=== PATIENT | female | born 2000 | race Caucasian/White ===

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

== ENCOUNTER 2019-09-23 00:18 | Emergency (ER) | payer SELFPAY ==
[~2019-09-23] VITALS: Ht 160 cm; Wt 87.0 kg
[2019-09-23] MEDS ORDERED: TRIM/SULFAMETH 160/800 (SEPTRA DS) TAB PO STA (01:54)
--- NOTE | 2019-09-23 02:01 | ED Integumentary General ---
General Chief Complaint: Skin/Wound Problems Stated Complaint: RASH Source: patient Exam Limitations: no limitations History of Present Illness Date Seen by Provider: Sep 23, 2019 Time Seen by Provider: 01:43 Initial Comments Here with report of rash to the right armpit in the posterior aspect. It started as one spot that has progressed to multiple spots along the posterior aspect. No abscess noted. No fever or chills. She states she uses deodorant and it's been the same one that she always uses. Timing/Duration: week, getting worse Severity: moderate Location: extremities Possible Cause: no cause identified Associated Symptoms: change in skin texture, rash Allergies and Home Medications Allergies Coded Allergies: sumatriptan (Verified Allergy, Unknown, 09/15/18) sumatriptan succinate (Verified Allergy, Unknown, 09/15/18) Patient Home Medication List Home Medication List Reviewed: Yes Review of Systems Review of Systems Constitutional: see HPI Respiratory: no symptoms reported Cardiovascular: no symptoms reported Skin: see HPI, change in color, lesions Past [id number] Hx Past Med/Social Hx: Reviewed Nursing Past Med/Soc Hx Patient Social History Alcohol Use: Denies Use Recreational Drug Use: No Smoking Status: Never a Smoker Recent Foreign Travel: No Contact w/Someone Who Travel: No Recent Hopitalizations: No Immunizations Up To Date Tetanus Booster (TDap): Less than 5yrs PED Vaccines UTD: Yes Date of Influenza Vaccine: Jun 06, 2013 Seasonal Allergies Seasonal Allergies: No Past Medical History Surgeries: Yes (MOLES REMOVED ON NECK X3, fissure repair ) Gallbladder Respiratory: Yes (ASTHMA YOUNG CHILD- NO LONGER) Cardiac: No Neurological: Yes (migraines) Headaches /Migraines Reproductive Disorders: No Female Reproductive Disorders: Polycystic Ovarian Dis Sexually Transmitted Disease: No HIV/AIDS: No Kidney Stones Gastrointestinal: Yes Gastroesophageal Reflux, Chronic Constipation Musculoskeletal: No Endocrine: No Loss of Vision: Denies Hearing Impairment: Denies Cancer: No Psychosocial: Yes Anxiety Integumentary: Yes Eczema Blood Disorders: No Adverse Reaction/Blood Tranf: No (N/A) Family Medical History Reviewed Nursing Family Hx Arthritis 19 MOTHER Asthma G8 BROTHER G8 SISTER Gastroenteritis 19 MOTHER Headache disorder 19 FATHER 19 MOTHER Hypertension 19 FATHER Visual disorder G8 SISTER (LAZY EYE) Physical Exam Vital Signs Capillary Refill : General Appearance: WD/WN, no apparent distress Cardiovascular: regular rate, rhythm, no murmur Respiratory: lungs clear, normal breath sounds Skin: rash Skin Problem Location: upper extremities (right axilla) Skin Problem Character: erythema, lesion, patchy, rash Lymphatic: axilla node tender (R) Progress/Results/Core Measures Results/Orders My Orders Orders - RHONDA ZAMAN MD Bactrim Ds Po (09/23/19 01:54) Progress Progress Note : Progress Note Seen and evaluated. Bactrim DS one tab by mouth. Antibiotic ointment for right arm given. Discharged home with return precautions. Patient verbalize understanding instructions and agreement with plan. Departure Impression Primary Impression: Cellulitis Qualified Codes: L03.111 - Cellulitis of right axilla Disposition: HOME, SELF-CARE Condition: Stable Departure-Patient Inst. Decision time for Depature: 02:02 Referrals: [facility] [place] (PCP/Family) Primary Care Physician Patient Instructions: Cellulitis (Skin Infection), Adult (DC) Add. Discharge Instructions: All discharge instructions reviewed with patient and/or family. Voiced understanding. Use triple antibiotic ointment plus pain relief to the area of concern twice daily. Continue to shower and wash area daily. Take medications as directed. You may take ibuprofen 600 mg every 8 hours as needed for pain. You may take Tyle nol/acetaminophen 1000 mg every 8 hours as needed for pain. Return for worse pain, increasing wounds, fever, weakness, breathing problems or other concerns as needed. Do not use antiperspirant and avoid deodorant until wound has healed Scripts Sulfamethoxazole/Trimethoprim (Bactrim Ds Tablet) 1 Each Tablet 1 EACH PO BID, #14 TAB 0 Refills Prov: RHONDA ZAMAN MD 09/23/19 RHONDA ZAMAN MD Sep 23, 2019 02:01
[2019-09-23] MEDS ORDERED: SULF1TAB35 PO (02:04)
[2019-09-23 02:18] VITALS: BP 136/92
== END 2019-09-23 02:23 | disposition home or self-care (01) ==
LOC: EDUNIT# 00:18 → ER 00:22
DX: L03.111 Cellulitis of right axilla (principal); G43.909 Migraine, unspecified, not intractable, without status migrainosus; F41.9 Anxiety disorder, unspecified; K21.9 Gastro-esophageal reflux disease without esophagitis; Z88.8 Allergy status to other drugs, medicaments and biological substances; Z87.442 Personal history of urinary calculi; Z82.49 Family history of ischemic heart disease and other diseases of the circulatory system
CPT/HCPCS: 99283

== ENCOUNTER 2019-12-20 22:52 | Emergency (ER) | payer SELFPAY ==
[~2019-12-20] VITALS: Ht 177 cm; Wt 87.0 kg
[~2019-12-20 22:52] MED LIST changes: +SULF1TAB35 PO
--- OUTSIDE RECORDS SUMMARY | 2019-12-20 23:00 | XMS REPORT ---
Author Author Migration Doctor Organization [facility] Address Unknown Phone Unavailable Care Team Providers Care Skein Winder Name Role Phone Migration, Doctor Unavailable Unavailable PROBLEMS Type Condition ICD9-CM Code [id number] Code Onset Dates Condition S tatus SNOMED Code Problem Major depressive disorder, recurrent episode, mild F33.0 Active 406690176 Problem Seasonal allergic rhinitis, unspecified allergic rhinitis trigger J30.2 Active 185223842 Problem Late menses N92.6 Active 01839568 Problem Missed period N92.6 Active 271474 00 Problem Irregular menses N92.6 Active 386 978795 Problem Anxiety, generalized F41.1 Active 40406790 Problem Other obesity due to excess calories E66.09 Active 145525044 Problem Body mass index (BMI) of 36.0-36.9 in adult Z68.36 Active [id number] ALLERGIES No Information ENCOUNTERS Encounter Location Date Diagnosis [facility] [id number] [place] [address] January, Dental infection K04.7 [facility] [address] [address] Aug, Exposure to STD Z20.2 and Mi ssed period N92.6 [facility] [id number] [place] [address] Jun, Non-intractable vomiting wit h nausea, unspecified vomiting type R11.2 ; Late menses N92.6 and Encounter for initial prescription of contraceptives, unspecified contraceptive Z30.019 [facility] [id number] [place] [address] Apr, Seasonal allergic rhinitis, unspecified allergic rhinitis trigger J30.2 and Sore throat J02.9 [facility] [address] [id number] [address] [place] [address] Apr, [facility] [address] [address] Feb, Acute bacterial conjunctivit is of left eye H10.32 [place] [address] [address] January, Major depressive disorder, r ecurrent episode, mild F33.0 ; Anxiety, generalized F41.1 and Irregular menses N92.6 [place] [address] [address] January, Major depressive disorder, r ecurrent episode, mild F33.0 ; Anxiety, generalized F41.1 ; Seasonal allergic rhinitis, unspecified allergic rhinitis trigger J30.2 ; Irregular menses N92.6 ; Other obesity due to excess calories E66.09 ; Body mass index (BMI) of 36.0-36.9 in adult Z68.36 and Encounter for repeat prescription of oral contraceptives Z30.41 [place] [address] [address] Dec, Anxiety, generalized F41.1 a nd Major depressive disorder, recurrent episode, mild F33.0 [place] [address] [address] Nov, [place] [address] [address] Nov, Anxiety, generalized F41.1 a nd Major depressive disorder, recurrent episode, mild F33.0 [place] [address] [address] Oct, Anxiety, generalized F41.1 a nd Major depressive disorder, recurrent episode, mild F33.0 [place] [address] [address] 13 Oct, 2017 Rectal bleeding K62.5 [facility] [id number] [place] [address] 10 Oct, 2017 Sore throat J02.9 and Acute nasopharyngitis J00 [facility] [address] [facility] [id number] [address] [place] [address] Oct, Viral gastroenteritis A08.4 [facility] [address] [facility] [id number] [address] [place] [address] Sep, Chest wall pain R07.89 [facility] [address] [id number] [address] [place] [address] Sep, Major depressive disorder, r ecurrent episode, moderate F33.1 [facility] [address] [facility] [id number] [address] [place] [id number] Sep, Viral syndrome B34.9 [place] [address] [facility] [id number] [address] [place] [address] Aug, Major depressive disorder, r ecurrent episode, moderate F33.1 and Anxiety, generalized F41.1 [place] [id number] [place] [address] Jul, [facility] [address] [id number] [address] [place] [address] Jul, Viral syndrome B34.9 [place] [address] [id number] [address] [place] [address] Jun, Anxiety, generalized F41.1 a nd Major depressive disorder, recurrent episode, moderate F33.1 [place] [address] [place] [address] May, Anxiety, generalized F41.1 a nd Major depressive disorder, recurrent episode, moderate F33.1 [place] [address] [id number] [address] [place] [address] May, Tear of medial meniscus of l eft knee, current, unspecified tear type, initial encounter S83.242A [facility] [id number] [place] [id number] 13 May, 2017 Encounter for immunization Z 23 [place] [address] [place] [id number] Apr, Major depressive disorder, r ecurrent episode, moderate F33.1 and Anxiety, generalized F41.1 [place] [id number] Apr, Moderate single current epis ode of major depressive disorder F32.1 ; Anxiety, generalized F41.1 and Panic disorder [episodic paroxysmal anxiety] without agoraphobia F41.[address] [address] Apr, Sports physical Z02.5 ; Enco unter for immunization Z23 ; Dietary counseling Z71.3 ; Exercise counseling Z71.89 ; Encounter for well child visit with abnormal findings Z00.121 ; High risk medication use Z79.899 ; Moderate single current episode of major depressive disorder F32.1 ; Overweight E66.3 ; Family history of heart disease in male family member before age 55 Z82.49 ; Heart palpitations R00.2 and Acute pain of right knee M25.561 [facility] [address] [address] Mar, Acute pain of left knee M25. 562 [facility] [place] [id number] January, Irregular menses N92.6 and S creen for STD (sexually transmitted disease) Z11.3 [facility] [address] [id number] January, Right lower quadrant abdomin al pain R10.31 and Flank pain R10.[address] [address] Oct, Influenza B J10.1 [facility] [address] [address] Oct, Acute nasopharyngitis J00 an d Seasonal allergic rhinitis, unspecified allergic rhinitis trigger J30.[address] [place] [address] Jun, [facility] [address] [id number] [address] [place] [address] May, [facility] [address] [id number] [address] [place] [address] May, [facility] [address] [facility] [id number] [address] [place] [address] May, [facility] [address] [id number] [address] [place] [address] May, [facility] [address] [id number] [address] [place] [address] Apr, [facility] [address] [facility] [id number] [address] [place] [address] Apr, [facility] [address] [facility] [id number] [address] [place] [address] Apr, [facility] [address] [facility] [id number] [address] [place] [address] Apr, Arthritis of left knee M19.9 0 and Tick-borne disease B88.2 [facility] [address] [facility] [id number] [address] [place] [phone] Dec, [facility] [address] [facility] [id number] [place] [address] [id number] Nov, 2016 Encounter for immunization Z 23 [facility] [address] [facility] [id number] [address] [place] [id number] 11 Nov, 2015 Influenza J11.1 [facility] [address] [facility] [id number] [address] [place] [id number] 07 Nov, 2015 Anxiety F41.9 [facility] [address] [facility] [id number] [address] [place] [address] 18 Sep, 2015 Sore throat J02.9 [facility] [address] [facility] [id number] [address] [place] [id number] Jul, Amenorrhea, unspecified N91. 2 and Dysuria R30.0 [facility] [address] [facility] [id number] [address] [place] [address] Jun, Acute nasopharyngitis J00 [facility] [address] [facility] [id number] [address] [place] [address] Jun, [facility] [id number] [place] [address] Mar, Pubertal menorrhagia 626.3 ; Initiation of OCP (BCP) V25.01 and Need for HPV vaccination V04.89 [facility] [id number] [place] [address] Mar, Mood disorder 296.90 and ADH D (attention deficit hyperactivity disorder), combined type 314.01 [facility] [address] [id number] [address] [place] [address] Dec, [facility] [address] [id number] [address] [place] [address] Dec, [facility] [address] [id number] [address] [place] [address] Aug, [facility] [address] [id number] [address] [place] [address] Aug, [facility] [address] [id number] [address] [place] [address] Aug, [facility] [address] [facility] [id number] [address] [place] [phone] Aug, [facility] [address] [id number] [address] [place] [address] Aug, [facility] [address] [id number] [address] [place] [address] Aug, [facility] [address] [id number] [address] [place] [address] Aug, [facility] [place] [facility] [address] [id number] [address] [place] [address], [place] [address] Jul, [facility] [place] [facility] [address] [id number] [address] [place] [address], [place] [address] Jul, [facility] [place] [facility] [address] [id number] [address] [place] [address], [place] [address] Jul, [facility] [place] [facility] [address] [id number] [address] [place] [address], [place] [address] Jul, [facility] [place] [facility] [address] [id number] [address] [place] [address], [place] [address] Jun, [facility] [place] [facility] [address] [id number] [address] [place] [address], [place] [address] Jun, [facility] [place] [facility] [address] [id number] [address] [place] [address], [place] [address] Jun, [facility] [place] [facility] [address] [id number] [address] [place] [address], [place] [address] Jun, [facility] [address] [id number] [address] [place] [address], [place] [address] January, [facility] [place] [facility] [address] [id number] [address] [place] [address], [place] [address] January, [facility] [place] [facility] [address] [id number] [address] [place] [address], [place] [address] January, [facility] [place] [facility] [address] [id number] [address] [place] [address], [place] [address] Nov, [facility] [place] [facility] [address] [id number] [address] [place] [address], [place] [address] Nov, [facility] [place] [facility] [address] [id number] [address] [place] [address], [place] [address] Aug, [facility] [place] [facility] [address] [id number] [address] [place] [address], [place] [address] Aug, [facility] [place] [facility] [address] [id number] [address] [place] [address], [place] [address] Aug, [facility] [address] [id number] [address] [place] [address], [place] [address] Aug, [facility] [address] [id number] [address] [place] [address], [place] [address] Aug, [facility] [address] [id number] [address] [place] [address], [place] [address] Jul, [facility] [address] [id number] [address] [place] [address], [place] [address] Jul, [facility] [address] [id number] [address] [place] [address], [place] [address] Jun, [facility] [address] [id number] [address] [place] [address], [place] [address] Jun, [facility] [address] [id number] [address] [place] [address], [place] [address] Jun, [facility] [address] [id number] [address] [place] [address], [place] [address] Jun, [facility] [address] [id number] [address] [place] [address], [place] [address] 24 Jun, 2013 [facility] [address] [id number] [address] [place] [address] Jun, [facility] [address] [id number] [address] [place] [address] 17 Jun, 2013 [facility] [place] [facility] [address] [id number] [address] [place] [address] 10 Jun, 2013 [facility] [address] [id number] [address] [place] [address], [place] [address] 03 Jun, 2013 [facility] [place] [facility] [address] [id number] [address] [place] [address] 11 Nov, 2012 [facility] [place] [facility] [address] [id number] [address] [place] [address], [place] [address] 11 Nov, 2012 [facility] [address] [id number] [address] [place] [address], [place] [address] Oct, [facility] [address] [id number] [address] [place] [address], [place] [address] Oct, [facility] [address] [id number] [address] [place] [address], [place] [address] Jul, [facility] [address] [id number] [address] [place] [address], [place] [address] Jul, [facility] [address] [id number] [address] [place] [address], [place] [address] Jul, [facility] [address] [id number] [address] [place] [address], [place] [address] Jul, [facility] [address] [id number] [address] [place] [address], [place] [address] Jul, [facility] [address] [id number] [address] [place] [address], [place] [address] Jul, [facility] [address] [id number] [address] [place] [address], [place] [address] Jun, [facility] [address] [id number] [address] [place] [address], [place] [address] Jun, [facility] [address] [id number] [address] [place] [address], [place] [address] Jun, [facility] [address] [id number] [address] [place] [address], [place] [address] Jun, [facility] [address] [id number] [address] [place] [address], [place] [address] May, [facility] [address] [id number] [address] [place] [address], [place] [address] May, [facility] [address] [id number] [address] [place] [address], [place] [address] Oct, [facility] [address] [id number] [address] [place] [address], [place] [address] Sep, [facility] [address] [id number] [address] [place] [address] Sep, [facility] [address] [id number] [address] [place] [address] Aug, [facility] [address] [id number] [address] [place] [address] Aug, [facility] [address] [id number] [address] [place] [address] Aug, [facility] [address] [id number] [address] [place] [address] Jun, [facility] [address] [id number] [address] [place] [address] Sep, [facility] [address] [id number] [address] [place] [address] Jul, [facility] [address] [id number] [address] [place] [address] Jul, IMMUNIZATIONS No Known Immunizations SOCIAL HISTORY Never Assessed REASON FOR VISIT PLAN OF CARE VITAL SIGNS Height 62 in 2014-08-24 Weight 174.6 lbs 2014-08-24 Temperature 96.7 degrees Fahrenheit 2014-08-24 Heart Rate 72 bpm 2014-08-24 Respiratory Rate 18 2014-08-24 Blood pressure systolic 122 mmHg 2014-08-24 Blood pressure diastolic 78 mmHg 2014-08-24 MEDICATIONS No Known Medications RESULTS No Results PROCEDURES No Known procedures INSTRUCTIONS MEDICATIONS ADMINISTERED No Known Medications MEDICAL (GENERAL) HISTORY Type Description Date Medical History Migraine, unspecified withou t mention of intractable migraine without mention of status migrainosus Medical History Moderate single current episode of major depressive disorder Medical History Panic disorder [episodic par oxysmal anxiety] without agoraphobia Medical History Family history of heart dise ase in male family member before age 55 Surgical History myringotomy with ventilating tube Surgical History cholecystectomy Jul 2016
--- OUTSIDE RECORDS SUMMARY | 2019-12-20 23:00 | XMS REPORT ---
Author Author [employer]. Organization [employer] Address [address] [address] Care Team Providers Care Gear Shaver Set Up Operator Name Role Phone LEÓN CUELLARE Unavailable Unavailable [facility] Unavailable MARIANA CUELLAR Unavailable PENCE, WILLIAM L Unavailable PENCE, WILLIAM Unavailable Unavailable SHANE PARSONS Unavailable Unavailable ALIYA KILPATRICK Unavailable Unavailable TISH LÓPEZ Unavailable Unavailable PENCE, WILLIAM L Unavailable CHRISTINA PLASENCIA Unavailable PENCE, WILLIAM L Unavailable [facility] Unavailable JAI LAWRENCE Unavailable RAJLYUDMILAE, RALF Unavailable [facility] Unavailable [phone] RAJOTTE, RALF Unavailable LAKSHMI COBOS Unavailable TIKA BLANC Unavailable SOBEIDA, ESME Unavailable SOBEIDA, ESME Unavailable TIKA BLANC Unavailable SOBEIDA, ESME Unavailable RAJLYUDMILAE, RALF Unavailable LAWRENCE VERGARA Unavailable SOBEIDA, ESME Unavailable MARYANNE PICHARDO Unavailable MARYANNE PICHARDO Unavailable DEANNA KILPATRICKELE Unavailable SOBEIDA, ESME Unavailable FINESSE ALIYA Unavailable SOBEIDA, ESME Unavailable ESME VIDALES Unavailable ALIYA KILPATRICK Unavailable ALIYA KILPATRICK Unavailable VARUNIVAN LUNA Unavailable JANETH HANSON Unavailable LAWRENCE VERGARA VOUCHER CLERK Unavailable Unavailable FELIX TINOCO Unavailable [facility] Unavailable [phone] Migration, Doctor Unavailable Unavailable Migration, Doctor Unavailable Unavailable Migration, Doctor Unavailable Unavailable Migration, Doctor Unavailable Unavailable Migration, Doctor Unavailable Unavailable Migration, Doctor Unavailable Unavailable Migration, Doctor Unavailable Unavailable Migration, Doctor Unavailable Unavailable ALIYA Mosley Unavailable Unavailable Migration, Doctor Unavailable Unavailable Migration, Doctor Unavailable Unavailable Migration, Doctor Unavailable Unavailable Migration, Doctor Unavailable Unavailable Migration, Doctor Unavailable Unavailable MANOJ LARSON Unavailable BERNABE MAGDALENO, CHRISTINA Sommers Unavailable Unavailable FELICIA DO, SUSIE K Unavailable Unavailable COREY MAGDALENO, CAROL Okeefe Unavailable Unavailable AUSTYN MAGDALENO, RHONDA Rodrigues Unavailable Unavailable TARAN FOFANA, PATRIC Whipple Unavailable Unavailable SHAKIR MAGDALENO, JAMAAL Rodriguez Unavailable Unavailable KUSH MAGDALENO, CASSIE Carmen Unavailable Unavailable ADARSH VOUCHER CLERK, DUSTIN Mulligan Unavailable Unavailable ALISA DO, MARIANA Unavailable Unavailable RAFAEL DELATORRE, RALF Okeefe Unavailable Unavailable SAMMY MAGDALENO, WILLIAM Whipple Unavailable Unavailable SAMMY MAGDALENO, WILLIAM Whipple Unavailable Unavailable JAI VOUCHER CLERK, LAWRENCE Perry Unavailable Unavailable TIKA MCKEON Unavailable Unavailable BERNKETURAH DELATORRE, VIANCA Unavailable Unavailable TISH LÓPEZ Unavailable PCP, TRANSITION Unavailable Unavailable Unavailable Unavailable CHANDLER Monteiro Unavailable Allergies The data below is from unstructured sourcesNo Known Allergies No Known Allergies No Known Allergies No Known Allergies No Known Allergies Unknown Allergies Unknown AllergiesNo Known Allergies No Known Allergies No Known Allergies No Known Allergies No Known Allergies No Known Allergies No Information No Information No Information No Information No Information No Information No Information No Information No Information No Information No Information No Information No Information No Information No Information No Information No Information No Information No Information No Information No Information No Information No Information No Information No Information No Information No Information No Information No Information No Information No Information No Information No Information No Information No Information No Information No Information No Information No Information No Information No Information No Information No Information No Information No Information No Information No Information No Information No Information No Information No Information No Information No Information No Information No Information No Information No Information No Information Medications Current Medications Medication Ingredient Drug Dose Dates Status Sig Sig Care Class(es) (Normalized) (Original) Provid er acetaminoph acetaminoph no 650 mg Active no Tylenol 325 no en 325 mg en information information MG Orally name oral tablet Translation every 6 hrs (no (5 s: [ 2 tablets as phone) sources.) Tylenol 325 needed 6h MG] Active amoxicillin Amoxicillin Penicillin- 07-03-20 Active take 1 Augme ntin no 875 mg / / class 13 tablet by 875-125 mg 1 name clavulanate Clavulanate Antibacteri mouth twice tablet by (n o 125 mg oral Translation al daily Oral route 2 phone) tablet (1 s: [ times per source.) Augmentin day for 10 875-125 mg] day(s) Jun, Active cefuroxime Cefuroxime Cephalospor 500 mg 07-15-20 Active take 2 Ceftin 250 no 250 mg oral Translation in 12 tablets by mg 2 tablet name tablet (1 s: [ Ceftin Antibacteri mouth twice by Oral (no source.) 250 mg] al daily route 2 phone) times per day for 10 day(s) Jul, Active lubiproston lubiproston Chloride 0.008 08-15-20 Active take 1 A mitiza 8 no e 0.008 mg e Channel mg 14 capsule by mcg 1 name oral Translation Activator mouth twice capsule by (no capsule (1 s: [ daily Oral route 2 phone) source.) Amitiza 8 times per mcg] day Aug, Active no magnesium no 07-23-20 Active take 150 mL Magnesium no information citrate information 14 by mouth Citrate 150 name (1 source.) once daily mL by Oral (no route 1 time phone) per day Jul, Active nitroglycer nitroglycer Nitrate 20 % Active no Nitro-Bid 2 no in 0.02 in Vasodilator information % 10 Active name mg/mg Translation (no topical s: [ phone) ointment (1 Nitro-Bid 2 source.) %] sertraline sertraline Serotonin 50 mg 01-07-20 Active no Se rtraline no 50 mg oral Translation Reuptake 18 information HCl 50 mg name tablet (1 s: [ Inhibitor Orally Once (no source.) Sertraline a day 1 phone) HCl 50 mg] tablet 24h January, 30 day(s) Active no Sprintec 28 no Active no Sprintec 28 no information information information Active name (5 (no sources.) phone) no no Sprintec no name information inform 28 (no ation Not-Taki phone) ng Active no no no name inform informat (no ation ion phone) {21 {21 no Active no Sprintec 28 no (Ethinyl (Ethinyl information information 0.25-35 name Estradiol Estradiol MG-MCG (no 0.035 MG / 0.035 MG / Orally Once phone) norgestimat norgestimat a day 1 e 0.25 MG e 0.25 MG tablet 24h Oral Oral 28 days Tablet) / 7 Tablet) / 7 Active (Inert (Inert Ingredients Ingredients 1 MG Oral 1 MG Oral Tablet) } Tablet) } Pack Pack [Sprintec [Sprintec 28 Day] (2 28 Day] sources.) Translation s: [ Sprintec 28 0.25-35 MG-MCG, Sprintec 28 0.25-35 MG-MCG] Completed/Discontinued Medications Medication Ingredient Drug Dose Dates Status Sig Sig Care Class(es) (Normalized) (Original) Provid er 24 hr desvenlafax Serotonin 25 mg 04-15-20 no no Prist iq 25 no desvenlafax ine and 17 informat information MG Orally name ine 25 mg Translation Norepinephr ion Once a day 1 (no extended s: [ ine tablet 24h phone) release Pristiq 25 Reuptake 10 Apr, 2017 oral tablet MG] Inhibitor Not-Taking (4 sources.) no Lactobacill no 08-18-20 Complete no Lactobacillu William information us information 14 - d information s L (1 source.) Rhamnosus/I 04-25-20 Rhamnosus/In [place] nulin 16 ulin (no (Culturelle (Culturelle phone) Capsule) 1 Capsule) 1 Each Each Cap.sprink, Cap.sprink, 1 Each Oral 1 Each Oral Daily 08/18/14 Discontinued nitrofurant NITROFURANT Nitrofuran 25 mg 06-13-20 Complete no Nitrofuranto Susie K oin, OIN, Antibacteri 14 - d information in [place] macrocrysta MACROCRYSTA al 08-17-20 Macrocrystal (no ls 25 mg / LS / 14 s (Macrobid) phone) nitrofurant Nitrofurant 100 Mg oin, oin, Capsule, 1 monohydrate Monohydrate Each Oral 75 mg oral Twice A Day capsule (1 06/13/14 source.) Discontinued Problems Active Problems Problem Normalized Date of Normalized Normalized Provider Fac ility Classification Problem(s) Problem Problem Problem Sta tus Onset/Resoluti Duration on Allergic Allergy status Episodic Active PATRIC [facility] Via reactions ([address] [facility] sources.) drugs, Hospital - medicaments [place] and biological ([address]35) substances status Attention-defi Attention-defi Chronic Active DUSTIN ALTAMIRANO , [facility] Via cit conduct cit RIGOBERTO Wagneri and disruptive hyperactivity [facility] disorders (15 unspecified (06261) sources.) type Unclassified Body mass Chronic Active IVAN Chaneyu nity (19 sources.) index (BMI) [address]342 [facility] 36.0-36.9, of [facility] adult [place] ([address]57) Translations: [ - Body mass index (BMI) of 36.0-36.9 in adult Z68.36, - Body mass index (BMI) of 36.0-36.9 in adult Z68.36] Other Body mass Chronic Active IVAN BELA Communit y nutritional; index 30+ - 92547 [facility] endocrine; and obesity of [facility] metabolic Translations: [place] (38065) disorders (19 [ Body mass sources.) index (BMI) of 36.0-36.9 in adult, Body mass index (BMI) of 36.0-36.9 in adult] Biliary tract Calculus of Episodic Active CASSIE CURRIE [facility] Via disease (12 gallbladder , MD Goldberg sources.) without Hospital - cholecystitis [place] without (07569) obstruction Other Constipation, Episodic Active PATRIC [facility] Via gastrointestin unspecified [facility] al disorders Hospital - (7 sources.) [place] ([address]) Other Constipation, Episodic Active CHRISTINA [facility] Via gastrointestin unspecified Ashlyn KIDD disorders Hospital - (19 sources.) [place] ([address]) Residual Family history Episodic Active JAIMA TINOCO Comm unity codes; of ischemic [address] [facility] unclassified heart disease of [facility] (17 sources.) and other [place] ([address]191) diseases of the circulatory system Translations: [ - Family history of heart disease in male family member before age 55 Z82.49] Fever of Fever, Episodic Active [facility] unknown origin unspecified [facility] (1 source.) Translations: 71985 of [facility] [ - Fever [place] () R50.9] Esophageal Gastro-esophag Chronic Active DUSTIN ALTAMIRANO [facility] Via disorders (17 eal reflux VOUCHER CLERK [facility] sources.) disease Hospital - [facility] esophagitis (72454) Nausea and Nausea with Episodic Active FELIX LERNERER [facility] ity vomiting (18 vomiting, [address] [facility] sources.) unspecified of [facility] Translations: [place] () [ - Non-intractabl e vomiting with nausea, unspecified vomiting type R11.2] Other Obesity Chronic Active IVAN BEAL [facility] nutritional; Translations: [address] [place] [address] endocrine; and [ Other of [facility] metabolic obesity due to [place] () disorders (19 excess sources.) calories, Other obesity due to excess calories] Residual Other general [facility]odic [facility]; symptoms and [facility] unclassified signs [id number] [place] [address] (1 source.) Translations: [place] () [ - Flu-like symptoms R68.89] Hemorrhoids (9 Other Episodic Active CASSIE CURRIE [facility] Via sources.) hemorrhoids , [facility] () Other Other obesity Chronic Active IVAN BEAL [facility] nutritional; due to excess [address] [place] [address] endocrine; and calories of [facility] metabolic Translations: [place] () disorders (19 [ - Other sources.) obesity due to excess calories E66.09, - Other obesity due to excess calories E66.09] Other upper Other seasonal Chronic Active IVAN Irby ommunity respiratory allergic [address] [place] [address] disease (20 rhinitis of [facility] sources.) Translations: [place] () [ - Seasonal allergic rhinitis, unspecified allergic rhinitis trigger J30.2, - Seasonal allergic rhinitis, unspecified allergic rhinitis trigger J30.2] Other Overweight Episodic Active TISH MARIBEL [facility] ity nutritional; Translations: [address] [facility] endocrine; and [ - Overweight of [facility] metabolic E66.3] [place] (17252) disorders (2 sources.) Other Pain in left Episodic Active DUSTIN ALTAMIRANO Not Isabella ilable non-traumatic knee (79305) joint Translations: disorders (20 [ - Acute pain sources.) of left knee M25.562, - Acute pain of left knee M25.562] Other Pain in right Episodic Active DUSTIN ALTAMIRANO Not Av ailable non-traumatic knee (10994) joint Translations: disorders (20 [ - Acute pain sources.) of right knee M25.561, - Acute pain of right knee M25.561] Disorders of Periapical Episodic Active Doctor Communit y teeth and jaw abscess Migration [facility] (7 sources.) without sinus of [place] Translations: [place] (84566) [ - Dental infection K04.7] Other Personal Episodic Active PATRIC [facility] Via gastrointestin history of [facility] al disorders other diseases Hospital - (7 sources.) of the [place] digestive (00203) system Calculus of Personal Episodic Active DUSTIN ALTAMIRANO [facility] Via urinary tract history of RIGOBERTO [facility] (10 sources.) urinary Hospital - calculi [place] (64630) Other injuries Shoulder and Episodic Active RHONDA Not Available and conditions upper arm MD AUSTYN (17254) due to injury external causes (5 sources.) Inflammation, Unspecified Episodic Active REBEKAH Taylor ity infection of acute PICHARDO [address] [facility] eye (20 conjunctivitis of [place] sources.) , left eye [place] (63434) Translations: [ - Acute bacterial conjunctivitis of left eye H10.32, - Acute bacterial conjunctivitis of left eye H10.32] Asthma (9 Unspecified Chronic Active PATRIC [facility] Via sources.) asthma, [facility] uncomplicated Hospital - [place] (59140) Past or Other Problems Problem Normalized Date of Normalized Normalized Provider Fac ility Classification Problem(s) Problem Problem Problem Sta tus Onset/Resoluti Duration on External Accidental no information no information DO Danielle GLEASON Available Injury - Fall fall on or (57445) (7 sources.) from other stairs or steps Translations: [ FALL IN SPORTS] External Accidents no information no information Lilia GLEASON Not Available Injury - Place occurring in (83979) of occurrence public (7 sources.) building Translations: [ ACCID IN RECREATION AREA] Other and Benign Episodic Completed CASSIE CURRIE Not Avai lable unspecified neoplasm of , (79098) benign scalp and skin neoplasm (3 of neck sources.) Skin and Cellulitis and Episodic Completed MICHAEL Not Isabella ilable subcutaneous abscess of DANIA , DO (69996) tissue leg, except infections (1 foot source.) Other Effusion of Episodic Completed MICHAEL Not Availa ble non-traumatic joint, lower DANIA , DO (87347) joint leg disorders (1 source.) Other injuries Knee, leg, Episodic Completed SUSIE FELICIA , DO N ot Available and conditions ankle, and (66160) due to foot injury external causes (2 sources.) External Other external no information no information SUSIE SUNITA O , DO Not Available Injury - cause status (06705) Unspecified Translations: (11 sources.) [ ACTIVITIES INVOLVING ICE SKATING, OTHER EXTERNAL CAUSE STATUS] Sprains and Sprain of Episodic Completed SUSIE FELICIA , DO Not A vailable strains (2 foot, (96482) sources.) unspecified site Procedures Procedure Normalized Procedure Procedure Result Performer Facility Date 09-15-2018 Computed tomography of no information VIANCA HIGHTOWER [facility] [facility] and pelvis [facility] (90262) with contrast 01-11-2014 Cul bact xcpt urine no information no name (no phon e) [facility] blood/stool aerobic [facility] (30238) 01-07-2018 Hemoglobin no information no name (no phone) [facility] glycosylated a1c [facility] (81757) 04-25-2018 Iaadiadoo no information no name (no phone) [facility] streptococcus group a [facility] (09778) 09-08-2017 Influenza assay no information no name (no phone) [facility] w/optic [facility] (05389) 01-07-2018 LAB NOT BILLED BY [facility] information [facility]no phone[facility] (09057) 10-19-2017 LAB NOT BILLED BY no information no name (no phone) [facility] (31529) 08-23-2018 No Charge no information no name (no phone) Comm [facility] (42084) 12-30-2017 Psychotherapy no information no name (no phone) [facility] w/patient 30 minutes [facility] [place] (83262) 11-15-2017 Psychotherapy no information no name (no phone) [facility] w/patient 30 minutes [facility] (16249) 08-09-2017 Psytx pt&/family 30 no information no name (no phon e) [facility] (16959) 10-28-2017 Psytx pt&/family 45 no information no name (no phon e) [facility] (40180) 09-23-2017 Psytx pt&/family 45 no information no name (no phon e) [facility] (89093) 07-05-2017 Psytx pt&/family 45 no information no name (no phon e) [facility] (13696) 05-31-2017 Psytx pt&/family 45 no information no name (no phon e) [facility] (61594) 10-19-2017 Routine venipuncture no information no name (no ace ne) [facility] (13753) 10-16-2017 Strep a assay w/optic no information no name (no ph one) [facility] (08688) 08-23-2018 Urine test no information no name (no ace ne) [facility] visual color cmprsn [facility] (90720) 08-17-2014 X-ray exam of abdomen no information no name (no ph one) [facility] (64591) Immunizations The data below is from unstructured sourcesNo immunization records. No Known Immunizations No Known ImmunizationsNo immunization records.No immunization records. No Known Immunizations No Known Immunizations No Known Immunizations No Known Immunizations No Known Immunizations No Known Immunizations No Known Immunizations No Known Immunizations No Known Immunizations No Known Immunizations No Known Immunizations No Known Immunizations No Known Immunizations No Known Immunizations No Known Immunizations No Known Immunizations No Known Immunizations No Known Immunizations No Known Immunizations No Known Immunizations No Known Immunizations No Known Immunizations No Known Immunizations No Known Immunizations No Known Immunizations No Known Immunizations No Known Immunizations No Known Immunizations No Known Immunizations No Known Immunizations No Known Immunizations No Known Immunizations No Known Immunizations No Known Immunizations No Known Immunizations No Known Immunizations No Known Immunizations No Known Immunizations No Known Immunizations No Known Immunizations No Known Immunizations No Known Immunizations No Known Immunizations No Known Immunizations No Known Immunizations No Known Immunizations No Known Immunizations No Known Immunizations No Known Immunizations No Known Immunizations No Known Immunizations No Known Immunizations No Known Immunizations No Known Immunizations No Known Immunizations No Known Immunizations No Known Immunizations No Known Immunizations No Known Immunizations No Known Immunizations No Known Immunizations No Known Immunizations No Known Immunizations No Known Immunizations No Known Immunizations No Known Immunizations No Known Immunizations No Known Immunizations No Known Immunizations No Known Immunizations No Known Immunizations No Known Immunizations No Known Immunizations No Known Immunizations No Known Immunizations No Known Immunizations No Known Immunizations No Known Immunizations Results Test Name Value Interpretation Reference Range Date Time Fa cility (Normalized) (Normalized) (Medline Reference) strep a (in house) on null STREP A (IN [id number] (no code) [facility]) [facility] (35570) STREP A (IN 18 (no code) [facility]) [facility] (52903) STREP A (IN [id number] (no code) [facility]) [facility] (86579) STREP A (IN 2019 10 16 (no code) [facility]) [facility] (71450) test, urine (in house) on null TEST, [id number] (no code) [facility] URINE (IN HOUSE) [facility] (51802) TEST, 03/05/2020 (no code) [facility] URINE (IN HOUSE) [facility] (42761) mri : knee, left w/o contrast on null NEGATED: no information (no code) [facility] Highlighted row [facility] of [facility] Studies (00914) influenza a & b (in house) on null INFLUENZA A & B [id number] (no code) [facility] (IN HOUSE) [facility] (98973) INFLUENZA A & B 11/03/2018 (no code) [facility] (IN HOUSE) [facility] (94220) No panel information on null Control no information (no code) [facility] (24589) Exp date 2020 06 16 (no code) [facility] (16221) Lot # [id number] (no code) [facility] (99609) No panel information on 2019-12-04 Exp date no information (no code) [facility] (20142) Exp date 07/26/2022 (no code) [facility] (94282) Lot # [id number] (no code) [facility] (39853) No panel information on 2019-10-29 Control no information (no code) [facility] (98945) Exp date 2022-06-30 (no code) [facility] (99974) Lot # [id number] (no code) [facility] (76908) venous blood hemoglobin measurement (mass/volume) on 2018-09-15 Hemoglobin mass 14.2 g/dL (no code) 12.1 - 17.2 g/dL Asce nsion Via conc (Bld) [facility] (14659) urine urobilinogen measurement by automated test strip (mass/volume) on 2018-09-15 Urobilinogen NORMAL (no code) [facility] Test strip Qn [facility] (U) (21997) urine total bilirubin detection by test strip on 2018-09-15 Bilirubin Ql (U) no information (no code) [facility] (31743) urine protein assay by test strip, semi-quantitativ e on 2018-09-15 Protein Test 1+ (*) [facility] strip Ql (U) [facility] (86878) urine ph measurement by test strip on 2018-09-15 pH Test strip 7 [pH] (no code) 4.6 - 8 [pH] [facility] Via (U) [facility] (41388) urine nitrite detection by test strip on 2018-09-15 Nitrite Test no information (no code) [facility] strip Ql (U) [facility] (01673) urine leukocyte esterase detection by dipstick on 2018-09-15 Leukocyte 2+ (*) [facility] esterase Test [facility] strip Ql (U) (60291) urine ketones detection by automated test strip on 2018-09-15 Ketones 1+ (*) [facility] Automated test [facility] strip Ql (U) (28178) urine glucose detection by automated test strip on 2018-09-15 Glucose no information (no code) [facility] Automated test [facility] strip Ql (U) (56149) urine color determination on 2018-09-15 Color Nom (U) YELLOW (no code) [facility] (12881) urine clarity determination on 2018-09-15 Clarity Nom (U) VERY CLOUDY (*) [facility] (29494) squamous epithelial cells detection in urine sediment by light microscopy on 2018-09-15 Epithelial no information (*) [facility] cells.squamous [facility] LM Ql (Urine () sed) specific gravity of urine by test strip on 2018-09-15 Specific gravity 1.015 (*) [facility] Relative Density [facility] (U) (20978) serum or plasma urea nitrogen/creatin ine mass ratio on 2018-09-15 Urea 14 mg/mg (no code) 6 - 22 mg/mg [facility] Vi a nitrogen/Creatin [facility] ine mass ratio (81580) serum or plasma urea nitrogen measurement (mass/volume) on 2018-09-15 Urea nitrogen 11 mg/dL (no code) 7 - 20 mg/dL [place] Via mass [facility] ([id number]) serum or plasma total bilirubin measurement (mass/volume) on 2018-09-15 Bilirubin mass 0.4 mg/dL (no code) 0.1 - 1.2 mg/dL [facility] (28288) serum or plasma sodium measurement (moles/volume) on 2018-09-15 Sodium molar 141 mmol/L (no code) 135 - 145 mmol/L [facility] (87708) serum or plasma protein measurement (mass/volume) on 2018-09-15 Protein mass 8.3 g/dL (H) 6.4 - 8.3 g/dL [facility] [facility] (77945) serum or plasma potassium measurement (moles/volume) on 2018-09-15 Potassium molar 4.2 mmol/L (no code) 3.7 - 5.2 mmol/L As[facility] ns[facility] Via [facility] (13729) serum or plasma glucose measurement (mass/volume) on 2018-09-15 Glucose mass 86 mg/dL (no code) 60 - 125 mg/dL [facility] (73529) serum or plasma creatinine measurement with calculation of estimated glomerular filtration rate on 2018-09-15 GFR/1.73 sq M no information (no code) [facility] Via predicted [facility] non-blacks MDRD ([id number]) vol rate/area (S/P/Bld) serum or plasma creatinine measurement (mass/volume) on 2018-09-15 Creatinine mass 0.78 mg/dL (no code) [facility] (80570) serum or plasma chloride measurement (moles/volume) on 2018-09-15 Chloride molar 104 mmol/L (no code) 95 - 106 mmol/L [facility] (94890) serum or plasma calcium measurement (mass/volume) on 2018-09-15 Calcium mass 10.0 mg/dL (no code) 8.5 - 10.2 mg/dL [facility] (88952) serum or plasma aspartate aminotransferase measurement (enzymatic activity/volume) on 2018-09-15 AST enzyme 13 U/L (no code) 10 - 34 U/L [facility] (30358) serum or plasma anion gap determination (moles/volume) on 2018-09-15 Anion gap 3 11 mmol/L (no code) 3 - 11 mmol/L [place] V ia molar [facility] (09715) serum or plasma amylase measurement (enzymatic activity/volume) on 2018-09-15 Amylase enzyme 37 U/L (no code) 40 - 140 U/L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 04-29-2016 Patient encounter no information no name (no phone) no organization name procedure (no phone) no information Encounter for other no name (no phone) no org anization name preprocedural (no phone) examination no information Encounter for routine no name (no phone) no o rganization name child health (no phone) examination with abnormal findings no information Pre-operative no name (no phone) no organiza tion name examination, (no phone) unspecified Medical Equipment No Information Payers Normalized Payer Value Self-pay no information ([id number]) History general Narrative - Reported Note Type Note Facility History general Narrative - Reported Type Medical Migraine, unspecified witho ut mention of intractable migraine without mention of History status migrainosus Medical Moderate single current epi sode of major depressive disorder History Medical Panic disorder [episodic pa roxysmal anxiety] without agoraphobia History Medical Family history of heart dis ease in male family member before age 55 History Surgical myringotomy with ventilatin g tube History Surgical cholecystectomy Jul 2016 History [facility] ([id number]) Summary Purpose eClinicalWorks SubmissioneClinicalWorks SubmissioneClinicalWorks SubmissioneClinicalWorks SubmissioneClinicalWorks SubmissioneClinicalWorks SubmissioneClinicalWorks SubmissioneClinicalWorks Submission Advance Directives Directive Response Recor ded Date/Time Advance Directives No 3:14pm Health Care Power of Vision Rehabilitation Therapist No 04/25/16 3:14pm Organ Donor No 04/25/16 3:14pm Resuscitation Status Full Code 04/25/16 3:14pm Directive Response Recor ded Date/Time Advance Directives No 8:37am Health Care Power of Vision Rehabilitation Therapist No 07/15/16 8:37am Organ Donor No 07/15/16 8:37am Resuscitation Status Full Code 07/15/16 8:37am Directive Response Recor ded Date Advance Directives N 04/18 8:11pm Organ Donor N 01/11/13 8 :11pm Directive Response Recor ded Date/Time Advance Directives No 10:16pm Organ Donor No 07/23/14 10:16pm Resuscitation Status Full Code 07/23/14 10:16pm Directive Response Recor ded Date/Time Advance Directives No 10:48pm Organ Donor No 06/12/14 10:48pm Resuscitation Status Full Code 06/12/14 10:48pm Directive Response Recor ded Date/Time Advance Directives No 10:38pm Organ Donor No 06/13/14 10:38pm Resuscitation Status Full Code 06/13/14 10:38pm Directive Response Recor ded Date/Time Advance Directives No 6:55pm Health Care Power of Vision Rehabilitation Therapist No 08/17/14 6:55pm Organ Donor No 07/23/14 10:16pm Resuscitation Status Full Code 08/17/14 6:55pm Directive Response Recor ded Date/Time Advance Directives No 9:34pm Health Care Power of Vision Rehabilitation Therapist No 10/20/17 9:34pm Organ Donor No 10/20/17 9:34pm Resuscitation Status Full Code 10/20/17 9:34pm Directive Response Recor ded Date/Time Advance Directives No 8:38am Health Care Power of Vision Rehabilitation Therapist No 11/01/17 8:38am Organ Donor No 11/01/17 8:38am Discharge Instructions No hospital discharge instructions. Patient Instructions Physician Instructions New, Converted or Re-Newed RX: RX on Chart Plan of Care/Instructions/FU: dressings off in 48 hours. Incentive spirometry. In 3 weeks Activity as Tolerated: Yes Discharge Diet: No Restrictions Care Plan Patient Instructions:: dressings off in 48 hours. Incentive spirometry. In 3 weeks No hospital discharge instructions.No hospital discharge instructions.No hospital discharge instructions.No hospital discharge instructions.No hospital discharge instruction information available.No hospital discharge instruction information available. Chief Complaint and Reason for Visit Chief Complaint Abdominal/GI Problem s Reason for Visit [id number] Additional Source Comments This clinical document has been generated using [employer] software that has been certified by the Office of the National Coordinator for Health Information Technology (ONC 15.99.04.3023.Diam.31.00.0.089698) and the National Committee for [employer] (NCQA, as an eMeasure certified technology). FOR RECORDS PERTAINING TO PATIENTS WHO ARE OR HAVE BEEN ENROLLED IN A CHEMICAL D EPENDENCY/SUBSTANCE ABUSE PROGRAM, SOME INFORMATION MAY BE OMITTED. This clinica l summary was aggregated from multiple sources. Caution should be exercised in using it in the provision of clinical care. This summary normalizes information from multiple sources, and as a consequence, information in this document may ma terially change the coding, format and clinical context of patient data. In odell tion, data may be omitted in some cases. CLINICAL DECISIONS SHOULD BE BASED ON T HE PRIMARY CLINICAL RECORDS. [employer] provides no warranty or guara ntee of the accuracy or completeness of information in this document.The followi ng information is based on time limited clinical information UNRECOGNIZED CONTENT PROVIDED BELOW FOR UNRECOGNIZED SECTION MEDICAL (GENERAL) HISTORY Type Description Date Medical History Migraine, unspecifie d without mention of intractable migraine without mention of status migrainosus Medical History Moderate single curr ent episode of major depressive disorder Medical History Panic disorder [epis odic paroxysmal anxiety] without agoraphobia Surgical History myringotomy with ve ntilating tube Surgical History cholecystectomy Jul 2016 Type Description Date Medical History Migraine, unspecifie d without mention of intractable migraine without mention of status migrainosus Medical History Moderate single curr ent episode of major depressive disorder Medical History Panic disorder [epis odic paroxysmal anxiety] without agoraphobia Medical History Family history of he art disease in male family member before age 55 Surgical History myringotomy with ve ntilating tube Surgical History cholecystectomy Jul 2016 UNRECOGNIZED CONTENT PROVIDED BELOW FOR UNRECOGNIZED SECTION REASON FOR VISIT Eye c/osore throat for 4 days. reports boyfriend had tonsilitis last week. she h as been sick for 4 days. [id number] check/ all Andreia Soto Pt hasn't had period for 3 months with back pain and nausea Andreia SOTO Pt reported that someone she slept with has slept with some one who had chlamydia Andreia OlmsteadR-Ma [id number]
--- OUTSIDE RECORDS SUMMARY | 2019-12-20 23:00 | XMS REPORT ---
Author Author Migration Doctor Organization [facility] Address Unknown Phone Unavailable Care Team Providers Care Programming Equipment Operator Name Role Phone Migration, Doctor Unavailable Unavailable PROBLEMS Type Condition ICD9-CM Code [id number] Code Onset Dates Condition S tatus SNOMED Code Problem Major depressive disorder, recurrent episode, mild F33.0 Active 069188658 Problem Seasonal allergic rhinitis, unspecified allergic rhinitis trigger J30.2 Active 224241908 Problem Late menses N92.6 Active 73279500 Problem Missed period N92.6 Active 282013 00 Problem Irregular menses N92.6 Active 386 031338 Problem Anxiety, generalized F41.1 Active 44935395 Problem Other obesity due to excess calories E66.09 Active 868604183 Problem Body mass index (BMI) of 36.0-36.9 in adult Z68.36 Active [id number] ALLERGIES No Information ENCOUNTERS Encounter Location Date Diagnosis [facility] [address] [id number] [address] [place] [address] January, Dental infection K04.7 [facility] [place] [address] [address] Aug, Exposure to STD Z20.2 and Mi ssed period N92.6 [facility] [place] [address] [id number] [place] [address] Jun, Non-intractable vomiting wit h nausea, unspecified vomiting type R11.2 ; Late menses N92.6 and Encounter for initial prescription of contraceptives, unspecified contraceptive Z30.019 [facility] [id number] [place] [address] Apr, Seasonal allergic rhinitis, unspecified allergic rhinitis trigger J30.2 and Sore throat J02.9 [facility] [place] [id number] [address] [place] [address] Apr, [facility] [place] [address] [address] Feb, Acute bacterial conjunctivit is of left eye H10.32 [place] [address] [address] January, Major depressive disorder, r ecurrent episode, mild F33.0 ; Anxiety, generalized F41.1 and Irregular menses N92.6 [place] [address] [address] January, Major depressive disorder, r ecurrent episode, mild F33.0 ; Anxiety, generalized F41.1 ; Seasonal allergic rhinitis, unspecified allergic rhinitis trigger J30.2 ; Irregular menses N92.6 ; Other obesity due to excess calories E66.09 ; Body mass index (BMI) of 36.0-36.9 in adult Z68.36 and Encounter for repeat prescription of oral contraceptives Z30.41 [place] [address] [address] Dec, Anxiety, generalized F41.1 a nd Major depressive disorder, recurrent episode, mild F33.0 [place] [address] [address] Nov, [place] [address] [address] Nov, Anxiety, generalized F41.1 a nd Major depressive disorder, recurrent episode, mild F33.0 [place] [address] [address] Oct, Anxiety, generalized F41.1 a nd Major depressive disorder, recurrent episode, mild F33.0 [place] [address] [address] 13 Oct, 2017 Rectal bleeding K62.5 [facility] [id number] [place] [address] 10 Oct, 2017 Sore throat J02.9 and Acute nasopharyngitis J00 [facility] [address] [facility] [id number] [address] [place] [address] Oct, Viral gastroenteritis A08.4 [facility] [address] [facility] [id number] [address] [place] [address] Sep, Chest wall pain R07.89 [facility] [place] [id number] [place] [address] Sep, Major depressive disorder, r ecurrent episode, moderate F33.1 [facility] [address] [facility] [id number] [address] [place] [id number] Sep, Viral syndrome B34.9 [place] [address] [facility] [id number] [address] [place] [address] Aug, Major depressive disorder, r ecurrent episode, moderate F33.1 and Anxiety, generalized F41.1 [place] [id number] [place] [address] Jul, [facility] [id number] [address] [place] [address] Jul, Viral syndrome B34.9 [place] [id number] [place] [address] Jun, Anxiety, generalized F41.1 a nd Major depressive disorder, recurrent episode, moderate F33.1 [place] [address] [place] [address] May, Anxiety, generalized F41.1 a nd Major depressive disorder, recurrent episode, moderate F33.1 [place] [address] [id number] [place] [address] May, Tear of medial meniscus of l eft knee, current, unspecified tear type, initial encounter S83.242A [facility] [id number] [place] [id number] 13 May, 2017 Encounter for immunization Z 23 [place] [address] [place] [id number] Apr, Major depressive disorder, r ecurrent episode, moderate F33.1 and Anxiety, generalized F41.1 [place] [id number] Apr, Moderate single current epis ode of major depressive disorder F32.1 ; Anxiety, generalized F41.1 and Panic disorder [episodic paroxysmal anxiety] without agoraphobia F41.[address] [address] Apr, Sports physical Z02.5 ; Enco unter [...] and Acute pain of right knee M25.561 [facility] [address] [address] Mar, Acute pain of left knee M25. 562 [facility] [place] [id number] January, Irregular menses N92.6 and S creen for STD (sexually transmitted disease) Z11.3 [facility] [address] [id number] January, Right lower quadrant abdomin al pain R10.31 and Flank pain R10.[address] [address] Oct, Influenza B J10.1 [facility] [address] [address] Oct, Acute nasopharyngitis J00 an d Seasonal allergic rhinitis, unspecified allergic rhinitis trigger J30.[address] [place] [address] Jun, [facility] [place] [address] [id number] [address] [place] [address] May, [facility] [place] [address] [id number] [address] [place] [address] May, [facility] [place] [address] [facility] [id number] [address] [place] [address] May, [facility] [place] [address] [id number] [address] [place] [address] May, [facility] [place] [address] [id number] [address] [place] [address] Apr, [facility] [place] [address] [facility] [id number] [address] [place] [address] Apr, [facility] [place] [address] [facility] [id number] [address] [place] [address] Apr, [facility] [place] [address] [facility] [id number] [address] [place] [address] Apr, Arthritis of left knee M19.9 0 and Tick-borne disease B88.2 [facility] [place] [address] [facility] [id number] [address] [place] [address] Dec, [facility] [address] [facility] [id number] [place] [address] [id number] 30 Nov, 2016 Encounter for immunization Z 23 [facility] [place] [address] [facility] [id number] [address] [place] [address] 11 Nov, [address] [facility] [address] [facility] [id number] [address] [place] [address] 07 Nov, [address] [facility] [address] [facility] [id number] [address] [place] [address] 18 Sep, 2015 Sore throat J02.9 [facility] [place] [address] [facility] [id number] [address] [place] [address] Jul, Amenorrhea, unspecified N91. 2 and Dysuria R30.0 [facility] [place] [address] [facility] [id number] [address] [place] [address] Jun, Acute nasopharyngitis J00 [facility] [place] [address] [facility] [id number] [address] [place] [address] Jun, [facility] [place] [id number] [place] [address] Mar, Pubertal menorrhagia 626.3 ; Initiation of OCP (BCP) V25.01 and Need for HPV vaccination V04.89 [facility] [place] [id number] [place] [address] Mar, Mood disorder 296.90 and ADH D (attention deficit hyperactivity disorder), combined type 314.01 [facility] [place] [id number] [address] [place] [address] Dec, [facility] [place] [id number] [address] [place] [address] Dec, [facility] [place] [id number] [address] [place] [address] Aug, [facility] [place] [id number] [address] [place] [address] Aug, [facility] [place] [id number] [address] [place] [address] Aug, [facility] [place] [address] [facility] [id number] [address] [place] [phone] Aug, [facility] [place] [id number] [address] [place] [address] Aug, [facility] [place] [id number] [address] [place] [address] Aug, [facility] [place] [id number] [address] [place] [address] Aug, [facility] [place] [facility] [address] [id number] [address] [place] [address], [place] [address] Jul, [facility] [place] [facility] [address] [id number] [address] [place] [address], [place] [address] Jul, [facility] [place] [facility] [address] [id number] [address] [place] [address], [place] [address] Jul, [facility] [place] [facility] [address] [id number] [address] [place] [address], [place] [address] Jul, [facility] [place] [facility] [address] [id number] [address] [place] [address], [place] [address] Jun, [facility] [place] [facility] [address] [id number] [address] [place] [address], [place] [address] Jun, [facility] [place] [facility] [address] [id number] [address] [place] [address], [place] [address] Jun, [facility] [place] [facility] [address] [id number] [address] [place] [address], [place] [address] Jun, [facility] [address] [id number] [address] [place] [address], [place] [address] January, [facility] [place] [facility] [address] [id number] [address] [place] [address], [place] [address] January, [facility] [place] [facility] [address] [id number] [address] [place] [address], [place] [address] January, [facility] [place] [facility] [address] [id number] [address] [place] [address], [place] [address] Nov, [facility] [place] [facility] [address] [id number] [address] [place] [address], [place] [address] Nov, [facility] [place] [facility] [address] [id number] [address] [place] [address], [place] [address] Aug, [facility] [place] [facility] [address] [id number] [address] [place] [address], [place] [address] Aug, [facility] [place] [facility] [address] [id number] [address] [place] [address], [place] [address] Aug, [facility] [address] [id number] [address] [place] [address], [place] [address] Aug, [facility] [address] [id number] [address] [place] [address], [place] [address] Aug, [facility] [address] [id number] [address] [place] [address], [place] [address] Jul, [facility] [address] [id number] [address] [place] [address], [place] [address] Jul, [facility] [address] [id number] [address] [place] [address], [place] [address] Jun, [facility] [address] [id number] [address] [place] [address], [place] [address] Jun, [facility] [address] [id number] [address] [place] [address], [place] [address] Jun, [facility] [address] [id number] [address] [place] [address], [place] [address] Jun, [facility] [address] [id number] [address] [place] [address], [place] [address] 24 Jun, 2013 [facility] [address] [id number] [address] [place] [address] Jun, [facility] [address] [id number] [address] [place] [address] 17 Jun, 2013 [facility] [place] [facility] [address] [id number] [address] [place] [address] 10 Jun, 2013 [facility] [address] [id number] [address] [place] [address], [place] [address] 03 Jun, 2013 [facility] [place] [facility] [address] [id number] [address] [place] [address] 11 Nov, 2012 [facility] [place] [facility] [address] [id number] [address] [place] [address], [place] [address] 11 Nov, 2012 [facility] [address] [id number] [address] [place] [address], [place] [address] Oct, [facility] [address] [id number] [address] [place] [address], [place] [address] Oct, [facility] [address] [id number] [address] [place] [address], [place] [address] Jul, [facility] [place] [facility] [address] [id number] [address] [place] [address], [place] [address] Jul, [facility] [address] [id number] [address] [place] [address], [place] [address] Jul, [facility] [address] [id number] [address] [place] [address], [place] [address] Jul, [facility] [place] [facility] [address] [id number] [address] [place] [address], [place] [address] Jul, [facility] [address] [id number] [address] [place] [address], [place] [address] Jul, [facility] [address] [id number] [address] [place] [address], [place] [address] Jun, [facility] [address] [id number] [address] [place] [address], [place] [address] Jun, [facility] [address] [id number] [address] [place] [address], [place] [address] Jun, [facility] [address] [id number] [address] [place] [address], [place] [address] Jun, [facility] [address] [id number] [address] [place] [address], [place] [address] May, [facility] [address] [id number] [address] [place] [address], [place] [address] May, [facility] [address] [id number] [address] [place] [address], [place] [address] Oct, [facility] [address] [id number] [address] [place] [address], [place] [address] Sep, [facility] [place] [address] [id number] [address] [place] [address] Sep, [facility] [place] [address] [id number] [address] [place] [address] Aug, [facility] [place] [address] [id number] [address] [place] [address] Aug, [facility] [place] [address] [id number] [address] [place] [address] Aug, [facility] [place] [address] [id number] [address] [place] [address] Jun, [facility] [place] [address] [id number] [address] [place] [address] Sep, [facility] [place] [address] [id number] [address] [place] [address] Jul, [facility] [place] [address] [id number] [address] [place] [address] Jul, IMMUNIZATIONS No Known Immunizations SOCIAL HISTORY Never Assessed REASON FOR VISIT PLAN OF CARE VITAL SIGNS Height 62 in 2014-07-23 Weight 177.99 lbs 2014-07-23 Temperature 98.3 degrees Fahrenheit 2014-07-23 Heart Rate 72 bpm 2014-07-23 Respiratory Rate 18 2014-07-23 Blood pressure systolic 126 mmHg 2014-07-23 Blood pressure diastolic 80 mmHg 2014-07-23 MEDICATIONS No Known Medications RESULTS No Results PROCEDURES Procedure Date Ordered Result Body Site ASSAY OF LIPASE Jul 23, 2014 COMPREHEN METABOLIC PANEL Jul 23, 2014 URINALYSIS, AUTO, W/O SCOPE Jul 23, 2014 VENIPUNCT, ROUTINE* Jul 23, 2014 INSTRUCTIONS MEDICATIONS ADMINISTERED No Known Medications MEDICAL [...]
--- OUTSIDE RECORDS SUMMARY | 2019-12-20 23:00 | XMS REPORT ---
Author Author Kathleen Monteiro Organization [facility] Address [address] [place] [address] Care Team Providers Care Legal Recruiter Name Role Phone CHANDLER Monteiro Unavailable PROBLEMS Type Condition ICD9-CM Code LDH03-NE Code Onset Dates Condition S tatus SNOMED Code Problem Major depressive disorder, recurrent episode, mild F33.0 Active 648002055 Problem Seasonal allergic rhinitis, unspecified allergic rhinitis trigger J30.2 Active 985391969 Problem Late menses N92.6 Active 38267730 Problem Missed period N92.6 Active 192578 00 Problem Irregular menses N92.6 Active 386 819292 Problem Anxiety, generalized F41.1 Active 12898130 Problem Other obesity due to excess calories E66.09 Active 273055152 Problem Body mass index (BMI) of 36.0-36.9 in adult Z68.36 Active 080725850 ALLERGIES No Information ENCOUNTERS Encounter Location Date Diagnosis [facility] [id number] [place] [address] 23 Oct, 2019 Fever R50.9 and Flu-like sym ptoms R68.89 [facility] [id number] [place] [address] January, Dental infection K04.7 [facility] [address] [id number] [place] [address] Aug, Exposure to STD Z20.2 and Missed period N92.6 [facility] [id number] [place] [address] 15 Jun, 2018 Non-intractable vomiting with nausea, un specified vomiting type R11.2 ; Late menses N92.6 and Encounter for initial prescription of contraceptives, unspecified contraceptive Z30.019 [facility] [id number] [place] [address] Apr, Seasonal allergic rhinitis, unspecified allergic rhinitis trigger J30.2 and Sore throat J02.9 [place] [address] [address] Apr, [place] [address] [address] Feb, Acute bacterial conjunctivitis of left e ye H10.32 [place] [address] [address] January, Major depressive disorder, recurrent epi sode, mild F33.0 ; Anxiety, generalized F41.1 and Irregular menses N92.6 [place] [address] [address] January, Major depressive disorder, recurrent epi sode, mild F33.0 ; Anxiety, generalized F41.1 ; Seasonal allergic rhinitis, unspecified allergic rhinitis trigger J30.2 ; Irregular menses N92.6 ; Other obesity due to excess calories E66.09 ; Body mass index (BMI) of 36.0-36.9 in adult Z68.36 and Encounter for repeat prescription of oral contraceptives Z30.41 [place] [address] [address] Dec, Anxiety, generalized F41.1 and Major dep ressive disorder, recurrent episode, mild F33.0 [place] [address] [address] Nov, [address] [address] Nov, Anxiety, generalized F41.1 and Major dep ressive disorder, recurrent episode, mild F33.0 [place] [address] [address] Oct, Anxiety, generalized F41.1 and Major dep ressive disorder, recurrent episode, mild F33.0 [place] [address] [address] 13 Oct, 2017 Rectal bleeding K62.5 [facility] [address] [place] [address] 10 Oct, 2017 Sore throat J02.9 and Acute nasopharyngitis J00 [facility] [address] [place] [address] 04 Oct, 2017 Viral gastroenteritis A08.4 [facility] [place] [id number] [place] [address] Sep, Chest wall pain R07.89 [place] [address] [address] Sep, Major depressive disorder, recurrent epi sode, moderate F33.1 [place] [address] [facility] [id number] Sep, Viral syndrome B34.9 [place] [address] [address] Aug, Major depressive disorder, recurrent epi sode, moderate F33.1 and Anxiety, generalized F41.1 [place] [address] [address] Jul, [facility] [place] [id number] [place] [address] Jul, Viral syndrome B34.9 [place] [address] [address] Jun, Anxiety, generalized F41.1 and Major dep ressive disorder, recurrent episode, moderate F33.1 [place] [address] [address] May, Anxiety, generalized F41.1 and Major dep ressive disorder, recurrent episode, moderate F33.1 [place] [address] [address] May, Tear of medial meniscus of left knee, cu rrent, unspecified tear type, initial encounter S83.242A [place] [address] [id number] [place] [id number] 13 May, 2017 Encounter for immunization Z23 [address] [address] Apr, Major depressive disorder, recurrent epi sode, moderate F33.1 and Anxiety, generalized F41.[address] [address] Apr, Moderate single current episode of major depressive disorder F32.1 ; Anxiety, generalized F41.1 and Panic disorder [episodic paroxysmal anxiety] without agoraphobia F41.[address] [address] Apr, Sports physical Z02.5 ; Encounter for im munization Z23 ; Dietary counseling Z71.3 ; Exercise [...] Acute pain of right knee M25.561 [facility] [place] [id number] [place] [address] Mar, Acute pain of left knee M25. 562 [address] [place] [id number] January, Irregular menses N92.[address] D (sexually transmitted disease) Z11.3 [address] [id number] January, Right lower quadrant abdominal pain R10. 31 and Flank pain R10.9 [place] [id number] [place] [address] Oct, Influenza B J10.1 [facility] [place] [id number] [place] [address] Oct, Acute nasopharyngitis J00 an d Seasonal allergic rhinitis, unspecified allergic rhinitis trigger J30.2 [facility] [id number] [place] [address] Jun, [facility] [id number] [place] [address] May, [facility] [address] [address] May, [facility] [address] [address] May, [place] [address] [address] May, [facility] [address] [address] Apr, [place] [address] [address] Apr, [facility] [address] [address] Apr, [place] [address] [address] Apr, Arthritis of left knee M19.90 and 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 [place] [address] [place] [address] Dec, [facility] [address] [facility] [id number] Nov, Encounter for immunization Z23 [facility] [address] [address] Nov, Influenza J11.1 [facility] [address] [facility] [id number] [place] [address] Nov, Anxiety F41.9 [facility] [address] [place] [id number] [place] [address] Sep, Sore throat J02.9 [facility] [address] [address] Jul, Amenorrhea, unspecified N91.2 and Dysuri a R30.0 [facility] [address] [address] Jun, Acute nasopharyngitis J00 [facility] [address] [address] Jun, [facility] [address] [address] Mar, Pubertal menorrhagia 626.3 ; Initiation of OCP (BCP) V25.01 and Need for HPV vaccination V04.89 [facility] [address] [address] Mar, Mood disorder 296.90 and ADHD (attention deficit hyperactivity disorder), combined type 314.01 [facility] [address] [address] Dec, [facility] [address] [address] Dec, [facility] [address] [address] Aug, [facility] [address] [address] Aug, [facility] [address] [address] Aug, [facility] [address] [address] Aug, [facility] [address] [address] Aug, [facility] [address] [address] Aug, [facility] [address] [address] Aug, [facility] [address] [id number] [place] [address] Jul, [facility] [address] [id number] [place] [address] Jul, [facility] [address] [id number] [place] [address] Jul, [facility] [address] [id number] [place] [address] Jul, [facility] [address] [id number] [place] [address] Jun, [facility] [address] [id number] [place] [address] Jun, [facility] [address] [id number] [place] [address] Jun, [facility] [address] [id number] [place] [address] Jun, [facility] [address] [id number] [place] [address] January, [facility] [address] [id number] [place] [address] January, [facility] [address] [id number] [place] [address] January, [facility] [address] [id number] [place] [address] Nov, [facility] [address] [id number] [place] [address] Nov, [facility] [address] [id number] [place] [address] Aug, [facility] [address] [id number] [place] [address] Aug, [facility] [address] [id number] [place] [address] Aug, [facility] [address] [id number] [place] [address] Aug, [facility] [address] [facility] [id number] [place] [address] Aug, [facility] [address] [facility] [id number] [place] [address] Jul, [facility] [address] [id number] [place] [address] Jul, [facility] [address] [id number] [place] [address] Jun, [facility] [address] [facility] [id number] [place] [address] Jun, [facility] [address] [id number] [place] [address] Jun, [facility] [address] [id number] [place] [address] Jun, [facility] [address] [id number] [place] [address] Jun, [facility] [address] [id number] [place] [address] Jun, [facility] [address] [id number] [place] [address] Jun, [facility] [address] [id number] [place] [address] Jun, [facility] [address] [id number] [place] [address] Jun, [facility] [address] [id number] [place] [address] Nov, [facility] [address] [id number] [place] [address] Nov, [facility] [address] [id number] [place] [address] Oct, [facility] [address] [id number] [place] [address] Oct, [facility] [address] [id number] [place] [address] Jul, [facility] [address] [id number] [place] [address] Jul, [facility] [address] [id number] [place] [address] Jul, [facility] [address] [id number] [place] [address] Jul, [facility] [address] [id number] [place] [address] Jul, [facility] [address] [id number] [place] [address] Jul, [facility] [address] [id number] [place] [address] Jun, [facility] [address] [id number] [place] [address] Jun, [facility] [address] [id number] [place] [address] Jun, [facility] [address] [id number] [place] [address] Jun, [facility] [address] [id number] [place] [address] May, [facility] [address] [id number] [place] [address] May, [facility] [address] [id number] [place] [address] Oct, [facility] [address] [id number] [place] [address] Sep, [facility] [address] [id number] [place] [address] Sep, [facility] [address] [id number] [place] [address] Aug, [facility] [address] [id number] [place] [address] Aug, [facility] [address] [id number] [place] [address] Aug, [facility] [address] [id number] [place] [address] Jun, [facility] [address] [id number] [place] [address] Sep, [facility] [address] [id number] [place] [address] Jul, [facility] [address] [id number] [place] [address] Jul, IMMUNIZATIONS No Known Immunizations SOCIAL HISTORY Never Assessed REASON FOR VISIT PLAN OF CARE VITAL SIGNS Height 62 in 2013-12-01 Weight 175.19 lbs 2013-12-01 Temperature 98.6 degrees Fahrenheit 2013-12-01 Heart Rate 84 bpm 2013-12-01 Respiratory Rate 16 2013-12-01 Blood pressure systolic 110 mmHg 2013-12-01 Blood pressure diastolic 72 mmHg 2013-12-01 MEDICATIONS No Known Medications RESULTS No Results [...]
--- OUTSIDE RECORDS SUMMARY | 2019-12-20 23:00 | XMS REPORT ---
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 Name Role Phone TISH LÓPEZ Unavailable PROBLEMS Type Condition ICD9-CM Code [id number] Code Onset Dates Condition S tatus SNOMED Code Problem Major depressive disorder, recurrent episode, mild F33.0 Active 967027319 Problem Seasonal allergic rhinitis, unspecified allergic rhinitis trigger J30.2 Active 973308515 Problem Late menses N92.6 Active 80962481 Problem Missed period N92.6 Active 870442 00 Problem Irregular menses N92.6 Active 386 703810 Problem Anxiety, generalized F41.1 Active 63570145 Problem Other obesity due to excess calories E66.09 Active 615722905 Problem Body mass index (BMI) of 36.0-36.9 in adult Z68.36 Active 056261158 ALLERGIES No Information ENCOUNTERS Encounter Location Date Diagnosis [facility] [address] [place] [id number] [address] [place] [address] January, Dental infection K04.7 [facility] [address] [address] Aug, Exposure to STD Z20.2 and Missed period N92.6 [facility] [address] [address] 15 Jun, 2018 Non-intractable vomiting with nausea, un specified vomiting type R11.2 ; Late menses N92.6 and Encounter for initial prescription of contraceptives, unspecified contraceptive Z30.019 [facility] [id number] [address] [place] [address] Apr, Seasonal allergic rhinitis, unspecified allergic rhinitis trigger J30.2 and Sore throat J02.9 [facility] [address] [address] Apr, [place] [address] [address] Feb, Acute bacterial conjunctivitis of left e ye H10.32 [place] [address] [address] January, Major depressive disorder, recurrent epi sode, mild F33.0 ; Anxiety, generalized F41.1 and Irregular menses N92.6 [place] [address] [address] January, Major depressive disorder, recurrent epi sode, mild F33.0 ; Anxiety, generalized F41.1 ; Seasonal allergic rhinitis, unspecified allergic rhinitis trigger J30.2 ; Irregular menses N92.6 ; Other obesity due to excess calories E66.09 ; Body mass index (BMI) of 36.0-36.9 in adult Z68.36 and Encounter for repeat prescription of oral contraceptives Z30.41 [place] [address] [address] Dec, Anxiety, generalized F41.1 and Major dep ressive disorder, recurrent episode, mild F33.0 [place] [address] [address] Nov, [address] [address] Nov, Anxiety, generalized F41.1 and Major dep ressive disorder, recurrent episode, mild F33.0 [place] [address] [address] Oct, Anxiety, generalized F41.1 and Major dep ressive disorder, recurrent episode, mild F33.0 [place] [address] [address] 13 Oct, 2017 Rectal bleeding K62.5 [facility] [address] [facility] [id number] [address] [place] [address] 10 Oct, 2017 Sore throat J02.9 and Acute nasopharyngitis J00 [facility] [address] [facility] [id number] [address] [place] [address] Oct, Viral gastroenteritis A08.4 [facility] [address] [facility] [id number] [address] [place] [address] Sep, Chest wall pain R07.89 [facility] [address] [address] Sep, Major depressive disorder, recurrent epi sode, moderate F33.1 [facility] [place] [address] [id number] [place] [id number] Sep, Viral syndrome B34.9 [place] [address] [address] Aug, Major depressive disorder, recurrent epi sode, moderate F33.1 and Anxiety, generalized F41.1 [place] [address] [address] Jul, [facility] [address] [facility] [id number] [address] [place] [address] Jul, Viral syndrome B34.9 [place] [address] [address] Jun, Anxiety, generalized F41.1 and Major dep ressive disorder, recurrent episode, moderate F33.1 [place] [address] [address] May, Anxiety, generalized F41.1 and Major dep ressive disorder, recurrent episode, moderate F33.1 [place] [address] [address] May, Tear of medial meniscus of left knee, cu rrent, unspecified tear type, initial encounter S83.242A [facility] [place] [address] [id number] [place] [facility] [place] [id number] 13 May, 2017 Encounter for immunization Z23 [place] [address] [address] Apr, Major depressive disorder, recurrent epi sode, moderate F33.1 and Anxiety, generalized F41.[address] [address] Apr, Moderate single current episode of major depressive disorder F32.1 ; Anxiety, generalized F41.1 and Panic disorder [episodic paroxysmal anxiety] without agoraphobia F41.[address] [address] Apr, Sports physical Z02.5 ; Encounter for [...] knee M25.561 [facility] [place] [id number] [address] [place] [address] Mar, Acute pain of left knee M25. [address] [id number] January, Irregular menses N92.[address] D (sexually transmitted disease) Z11.[address] [id number] January, Right lower quadrant abdominal pain R10. 31 and Flank pain R10.[address] [address] Oct, Influenza B J10.1 [facility] [place] [id number] [address] [place] [address] Oct, Acute nasopharyngitis J00 an d Seasonal allergic rhinitis, unspecified allergic rhinitis trigger J30.[address] [address] Jun, [facility] [address] [id number] [place] [address] May, [facility] [id number] [place] [address] May, [facility] [id number] [place] [address] May, [facility] [id number] [place] [address] May, [facility] [id number] [place] [address] Apr, [facility] [address] [address] Apr, [facility] [address] [address] Apr, [facility] [address] [id number] [place] [address] Apr, Arthritis of left knee M19.90 and 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 [place] [address] [place] [address] [id number] [place] [address] Dec, [facility] [place] [address] [id number] [place] [id number] Nov, Encounter for immunization Z23 [facility] [address] [id number] [place] [address] Nov, Influenza J11.1 [facility] [address] [place] [id number] [place] [address] 07 Nov, 2015 Anxiety F41.9 [facility] [address] [place] [id number] [address] [place] [address] Sep, Sore throat J02.9 [facility] [address] [id number] [place] [address] 16 Jul, 2015 Amenorrhea, unspecified N91.2 and Dysuri a R30.0 [facility] [address] [address] Jun, Acute nasopharyngitis J00 [facility] [address] [address] Jun, [facility] [address] [address] Mar, Pubertal menorrhagia 626.3 ; Initiation of OCP (BCP) V25.01 and Need for HPV vaccination V04.89 [facility] [address] [address] Mar, Mood disorder 296.90 and ADHD (attention deficit hyperactivity disorder), combined type 314.01 [facility] [address] [address] Dec, [facility] [address] [address] Dec, [facility] [address] [address] Aug, [facility] [address] [address] Aug, [facility] [address] [address] Aug, [facility] [address] [address] Aug, [facility] [address] [address] Aug, [facility] [address] [address] Aug, [facility] [address] [address] Aug, [facility] [address] [address] Jul, [facility] [address] [address] Jul, [facility] [address] [id number] [place] [address] Jul, [facility] [address] [id number] [place] [address] Jul, [facility] [address] [id number] [place] [address] Jun, [facility] [address] [id number] [place] [address] Jun, [facility] [address] [id number] [place] [address] Jun, [facility] [address] [id number] [place] [address] Jun, [facility] [address] [id number] [place] [address] January, [facility] [address] [id number] [place] [address] January, [facility] [address] [id number] [place] [address] January, [facility] [address] [id number] [place] [address] Nov, [facility] [address] [id number] [place] [address] Nov, [facility] [address] [id number] [place] [address] Aug, [facility] [address] [id number] [place] [address] Aug, [facility] [address] [id number] [place] [address] Aug, [facility] [address] [id number] [place] [address] Aug, [facility] [address] [id number] [place] [address] Aug, [facility] [address] [id number] [place] [address] 08 Jul, 2013 [facility] [address] [facility] [id number] [place] [address] 08 Jul, 2013 [facility] [address] [facility] [id number] [facility] [place] [address] Jun, [facility] [address] [id number] [place] [address] Jun, [facility] [address] [id number] [place] [address] Jun, [facility] [address] [facility] [id number] [place] [address] Jun, [facility] [address] [id number] [place] [address] Jun, [facility] [address] [id number] [place] [address] Jun, [facility] [address] [id number] [place] [address] Jun, [facility] [address] [id number] [place] [address] Jun, [facility] [address] [id number] [place] [address] Jun, [facility] [address] [id number] [place] [address] Nov, [facility] [address] [id number] [place] [address] Nov, [facility] [address] [id number] [place] [address] Oct, [facility] [address] [id number] [place] [address] Oct, [facility] [address] [id number] [place] [address] Jul, [facility] [address] [id number] [place] [address] Jul, [facility] [address] [id number] [place] [address] Jul, [facility] [address] [id number] [place] [address] Jul, [facility] [address] [id number] [place] [address] Jul, [facility] [address] [id number] [place] [address] Jul, [facility] [address] [id number] [place] [address] Jun, [facility] [address] [id number] [place] [address] Jun, [facility] [address] [id number] [place] [address] Jun, [facility] [address] [id number] [place] [address] Jun, [facility] [address] [id number] [place] [address] May, [facility] [address] [id number] [place] [address] May, [facility] [address] [id number] [place] [address] Oct, [facility] [address] [id number] [place] [address] Sep, [facility] [address] [id number] [place] [address] Sep, [facility] [address] [id number] [place] [address] Aug, [facility] [id number] [place] [address] Aug, [facility] [address] [id number] [place] [address] Aug, [facility] [id number] [place] [address] Jun, [facility] [address] [facility] [id number] [place] [address] Sep, [facility] [address] [id number] [place] [address] Jul, [facility] [address] [id number] [place] [address] Jul, IMMUNIZATIONS No Known Immunizations SOCIAL HISTORY Never Assessed REASON FOR VISIT PLAN OF CARE VITAL SIGNS Height 62.5 in 2014-01-11 Weight 167.38 lbs 2014-01-11 Temperature 97.4 degrees Fahrenheit 2014-01-11 Heart Rate 76 bpm 2014-01-11 Respiratory Rate 20 2014-01-11 Blood pressure systolic 127 mmHg 2014-01-11 Blood pressure diastolic 71 mmHg 2014-01-11 MEDICATIONS No Known Medications RESULTS No Results PROCEDURES Procedure Date Ordered Result Body Site CULTURE, BACTERIA, OTHER January 11, 2014 INSTRUCTIONS MEDICATIONS ADMINISTERED No Known Medications [...]
--- OUTSIDE RECORDS SUMMARY | 2019-12-20 23:00 | XMS REPORT ---
Author Author Kathleen LARSON Organization [facility] Address [address] [place] [address] Care Team Providers Care Parking Manager Name Role Phone MANOJ LARSON Unavailable PROBLEMS Type Condition ICD9-CM Code [id number] Code Onset Dates Condition S tatus SNOMED Code Problem Major depressive disorder, recurrent episode, mild F33.0 Active 078654906 Problem Seasonal allergic rhinitis, unspecified allergic rhinitis trigger J30.2 Active 135384671 Problem Late menses N92.6 Active 73800368 Problem Missed period N92.6 Active 455153 00 Problem Irregular menses N92.6 Active 386 127917 Problem Anxiety, generalized F41.1 Active 19454897 Problem Other obesity due to excess calories E66.09 Active 141065490 Problem Body mass index (BMI) of 36.0-36.9 in adult Z68.36 Active [id number] ALLERGIES No Information ENCOUNTERS Encounter Location Date Diagnosis [facility] [address] [address] January, Dental infection K04.7 [facility] [address] [address] Aug, Exposure to STD Z20.2 and Mi ssed period N92.6 [facility] [address] [id number] 15 Jun, 2018 Non-intractable vomiting wit h nausea, unspecified vomiting type R11.2 ; Late menses N92.6 and Encounter for initial prescription of contraceptives, unspecified contraceptive Z30.019 [facility] [address] [address] Apr, Seasonal allergic rhinitis, unspecified allergic rhinitis trigger J30.2 and Sore throat J02.9 [facility] [address] [address] Apr, [place] [address] [address] [place] [id number] [place] [address] Feb, Acute bacterial conjunctivit is of left eye H10.32 [place] [address] [place] [id number] [place] [address] January, Major depressive disorder, r ecurrent episode, mild F33.0 ; Anxiety, generalized F41.1 and Irregular menses N92.6 [place] [address] [place] [id number] [place] [address] January, Major depressive disorder, r ecurrent episode, mild F33.0 ; Anxiety, generalized F41.1 ; Seasonal allergic rhinitis, unspecified allergic rhinitis trigger J30.2 ; Irregular menses N92.6 ; Other obesity due to excess calories E66.09 ; Body mass index (BMI) of 36.0-36.9 in adult Z68.36 and Encounter for repeat prescription of oral contraceptives Z30.41 [place] [address] [place] [id number] [place] [address] Dec, Anxiety, generalized F41.1 a nd Major depressive disorder, recurrent episode, mild F33.0 [place] [address] [place] [id number] [place] [address] Nov, [place] [address] [place] [id number] [place] [address] Nov, Anxiety, generalized F41.1 a nd Major depressive disorder, recurrent episode, mild F33.0 [place] [address] [place] [id number] [address] [place] [id number] 22 Oct, 2017 Anxiety, generalized F41.1 a nd Major depressive disorder, recurrent episode, mild F33.0 [place] [address] [place] [id number] [place] [id number] 13 Oct, 2017 Rectal bleeding K62.5 [facility] [address] [place] [id number] [address] [place] [id number] 10 Oct, 2017 Sore throat J02.9 and Acute nasopharyngitis J00 [facility] [address] [place] [id number] [address] [place] [id number] 04 Oct, 2017 Viral gastroenteritis A08.4 [facility] [address] [facility] [id number] [address] [place] [address] Sep, Chest wall pain R07.89 [facility] [address] [place] [id number] [place] [address] Sep, Major depressive disorder, r ecurrent episode, moderate F33.1 [facility] [address] [id number] Sep, Viral syndrome B34.9 [place] [address] [address] Aug, Major depressive disorder, r ecurrent episode, moderate F33.1 and Anxiety, generalized F41.1 [place] [id number] [place] [id number] [place] [id number] Jul, [facility] [address] [address] Jul, Viral syndrome B34.9 [place] [address] [address] Jun, Anxiety, generalized F41.1 a nd Major depressive disorder, recurrent episode, moderate F33.1 [place] [address] [place] [id number] [place] [address] May, Anxiety, generalized F41.1 a nd Major depressive disorder, recurrent episode, moderate F33.1 [place] [address] [address] May, Tear of medial meniscus of l eft knee, current, unspecified tear type, initial encounter S83.242A [facility] [address] [id number] 13 May, 2017 Encounter for immunization Z 23 [facility] [address] [place] [id number] [place] [address] Apr, Major depressive disorder, r ecurrent episode, moderate F33.1 and Anxiety, generalized F41.1 [place] [address] [place] [id number] [place] [address] Apr, Moderate single current epis ode of major depressive disorder F32.1 ; Anxiety, generalized F41.1 and Panic disorder [episodic paroxysmal anxiety] without agoraphobia F41.0 [place] [address] [address] Apr, Sports physical Z02.5 ; Enco unter [...] and Acute pain of right knee M25.561 [facility] [place] [address] [address] Mar, Acute pain of left knee M25. 562 [facility] [address] [id number] January, Irregular menses N92.6 and S creen for STD (sexually transmitted disease) Z11.3 [facility] [address] [id number] January, Right lower quadrant abdomin al pain R10.31 and Flank pain R10.9 [place] [address] [address] Oct, Influenza B J10.1 [facility] [address] [address] Oct, Acute nasopharyngitis J00 an d Seasonal allergic rhinitis, unspecified allergic rhinitis trigger J30.2 [facility] [address] [id number] [address] [place] [address] Jun, [facility] [address] [id number] [address] [place] [id number] May, [facility] [address] [facility] [id number] [address] [place] [address] May, [facility] [address] [id number] [address] [place] [address] May, [facility] [address] [id number] [address] [place] [id number] May, [facility] [address] [facility] [id number] [address] [place] [id number] Apr, [facility] [address] [facility] [id number] [address] [place] [id number] Apr, [facility] [address] [facility] [id number] [address] [place] [phone] Apr, [facility] [address] [facility] [id number] [address] [place] [address] Apr, Arthritis of left knee M19.9 0 and Tick-borne disease B88.2 [facility] [address] [facility] [id number] [address] [place] [phone] Dec, [facility] [address] [facility] [id number] [place] [id number] Nov, Encounter for immunization Z 23 [facility] [address] [facility] [id number] [address] [place] [phone] Nov, Influenza J11.[address] [facility] [address] [facility] [id number] [address] [place] [id number] 07 Nov, 2015 Anxiety F41.[address] [facility] [address] [facility] [id number] [address] [place] [id number] Sep, Sore throat J02.9 [facility] [address] [facility] [id number] [address] [place] [id number] Jul, Amenorrhea, unspecified N91. 2 and Dysuria R30.0 [facility] [address] [place] [id number] [address] [place] [id number] Jun, Acute nasopharyngitis J00 [facility] [address] [place] [id number] [place] [address] Jun, [facility] [address] [place] [id number] [place] [address] Mar, Pubertal menorrhagia 626.3 ; Initiation of OCP (BCP) V25.01 and Need for HPV vaccination V04.89 [facility] [address] [place] [id number] [address] [place] [id number] Mar, Mood disorder 296.90 and ADH D (attention deficit hyperactivity disorder), combined type 314.01 [facility] [address] [place] [id number] [place] [address] Dec, [facility] [address] [place] [id number] [place] [address] Dec, [facility] [address] [place] [id number] [address] [place] [phone] Aug, [facility] [address] [place] [id number] [address] [place] [id number] Aug, [facility] [address] [place] [id number] [address] [place] [phone] Aug, [facility] [address] [place] [id number] [address] [place] [id number] Aug, [facility] [address] [place] [id number] [address] [place] [phone] Aug, [facility] [address] [place] [id number] [address] [place] [id number] Aug, [facility] [address] [place] [address] Aug, [facility] [address] [id number] [address] [place] [address], [place] [address] Jul, [facility] [address] [id number] [address] [place] [address], [place] [address] Jul, [facility] [address] [id number] [address] [place] [address], [place] [address] Jul, [facility] [address] [id number] [address] [place] [address], [place] [address] Jul, [facility] [address] [id number] [address] [place] [address], [place] [address] Jun, [facility] [address] [id number] [address] [place] [address], [place] [address] Jun, [facility] [address] [id number] [address] [place] [address], [place] [address] Jun, [facility] [address] [id number] [address] [place] [address], [place] [address] Jun, [facility] [address] [id number] [address] [place] [address], [place] [address] January, [facility] [address] [id number] [address] [place] [address], [place] [address] January, [facility] [address] [id number] [address] [place] [address], [place] [address] January, [facility] [address] [id number] [address] [place] [address], [place] [address] Nov, [facility] [address] [id number] [address] [place] [address], [place] [address] Nov, [facility] [address] [id number] [address] [place] [address], [place] [address] Aug, [facility] [address] [id number] [address] [place] [address], [place] [address] Aug, [facility] [address] [id number] [address] [place] [address], [place] [address] Aug, [facility] [address] [id number] [address] [place] [address], [place] [address] Aug, [facility] [address] [id number] [address] [place] [address], [place] [address] Aug, [facility] [address] [id number] [address] [place] [address], [place] [address] Jul, [facility] [address] [id number] [address] [place] [address], [place] [address] Jul, [facility] [address] [id number] [address] [place] [address], [place] [address] Jun, [facility] [address] [id number] [address] [place] [address], [place] [address] Jun, [facility] [address] [id number] [address] [place] [address], [place] [address] Jun, [facility] [address] [id number] [address] [place] [address], [place] [address] Jun, [facility] [address] [id number] [address] [place] [address], [place] [address] 24 Jun, 2013 [facility] [address] [id number] [address] [place] [address], [place] [address] Jun, [facility] [address] [id number] [address] [place] [address], [place] [address] 17 Jun, 2013 [facility] [address] [id number] [address] [place] [address], [place] [address] 10 Jun, 2013 [facility] [address] [id number] [address] [place] [address], [place] [address] Jun, [facility] [address] [id number] [address] [place] [address], [place] [address] Nov, [facility] [address] [id number] [address] [place] [address], [place] [address] Nov, [facility] [address] [id number] [address] [place] [address], [place] [address] Oct, [facility] [address] [id number] [address] [place] [address], [place] [address] Oct, [facility] [address] [id number] [address] [place] [address], [place] [address] Jul, [facility] [address] [id number] [address] [place] [address], [place] [address] Jul, [facility] [address] [id number] [address] [place] [address], [place] [address] Jul, [facility] [address] [id number] [address] [place] [address], [place] [address] Jul, [facility] [address] [id number] [address] [place] [address], [place] [address] Jul, [facility] [address] [id number] [address] [place] [address], [place] [address] Jul, [facility] [address] [id number] [address] [place] [address], [place] [address] Jun, [facility] [address] [id number] [address] [place] [address], [place] [address] Jun, [facility] [address] [id number] [address] [place] [address], [place] [address] Jun, [facility] [address] [id number] [address] [place] [address], [place] [address] 16 Jun, 2012 [facility] [address] [id number] [address] [place] [address], [place] [address] May, [facility] [address] [id number] [address] [place] [address], [place] [address] May, [facility] [address] [id number] [address] [place] [address], [place] [address] Oct, [facility] [address] [id number] [address] [place] [id number] Sep, [facility] [address] [id number] [address] [place] [address] Sep, [facility] [address] [id number] [address] [place] [address] Aug, [facility] [address] [id number] [address] [place] [id number] Aug, [facility] [address] [id number] [address] [place] [address] Aug, [facility] [address] [id number] [address] [place] [id number] Jun, [facility] [address] [id number] [address] [place] [id number] Sep, [facility] [address] [id number] [address] [place] [id number] Jul, [facility] [address] [id number] [address] [place] [address] Jul, IMMUNIZATIONS No Known Immunizations SOCIAL HISTORY Never Assessed REASON FOR VISIT PLAN OF CARE VITAL SIGNS Height 62.5 in 2014-06-13 Weight 176.8 lbs 2014-06-13 Temperature 97.8 degrees Fahrenheit 2014-06-13 Heart Rate 70 bpm 2014-06-13 Respiratory Rate 18 2014-06-13 Blood pressure systolic 112 mmHg 2014-06-13 Blood pressure diastolic 74 mmHg 2014-06-13 MEDICATIONS No Known Medications RESULTS No Results [...]
--- OUTSIDE RECORDS SUMMARY | 2019-12-20 23:01 | XMS REPORT ---
Author Author Migration, Doctor Organization [facility] Address Unknown Phone Unavailable Care Team Providers Care Head Turning Machine Operator Name Role Phone Migration, Doctor Unavailable Unavailable PROBLEMS Type Condition ICD9-CM Code BXL08-CG Code Onset Dates Condition S tatus SNOMED Code Problem Major depressive disorder, recurrent episode, mild F33.0 Active 850009549 Problem Seasonal allergic rhinitis, unspecified allergic rhinitis trigger J30.2 Active 518933727 Problem Late menses N92.6 Active 54252556 Problem Missed period N92.6 Active 281310 00 Problem Irregular menses N92.6 Active 386 970721 Problem Anxiety, generalized F41.1 Active 87019213 Problem Other obesity due to excess calories E66.09 Active 912407058 Problem Body mass index (BMI) of 36.0-36.9 in adult Z68.36 Active [id number] ALLERGIES No Information ENCOUNTERS Encounter Location Date Diagnosis [facility] [address] [id number] [address] [place] [id number] Aug, Exposure to STD Z20.2 and Mi ssed period N92.6 [facility] [address] [id number] 15 Jun, 2018 Non-intractable vomiting wit h nausea, unspecified vomiting type R11.2 ; Late menses N92.6 and Encounter for initial prescription of contraceptives, unspecified contraceptive Z30.019 [facility] [address] [id number] [address] [place] [address] Apr, Seasonal allergic rhinitis, unspecified allergic rhinitis trigger J30.2 and Sore throat J02.9 [facility] [address] [address] Apr, [facility] [address] [id number] [address] [place] [address] Feb, Acute bacterial conjunctivit is of left eye H10.32 [place] [address] [id number] January, Major depressive disorder, r ecurrent episode, mild F33.0 ; Anxiety, generalized F41.1 and Irregular menses N92.6 [place] [address] [address] January, Major depressive disorder, r ecurrent episode, mild F33.0 ; Anxiety, generalized F41.1 ; Seasonal allergic rhinitis, unspecified allergic rhinitis trigger J30.2 ; Irregular menses N92.6 ; Other obesity due to excess calories E66.09 ; Body mass index (BMI) of 36.0-36.9 in adult Z68.36 and Encounter for repeat prescription of oral contraceptives Z30.41 [place] [address] [address] Dec, Anxiety, generalized F41.1 a nd Major depressive disorder, recurrent episode, mild F33.0 [place] [address] [address] Nov, [place] [address] [address] Nov, Anxiety, generalized F41.1 a nd Major depressive disorder, recurrent episode, mild F33.0 [place] [address] [address] Oct, Anxiety, generalized F41.1 a nd Major depressive disorder, recurrent episode, mild F33.0 [place] [address] [address] 13 Oct, 2017 Rectal bleeding K62.5 [facility] [place] [address] [address] 10 Oct, 2017 Sore throat J02.9 and Acute nasopharyngitis J00 [facility] [address] [address] 04 Oct, 2017 Viral gastroenteritis A08.4 [facility] [address] [facility] [id number] [address] [place] [phone] Sep, Chest wall pain R07.89 [place] [address] [facility] [id number] [address] [place] [id number] Sep, Major depressive disorder, r ecurrent episode, moderate F33.1 [facility] [id number] [place] [id number] Sep, Viral syndrome B34.9 [place] [address] [facility] [id number] [address] [place] [phone] Aug, Major depressive disorder, r ecurrent episode, moderate F33.1 and Anxiety, generalized F41.1 [place] [address] [place] [id number] [place] [id number] Jul, [facility] [address] [id number] [place] [phone] Jul, Viral syndrome B34.9 [place] [address] [address] [id number] [place] [phone] Jun, Anxiety, generalized F41.1 a nd Major depressive disorder, recurrent episode, moderate F33.1 [place] [address] [place] [id number] [place] [phone] May, Anxiety, generalized F41.1 a nd Major depressive disorder, recurrent episode, moderate F33.1 [place] [address] [place] [id number] [place] [phone] May, Tear of medial meniscus of l eft knee, current, unspecified tear type, initial encounter S83.242A [facility] [id number] [place] [id number] May, 2017 Encounter for immunization Z 23 [place] [address] [facility] [id number] [address] [place] [address] Apr, Major depressive disorder, r ecurrent episode, moderate F33.1 and Anxiety, generalized F41.1 [place] [id number] [address] Apr, Moderate single current epis ode of major depressive disorder F32.1 ; Anxiety, generalized F41.1 and Panic disorder [episodic paroxysmal anxiety] without agoraphobia F41.0 [place] [address] [address] Apr, Sports physical Z02.5 ; Enco unter [...] and Acute pain of right knee M25.561 [facility] [address] [address] Mar, Acute pain of left knee M25. 562 [facility] [address] [id number] January, Irregular menses N92.6 and S creen for STD (sexually transmitted disease) Z11.3 [facility] [address] [id number] January, Right lower quadrant abdomin al pain R10.31 and Flank pain R10.9 [place] [address] [address] Oct, Influenza B J10.1 [facility] [address] [address] Oct, Acute nasopharyngitis J00 an d Seasonal allergic rhinitis, unspecified allergic rhinitis trigger J30.2 [place] [address] [address] Jun, [place] [address] [place] [address] May, [facility] [address] [id number] [address] [place] [phone] May, [facility] [address] [facility] [id number] [address] [place] [phone] May, [facility] [address] [facility] [id number] [address] [place] [phone] May, [facility] [address] [id number] [address] [place] [id number] Apr, [facility] [address] [id number] [address] [place] [phone] Apr, [facility] [address] [facility] [id number] [address] [place] [phone] Apr, [facility] [address] [facility] [id number] [address] [place] [phone] Apr, Arthritis of left knee M19.9 0 and Tick-borne disease B88.2 [facility] [address] [facility] [id number] [address] [place] [phone] Dec, [facility] [address] [facility] [id number] [place] [id number] Nov, Encounter for immunization Z 23 [facility] [address] [facility] [id number] [address] [place] [phone] Nov, Influenza J11.1 [facility] [address] [place] [id number] 07 Nov, 2015 Anxiety F41.9 [facility] [address] [facility] [id number] [address] [place] [phone] Sep, Sore throat J02.9 [facility] [address] [facility] [id number] [address] [place] [id number] 16 Jul, 2015 Amenorrhea, unspecified N91. 2 and Dysuria R30.0 [facility] [address] [place] [id number] Jun, Acute nasopharyngitis J00 [facility] [address] [facility] [id number] [address] [place] [phone] Jun, [facility] [address] [facility] [id number] [address] [place] [phone] Mar, Pubertal menorrhagia 626.3 ; Initiation of OCP (BCP) V25.01 and Need for HPV vaccination V04.89 [facility] [address] [facility] [id number] [address] [place] [phone] Mar, Mood disorder 296.90 and ADH D (attention deficit hyperactivity disorder), combined type 314.01 [facility] [address] [facility] [id number] [address] [place] [phone] Dec, [facility] [id number] [place] [address] Dec, [facility] [address] [id number] [address] [place] [phone] Aug, [facility] [id number] [place] [phone] Aug, [facility] [id number] [place] [phone] Aug, [facility] [id number] [place] [phone] Aug, [facility] [id number] [place] [phone] Aug, [facility] [address] [facility] [id number] [address] [place] [phone] Aug, [facility] [address] [facility] [id number] [address] [place] [phone] Aug, [facility] [address] [facility] [id number] [address] [place] [phone] Jul, [facility] [address] [id number] [address] [place] [address], [place] [address] Jul, [facility] [address] [id number] [address] [place] [address], [place] [address] Jul, [facility] [address] [id number] [address] [place] [address], [place] [address] Jul, [facility] [address] [id number] [address] [place] [address], [place] [address] Jun, [facility] [address] [id number] [address] [place] [address], [place] [address] Jun, [facility] [address] [id number] [address] [place] [address], [place] [address] Jun, [facility] [address] [id number] [address] [place] [address], [place] [address] Jun, [facility] [address] [id number] [address] [place] [address], [place] [address] January, [facility] [address] [id number] [address] [place] [address], [place] [address] January, [facility] [address] [id number] [address] [place] [address], [place] [address] January, [facility] [address] [id number] [address] [place] [address], [place] [address] Nov, [facility] [address] [id number] [address] [place] [address], [place] [address] Nov, [facility] [address] [id number] [address] [place] [address], [place] [address] Aug, [facility] [address] [id number] [address] [place] [address], [place] [address] Aug, [facility] [address] [id number] [address] [place] [address], [place] [address] Aug, [facility] [address] [id number] [address] [place] [address], [place] [address] Aug, [facility] [address] [id number] [address] [place] [address], [place] [address] Aug, [facility] [address] [id number] [address] [place] [address], [place] [address] Jul, [facility] [address] [id number] [address] [place] [address], [place] [address] Jul, [facility] [address] [id number] [address] [place] [address], [place] [address] Jun, [facility] [address] [id number] [address] [place] [address], [place] [address] Jun, [facility] [address] [id number] [address] [place] [address], [place] [address] Jun, [facility] [address] [id number] [address] [place] [address], [place] [address] Jun, [facility] [address] [id number] [address] [place] [address], [place] [address] Jun, [facility] [address] [id number] [address] [place] [address], [place] [address] Jun, [facility] [address] [id number] [address] [place] [id number] Jun, [facility] [address] [id number] [address] [place] [address], [place] [address] Jun, [facility] [address] [id number] [address] [place] [phone] Jun, [facility] [address] [id number] [address] [place] [address], [place] [address] Nov, [facility] [address] [id number] [address] [place] [phone] Nov, [facility] [address] [id number] [address] [place] [address], [place] [address] Oct, [facility] [address] [id number] [address] [place] [address], [place] [address] 09 Oct, 2012 [facility] [address] [id number] [address] [place] [address], [place] [address] Jul, [facility] [address] [id number] [address] [place] [address], [place] [address] Jul, [facility] [address] [id number] [address] [place] [address], [place] [address] Jul, [facility] [address] [id number] [address] [place] [address], [place] [address] Jul, [facility] [address] [id number] [address] [place] [address], [place] [address] Jul, [facility] [address] [id number] [address] [place] [address], [place] [address] Jul, [facility] [address] [id number] [address] [place] [address], [place] [address] Jun, [facility] [address] [id number] [address] [place] [address], [place] [address] Jun, [facility] [address] [id number] [address] [place] [address], [place] [address] Jun, [facility] [address] [id number] [address] [place] [address], [place] [address] Jun, [facility] [address] [id number] [address] [place] [address], [place] [address] May, [facility] [address] [id number] [address] [place] [address], [place] [address] May, [facility] [address] [id number] [address] [place] [address], [place] [address] Oct, [facility] [address] [id number] [address] [place] [address], [place] [address] Sep, [facility] [address] [id number] [address] [place] [address], [place] [address] Sep, [facility] [address] [id number] [address] [place] [id number] Aug, [facility] [address] [id number] [address] [place] [phone] Aug, [facility] [address] [id number] [address] [place] [id number] Aug, [facility] [address] [id number] [address] [place] [id number] Jun, [facility] [address] [id number] [address] [place] [id number] Sep, [facility] [address] [id number] [address] [place] [phone] Jul, [facility] [address] [facility] [id number] [address] [place] [id number] Jul, IMMUNIZATIONS No Known Immunizations SOCIAL HISTORY Never Assessed REASON FOR VISIT [facility] [place] [facility] [place] OF CARE VITAL SIGNS MEDICATIONS No Known Medications RESULTS No Results [...]
--- OUTSIDE RECORDS SUMMARY | 2019-12-20 23:01 | XMS REPORT ---
Author Author Theodore Doctor Organization [facility] Address Unknown Phone Unavailable Care Team Providers Care Mobility Specialist Name Role Phone Migration, Doctor Unavailable Unavailable PROBLEMS Type Condition ICD9-CM Code CLX70-DY Code Onset Dates Condition S tatus SNOMED Code Problem Major depressive disorder, recurrent episode, mild F33.0 Active 944894612 Problem Seasonal allergic rhinitis, unspecified allergic rhinitis trigger J30.2 Active 804365177 Problem Late menses N92.6 Active 51687323 Problem Missed period N92.6 Active 362252 00 Problem Irregular menses N92.6 Active 386 377948 Problem Anxiety, generalized F41.1 Active 03310615 Problem Other obesity due to excess calories E66.09 Active 718925160 Problem Body mass index (BMI) of 36.0-36.9 in adult Z68.36 Active 673701153 ALLERGIES Substance Reaction Event Type Date Status Imitrex Unknown Drug Allergy Dec, Active ENCOUNTERS Encounter Location Date Diagnosis [facility] [address] [address] January, Dental infection K04.7 [facility] [address] [address] Aug, Exposure to STD Z20.2 and Mi ssed period N92.6 [facility] [address] [address] Jun, Non-intractable vomiting wit h nausea, unspecified vomiting type R11.2 ; Late menses N92.6 and Encounter for initial prescription of contraceptives, unspecified contraceptive Z30.019 [facility] [address] [address] Apr, Seasonal allergic rhinitis, unspecified allergic rhinitis trigger J30.2 and Sore throat J02.9 [facility] [address] [address] Apr, [facility] [address] [address] Feb, Acute bacterial conjunctivit is of left eye H10.32 [place] [address] [address] January, Major depressive disorder, r ecurrent episode, mild F33.0 ; Anxiety, generalized F41.1 and Irregular menses N92.6 [place] [address] [address] January, Major depressive disorder, r ecurrent episode, mild F33.0 ; Anxiety, generalized F41.1 ; Seasonal allergic rhinitis, unspecified allergic rhinitis trigger J30.2 ; Irregular menses N92.6 ; Other obesity due to excess calories E66.09 ; Body mass index (BMI) of 36.0-36.9 in adult Z68.36 and Encounter for repeat prescription of oral contraceptives Z30.41 [place] [address] [address] Dec, Anxiety, generalized F41.1 a nd Major depressive disorder, recurrent episode, mild F33.0 [place] [address] [address] Nov, [place] [address] [address] Nov, Anxiety, generalized F41.1 a nd Major depressive disorder, recurrent episode, mild F33.0 [place] [address] [place] [id number] [place] [address] Oct, Anxiety, generalized F41.1 a nd Major depressive disorder, recurrent episode, mild F33.0 [place] [address] [address] 13 Oct, 2017 Rectal bleeding K62.5 [facility] [address] [place] [id number] [address] [place] [address] 10 Oct, 2017 Sore throat J02.9 and Acute nasopharyngitis J00 [facility] [address] [facility] [id number] [address] [place] [id number] Oct, Viral gastroenteritis A08.4 [facility] [address] [facility] [id number] [address] [place] [address] Sep, Chest wall pain R07.89 [facility] [address] [place] [id number] [address] [place] [address] Sep, Major depressive disorder, r ecurrent episode, moderate F33.1 [facility] [address] [id number] Sep, Viral syndrome B34.9 [facility] [address] [place] [id number] [address] [place] [address] Aug, Major depressive disorder, r ecurrent episode, moderate F33.1 and Anxiety, generalized F41.1 [place] [address] [place] [id number] [place] [address] Jul, [facility] [address] [place] [id number] [address] [place] [address] Jul, Viral syndrome B34.9 [facility] [address] [place] [id number] [place] [address] Jun, Anxiety, generalized F41.1 a nd Major depressive disorder, recurrent episode, moderate F33.1 [place] [address] [place] [id number] [place] [address] May, Anxiety, generalized F41.1 a nd Major depressive disorder, recurrent episode, moderate F33.1 [place] [address] [address] May, Tear of medial meniscus of l eft knee, current, unspecified tear type, initial encounter S83.242A [facility] [address] [place] [id number] [place] [id number] May, 2017 Encounter for immunization Z 23 [place] [id number] [place] [address] Apr, Major depressive disorder, r ecurrent episode, moderate F33.1 and Anxiety, generalized F41.1 [place] [address] [place] [id number] [place] [address] Apr, Moderate single current epis ode of major depressive disorder F32.1 ; Anxiety, generalized F41.1 and Panic disorder [episodic paroxysmal anxiety] without agoraphobia F41.0 [place] [address] [address] Apr, Sports physical Z02.5 ; Enco unter [...] and Acute pain of right knee M25.561 [facility] [place] [address] [address] Mar, Acute pain of left knee M25. 562 [facility] [address] [id number] January, Irregular menses N92.6 and S creen for STD (sexually transmitted disease) Z11.3 [facility] [address] [id number] January, Right lower quadrant abdomin al pain R10.31 and Flank pain R10.9 [place] [address] [address] Oct, Influenza B J10.1 [facility] [address] [address] Oct, Acute nasopharyngitis J00 an d Seasonal allergic rhinitis, unspecified allergic rhinitis trigger J30.2 [facility] [address] [id number] [address] [place] [address] Jun, [facility] [address] [id number] [address] [place] [address] May, [facility] [address] [id number] [address] [place] [address] May, [facility] [address] [id number] [address] [place] [address] May, [facility] [address] [id number] [address] [place] [id number] May, [facility] [address] [id number] [address] [place] [phone] Apr, [facility] [address] [facility] [id number] [address] [place] [address] Apr, [facility] [address] [facility] [id number] [address] [place] [address] Apr, [facility] [address] [facility] [id number] [address] [place] [address] Apr, Arthritis of left knee M19.9 0 and Tick-borne disease B88.2 [facility] [address] [facility] [id number] [address] [place] [phone] Dec, [facility] [address] [place] [id number] [place] [id number] Nov, 2016 Encounter for immunization Z 23 [facility] [address] [id number] [address] [place] [address] Nov, Influenza J11.1 [facility] [address] [place] [id number] 07 Nov, 2015 Anxiety F41.9 [facility] [address] [facility] [id number] [address] [place] [id number] Sep, Sore throat J02.9 [facility] [address] [place] [id number] [address] [place] [phone] Jul, Amenorrhea, unspecified N91. 2 and Dysuria R30.0 [facility] [address] [place] [id number] [place] [address] Jun, Acute nasopharyngitis J00 [facility] [address] [place] [id number] [place] [address] Jun, [facility] [address] [address] Mar, Pubertal menorrhagia 626.3 ; Initiation of OCP (BCP) V25.01 and Need for HPV vaccination V04.89 [facility] [address] [place] [id number] [place] [address] Mar, Mood disorder 296.90 and ADH D (attention deficit hyperactivity disorder), combined type 314.01 [facility] [address] [address] Dec, [facility] [address] [address] Dec, [facility] [address] [address] Aug, [facility] [address] [address] Aug, [facility] [address] [place] [id number] [address] [place] [phone] Aug, [facility] [address] [place] [id number] [address] [place] [phone] Aug, [facility] [address] [address] Aug, [facility] [address] [place] [id number] [address] [place] [id number] Aug, [facility] [address] [address] Aug, [facility] [address] [id number] [address] [place] [address], [place] [address] Jul, [facility] [address] [id number] [address] [place] [address], [place] [address] Jul, [facility] [address] [id number] [address] [place] [address], [place] [address] Jul, [facility] [address] [id number] [address] [place] [address], [place] [address] Jul, [facility] [address] [id number] [address] [place] [address], [place] [address] Jun, [facility] [address] [id number] [address] [place] [address], [place] [address] Jun, [facility] [address] [id number] [address] [place] [address], [place] [address] Jun, [facility] [address] [id number] [address] [place] [address], [place] [address] Jun, [facility] [address] [id number] [address] [place] [address], [place] [address] January, [facility] [address] [id number] [address] [place] [address], [place] [address] January, [facility] [address] [id number] [address] [place] [address], [place] [id number] January, [facility] [address] [id number] [address] [place] [address], [place] [address] Nov, [facility] [address] [id number] [address] [place] [address], [place] [id number] Nov, [facility] [address] [id number] [address] [place] [address], [place] [address] Aug, [facility] [address] [id number] [address] [place] [address], [place] [address] Aug, [facility] [address] [id number] [address] [place] [address], [place] [address] 18 Aug, 2013 [facility] [address] [id number] [address] [place] [address], [place] [address] Aug, [facility] [address] [id number] [address] [place] [address], [place] [address] Aug, [facility] [address] [id number] [address] [place] [address], [place] [address] Jul, [facility] [address] [id number] [address] [place] [address], [place] [address] Jul, [facility] [address] [id number] [address] [place] [address], [place] [address] Jun, [facility] [address] [id number] [address] [place] [address], [place] [address] Jun, [facility] [address] [id number] [address] [place] [address], [place] [address] Jun, [facility] [address] [id number] [address] [place] [address], [place] [address] Jun, [facility] [address] [id number] [address] [place] [address], [place] [address] 24 Jun, 2013 [facility] [address] [id number] [address] [place] [address], [place] [address] Jun, [facility] [address] [id number] [address] [place] [address], [place] [address] 17 Jun, 2013 [facility] [address] [id number] [address] [place] [address], [place] [address] 10 Jun, 2013 [facility] [address] [id number] [address] [place] [address], [place] [address] 03 Jun, 2013 [facility] [address] [id number] [address] [place] [address], [place] [address] Nov, [facility] [address] [id number] [address] [place] [address], [place] [address] Nov, [facility] [address] [id number] [address] [place] [address], [place] [address] Oct, [facility] [address] [id number] [address] [place] [address], [place] [address] Oct, [facility] [address] [id number] [address] [place] [address], [place] [address] Jul, [facility] [address] [id number] [address] [place] [address], [place] [address] Jul, [facility] [address] [id number] [address] [place] [address], [place] [address] Jul, [facility] [address] [id number] [address] [place] [address], [place] [address] Jul, [facility] [address] [id number] [address] [place] [address], [place] [address] Jul, [facility] [address] [id number] [address] [place] [address], [place] [address] Jul, [facility] [address] [id number] [address] [place] [address], [place] [address] Jun, [facility] [address] [id number] [address] [place] [id number] Jun, [facility] [address] [id number] [address] [place] [address], [place] [address] Jun, [facility] [address] [id number] [address] [place] [id number] Jun, [facility] [address] [id number] [address] [place] [address], [place] [address] May, [facility] [address] [id number] [address] [place] [id number] May, [facility] [address] [id number] [address] [place] [address], [place] [address] Oct, [facility] [address] [id number] [address] [place] [phone] Sep, [facility] [address] [id number] [address] [place] [address] Sep, [facility] [address] [id number] [address] [place] [id number] Aug, [facility] [address] [id number] [address] [place] [phone] Aug, [facility] [address] [id number] [address] [place] [phone] Aug, [facility] [address] [id number] [address] [place] [id number] Jun, [facility] [address] [id number] [address] [place] [id number] Sep, [facility] [address] [id number] [address] [place] [id number] Jul, [facility] [address] [id number] [address] [place] [id number] Jul, IMMUNIZATIONS No Known Immunizations SOCIAL HISTORY Never Assessed REASON FOR VISIT [facility] [place] VITAL SIGNS MEDICATIONS Medication Instructions Dosage Frequency Start Date End Date Duration S tatus Ceftin 250 mg 2 tablet by Oral route 2 times per day f or 10 day(s) Jul, Active Augmentin 875-125 mg 1 tablet by Oral route 2 times pe r day for 10 day(s) Jun, Active Amitiza 8 mcg 1 capsule by Oral route 2 times per day Aug, Active Magnesium Citrate 150 mL by Oral route 1 time per day Jul, Active Ibuprofen 600 mg 1 tablet by Oral route 3 times per da y for 10 days Sep, Active Keflex 500 mg take 1 capsule by Oral route 2 times per day for 10 days January, Active RESULTS No Results PROCEDURES No Known [...]
--- OUTSIDE RECORDS SUMMARY | 2019-12-20 23:01 | XMS REPORT ---
Author Author Migration, Doctor Organization [facility] Address Unknown Phone Unavailable Care Team Providers Care Lead Person Name Role Phone Migration, Doctor Unavailable Unavailable PROBLEMS Type Condition ICD9-CM Code ZAE29-VD Code Onset Dates Condition S tatus SNOMED Code Problem Major depressive disorder, recurrent episode, mild F33.0 Active 094440837 Problem Seasonal allergic rhinitis, unspecified allergic rhinitis trigger J30.2 Active 670920954 Problem Late menses N92.6 Active 04508697 Problem Missed period N92.6 Active 761297 00 Problem Irregular menses N92.6 Active 386 193828 Problem Anxiety, generalized F41.1 Active 97822507 Problem Other obesity due to excess calories E66.09 Active 240405860 Problem Body mass index (BMI) of 36.0-36.9 in adult Z68.36 Active [id number] ALLERGIES No Information ENCOUNTERS Encounter Location Date Diagnosis [facility] [id number] [place] [address] Aug, Exposure to STD Z20.2 and Mi ssed period N92.6 [facility] [address] [address] 15 Jun, 2018 Non-intractable vomiting wit h nausea, unspecified vomiting type R11.2 ; Late menses N92.6 and Encounter for initial prescription of contraceptives, unspecified contraceptive Z30.019 [facility] [id number] [place] [address] Apr, Seasonal allergic rhinitis, unspecified allergic rhinitis trigger J30.2 and Sore throat J02.9 [facility] [address] [address] Apr, [facility] [id number] [place] [address] Feb, Acute bacterial conjunctivit is of left eye H10.32 [place] [address] [address] January, Major depressive disorder, r ecurrent episode, mild F33.0 ; Anxiety, generalized F41.1 and Irregular menses N92.6 [place] [address] [address] January, Major depressive disorder, r ecurrent episode, mild F33.0 ; Anxiety, generalized F41.1 ; Seasonal allergic rhinitis, unspecified allergic rhinitis trigger J30.2 ; Irregular menses N92.6 ; Other obesity due to excess calories E66.09 ; Body mass index (BMI) of 36.0-36.9 in adult Z68.36 and Encounter for repeat prescription of oral contraceptives Z30.41 [place] [address] [address] Dec, Anxiety, generalized F41.1 a nd Major depressive disorder, recurrent episode, mild F33.0 [place] [address] [address] Nov, [place] [address] [address] Nov, Anxiety, generalized F41.1 a nd Major depressive disorder, recurrent episode, mild F33.0 [place] [address] [address] Oct, Anxiety, generalized F41.1 a nd Major depressive disorder, recurrent episode, mild F33.0 [place] [address] [address] 13 Oct, 2017 Rectal bleeding K62.5 [facility] [place] [address] [address] 10 Oct, 2017 Sore throat J02.9 and Acute nasopharyngitis J00 [facility] [address] [address] 04 Oct, 2017 Viral gastroenteritis A08.4 [facility] [address] [facility] [id number] [address] [place] [address] Sep, Chest wall pain R07.89 [place] [address] [facility] [id number] [address] [place] [address] Sep, Major depressive disorder, r ecurrent episode, moderate F33.1 [facility] [id number] [place] [id number] Sep, Viral syndrome B34.9 [place] [address] [facility] [id number] [address] [place] [address] Aug, Major depressive disorder, r ecurrent episode, moderate F33.1 and Anxiety, generalized F41.1 [place] [address] [id number] [place] [address] Jul, [facility] [address] [id number] [address] [place] [address] Jul, Viral syndrome B34.9 [place] [address] [id number] [place] [address] Jun, Anxiety, generalized F41.1 a nd Major depressive disorder, recurrent episode, moderate F33.1 [place] [address] [id number] [place] [address] May, Anxiety, generalized F41.1 a nd Major depressive disorder, recurrent episode, moderate F33.1 [place] [address] [id number] [place] [address] May, Tear of medial meniscus of l eft knee, current, unspecified tear type, initial encounter S83.242A [facility] [id number] [place] [id number] 13 May, 2017 Encounter for immunization Z 23 [place] [address] [facility] [id number] [address] [place] [address] Apr, Major depressive disorder, r ecurrent episode, moderate F33.1 and Anxiety, generalized F41.1 [place] [address] [address] Apr, Moderate single current epis ode of major depressive disorder F32.1 ; Anxiety, generalized F41.1 and Panic disorder [episodic paroxysmal anxiety] without agoraphobia F41.0 [place] [address] [address] Apr, Sports physical Z02.5 ; Enco unter [...] and Acute pain of right knee M25.561 [facility] [address] [address] Mar, Acute pain of left knee M25. 562 [facility] [address] [id number] January, Irregular menses N92.6 and S creen for STD (sexually transmitted disease) Z11.3 [facility] [address] [id number] January, Right lower quadrant abdomin al pain R10.31 and Flank pain R10.9 [place] [address] [address] Oct, Influenza B J10.1 [facility] IN [facility] [address] [address] Oct, Acute nasopharyngitis J00 an d Seasonal allergic rhinitis, unspecified allergic rhinitis trigger J30.2 [place] [address] [address] Jun, [place] [address] [place] [address] May, [facility] [address] [id number] [address] [place] [address] May, [facility] [address] [facility] [id number] [address] [place] [address] May, [facility] [address] [facility] [id number] [address] [place] [address] May, [facility] [address] [id number] [address] [place] [address] Apr, [facility] [address] [id number] [address] [place] [address] Apr, [facility] [address] [facility] [id number] [address] [place] [address] Apr, [facility] [address] [facility] [id number] [address] [place] [address] Apr, Arthritis of left knee M19.9 0 and Tick-borne disease B88.2 [facility] [address] [facility] [id number] [address] [place] [address] Dec, [facility] [address] [facility] [id number] [place] [id number] Nov, Encounter for immunization Z 23 [facility] [address] [facility] [id number] [address] [place] [address] Nov, Influenza J11.1 [facility] [address] [place] [address] 07 Nov, 2015 Anxiety F41.9 [facility] [address] [facility] [id number] [address] [place] [address] Sep, Sore throat J02.9 [facility] [address] [facility] [id number] [address] [place] [address] 16 Jul, 2015 Amenorrhea, unspecified N91. 2 and Dysuria R30.0 [facility] [address] [place] [address] Jun, Acute nasopharyngitis J00 [facility] [address] [facility] [id number] [address] [place] [address] Jun, [facility] [address] [facility] [id number] [address] [place] [address] Mar, Pubertal menorrhagia 626.3 ; Initiation of OCP (BCP) V25.01 and Need for HPV vaccination V04.89 [facility] [address] [facility] [id number] [address] [place] [address] Mar, Mood disorder 296.90 and ADH D (attention deficit hyperactivity disorder), combined type 314.01 [facility] [address] [facility] [id number] [address] [place] [address] Dec, [facility] [id number] [place] [address] Dec, [facility] [address] [id number] [address] [place] [address] Aug, [facility] [address] [id number] [address] [place] [address] Aug, [facility] [address] [id number] [address] [place] [address] Aug, [facility] [address] [id number] [address] [place] [address] Aug, [facility] [address] [id number] [address] [place] [address] Aug, [facility] [address] [facility] [id number] [address] [place] [address] Aug, [facility] [address] [facility] [id number] [address] [place] [address] Aug, [facility] [address] [facility] [id number] [address] [place] [address] Jul, [facility] [address] [id number] [address] [place] [address], [place] [address] Jul, [facility] [address] [id number] [address] [place] [address], [place] [address] Jul, [facility] [address] [id number] [address] [place] [address], [place] [address] Jul, [facility] [address] [id number] [address] [place] [address], [place] [address] Jun, [facility] [address] [id number] [address] [place] [address], [place] [address] Jun, [facility] [address] [id number] [address] [place] [address], [place] [address] Jun, [facility] [address] [id number] [address] [place] [address], [place] [address] Jun, [facility] [address] [id number] [address] [place] [address], [place] [address] January, [facility] [address] [id number] [address] [place] [address], [place] [address] January, [facility] [address] [id number] [address] [place] [address], [place] [address] January, [facility] [address] [id number] [address] [place] [address], [place] [address] Nov, [facility] [address] [id number] [address] [place] [address], [place] [address] Nov, [facility] [address] [id number] [address] [place] [address], [place] [address] Aug, [facility] [address] [id number] [address] [place] [address], [place] [address] Aug, [facility] [address] [id number] [address] [place] [address], [place] [address] Aug, [facility] [address] [id number] [address] [place] [address], [place] [address] Aug, [facility] [address] [id number] [address] [place] [address], [place] [address] Aug, [facility] [address] [id number] [address] [place] [address], [place] [address] Jul, [facility] [address] [id number] [address] [place] [address], [place] [address] Jul, [facility] [address] [id number] [address] [place] [address], [place] [address] Jun, [facility] [address] [id number] [address] [place] [address], [place] [address] Jun, [facility] [address] [id number] [address] [place] [address], [place] [address] Jun, [facility] [address] [id number] [address] [place] [address], [place] [address] Jun, [facility] [address] [id number] [address] [place] [address], [place] [address] Jun, [facility] [address] [id number] [address] [place] [address], [place] [address] Jun, [facility] [address] [id number] [address] [place] [address] Jun, [facility] [address] [id number] [address] [place] [address], [place] [address] Jun, [facility] [address] [id number] [address] [place] [address] Jun, [facility] [address] [id number] [address] [place] [address], [place] [address] Nov, [facility] [address] [id number] [address] [place] [address] Nov, [facility] [address] [id number] [address] [place] [address], [place] [address] Oct, [facility] [address] [id number] [address] [place] [address], [place] [address] 09 Oct, 2012 [facility] [address] [id number] [address] [place] [address], [place] [address] Jul, [facility] [address] [id number] [address] [place] [address], [place] [address] Jul, [facility] [address] [id number] [address] [place] [address], [place] [address] Jul, [facility] [address] [id number] [address] [place] [address], [place] [address] Jul, [facility] [address] [id number] [address] [place] [address], [place] [address] Jul, [facility] [address] [id number] [address] [place] [address], [place] [address] Jul, [facility] [address] [id number] [address] [place] [address], [place] [address] Jun, [facility] [address] [id number] [address] [place] [address], [place] [address] Jun, [facility] [address] [id number] [address] [place] [address], [place] [address] Jun, [facility] [address] [id number] [address] [place] [address], [place] [address] Jun, [facility] [address] [id number] [address] [place] [address], [place] [address] May, [facility] [address] [id number] [address] [place] [address], [place] [address] May, [facility] [address] [id number] [address] [place] [address], [place] [address] Oct, [facility] [address] [id number] [address] [place] [address], [place] [address] Sep, [facility] [address] [id number] [address] [place] [address], [place] [address] Sep, [facility] [address] [id number] [address] [place] [address] Aug, [facility] [address] [id number] [address] [place] [address] Aug, [facility] [address] [id number] [address] [place] [address] Aug, [facility] [address] [id number] [address] [place] [address] Jun, [facility] [address] [id number] [address] [place] [address] Sep, [facility] [address] [id number] [address] [place] [address] Jul, [facility] [address] [facility] [id number] [address] [place] [address] Jul, IMMUNIZATIONS No Known Immunizations SOCIAL HISTORY Never Assessed REASON FOR VISIT [facility] [place] VITAL SIGNS MEDICATIONS No [...]
--- OUTSIDE RECORDS SUMMARY | 2019-12-20 23:01 | XMS REPORT ---
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 Name Role Phone Migration, Doctor Unavailable Unavailable PROBLEMS Type Condition ICD9-CM Code UUL90-XE Code Onset Dates Condition S tatus SNOMED Code Problem Major depressive disorder, recurrent episode, mild F33.0 Active 538110277 Problem Seasonal allergic rhinitis, unspecified allergic rhinitis trigger J30.2 Active 765553803 Problem Late menses N92.6 Active 55255014 Problem Missed period N92.6 Active 815427 00 Problem Irregular menses N92.6 Active 386 797495 Problem Anxiety, generalized F41.1 Active 61071386 Problem Other obesity due to excess calories E66.09 Active 544113345 Problem Body mass index (BMI) of 36.0-36.9 in adult Z68.36 Active [id number] ALLERGIES No Information ENCOUNTERS Encounter Location Date Diagnosis [facility] [address] [id number] [address] [place] [address] January, Dental infection K04.7 [facility] [address] [address] Aug, Exposure to STD Z20.2 and Mi ssed period N92.6 [facility] [address] [id number] [address] [place] [address] Jun, Non-intractable vomiting wit h nausea, unspecified vomiting type R11.2 ; Late menses N92.6 and Encounter for initial prescription of contraceptives, unspecified contraceptive Z30.019 [facility] [id number] [place] [address] Apr, Seasonal allergic rhinitis, unspecified allergic rhinitis trigger J30.2 and Sore throat J02.9 [facility] [address] [id number] [address] [place] [address] Apr, [facility] [address] [address] Feb, Acute bacterial conjunctivit is of left eye H10.32 [place] [address] [address] January, Major depressive disorder, r ecurrent episode, mild F33.0 ; Anxiety, generalized F41.1 and Irregular menses N92.6 [place] [address] [address] January, Major depressive disorder, r ecurrent episode, mild F33.0 ; Anxiety, generalized F41.1 ; Seasonal allergic rhinitis, unspecified allergic rhinitis trigger J30.2 ; Irregular menses N92.6 ; Other obesity due to excess calories E66.09 ; Body mass index (BMI) of 36.0-36.9 in adult Z68.36 and Encounter for repeat prescription of oral contraceptives Z30.41 [place] [address] [address] Dec, Anxiety, generalized F41.1 a nd Major depressive disorder, recurrent episode, mild F33.0 [place] [address] [address] Nov, [place] [address] [address] Nov, Anxiety, generalized F41.1 a nd Major depressive disorder, recurrent episode, mild F33.0 [place] [address] [address] Oct, Anxiety, generalized F41.1 a nd Major depressive disorder, recurrent episode, mild F33.0 [place] [address] [address] 13 Oct, 2017 Rectal bleeding K62.5 [facility] [address] [id number] [address] [place] [address] 10 Oct, 2017 Sore throat J02.9 and Acute nasopharyngitis J00 [facility] [address] [facility] [id number] [address] [place] [address] Oct, Viral gastroenteritis A08.4 [facility] [address] [facility] [id number] [address] [place] [address] Sep, Chest wall pain R07.89 [facility] [id number] [place] [address] Sep, Major depressive disorder, r ecurrent episode, moderate F33.1 [facility] [address] [facility] [id number] [address] [place] [id number] Sep, Viral syndrome B34.9 [place] [address] [facility] [id number] [address] [place] [address] Aug, Major depressive disorder, r ecurrent episode, moderate F33.1 and Anxiety, generalized F41.1 [place] [address] [place] [address] Jul, [facility] [address] [id number] [address] [place] [address] Jul, Viral syndrome B34.9 [place] [address] [place] [id number] [address] [place] [address] Jun, Anxiety, generalized F41.1 a nd Major depressive disorder, recurrent episode, moderate F33.1 [place] [address] [place] [address] May, Anxiety, generalized F41.1 a nd Major depressive disorder, recurrent episode, moderate F33.1 [place] [address] [place] [id number] [address] [place] [address] May, Tear of medial meniscus of l eft knee, current, unspecified tear type, initial encounter S83.242A [facility] [id number] [place] [id number] May, 2017 Encounter for immunization Z 23 [place] [address] [place] [place] [id number] Apr, Major depressive disorder, r ecurrent episode, moderate F33.1 and Anxiety, generalized F41.1 [place] [id number] Apr, Moderate single current epis ode of major depressive disorder F32.1 ; Anxiety, generalized F41.1 and Panic disorder [episodic paroxysmal anxiety] without agoraphobia F41.[address] [address] Apr, Sports physical Z02.5 ; Enco unter [...] and Acute pain of right knee M25.561 [facility] [address] [address] Mar, Acute pain of left knee M25. 562 [facility] [place] [id number] January, Irregular menses N92.6 and S creen for STD (sexually transmitted disease) Z11.3 [facility] [address] [id number] January, Right lower quadrant abdomin al pain R10.31 and Flank pain R10.[address] [address] Oct, Influenza B J10.1 [facility] [address] [address] Oct, Acute nasopharyngitis J00 an d Seasonal allergic rhinitis, unspecified allergic rhinitis trigger J30.[address] [place] [address] Jun, [facility] [address] [id number] [address] [place] [address] May, [facility] [address] [id number] [address] [place] [address] May, [facility] [address] [facility] [id number] [address] [place] [address] May, [facility] [address] [id number] [address] [place] [address] May, [facility] [address] [id number] [address] [place] [address] Apr, [facility] [address] [facility] [id number] [address] [place] [address] Apr, [facility] [address] [facility] [id number] [address] [place] [address] Apr, [facility] [address] [facility] [id number] [address] [place] [address] Apr, Arthritis of left knee M19.9 0 and Tick-borne disease B88.2 [facility] [address] [facility] [id number] [address] [place] [address] Dec, [facility] [address] [facility] [id number] [place] [id number] 30 Nov, 2016 Encounter for immunization Z 23 [facility] [address] [facility] [id number] [address] [place] [address] 11 Nov, 2015 Influenza J11.1 [facility] [address] [facility] [id number] [address] [place] [phone] 07 Nov, 2015 Anxiety F41.9 [facility] [address] [facility] [id number] [address] [place] [address] 18 Sep, 2015 Sore throat J02.9 [facility] [address] [facility] [id number] [address] [place] [address] Jul, Amenorrhea, unspecified N91. 2 and Dysuria R30.0 [facility] [address] [facility] [id number] [address] [place] [address] Jun, Acute nasopharyngitis J00 [facility] [address] [facility] [id number] [address] [place] [address] Jun, [facility] [id number] [place] [address] Mar, Pubertal menorrhagia 626.3 ; Initiation of OCP (BCP) V25.01 and Need for HPV vaccination V04.89 [facility] [id number] [place] [phone] Mar, Mood disorder 296.90 and ADH D (attention deficit hyperactivity disorder), combined type 314.01 [facility] [address] [id number] [address] [place] [address] Dec, [facility] [address] [id number] [address] [place] [address] Dec, [facility] [address] [id number] [address] [place] [address] Aug, [facility] [address] [id number] [address] [place] [phone] Aug, [facility] [address] [id number] [address] [place] [address] Aug, [facility] [address] [facility] [id number] [address] [place] [address] Aug, [facility] [address] [id number] [address] [place] [address] Aug, [facility] [address] [id number] [address] [place] [phone] Aug, [facility] [address] [id number] [address] [place] [address] Aug, [facility] [place] [facility] [address] [id number] [address] [place] [address], [place] [address] Jul, [facility] [place] [facility] [address] [id number] [address] [place] [address], [place] [address] Jul, [facility] [place] [facility] [address] [id number] [address] [place] [address], [place] [address] Jul, [facility] [place] [facility] [address] [id number] [address] [place] [address], [place] [address] Jul, [facility] [place] [facility] [address] [id number] [address] [place] [address], [place] [address] Jun, [facility] [place] [facility] [address] [id number] [address] [place] [address], [place] [address] Jun, [facility] [place] [facility] [address] [id number] [address] [place] [address], [place] [address] Jun, [facility] [place] [facility] [address] [id number] [address] [place] [address], [place] [address] Jun, [facility] [address] [id number] [address] [place] [address], [place] [address] January, [facility] [place] [facility] [address] [id number] [address] [place] [address], [place] [address] January, [facility] [place] [facility] [address] [id number] [address] [place] [address], [place] [address] January, [facility] [place] [facility] [address] [id number] [address] [place] [address], [place] [address] Nov, [facility] [place] [facility] [address] [id number] [address] [place] [address], [place] [address] Nov, [facility] [place] [facility] [address] [id number] [address] [place] [address], [place] [address] Aug, [facility] [place] [facility] [address] [id number] [address] [place] [address], [place] [address] Aug, [facility] [place] [facility] [address] [id number] [address] [place] [address], [place] [address] Aug, [facility] [address] [id number] [address] [place] [address], [place] [address] Aug, [facility] [address] [id number] [address] [place] [address], [place] [address] Aug, [facility] [address] [id number] [address] [place] [address], [place] [address] Jul, [facility] [address] [id number] [address] [place] [address], [place] [address] Jul, [facility] [address] [id number] [address] [place] [address], [place] [address] Jun, [facility] [address] [id number] [address] [place] [address], [place] [address] Jun, [facility] [address] [id number] [address] [place] [address], [place] [address] Jun, [facility] [address] [id number] [address] [place] [address], [place] [address] Jun, [facility] [address] [id number] [address] [place] [address], [place] [address] 24 Jun, 2013 [facility] [address] [id number] [address] [place] [phone] Jun, [facility] [address] [id number] [address] [place] [address] 17 Jun, 2013 [facility] [place] [facility] [address] [id number] [address] [place] [phone] 10 Jun, 2013 [facility] [address] [id number] [address] [place] [address], [place] [address] 03 Jun, 2013 [facility] [place] [facility] [address] [id number] [address] [place] [address] 11 Nov, 2012 [facility] [place] [facility] [address] [id number] [address] [place] [address], [place] [address] 11 Nov, 2012 [facility] [address] [id number] [address] [place] [address], [place] [address] Oct, [facility] [address] [id number] [address] [place] [address], [place] [address] Oct, [facility] [address] [id number] [address] [place] [address], [place] [address] Jul, [facility] [address] [id number] [address] [place] [address], [place] [address] Jul, [facility] [address] [id number] [address] [place] [address], [place] [address] Jul, [facility] [address] [id number] [address] [place] [address], [place] [address] Jul, [facility] [address] [id number] [address] [place] [address], [place] [address] Jul, [facility] [address] [id number] [address] [place] [address], [place] [address] Jul, [facility] [address] [id number] [address] [place] [address], [place] [address] Jun, [facility] [address] [id number] [address] [place] [address], [place] [address] Jun, [facility] [address] [id number] [address] [place] [address], [place] [address] Jun, [facility] [address] [id number] [address] [place] [address], [place] [address] Jun, [facility] [address] [id number] [address] [place] [address], [place] [address] May, [facility] [address] [id number] [address] [place] [address], [place] [address] May, [facility] [address] [id number] [address] [place] [address], [place] [address] Oct, [facility] [address] [id number] [address] [place] [address], [place] [address] Sep, [facility] [address] [id number] [address] [place] [address] Sep, [facility] [address] [id number] [address] [place] [address] Aug, [facility] [address] [id number] [address] [place] [address] Aug, [facility] [address] [id number] [address] [place] [address] Aug, [facility] [address] [id number] [address] [place] [address] Jun, [facility] [address] [id number] [address] [place] [address] Sep, [facility] [address] [facility] [id number] [address] [place] [address] Jul, [facility] [address] [facility] [id number] [address] [place] [address] Jul, IMMUNIZATIONS No Known Immunizations SOCIAL HISTORY Never Assessed [place]AS[place] [place] VITAL SIGNS MEDICATIONS Unknown [...]
--- OUTSIDE RECORDS SUMMARY | 2019-12-20 23:01 | XMS REPORT ---
Author Author Migration Doctor Organization [facility] Address Unknown Phone Unavailable Care Team Providers Care Machine Stonecutter Name Role Phone Migration, Doctor Unavailable Unavailable PROBLEMS Type Condition ICD9-CM Code KUM45-VG Code Onset Dates Condition S tatus SNOMED Code Problem Major depressive disorder, recurrent episode, mild F33.0 Active 019197861 Problem Seasonal allergic rhinitis, unspecified allergic rhinitis trigger J30.2 Active 703125875 Problem Late menses N92.6 Active 43687545 Problem Missed period N92.6 Active 347852 00 Problem Irregular menses N92.6 Active 386 704851 Problem Anxiety, generalized F41.1 Active 75820808 Problem Other obesity due to excess calories E66.09 Active 716619292 Problem Body mass index (BMI) of 36.0-36.9 in adult Z68.36 Active [id number] ALLERGIES No Information ENCOUNTERS Encounter Location Date Diagnosis [facility] [address] [id number] [address] [place] [address] January, Dental infection K04.7 [facility] [address] [address] Aug, Exposure to STD Z20.2 and Mi ssed period N92.6 [facility] [address] [id number] [address] [place] [address] Jun, Non-intractable vomiting wit h nausea, unspecified vomiting type R11.2 ; Late menses N92.6 and Encounter for initial prescription of contraceptives, unspecified contraceptive Z30.019 [facility] [id number] [place] [address] Apr, Seasonal allergic rhinitis, unspecified allergic rhinitis trigger J30.2 and Sore throat J02.9 [facility] [address] [id number] [address] [place] [address] Apr, [facility] [address] [address] Feb, Acute bacterial conjunctivit is of left eye H10.32 [place] [address] [phone] January, Major depressive disorder, r ecurrent episode, mild F33.0 ; Anxiety, generalized F41.1 and Irregular menses N92.6 [place] [address] [address] January, Major depressive disorder, r ecurrent episode, mild F33.0 ; Anxiety, generalized F41.1 ; Seasonal allergic rhinitis, unspecified allergic rhinitis trigger J30.2 ; Irregular menses N92.6 ; Other obesity due to excess calories E66.09 ; Body mass index (BMI) of 36.0-36.9 in adult Z68.36 and Encounter for repeat prescription of oral contraceptives Z30.41 [place] [address] [address] Dec, Anxiety, generalized F41.1 a nd Major depressive disorder, recurrent episode, mild F33.0 [place] [address] [address] Nov, [place] [address] [address] Nov, Anxiety, generalized F41.1 a nd Major depressive disorder, recurrent episode, mild F33.0 [place] [address] [address] Oct, Anxiety, generalized F41.1 a nd Major depressive disorder, recurrent episode, mild F33.0 [place] [address] [address] 13 Oct, 2017 Rectal bleeding K62.5 [facility] [id number] [address] [place] [address] 10 Oct, 2017 Sore throat J02.9 and Acute nasopharyngitis J00 [facility] [address] [facility] [id number] [address] [place] [address] Oct, Viral gastroenteritis A08.4 [facility] [address] [facility] [id number] [address] [place] [address] Sep, Chest wall pain R07.89 [facility] [id number] [place] [address] Sep, Major depressive disorder, r ecurrent episode, moderate F33.1 [facility] [address] [facility] [id number] [address] [place] [id number] Sep, Viral syndrome B34.9 [place] [address] [facility] [id number] [address] [place] [address] Aug, Major depressive disorder, r ecurrent episode, moderate F33.1 and Anxiety, generalized F41.1 [place] [id number] [place] [address] Jul, [facility] [address] [id number] [address] [place] [address] Jul, Viral syndrome B34.9 [place] [address] [place] [address] [id number] [place] [address] Jun, Anxiety, generalized F41.1 a nd Major depressive disorder, recurrent episode, moderate F33.1 [place] [address] [place] [address] May, Anxiety, generalized F41.1 a nd Major depressive disorder, recurrent episode, moderate F33.1 [place] [address] [address] [id number] [place] [address] May, Tear of medial meniscus of l eft knee, current, unspecified tear type, initial encounter S83.242A [facility] [id number] [place] [id number] May, 2017 Encounter for immunization Z 23 [place] [address] [place] [place] [id number] Apr, Major depressive disorder, r ecurrent episode, moderate F33.1 and Anxiety, generalized F41.1 [place] [id number] Apr, Moderate single current epis ode of major depressive disorder F32.1 ; Anxiety, generalized F41.1 and Panic disorder [episodic paroxysmal anxiety] without agoraphobia F41.[address] [address] Apr, Sports physical Z02.5 ; En[place] unter [...] Acute pain of right knee M25.561 [facility] [address] [address] Mar, Acute pain of left knee M25. 562 [facility] [place] [id number] January, Irregular menses N92.6 and S creen for STD (sexually transmitted disease) Z11.3 [facility] [address] [id number] January, Right lower quadrant abdomin al pain R10.31 and Flank pain R10.[address] [address] Oct, Influenza B J10.1 [facility] [address] [address] Oct, Acute nasopharyngitis J00 an d Seasonal allergic rhinitis, unspecified allergic rhinitis trigger J30.[address] [place] [address] Jun, [facility] [address] [id number] [address] [place] [address] May, [facility] [address] [id number] [address] [place] [address] May, [facility] [address] [facility] [id number] [address] [place] [address] May, [facility] [address] [id number] [address] [place] [address] May, [facility] [address] [id number] [address] [place] [address] Apr, [facility] [address] [facility] [id number] [address] [place] [address] Apr, [facility] [address] [facility] [id number] [address] [place] [address] Apr, [facility] [address] [facility] [id number] [address] [place] [address] Apr, Arthritis of left knee M19.9 0 and Tick-borne disease B88.2 [facility] [address] [facility] [id number] [address] [place] [address] Dec, [facility] [address] [facility] [id number] [place] [id number] Nov, 2016 Encounter for immunization Z 23 [facility] [address] [facility] [id number] [address] [place] [address] 11 Nov, 2015 Influenza J11.1 [facility] [address] [facility] [id number] [address] [place] [address] 07 Nov, 2015 Anxiety F41.9 [facility] [address] [facility] [id number] [address] [place] [address] 18 Sep, 2015 Sore throat J02.9 [facility] [address] [facility] [id number] [address] [place] [address] Jul, Amenorrhea, unspecified N91. 2 and Dysuria R30.0 [facility] [address] [facility] [id number] [address] [place] [address] Jun, Acute nasopharyngitis J00 [facility] [address] [facility] [id number] [address] [place] [address] Jun, [facility] [id number] [place] [address] Mar, Pubertal menorrhagia 626.3 ; Initiation of OCP (BCP) V25.01 and Need for HPV vaccination V04.89 [facility] [id number] [place] [address] Mar, Mood disorder 296.90 and ADH D (attention deficit hyperactivity disorder), combined type 314.01 [facility] [address] [id number] [address] [place] [address] Dec, [facility] [address] [id number] [address] [place] [address] Dec, [facility] [id number] [address] [place] [address] Aug, [facility] [id number] [address] [place] [id number] Aug, [facility] [address] [id number] [address] [place] [address] Aug, [facility] [address] [facility] [id number] [address] [place] [address] Aug, [facility] [address] [id number] [address] [place] [address] Aug, [facility] [id number] [address] [place] [address] Aug, [facility] [address] [id number] [address] [place] [address] Aug, [facility] [place] [facility] [address] [id number] [address] [place] [address], [place] [address] Jul, [facility] [place] [facility] [address] [id number] [address] [place] [address], [place] [address] Jul, [facility] [place] [facility] [address] [id number] [address] [place] [address], [place] [address] Jul, [facility] [place] [facility] [address] [id number] [address] [place] [address], [place] [address] Jul, [facility] [place] [facility] [address] [id number] [address] [place] [address], [place] [address] Jun, [facility] [place] [facility] [address] [id number] [address] [place] [address], [place] [address] Jun, [facility] [place] [facility] [address] [id number] [address] [place] [address], [place] [address] Jun, [facility] [place] [facility] [address] [id number] [address] [place] [address], [place] [address] Jun, [facility] [address] [id number] [address] [place] [address], [place] [address] January, [facility] [place] [facility] [address] [id number] [address] [place] [address], [place] [address] January, [facility] [place] [facility] [address] [id number] [address] [place] [address], [place] [address] January, [facility] [place] [facility] [address] [id number] [address] [place] [address], [place] [address] Nov, [facility] [place] [facility] [address] [id number] [address] [place] [address], [place] [address] Nov, [facility] [place] [facility] [address] [id number] [address] [place] [address], [place] [address] Aug, [facility] [place] [facility] [address] [id number] [address] [place] [address], [place] [address] Aug, [facility] [place] [facility] [address] [id number] [address] [place] [address], [place] [address] Aug, [facility] [address] [id number] [address] [place] [address], [place] [address] Aug, [facility] [address] [id number] [address] [place] [address], [place] [address] Aug, [facility] [address] [id number] [address] [place] [address], [place] [address] Jul, [facility] [address] [id number] [address] [place] [address], [place] [address] Jul, [facility] [address] [id number] [address] [place] [address], [place] [address] Jun, [facility] [address] [id number] [address] [place] [address], [place] [address] Jun, [facility] [address] [id number] [address] [place] [address], [place] [address] Jun, [facility] [address] [id number] [address] [place] [address], [place] [address] Jun, [facility] [address] [id number] [address] [place] [address], [place] [address] 24 Jun, 2013 [facility] [address] [id number] [address] [place] [id number] Jun, [facility] [address] [id number] [address] [place] [id number] 17 Jun, 2013 [facility] [place] [facility] [address] [id number] [address] [place] [id number] 10 Jun, 2013 [facility] [address] [id number] [address] [place] [address], [place] [address] 03 Jun, 2013 [facility] [place] [facility] [address] [id number] [address] [place] [id number] 11 Nov, 2012 [facility] [place] [facility] [address] [id number] [address] [place] [address], [place] [address] 11 Nov, 2012 [facility] [address] [id number] [address] [place] [address], [place] [address] Oct, [facility] [address] [id number] [address] [place] [address], [place] [address] Oct, [facility] [address] [id number] [address] [place] [address], [place] [address] Jul, [facility] [address] [id number] [address] [place] [address], [place] [address] Jul, [facility] [address] [id number] [address] [place] [address], [place] [address] Jul, [facility] [address] [id number] [address] [place] [address], [place] [address] Jul, [facility] [address] [id number] [address] [place] [address], [place] [address] Jul, [facility] [address] [id number] [address] [place] [address], [place] [address] Jul, [facility] [address] [id number] [address] [place] [address], [place] [address] Jun, [facility] [address] [id number] [address] [place] [address], [place] [address] Jun, [facility] [address] [id number] [address] [place] [address], [place] [address] Jun, [facility] [address] [id number] [address] [place] [address], [place] [address] Jun, [facility] [address] [id number] [address] [place] [address], [place] [address] May, [facility] [address] [id number] [address] [place] [address], [place] [address] May, [facility] [address] [id number] [address] [place] [address], [place] [id number] Oct, [facility] [address] [id number] [address] [place] [address], [place] [address] Sep, [facility] [address] [id number] [address] [place] [phone] Sep, [facility] [address] [id number] [address] [place] [id number] Aug, [facility] [address] [id number] [address] [place] [id number] Aug, [facility] [address] [id number] [address] [place] [id number] Aug, [facility] [address] [id number] [address] [place] [id number] Jun, [facility] [address] [id number] [address] [place] [id number] Sep, [facility] [address] [id number] [address] [place] [id number] Jul, [facility] [address] [id number] [address] [place] [id number] Jul, IMMUNIZATIONS No Known Immunizations SOCIAL HISTORY Never Assessed REASON FOR VISIT PLAN OF CARE VITAL SIGNS Height 62 in 2014-08-17 Weight 176.89 lbs 2014-08-17 Temperature 97.1 degrees Fahrenheit 2014-08-17 Heart Rate 74 bpm 2014-08-17 Respiratory Rate 18 2014-08-17 Blood pressure systolic 124 mmHg 2014-08-17 Blood pressure diastolic 80 mmHg 2014-08-17 MEDICATIONS No Known Medications RESULTS No Results PROCEDURES Procedure Date Ordered Result Body Site X-RAY EXAM OF ABDOMEN Aug 17, 2014 INSTRUCTIONS MEDICATIONS ADMINISTERED No Known Medications [...]
--- OUTSIDE RECORDS SUMMARY | 2019-12-20 23:01 | XMS REPORT ---
Author Author Migration Doctor Organization [facility] Address Unknown Phone Unavailable Care Team Providers Care Furnace Builder Name Role Phone Migration, Doctor Unavailable Unavailable PROBLEMS Type Condition ICD9-CM Code NWN25-BB Code Onset Dates Condition S tatus SNOMED Code Problem Major depressive disorder, recurrent episode, mild F33.0 Active 071757944 Problem Seasonal allergic rhinitis, unspecified allergic rhinitis trigger J30.2 Active 371331417 Problem Late menses N92.6 Active 66581108 Problem Missed period N92.6 Active 547757 00 Problem Irregular menses N92.6 Active 386 341000 Problem Anxiety, generalized F41.1 Active 17942976 Problem Other obesity due to excess calories E66.09 Active 182741623 Problem Body mass index (BMI) of 36.0-36.9 in adult Z68.36 Active [id number] ALLERGIES No Information ENCOUNTERS Encounter Location Date Diagnosis [facility] [id number] [place] [address] January, Dental infection K04.7 [facility] [address] [address] Aug, Exposure to STD Z20.2 and Mi ssed period N92.6 [facility] [id number] [place] [address] Jun, Non-intractable vomiting wit h nausea, unspecified vomiting type R11.2 ; Late menses N92.6 and Encounter for initial prescription of contraceptives, unspecified contraceptive Z30.019 [facility] [id number] [place] [address] Apr, Seasonal allergic rhinitis, unspecified allergic rhinitis trigger J30.2 and Sore throat J02.9 [facility] [id number] [address] [place] [address] Apr, [facility] [address] [address] Feb, Acute bacterial conjunctivit is of left eye H10.32 [place] [address] [address] January, Major depressive disorder, r ecurrent episode, mild F33.0 ; Anxiety, generalized F41.1 and Irregular menses N92.6 [place] [address] [address] January, Major depressive disorder, r ecurrent episode, mild F33.0 ; Anxiety, generalized F41.1 ; Seasonal allergic rhinitis, unspecified allergic rhinitis trigger J30.2 ; Irregular menses N92.6 ; Other obesity due to excess calories E66.09 ; Body mass index (BMI) of 36.0-36.9 in adult Z68.36 and Encounter for repeat prescription of oral contraceptives Z30.41 [place] [address] [address] Dec, Anxiety, generalized F41.1 a nd Major depressive disorder, recurrent episode, mild F33.0 [place] [address] [address] Nov, [place] [address] [address] Nov, Anxiety, generalized F41.1 a nd Major depressive disorder, recurrent episode, mild F33.0 [place] [address] [address] Oct, Anxiety, generalized F41.1 a nd Major depressive disorder, recurrent episode, mild F33.0 [place] [address] [address] 13 Oct, 2017 Rectal bleeding K62.5 [facility] [id number] [place] [address] 10 Oct, 2017 Sore throat J02.9 and Acute nasopharyngitis J00 [facility] [address] [facility] [id number] [address] [place] [address] Oct, Viral gastroenteritis A08.4 [facility] [address] [facility] [id number] [address] [place] [address] Sep, Chest wall pain R07.89 [facility] [id number] [place] [address] Sep, Major depressive disorder, r ecurrent episode, moderate F33.1 [facility] [address] [facility] [id number] [address] [id number] Sep, Viral syndrome B34.9 [place] [address] [address] [facility] [id number] [address] [place] [address] Aug, Major depressive disorder, r ecurrent episode, moderate F33.1 and Anxiety, generalized F41.1 [place] [id number] [place] [address] Jul, [facility] [id number] [address] [place] [address] Jul, Viral syndrome B34.9 [place] [address] [address] [id number] [place] [address] Jun, Anxiety, generalized F41.1 a nd Major depressive disorder, recurrent episode, moderate F33.1 [place] [address] [place] [address] May, Anxiety, generalized F41.1 a nd Major depressive disorder, recurrent episode, moderate F33.1 [place] [address] [address] [id number] [place] [address] May, Tear of medial meniscus of l eft knee, current, unspecified tear type, initial encounter S83.242A [facility] [id number] [place] [id number] 13 May, 2017 Encounter for immunization Z 23 [place] [address] [place] [place] [id number] Apr, Major depressive disorder, r ecurrent episode, moderate F33.1 and Anxiety, generalized F41.1 [place] [id number] Apr, Moderate single current epis ode of major depressive disorder F32.1 ; Anxiety, generalized F41.1 and Panic disorder [episodic paroxysmal anxiety] without agoraphobia F41.[address] [address] Apr, Sports physical Z02.5 ; Enco unter [...] and Acute pain of right knee M25.561 [facility] [address] [address] Mar, Acute pain of left knee M25. 562 [facility] [place] [id number] January, Irregular menses N92.6 and S creen for STD (sexually transmitted disease) Z11.3 [facility] [address] [id number] January, Right lower quadrant abdomin al pain R10.31 and Flank pain R10.[address] [address] Oct, Influenza B J10.1 [facility] [address] [address] Oct, Acute nasopharyngitis J00 an d Seasonal allergic rhinitis, unspecified allergic rhinitis trigger J30.[address] [place] [address] Jun, [facility] [address] [id number] [address] [place] [address] May, [facility] [address] [id number] [address] [place] [address] May, [facility] [address] [facility] [id number] [address] [place] [address] May, [facility] [address] [id number] [address] [place] [address] May, [facility] [address] [id number] [address] [place] [address] Apr, [facility] [address] [facility] [id number] [address] [place] [address] Apr, [facility] [address] [facility] [id number] [address] [place] [address] Apr, [facility] [address] [facility] [id number] [address] [place] [address] Apr, Arthritis of left knee M19.9 0 and Tick-borne disease B88.2 [facility] [address] [facility] [id number] [address] [place] [address] Dec, [facility] [address] [facility] [id number] [place] [id number] 30 Nov, 2016 Encounter for immunization Z 23 [facility] [address] [facility] [id number] [address] [place] [address] 11 Nov, 2015 Influenza J11.1 [facility] [address] [facility] [id number] [address] [place] [address] 07 Nov, 2015 Anxiety F41.9 [facility] [address] [facility] [id number] [address] [place] [address] 18 Sep, 2015 Sore throat J02.9 [facility] [address] [facility] [id number] [address] [place] [address] Jul, Amenorrhea, unspecified N91. 2 and Dysuria R30.0 [facility] [address] [facility] [id number] [address] [place] [address] Jun, Acute nasopharyngitis J00 [facility] [address] [facility] [id number] [address] [place] [address] Jun, [facility] [id number] [address] Mar, Pubertal menorrhagia 626.3 ; Initiation of OCP (BCP) V25.01 and Need for HPV vaccination V04.89 [facility] [id number] [address] Mar, Mood disorder 296.90 and ADH D (attention deficit hyperactivity disorder), combined type 314.01 [facility] [id number] [address] [place] [address] Dec, [facility] [id number] [place] [address] Dec, [facility] [id number] [place] [address] Aug, [facility] [id number] [place] [address] Aug, [facility] [id number] [place] [address] Aug, [facility] [address] [facility] [id number] [address] [place] [address] Aug, [facility] [id number] [place] [address] Aug, [facility] [id number] [place] [address] Aug, [facility] [id number] [place] [address] Aug, [facility] [place] [facility] [address] [id number] [address] [place] [address], [place] [address] Jul, [facility] [place] [facility] [address] [id number] [address] [place] [address], [place] [address] Jul, [facility] [place] [facility] [address] [id number] [address] [place] [address], [place] [address] Jul, [facility] [place] [facility] [address] [id number] [address] [place] [address], [place] [address] Jul, [facility] [place] [facility] [address] [id number] [address] [place] [address], [place] [address] Jun, [facility] [place] [facility] [address] [id number] [address] [place] [address], [place] [address] Jun, [facility] [place] [facility] [address] [id number] [address] [place] [address], [place] [address] Jun, [facility] [place] [facility] [address] [id number] [address] [place] [address], [place] [address] Jun, [facility] [address] [id number] [address] [place] [address], [place] [address] January, [facility] [place] [facility] [address] [id number] [address] [place] [address], [place] [address] January, [facility] [place] [facility] [address] [id number] [address] [place] [address], [place] [address] January, [facility] [place] [facility] [address] [id number] [address] [place] [address], [place] [address] Nov, [facility] [place] [facility] [address] [id number] [address] [place] [address], [place] [address] Nov, [facility] [place] [facility] [address] [id number] [address] [place] [address], [place] [address] Aug, [facility] [place] [facility] [address] [id number] [address] [place] [address], [place] [address] Aug, [facility] [place] [facility] [address] [id number] [address] [place] [address], [place] [address] Aug, [facility] [address] [id number] [address] [place] [address], [place] [address] Aug, [facility] [address] [id number] [address] [place] [address], [place] [address] Aug, [facility] [address] [id number] [address] [place] [address], [place] [address] Jul, [facility] [address] [id number] [address] [place] [address], [place] [address] Jul, [facility] [address] [id number] [address] [place] [address], [place] [address] Jun, [facility] [address] [id number] [address] [place] [address], [place] [address] Jun, [facility] [address] [id number] [address] [place] [address], [place] [address] Jun, [facility] [address] [id number] [address] [place] [address], [place] [address] Jun, [facility] [address] [id number] [address] [place] [address], [place] [address] 24 Jun, 2013 [facility] [address] [id number] [address] [place] [address] Jun, [facility] [address] [id number] [address] [place] [address] 17 Jun, 2013 [facility] [place] [facility] [address] [id number] [address] [place] [address] 10 Jun, 2013 [facility] [address] [id number] [address] [place] [address], [place] [address] 03 Jun, 2013 [facility] [place] [facility] [address] [id number] [address] [place] [address] 11 Nov, 2012 [facility] [place] [facility] [address] [id number] [address] [place] [address], [place] [address] 11 Nov, 2012 [facility] [address] [id number] [address] [place] [address], [place] [address] Oct, [facility] [address] [id number] [address] [place] [address], [place] [address] Oct, [facility] [address] [id number] [address] [place] [address], [place] [address] Jul, [facility] [address] [id number] [address] [place] [address], [place] [address] Jul, [facility] [address] [id number] [address] [place] [address], [place] [address] Jul, [facility] [address] [id number] [address] [place] [address], [place] [address] Jul, [facility] [address] [id number] [address] [place] [address], [place] [address] Jul, [facility] [address] [id number] [address] [place] [address], [place] [address] Jul, [facility] [address] [id number] [address] [place] [address], [place] [address] Jun, [facility] [address] [id number] [address] [place] [address], [place] [address] Jun, [facility] [address] [id number] [address] [place] [address], [place] [address] Jun, [facility] [address] [id number] [address] [place] [address], [place] [address] Jun, [facility] [address] [id number] [address] [place] [address], [place] [address] May, [facility] [address] [id number] [address] [place] [address], [place] [address] May, [facility] [address] [id number] [address] [place] [address], [place] [address] Oct, [facility] [address] [id number] [address] [place] [address], [place] [address] Sep, [facility] [address] [id number] [address] [place] [address] Sep, [facility] [address] [id number] [address] [place] [address] Aug, [facility] [address] [id number] [address] [place] [address] Aug, [facility] [address] [id number] [address] [place] [address] Aug, [facility] [address] [id number] [address] [place] [address] Jun, [facility] [address] [id number] [address] [place] [address] Sep, [facility] [address] [facility] [id number] [address] [place] [address] Jul, [facility] [address] [facility] [id number] [address] [place] [address] Jul, IMMUNIZATIONS No Known Immunizations SOCIAL HISTORY Never Assessed REASON FOR VISIT EMR-[facility] PLAN OF CARE VITAL SIGNS MEDICATIONS Unknown [...]
--- OUTSIDE RECORDS SUMMARY | 2019-12-20 23:01 | XMS REPORT ---
Author Author Migration, Doctor Organization [facility] Address Unknown Phone Unavailable Care Team Providers Care Hospice Rn Name Role Phone Migration, Doctor Unavailable Unavailable PROBLEMS Type Condition ICD9-CM Code NEZ29-QB Code Onset Dates Condition S tatus SNOMED Code Problem Major depressive disorder, recurrent episode, mild F33.0 Active 506950701 Problem Seasonal allergic rhinitis, unspecified allergic rhinitis trigger J30.2 Active 802698786 Problem Late menses N92.6 Active 81151038 Problem Missed period N92.6 Active 617204 00 Problem Irregular menses N92.6 Active 386 051664 Problem Anxiety, generalized F41.1 Active 04720713 Problem Other obesity due to excess calories E66.09 Active 518229153 Problem Body mass index (BMI) of 36.0-36.9 in adult Z68.36 Active 740155921 ALLERGIES No Information ENCOUNTERS Encounter Location Date Diagnosis [facility] [address] [id number] [address] [place] [address] Aug, Exposure to STD Z20.2 and Mi ssed period N92.6 [facility] [address] [address] 15 Jun, 2018 Non-intractable vomiting wit h nausea, unspecified vomiting type R11.2 ; Late menses N92.6 and Encounter for initial prescription of contraceptives, unspecified contraceptive Z30.019 [facility] [address] [id number] [address] [place] [address] Apr, Seasonal allergic rhinitis, unspecified allergic rhinitis trigger J30.2 and Sore throat J02.9 [facility] [address] [address] Apr, [facility] [address] [id number] [address] [place] [address] Feb, Acute bacterial conjunctivit is of left eye H10.32 [place] [address] [address] January, Major depressive disorder, r ecurrent episode, mild F33.0 ; Anxiety, generalized F41.1 and Irregular menses N92.6 [place] [address] [address] January, Major depressive disorder, r ecurrent episode, mild F33.0 ; Anxiety, generalized F41.1 ; Seasonal allergic rhinitis, unspecified allergic rhinitis trigger J30.2 ; Irregular menses N92.6 ; Other obesity due to excess calories E66.09 ; Body mass index (BMI) of 36.0-36.9 in adult Z68.36 and Encounter for repeat prescription of oral contraceptives Z30.41 [place] [address] [address] Dec, Anxiety, generalized F41.1 a nd Major depressive disorder, recurrent episode, mild F33.0 [place] [address] [address] Nov, [place] [address] [address] Nov, Anxiety, generalized F41.1 a nd Major depressive disorder, recurrent episode, mild F33.0 [place] [address] [address] Oct, Anxiety, generalized F41.1 a nd Major depressive disorder, recurrent episode, mild F33.0 [place] [address] [address] 13 Oct, 2017 Rectal bleeding K62.5 [facility] [place] [address] [address] 10 Oct, 2017 Sore throat J02.9 and Acute nasopharyngitis J00 [facility] [address] [address] 04 Oct, 2017 Viral gastroenteritis A08.4 [facility] [address] [facility] [id number] [address] [place] [address] Sep, Chest wall pain R07.89 [place] [address] [facility] [id number] [address] [place] [address] Sep, Major depressive disorder, r ecurrent episode, moderate F33.1 [facility] [id number] [place] [id number] Sep, Viral syndrome B34.9 [place] [address] [facility] [id number] [address] [place] [address] Aug, Major depressive disorder, r ecurrent episode, moderate F33.1 and Anxiety, generalized F41.1 [place] [address] [place] [id number] [place] [address] Jul, [facility] [address] [id number] [address] [place] [address] Jul, Viral syndrome B34.9 [place] [address] [place] [id number] [address] [place] [address] Jun, Anxiety, generalized F41.1 a nd Major depressive disorder, recurrent episode, moderate F33.1 [place] [address] [place] [id number] [address] [place] [address] May, Anxiety, generalized F41.1 a nd Major depressive disorder, recurrent episode, moderate F33.1 [place] [address] [place] [id number] [address] [place] [address] May, Tear of medial meniscus of l eft knee, current, unspecified tear type, initial encounter S83.242A [facility] [id number] [place] [id number] 13 May, 2017 Encounter for immunization Z 23 [place] [address] [facility] [id number] [address] [place] [address] Apr, Major depressive disorder, r ecurrent episode, moderate F33.1 and Anxiety, generalized F41.1 [place] [id number] [address] Apr, Moderate single current epis ode of major depressive disorder F32.1 ; Anxiety, generalized F41.1 and Panic disorder [episodic paroxysmal anxiety] without agoraphobia F41.0 [place] [address] [address] Apr, Sports physical Z02.5 ; Enco unter [...] and Acute pain of right knee M25.561 [facility] [address] [address] Mar, Acute pain of left knee M25. 562 [facility] [address] [id number] January, Irregular menses N92.6 and S creen for STD (sexually transmitted disease) Z11.3 [facility] [address] [id number] January, Right lower quadrant abdomin al pain R10.31 and Flank pain R10.9 [place] [address] [address] Oct, Influenza B J10.1 [facility] [address] [address] Oct, Acute nasopharyngitis J00 an d Seasonal allergic rhinitis, unspecified allergic rhinitis trigger J30.2 [place] [address] [address] Jun, [place] [address] [place] [address] May, [facility] [address] [id number] [address] [place] [address] May, [facility] [address] [facility] [id number] [address] [place] [address] May, [facility] [address] [facility] [id number] [address] [place] [address] May, [facility] [address] [id number] [address] [place] [address] Apr, [facility] [address] [id number] [address] [place] [address] Apr, [facility] [address] [facility] [id number] [address] [place] [address] Apr, [facility] [address] [facility] [id number] [address] [place] [address] Apr, Arthritis of left knee M19.9 0 and Tick-borne disease B88.2 [facility] [address] [facility] [id number] [address] [place] [address] Dec, [facility] [address] [facility] [id number] [place] [id number] Nov, Encounter for immunization Z 23 [facility] [address] [facility] [id number] [address] [place] [address] Nov, Influenza J11.[address] [facility] [address] [place] [address] 07 Nov, 2015 Anxiety F41.9 [facility] [address] [facility] [id number] [address] [place] [address] Sep, Sore throat J02.9 [facility] [address] [facility] [id number] [address] [place] [address] 16 Jul, 2015 Amenorrhea, unspecified N91. 2 and Dysuria R30.0 [facility] [address] [place] [address] Jun, Acute nasopharyngitis J00 [facility] [address] [facility] [id number] [address] [place] [address] Jun, [facility] [address] [facility] [id number] [address] [place] [address] Mar, Pubertal menorrhagia 626.3 ; Initiation of OCP (BCP) V25.01 and Need for HPV vaccination V04.89 [facility] [address] [facility] [id number] [address] [place] [address] Mar, Mood disorder 296.90 and ADH D (attention deficit hyperactivity disorder), combined type 314.01 [facility] [address] [facility] [id number] [address] [place] [address] Dec, [facility] [id number] [place] [address] Dec, [facility] [address] [id number] [address] [place] [address] Aug, [facility] [address] [id number] [address] [place] [address] Aug, [facility] [address] [id number] [address] [place] [address] Aug, [facility] [address] [id number] [address] [place] [address] Aug, [facility] [address] [id number] [address] [place] [address] Aug, [facility] [address] [facility] [id number] [address] [place] [address] Aug, [facility] [address] [facility] [id number] [address] [place] [address] Aug, [facility] [address] [facility] [id number] [address] [place] [address] Jul, [facility] [address] [id number] [address] [place] [address], [place] [address] Jul, [facility] [address] [id number] [address] [place] [address], [place] [address] Jul, [facility] [address] [id number] [address] [place] [address], [place] [address] Jul, [facility] [address] [id number] [address] [place] [address], [place] [address] Jun, [facility] [address] [id number] [address] [place] [address], [place] [address] Jun, [facility] [address] [id number] [address] [place] [address], [place] [address] Jun, [facility] [address] [id number] [address] [place] [address], [place] [address] Jun, [facility] [address] [id number] [address] [place] [address], [place] [address] January, [facility] [address] [id number] [address] [place] [address], [place] [address] January, [facility] [address] [id number] [address] [place] [address], [place] [address] January, [facility] [address] [id number] [address] [place] [address], [place] [address] Nov, [facility] [address] [id number] [address] [place] [address], [place] [address] Nov, [facility] [address] [id number] [address] [place] [address], [place] [address] Aug, [facility] [address] [id number] [address] [place] [address], [place] [address] Aug, [facility] [address] [id number] [address] [place] [address], [place] [address] Aug, [facility] [address] [id number] [address] [place] [address], [place] [address] Aug, [facility] [address] [id number] [address] [place] [address], [place] [address] Aug, [facility] [address] [id number] [address] [place] [address], [place] [address] Jul, [facility] [address] [id number] [address] [place] [address], [place] [address] Jul, [facility] [address] [id number] [address] [place] [address], [place] [address] Jun, [facility] [address] [id number] [address] [place] [address], [place] [address] Jun, [facility] [address] [id number] [address] [place] [address], [place] [address] Jun, [facility] [address] [id number] [address] [place] [address], [place] [address] Jun, [facility] [address] [id number] [address] [place] [address], [place] [address] Jun, [facility] [address] [id number] [address] [place] [address], [place] [address] Jun, [facility] [address] [id number] [address] [place] [address] Jun, [facility] [address] [id number] [address] [place] [address], [place] [address] Jun, [facility] [address] [id number] [address] [place] [address] Jun, [facility] [address] [id number] [address] [place] [address], [place] [address] Nov, [facility] [address] [id number] [address] [place] [address] Nov, [facility] [address] [id number] [address] [place] [address], [place] [address] Oct, [facility] [address] [id number] [address] [place] [address], [place] [address] 09 Oct, 2012 [facility] [address] [id number] [address] [place] [address], [place] [address] Jul, [facility] [address] [id number] [address] [place] [address], [place] [address] Jul, [facility] [address] [id number] [address] [place] [address], [place] [address] Jul, [facility] [address] [id number] [address] [place] [address], [place] [address] Jul, [facility] [address] [id number] [address] [place] [address], [place] [address] Jul, [facility] [address] [id number] [address] [place] [address], [place] [address] Jul, [facility] [address] [id number] [address] [place] [address], [place] [address] Jun, [facility] [address] [id number] [address] [place] [address], [place] [address] Jun, [facility] [address] [id number] [address] [place] [address], [place] [address] Jun, [facility] [address] [id number] [address] [place] [address], [place] [address] Jun, [facility] [address] [id number] [address] [place] [address], [place] [address] May, [facility] [address] [id number] [address] [place] [address], [place] [address] May, [facility] [address] [id number] [address] [place] [address], [place] [address] Oct, [facility] [address] [id number] [address] [place] [address], [place] [address] Sep, [facility] [address] [id number] [address] [place] [address], [place] [address] Sep, [facility] [address] [id number] [address] [place] [address] Aug, [facility] [address] [id number] [address] [place] [address] Aug, [facility] [address] [id number] [address] [place] [address] Aug, [facility] [address] [id number] [address] [place] [address] Jun, [facility] [address] [id number] [address] [place] [address] Sep, [facility] [address] [id number] [address] [place] [address] Jul, [facility] [address] [facility] [id number] [address] [place] [address] Jul, IMMUNIZATIONS No Known Immunizations SOCIAL HISTORY Never Assessed REASON FOR VISIT [employer] [facility] [place] VITAL SIGNS MEDICATIONS No [...]
--- OUTSIDE RECORDS SUMMARY | 2019-12-20 23:02 | XMS REPORT ---
Author Author Migration, Doctor Organization [facility] Address Unknown Phone Unavailable Care Team Providers Care Biological Sciences Professor Name Role Phone Migration, Doctor Unavailable Unavailable PROBLEMS Type Condition ICD9-CM Code [id number] Code Onset Dates Condition S tatus SNOMED Code Problem Major depressive disorder, recurrent episode, mild F33.0 Active 368076016 Problem Seasonal allergic rhinitis, unspecified allergic rhinitis trigger J30.2 Active 398833361 Problem Late menses N92.6 Active 77430165 Problem Missed period N92.6 Active 460339 00 Problem Irregular menses N92.6 Active 386 567242 Problem Anxiety, generalized F41.1 Active 00267738 Problem Other obesity due to excess calories E66.09 Active 536294378 Problem Body mass index (BMI) of 36.0-36.9 in adult Z68.36 Active [id number] ALLERGIES No Information ENCOUNTERS Encounter Location Date Diagnosis [facility] [id number] [place] [address] Aug, Exposure to STD Z20.2 and Mi ssed period N92.6 [facility] [address] [address] 15 Jun, 2018 Non-intractable vomiting wit h nausea, unspecified vomiting type R11.2 ; Late menses N92.6 and Encounter for initial prescription of contraceptives, unspecified contraceptive Z30.019 [facility] [id number] [place] [address] Apr, Seasonal allergic rhinitis, unspecified allergic rhinitis trigger J30.2 [address] Sore throat [address]02.9 [facility] [address] [address] Apr, [facility] [id number] [place] [address] Feb, Acute bacterial conjunctivit is of left eye H10.32 [place] [address] [address] January, Major depressive disorder, r ecurrent episode, mild F33.0 ; Anxiety, generalized F41.1 and Irregular menses N92.6 [place] [address] [address] January, Major depressive disorder, r ecurrent episode, mild F33.0 ; Anxiety, generalized F41.1 ; Seasonal allergic rhinitis, unspecified allergic rhinitis trigger J30.2 ; Irregular menses N92.6 ; Other obesity due to excess calories E66.09 ; Body mass index (BMI) of 36.0-36.9 in adult Z68.36 and Encounter for repeat prescription of oral contraceptives Z30.41 [place] [address] [address] Dec, Anxiety, generalized F41.1 a nd Major depressive disorder, recurrent episode, mild F33.0 [place] [address] [address] Nov, [place] [address] [address] Nov, Anxiety, generalized F41.1 a nd Major depressive disorder, recurrent episode, mild F33.0 [place] [address] [address] Oct, Anxiety, generalized F41.1 a nd Major depressive disorder, recurrent episode, mild F33.0 [place] [address] [address] 13 Oct, 2017 Rectal bleeding K62.5 [facility] [place] [address] [address] 10 Oct, 2017 Sore throat J02.9 and Acute nasopharyngitis J00 [facility] [address] [address] 04 Oct, 2017 Viral gastroenteritis A08.4 [facility] [address] [facility] [id number] [address] [place] [address] Sep, Chest wall pain R07.89 [place] [address] [facility] [id number] [address] [place] [address] Sep, Major depressive disorder, r ecurrent episode, moderate F33.1 [facility] [id number] [place] [id number] Sep, Viral syndrome B34.9 [place] [address] [facility] [id number] [address] [place] [address] Aug, Major depressive disorder, r ecurrent episode, moderate F33.1 and Anxiety, generalized F41.1 [place] [address] [place] [id number] [address] [place] [address] Jul, [facility] [address] [id number] [address] [place] [address] Jul, Viral syndrome B34.9 [place] [address] [place] [address] [id number] [address] [place] [address] Jun, Anxiety, generalized F41.1 a nd Major depressive disorder, recurrent episode, moderate F33.1 [place] [address] [place] [id number] [place] [address] May, Anxiety, generalized F41.1 a nd Major depressive disorder, recurrent episode, moderate F33.1 [place] [address] [place] [id number] [address] [place] [address] May, Tear of medial meniscus of l eft knee, current, unspecified tear type, initial encounter S83.242A [facility] [id number] [place] [id number] 13 May, 2017 Encounter for immunization Z 23 [place] [address] [facility] [id number] [address] [place] [address] Apr, Major depressive disorder, r ecurrent episode, moderate F33.1 and Anxiety, generalized F41.1 [place] [address] [address] Apr, Moderate single current epis ode of major depressive disorder F32.1 ; Anxiety, generalized F41.1 and Panic disorder [episodic paroxysmal anxiety] without agoraphobia F41.0 [place] [address] [address] Apr, Sports physical Z02.5 ; Enco unter [...] right knee M25.561 [facility] [address] [address] Mar, Acute pain of left knee M25. 562 [facility] [address] [id number] January, Irregular menses N92.6 and S creen for STD (sexually transmitted disease) Z11.3 [facility] [place] [address] [id number] January, Right lower quadrant abdomin al pain R10.31 and Flank pain R10.9 [place] [address] [address] Oct, Influenza B J10.1 [facility] [address] [address] Oct, Acute nasopharyngitis J00 an d Seasonal allergic rhinitis, unspecified allergic rhinitis trigger J30.2 [place] [address] [address] Jun, [place] [address] [place] [address] May, [facility] [address] [id number] [address] [place] [address] May, [facility] [address] [facility] [id number] [address] [place] [address] May, [facility] [address] [facility] [id number] [address] [place] [address] May, [facility] [address] [id number] [address] [place] [address] Apr, [facility] [address] [id number] [address] [place] [address] Apr, [facility] [address] [facility] [id number] [address] [place] [address] Apr, [facility] [address] [facility] [id number] [address] [place] [address] Apr, Arthritis of left knee M19.9 0 and Tick-borne disease B88.2 [facility] [address] [facility] [id number] [address] [place] [address] Dec, [facility] [address] [facility] [id number] [place] [id number] Nov, Encounter for immunization Z 23 [facility] [address] [facility] [id number] [address] [place] [address] Nov, Influenza J11.1 [facility] [id number] [place] [address] 07 Nov, 2015 Anxiety F41.9 [facility] [address] [facility] [id number] [address] [place] [address] Sep, Sore throat J02.9 [facility] [address] [facility] [id number] [address] [place] [address] 16 Jul, 2015 Amenorrhea, unspecified N91. [address] [facility] [address] [place] [address] Jun, Acute nasopharyngitis J00 [facility] [address] [facility] [id number] [address] [place] [address] Jun, [facility] [address] [facility] [id number] [address] [place] [address] Mar, Pubertal menorrhagia 626.3 ; Initiation of OCP (BCP) V25.01 and Need for HPV vaccination V04.89 [facility] [address] [facility] [id number] [address] [place] [address] Mar, Mood disorder 296.90 and ADH D (attention deficit hyperactivity disorder), combined type 314.01 [facility] [address] [facility] [id number] [address] [place] [address] Dec, [facility] [id number] [place] [address] Dec, [facility] [address] [id number] [address] [place] [address] Aug, [facility] [address] [id number] [address] [place] [address] Aug, [facility] [address] [id number] [address] [place] [address] Aug, [facility] [address] [id number] [address] [place] [address] Aug, [facility] [address] [id number] [address] [place] [address] Aug, [facility] [address] [facility] [id number] [address] [place] [address] Aug, [facility] [address] [facility] [id number] [address] [place] [address] Aug, [facility] [address] [facility] [id number] [address] [place] [address] Jul, [facility] [address] [id number] [address] [place] [address], [place] [address] Jul, [facility] [address] [id number] [address] [place] [address], [place] [address] Jul, [facility] [address] [id number] [address] [place] [address], [place] [address] Jul, [facility] [address] [id number] [address] [place] [address], [place] [address] Jun, [facility] [address] [id number] [address] [place] [address], [place] [address] Jun, [facility] [address] [id number] [address] [place] [address], [place] [address] Jun, [facility] [address] [id number] [address] [place] [address], [place] [address] Jun, [facility] [address] [id number] [address] [place] [address], [place] [address] January, [facility] [address] [id number] [address] [place] [address], [place] [address] January, [facility] [address] [id number] [address] [place] [address], [place] [address] January, [facility] [address] [id number] [address] [place] [address], [place] [address] Nov, [facility] [address] [id number] [address] [place] [address], [place] [address] Nov, [facility] [address] [id number] [address] [place] [address], [place] [address] Aug, [facility] [address] [id number] [address] [place] [address], [place] [address] Aug, [facility] [address] [id number] [address] [place] [address], [place] [address] Aug, [facility] [address] [id number] [address] [place] [address], [place] [address] Aug, [facility] [address] [id number] [address] [place] [address], [place] [address] Aug, [facility] [address] [id number] [address] [place] [address], [place] [address] Jul, [facility] [address] [id number] [address] [place] [address], [place] [address] Jul, [facility] [address] [id number] [address] [place] [address], [place] [address] Jun, [facility] [address] [id number] [address] [place] [address], [place] [address] Jun, [facility] [address] [id number] [address] [place] [address], [place] [address] Jun, [facility] [address] [id number] [address] [place] [address], [place] [address] Jun, [facility] [address] [id number] [address] [place] [address], [place] [address] Jun, [facility] [address] [id number] [address] [place] [address], [place] [address] Jun, [facility] [address] [id number] [address] [place] [address] Jun, [facility] [address] [id number] [address] [place] [address], [place] [address] Jun, [facility] [address] [id number] [address] [place] [address] Jun, [facility] [address] [id number] [address] [place] [address], [place] [address] Nov, [facility] [address] [id number] [address] [place] [address] Nov, [facility] [address] [id number] [address] [place] [address], [place] [address] Oct, [facility] [address] [id number] [address] [place] [address], [place] [address] 09 Oct, 2012 [facility] [address] [id number] [address] [place] [address], [place] [address] Jul, [facility] [address] [id number] [address] [place] [address], [place] [address] Jul, [facility] [address] [id number] [address] [place] [address], [place] [address] Jul, [facility] [address] [id number] [address] [place] [address], [place] [address] Jul, [facility] [address] [id number] [address] [place] [address], [place] [address] Jul, [facility] [address] [id number] [address] [place] [address], [place] [address] Jul, [facility] [address] [id number] [address] [place] [address], [place] [address] Jun, [facility] [address] [id number] [address] [place] [address], [place] [address] Jun, [facility] [address] [id number] [address] [place] [address], [place] [address] Jun, [facility] [address] [id number] [address] [place] [address], [place] [address] Jun, [facility] [address] [id number] [address] [place] [address], [place] [address] May, [facility] [address] [id number] [address] [place] [address], [place] [address] May, [facility] [address] [id number] [address] [place] [address], [place] [address] Oct, [facility] [address] [id number] [address] [place] [address], [place] [address] Sep, [facility] [address] [id number] [address] [place] [address], [place] [address] Sep, [facility] [address] [id number] [address] [place] [address] Aug, [facility] [address] [id number] [address] [place] [address] Aug, [facility] [address] [id number] [address] [place] [address] Aug, [facility] [address] [id number] [address] [place] [address] Jun, [facility] [address] [id number] [address] [place] [address] Sep, [facility] [address] [id number] [address] [place] [address] Jul, [facility] [address] [facility] [id number] [address] [place] [address] Jul, IMMUNIZATIONS No Known Immunizations SOCIAL HISTORY Never Assessed REASON FOR VISIT [facility] [place] PLAN OF CARE VITAL SIGNS MEDICATIONS No [...]
--- OUTSIDE RECORDS SUMMARY | 2019-12-20 23:02 | XMS REPORT ---
Author Author Migration, Doctor Organization [facility] Address Unknown Phone Unavailable Care Team Providers Care Retail Business Analyst Name Role Phone Migration, Doctor Unavailable Unavailable PROBLEMS Type Condition ICD9-CM Code DNT64-ZN Code Onset Dates Condition S tatus SNOMED Code Problem Major depressive disorder, recurrent episode, mild F33.0 Active 030879417 Problem Seasonal allergic rhinitis, unspecified allergic rhinitis trigger J30.2 Active 625890501 Problem Late menses N92.6 Active 48289898 Problem Missed period N92.6 Active 828861 00 Problem Irregular menses N92.6 Active 386 537150 Problem Anxiety, generalized F41.1 Active 82490113 Problem Other obesity due to excess calories E66.09 Active 657961352 Problem Body mass index (BMI) of 36.0-36.9 in adult Z68.36 Active 026951801 ALLERGIES No Information ENCOUNTERS Encounter Location Date Diagnosis [facility] [id number] [address] [place] [address] Aug, Exposure to STD Z20.2 and Mi ssed period N92.6 [facility] [address] [address] 15 Jun, 2018 Non-intractable vomiting wit h nausea, unspecified vomiting type R11.2 ; Late menses N92.6 and Encounter for initial prescription of contraceptives, unspecified contraceptive Z30.019 [facility] [id number] [address] [place] [address] Apr, Seasonal allergic rhinitis, unspecified allergic rhinitis trigger J30.2 and Sore throat J02.9 [facility] [address] [address] Apr, [facility] [address] [id number] [address] [place] [address] Feb, Acute bacterial conjunctivit is of left eye H10.32 [place] [address] [address] January, Major depressive disorder, r ecurrent episode, mild F33.0 ; Anxiety, generalized F41.1 and Irregular menses N92.6 [place] [address] [address] January, Major depressive disorder, r ecurrent episode, mild F33.0 ; Anxiety, generalized F41.1 ; Seasonal allergic rhinitis, unspecified allergic rhinitis trigger J30.2 ; Irregular menses N92.6 ; Other obesity due to excess calories E66.09 ; Body mass index (BMI) of 36.0-36.9 in adult Z68.36 and Encounter for repeat prescription of oral contraceptives Z30.41 [place] [address] [address] Dec, Anxiety, generalized F41.1 a nd Major depressive disorder, recurrent episode, mild F33.0 [place] [address] [address] Nov, [place] [address] [address] Nov, Anxiety, generalized F41.1 a nd Major depressive disorder, recurrent episode, mild F33.0 [place] [address] [address] Oct, Anxiety, generalized F41.1 a nd Major depressive disorder, recurrent episode, mild F33.0 [place] [address] [address] 13 Oct, 2017 Rectal bleeding K62.5 [facility] [place] [address] [address] 10 Oct, 2017 Sore throat J02.9 and Acute nasopharyngitis J00 [facility] [address] [address] 04 Oct, 2017 Viral gastroenteritis A08.4 [facility] [address] [facility] [id number] [address] [place] [address] Sep, Chest wall pain R07.89 [place] [address] [facility] [id number] [address] [place] [address] Sep, Major depressive disorder, r ecurrent episode, moderate F33.1 [facility] [id number] [place] [id number] Sep, Viral syndrome B34.9 [place] [address] [facility] [id number] [address] [place] [address] Aug, Major depressive disorder, r ecurrent episode, moderate F33.1 and Anxiety, generalized F41.1 [place] [address] [place] [id number] [address] [place] [address] Jul, [facility] [address] [id number] [address] [place] [address] Jul, Viral syndrome B34.9 [place] [address] [place] [id number] [address] [place] [address] Jun, Anxiety, generalized F41.1 a nd Major depressive disorder, recurrent episode, moderate F33.1 [place] [address] [place] [id number] [address] [place] [address] May, Anxiety, generalized F41.1 a nd Major depressive disorder, recurrent episode, moderate F33.1 [place] [address] [place] [id number] [address] [place] [address] May, Tear of medial meniscus of l eft knee, current, unspecified tear type, initial encounter S83.242A [facility] [id number] [place] [id number] 13 May, 2017 Encounter for immunization Z 23 [place] [address] [facility] [id number] [address] [place] [address] Apr, Major depressive disorder, r ecurrent episode, moderate F33.1 and Anxiety, generalized F41.1 [place] [address] [address] Apr, Moderate single current epis ode of major depressive disorder F32.1 ; Anxiety, generalized F41.1 and Panic disorder [episodic paroxysmal anxiety] without agoraphobia F41.0 [place] [address] [address] Apr, Sports physical Z02.5 ; Enco unter [...] and Acute pain of right knee M25.561 [facility] [address] [address] Mar, Acute pain of left knee M25. 562 [facility] [address] [id number] January, Irregular menses N92.6 and S creen for STD (sexually transmitted disease) Z11.3 [facility] [place] [address] [id number] January, Right lower quadrant abdomin al pain R10.31 and Flank pain R10.9 [place] [address] [address] Oct, Influenza B J10.1 [facility] IN [facility] [address] [address] Oct, Acute nasopharyngitis J00 an d Seasonal allergic rhinitis, unspecified allergic rhinitis trigger J30.2 [place] [address] [address] Jun, [place] [address] [place] [address] May, [facility] [address] [id number] [address] [place] [address] May, [facility] [address] [facility] [id number] [address] [place] [address] May, [facility] [address] [facility] [id number] [address] [place] [address] May, [facility] [address] [id number] [address] [place] [address] Apr, [facility] [address] [id number] [address] [place] [address] Apr, [facility] [address] [facility] [id number] [address] [place] [address] Apr, [facility] [address] [facility] [id number] [address] [place] [address] Apr, Arthritis of left knee M19.9 0 and Tick-borne disease B88.2 [facility] [address] [facility] [id number] [address] [place] [address] Dec, [facility] [address] [facility] [id number] [place] [id number] Nov, Encounter for immunization Z 23 [facility] [address] [facility] [id number] [address] [place] [address] Nov, Influenza J11.1 [facility] [id number] [place] [address] 07 Nov, 2015 Anxiety F41.9 [facility] [address] [facility] [id number] [address] [place] [address] Sep, Sore throat J02.9 [facility] [address] [facility] [id number] [address] [place] [address] 16 Jul, 2015 Amenorrhea, unspecified N91. 2 and Dysuria R30.0 [facility] [address] [place] [address] Jun, Acute nasopharyngitis J00 [facility] [address] [facility] [id number] [address] [place] [address] Jun, [facility] [address] [facility] [id number] [address] [place] [address] Mar, Pubertal menorrhagia 626.3 ; Initiation of OCP (BCP) V25.01 and Need for HPV vaccination V04.89 [facility] [address] [facility] [id number] [address] [place] [address] Mar, Mood disorder 296.90 and ADH D (attention deficit hyperactivity disorder), combined type 314.01 [facility] [address] [facility] [id number] [address] [place] [address] Dec, [facility] [id number] [place] [address] Dec, [facility] [address] [id number] [address] [place] [address] Aug, [facility] [address] [id number] [address] [place] [address] Aug, [facility] [address] [id number] [address] [place] [address] Aug, [facility] [address] [id number] [address] [place] [address] Aug, [facility] [address] [id number] [address] [place] [address] Aug, [facility] [address] [facility] [id number] [address] [place] [address] Aug, [facility] [address] [facility] [id number] [address] [place] [address] Aug, [facility] [address] [facility] [id number] [address] [place] [address] Jul, [facility] [address] [id number] [address] [place] [address], [place] [address] Jul, [facility] [address] [id number] [address] [place] [address], [place] [address] Jul, [facility] [address] [id number] [address] [place] [address], [place] [address] Jul, [facility] [address] [id number] [address] [place] [address], [place] [address] Jun, [facility] [address] [id number] [address] [place] [address], [place] [address] Jun, [facility] [address] [id number] [address] [place] [address], [place] [address] Jun, [facility] [address] [id number] [address] [place] [address], [place] [address] Jun, [facility] [address] [id number] [address] [place] [address], [place] [address] January, [facility] [address] [id number] [address] [place] [address], [place] [address] January, [facility] [address] [id number] [address] [place] [address], [place] [address] January, [facility] [address] [id number] [address] [place] [address], [place] [address] Nov, [facility] [address] [id number] [address] [place] [address], [place] [address] Nov, [facility] [address] [id number] [address] [place] [address], [place] [address] Aug, [facility] [address] [id number] [address] [place] [address], [place] [address] Aug, [facility] [address] [id number] [address] [place] [address], [place] [address] Aug, [facility] [address] [id number] [address] [place] [address], [place] [address] Aug, [facility] [address] [id number] [address] [place] [address], [place] [address] Aug, [facility] [address] [id number] [address] [place] [address], [place] [address] Jul, [facility] [address] [id number] [address] [place] [address], [place] [address] Jul, [facility] [address] [id number] [address] [place] [address], [place] [address] Jun, [facility] [address] [id number] [address] [place] [address], [place] [address] Jun, [facility] [address] [id number] [address] [place] [address], [place] [address] Jun, [facility] [address] [id number] [address] [place] [address], [place] [address] Jun, [facility] [address] [id number] [address] [place] [address], [place] [address] Jun, [facility] [address] [id number] [address] [place] [address], [place] [address] Jun, [facility] [address] [id number] [address] [place] [address] Jun, [facility] [address] [id number] [address] [place] [address], [place] [address] Jun, [facility] [address] [id number] [address] [place] [address] Jun, [facility] [address] [id number] [address] [place] [address], [place] [address] Nov, [facility] [address] [id number] [address] [place] [address] Nov, [facility] [address] [id number] [address] [place] [address], [place] [address] Oct, [facility] [address] [id number] [address] [place] [address], [place] [address] 09 Oct, 2012 [facility] [address] [id number] [address] [place] [address], [place] [address] Jul, [facility] [address] [id number] [address] [place] [address], [place] [address] Jul, [facility] [address] [id number] [address] [place] [address], [place] [address] Jul, [facility] [address] [id number] [address] [place] [address], [place] [address] Jul, [facility] [address] [id number] [address] [place] [address], [place] [address] Jul, [facility] [address] [id number] [address] [place] [address], [place] [address] Jul, [facility] [address] [id number] [address] [place] [address], [place] [address] Jun, [facility] [address] [id number] [address] [place] [address], [place] [address] Jun, [facility] [address] [id number] [address] [place] [address], [place] [address] Jun, [facility] [address] [id number] [address] [place] [address], [place] [address] Jun, [facility] [address] [id number] [address] [place] [address], [place] [address] May, [facility] [address] [id number] [address] [place] [address], [place] [address] May, [facility] [address] [id number] [address] [place] [address], [place] [address] Oct, [facility] [address] [id number] [address] [place] [address], [place] [address] Sep, [facility] [address] [id number] [address] [place] [address], [place] [address] Sep, [facility] [address] [id number] [address] [place] [address] Aug, [facility] [address] [id number] [address] [place] [address] Aug, [facility] [address] [id number] [address] [place] [address] Aug, [facility] [address] [id number] [address] [place] [address] Jun, [facility] [address] [id number] [address] [place] [address] Sep, [facility] [address] [id number] [address] [place] [address] Jul, [facility] [address] [facility] [id number] [address] [place] [address] Jul, IMMUNIZATIONS No Known Immunizations SOCIAL HISTORY Never Assessed REASON FOR VISIT [facility] [place] VITAL SIGNS MEDICATIONS No [...]
--- OUTSIDE RECORDS SUMMARY | 2019-12-20 23:02 | XMS REPORT ---
Author Author Migration, Doctor Organization [facility] Address Unknown Phone Unavailable Care Team Providers Care Lead Ruby On Rails Developer Name Role Phone Migration, Doctor Unavailable Unavailable PROBLEMS Type Condition ICD9-CM Code KVS34-SG Code Onset Dates Condition S tatus SNOMED Code Problem Major depressive disorder, recurrent episode, mild F33.0 Active 876149759 Problem Seasonal allergic rhinitis, unspecified allergic rhinitis trigger J30.2 Active 418601656 Problem Late menses N92.6 Active 53110695 Problem Missed period N92.6 Active 355044 00 Problem Irregular menses N92.6 Active 386 093343 Problem Anxiety, generalized F41.1 Active 39184634 Problem Other obesity due to excess calories E66.09 Active 907114711 Problem Body mass index (BMI) of 36.0-36.9 in adult Z68.36 Active 278414981 ALLERGIES No Information ENCOUNTERS Encounter Location Date Diagnosis [facility] [address] [id number] [address] [place] [phone] Aug, Exposure to STD Z20.2 and Mi ssed period N92.6 [facility] [id number] [place] [id number] 15 Jun, 2018 Non-intractable vomiting wit h nausea, unspecified vomiting type R11.2 ; Late menses N92.6 and Encounter for initial prescription of contraceptives, unspecified contraceptive Z30.019 [facility] [address] [id number] [address] [place] [address] Apr, Seasonal allergic rhinitis, unspecified allergic rhinitis trigger J30.2 and Sore throat J02.9 [facility] [address] [address] Apr, [facility] [address] [id number] [address] [place] [address] Feb, Acute bacterial conjunctivit is of left eye H10.32 [place] [address] [address] January, Major depressive disorder, r ecurrent episode, mild F33.0 ; Anxiety, generalized F41.1 and Irregular menses N92.6 [place] [address] [address] January, Major depressive disorder, r ecurrent episode, mild F33.0 ; Anxiety, generalized F41.1 ; Seasonal allergic rhinitis, unspecified allergic rhinitis trigger J30.2 ; Irregular menses N92.6 ; Other obesity due to excess calories E66.09 ; Body mass index (BMI) of 36.0-36.9 in adult Z68.36 and Encounter for repeat prescription of oral contraceptives Z30.41 [place] [address] [address] Dec, Anxiety, generalized F41.1 a nd Major depressive disorder, recurrent episode, mild F33.0 [place] [address] [address] Nov, [place] [address] [address] Nov, Anxiety, generalized F41.1 a nd Major depressive disorder, recurrent episode, mild F33.0 [place] [address] [address] Oct, Anxiety, generalized F41.1 a nd Major depressive disorder, recurrent episode, mild F33.0 [place] [address] [address] 13 Oct, 2017 Rectal bleeding K62.5 [facility] [place] [address] [address] 10 Oct, 2017 Sore throat J02.9 and Acute nasopharyngitis J00 [facility] [address] [address] 04 Oct, 2017 Viral gastroenteritis A08.4 [facility] [address] [facility] [id number] [address] [place] [address] Sep, Chest wall pain R07.89 [place] [address] [facility] [id number] [address] [place] [address] Sep, Major depressive disorder, r ecurrent episode, moderate F33.1 [facility] [id number] [place] [id number] Sep, Viral syndrome B34.9 [place] [address] [facility] [id number] [address] [place] [id number] Aug, Major depressive disorder, r ecurrent episode, moderate F33.1 and Anxiety, generalized F41.1 [place] [address] [id number] [address] [place] [address] Jul, [facility] [address] [id number] [address] [place] [address] Jul, Viral syndrome B34.9 [place] [address] [id number] [address] [place] [address] Jun, Anxiety, generalized F41.1 a nd Major depressive disorder, recurrent episode, moderate F33.1 [place] [address] [id number] [address] [place] [id number] May, Anxiety, generalized F41.1 a nd Major depressive disorder, recurrent episode, moderate F33.1 [place] [address] [id number] [address] [place] [address] May, Tear of medial meniscus of l eft knee, current, unspecified tear type, initial encounter S83.242A [facility] [id number] [place] [id number] May, 2017 Encounter for immunization Z 23 [place] [address] [facility] [id number] [address] [place] [address] Apr, Major depressive disorder, r ecurrent episode, moderate F33.1 and Anxiety, generalized F41.1 [place] [address] [address] Apr, Moderate single current epis ode of major depressive disorder F32.1 ; Anxiety, generalized F41.1 and Panic disorder [episodic paroxysmal anxiety] without agoraphobia F41.0 [place] [address] [address] Apr, Sports physical Z02.5 ; Enco unter [...] and Acute pain of right knee M25.561 [facility] [address] [address] Mar, Acute pain of left knee M25. 562 [facility] [address] [id number] January, Irregular menses N92.6 and S creen for STD (sexually transmitted disease) Z11.3 [facility] [address] [id number] January, Right lower quadrant abdomin al pain R10.31 and Flank pain R10.9 [place] [address] [address] Oct, Influenza B J10.1 [facility] [address] [address] Oct, Acute nasopharyngitis J00 an d Seasonal allergic rhinitis, unspecified allergic rhinitis trigger J30.2 [place] [address] [address] Jun, [place] [address] [place] [address] May, [facility] [address] [id number] [address] [place] [address] May, [facility] [address] [facility] [id number] [address] [place] [phone] May, [facility] [address] [facility] [id number] [address] [place] [address] May, [facility] [address] [id number] [address] [place] [phone] Apr, [facility] [address] [id number] [address] [place] [address] Apr, [facility] [address] [facility] [id number] [address] [place] [id number] Apr, [facility] [address] [facility] [id number] [address] [place] [address] Apr, Arthritis of left knee M19.9 0 and Tick-borne disease B88.2 [facility] [address] [facility] [id number] [address] [place] [phone] Dec, [facility] [address] [facility] [id number] [place] [id number] Nov, Encounter for immunization Z 23 [facility] [address] [facility] [id number] [address] [place] [phone] Nov, Influenza J11.1 [facility] [id number] [place] [id number] 07 Nov, 2015 Anxiety F41.9 [facility] [address] [facility] [id number] [address] [place] [address] Sep, Sore throat J02.9 [facility] [address] [facility] [id number] [address] [place] [id number] 16 Jul, 2015 Amenorrhea, unspecified N91. 2 and Dysuria R30.0 [facility] [address] [place] [phone] Jun, Acute nasopharyngitis J00 [facility] [address] [facility] [id number] [address] [place] [phone] Jun, [facility] [address] [facility] [id number] [address] [place] [address] Mar, Pubertal menorrhagia 626.3 ; Initiation of OCP (BCP) V25.01 and Need for HPV vaccination V04.89 [facility] [address] [facility] [id number] [address] [place] [id number] Mar, Mood disorder 296.90 and ADH D (attention deficit hyperactivity disorder), combined type 314.01 [facility] [address] [facility] [id number] [address] [place] [id number] Dec, [facility] [id number] [place] [address] Dec, [facility] [address] [id number] [address] [place] [phone] Aug, [facility] [address] [id number] [address] [place] [id number] Aug, [facility] [address] [id number] [address] [place] [phone] Aug, [facility] [address] [id number] [address] [place] [phone] Aug, [facility] [address] [id number] [address] [place] [phone] Aug, [facility] [address] [facility] [id number] [address] [place] [phone] Aug, [facility] [address] [facility] [id number] [address] [place] [phone] Aug, [facility] [address] [facility] [id number] [address] [place] [phone] Jul, [facility] [address] [id number] [address] [place] [address], [place] [address] Jul, [facility] [address] [id number] [address] [place] [address], [place] [address] Jul, [facility] [address] [id number] [address] [place] [address], [place] [address] Jul, [facility] [address] [id number] [address] [place] [address], [place] [address] Jun, [facility] [address] [id number] [address] [place] [address], [place] [address] Jun, [facility] [address] [id number] [address] [place] [address], [place] [address] Jun, [facility] [address] [id number] [address] [place] [address], [place] [address] Jun, [facility] [address] [id number] [address] [place] [address], [place] [address] January, [facility] [address] [id number] [address] [place] [address], [place] [address] January, [facility] [address] [id number] [address] [place] [address], [place] [address] January, [facility] [address] [id number] [address] [place] [address], [place] [address] Nov, [facility] [address] [id number] [address] [place] [address], [place] [address] Nov, [facility] [address] [id number] [address] [place] [address], [place] [address] Aug, [facility] [address] [id number] [address] [place] [address], [place] [address] Aug, [facility] [address] [id number] [address] [place] [address], [place] [address] Aug, [facility] [address] [id number] [address] [place] [address], [place] [address] Aug, [facility] [address] [id number] [address] [place] [address], [place] [address] Aug, [facility] [address] [id number] [address] [place] [address], [place] [address] Jul, [facility] [address] [id number] [address] [place] [address], [place] [address] Jul, [facility] [address] [id number] [address] [place] [address], [place] [address] Jun, [facility] [address] [id number] [address] [place] [address], [place] [address] Jun, [facility] [address] [id number] [address] [place] [address], [place] [address] Jun, [facility] [address] [id number] [address] [place] [address], [place] [address] Jun, [facility] [address] [id number] [address] [place] [address], [place] [address] Jun, [facility] [address] [id number] [address] [place] [address], [place] [address] Jun, [facility] [address] [id number] [address] [place] [address] Jun, [facility] [address] [id number] [address] [place] [address], [place] [address] Jun, [facility] [address] [id number] [address] [place] [id number] Jun, [facility] [address] [id number] [address] [place] [address], [place] [address] Nov, [facility] [address] [id number] [address] [place] [id number] Nov, [facility] [address] [id number] [address] [place] [address], [place] [address] Oct, [facility] [address] [id number] [address] [place] [address], [place] [address] 09 Oct, 2012 [facility] [address] [id number] [address] [place] [address], [place] [address] Jul, [facility] [address] [id number] [address] [place] [address], [place] [address] Jul, [facility] [address] [id number] [address] [place] [address], [place] [address] Jul, [facility] [address] [id number] [address] [place] [address], [place] [address] Jul, [facility] [address] [id number] [address] [place] [address], [place] [address] Jul, [facility] [address] [id number] [address] [place] [address], [place] [address] Jul, [facility] [address] [id number] [address] [place] [address], [place] [address] Jun, [facility] [address] [id number] [address] [place] [address], [place] [address] Jun, [facility] [address] [id number] [address] [place] [address], [place] [address] Jun, [facility] [address] [id number] [address] [place] [address], [place] [address] Jun, [facility] [address] [id number] [address] [place] [address], [place] [address] May, [facility] [address] [id number] [address] [place] [address], [place] [address] May, [facility] [address] [id number] [address] [place] [address], [place] [address] Oct, [facility] [address] [id number] [address] [place] [address], [place] [address] Sep, [facility] [address] [id number] [address] [place] [address], [place] [address] Sep, [facility] [address] [id number] [address] [place] [phone] Aug, [facility] [address] [id number] [address] [place] [phone] Aug, [facility] [address] [id number] [address] [place] [phone] Aug, [facility] [address] [id number] [address] [place] [address] Jun, [facility] [address] [id number] [address] [place] [phone] Sep, [facility] [address] [id number] [address] [place] [id number] Jul, [facility] [address] [facility] [id number] [address] [place] [id number] Jul, IMMUNIZATIONS No Known Immunizations SOCIAL HISTORY Never Assessed REASON FOR VISIT [facility] PLAN OF CARE VITAL SIGNS MEDICATIONS No [...]
--- OUTSIDE RECORDS SUMMARY | 2019-12-20 23:02 | XMS REPORT ---
Author Author Migration, Doctor Organization [facility] Address Unknown Phone Unavailable Care Team Providers Care Aquaculture Worker Name Role Phone Migration, Doctor Unavailable Unavailable PROBLEMS Type Condition ICD9-CM Code [id number] Code Onset Dates Condition S tatus SNOMED Code Problem Major depressive disorder, recurrent episode, mild F33.0 Active 131596607 Problem Seasonal allergic rhinitis, unspecified allergic rhinitis trigger J30.2 Active 183839110 Problem Late menses N92.6 Active 61935333 Problem Missed period N92.6 Active 823584 00 Problem Irregular menses N92.6 Active 386 018294 Problem Anxiety, generalized F41.1 Active 75528226 Problem Other obesity due to excess calories E66.09 Active 484705373 Problem Body mass index (BMI) of 36.0-36.9 in adult Z68.36 Active 381942149 ALLERGIES No Information ENCOUNTERS Encounter Location Date Diagnosis [facility] [id number] [place] [address] Aug, Exposure to STD Z20.2 and Mi ssed period N92.6 [facility] [address] [address] 15 Jun, 2018 Non-intractable vomiting wit h nausea, unspecified vomiting type R11.2 ; Late menses N92.6 and Encounter for initial prescription of contraceptives, unspecified contraceptive Z30.019 [facility] [id number] [place] [address] Apr, Seasonal allergic rhinitis, unspecified allergic rhinitis trigger J30.2 and Sore throat J02.9 [facility] [address] [address] Apr, [facility] [id number] [place] [address] Feb, Acute bacterial conjunctivit is of left eye H10.32 [place] [address] [address] January, Major depressive disorder, r ecurrent episode, mild F33.0 ; Anxiety, generalized F41.1 and Irregular menses N92.6 [place] [address] [address] January, Major depressive disorder, r ecurrent episode, mild F33.0 ; Anxiety, generalized F41.1 ; Seasonal allergic rhinitis, unspecified allergic rhinitis trigger J30.2 ; Irregular menses N92.6 ; Other obesity due to excess calories E66.09 ; Body mass index (BMI) of 36.0-36.9 in adult Z68.36 and Encounter for repeat prescription of oral contraceptives Z30.41 [place] [address] [address] Dec, Anxiety, generalized F41.1 a nd Major depressive disorder, recurrent episode, mild F33.0 [place] [address] [address] Nov, [place] [address] [address] Nov, Anxiety, generalized F41.1 a nd Major depressive disorder, recurrent episode, mild F33.0 [place] [address] [address] Oct, Anxiety, generalized F41.1 a nd Major depressive disorder, recurrent episode, mild F33.0 [place] [address] [address] 13 Oct, 2017 Rectal bleeding K62.5 [facility] [place] [address] [address] 10 Oct, 2017 Sore throat J02.9 and Acute nasopharyngitis J00 [facility] [address] [address] 04 Oct, 2017 Viral gastroenteritis A08.4 [facility] [address] [facility] [id number] [place] [address] Sep, Chest wall pain R07.89 [place] [address] [facility] [id number] [place] [address] Sep, Major depressive disorder, r ecurrent episode, moderate F33.1 [facility] [id number] [place] [id number] Sep, Viral syndrome B34.9 [place] [address] [facility] [id number] [place] [address] Aug, Major depressive disorder, r ecurrent episode, moderate F33.1 and Anxiety, generalized F41.1 [place] [id number] [place] [address] Jul, [facility] [id number] [place] [address] Jul, Viral syndrome B34.9 [place] [id number] [place] [address] Jun, Anxiety, generalized F41.1 a nd Major depressive disorder, recurrent episode, moderate F33.1 [place] [address] [id number] [place] [address] May, Anxiety, generalized F41.1 a nd Major depressive disorder, recurrent episode, moderate F33.1 [place] [address] [id number] [place] [address] May, Tear of medial meniscus of l eft knee, current, unspecified tear type, initial encounter S83.242A [facility] [id number] [place] [id number] 13 May, 2017 Encounter for immunization Z 23 [place] [address] [facility] [id number] [place] [address] Apr, Major depressive disorder, r ecurrent episode, moderate F33.1 and Anxiety, generalized F41.1 [place] [id number] [address] Apr, Moderate single current epis ode of major depressive disorder F32.1 ; Anxiety, generalized F41.1 and Panic disorder [episodic paroxysmal anxiety] without agoraphobia F41.0 [place] [address] [address] Apr, Sports physical Z02.5 ; Enco unter [...] and Acute pain of right knee M25.561 [facility] [address] [address] Mar, Acute pain of left knee M25. 562 [facility] [address] [id number] January, Irregular menses N92.6 and S creen for STD (sexually transmitted disease) Z11.3 [facility] [address] [id number] January, Right lower quadrant abdomin al pain R10.31 and Flank pain R10.9 [place] [address] [address] Oct, Influenza B J10.1 [facility] [address] [address] Oct, Acute nasopharyngitis J00 an d Seasonal allergic rhinitis, unspecified allergic rhinitis trigger J30.2 [place] [address] [address] Jun, [place] [address] [place] [address] May, [facility] [address] [id number] [address] [place] [address] May, [facility] [address] [facility] [id number] [place] [address] May, [facility] [address] [facility] [id number] [place] [address] May, [facility] [address] [id number] [address] [place] [address] Apr, [facility] [address] [id number] [address] [place] [address] Apr, [facility] [address] [facility] [id number] [place] [address] Apr, [facility] [address] [facility] [id number] [place] [address] Apr, Arthritis of left knee M19.9 0 and Tick-borne disease B88.2 [facility] [address] [facility] [id number] [place] [address] Dec, [facility] [address] [facility] [id number] [place] [id number] Nov, Encounter for immunization Z 23 [facility] [address] [facility] [id number] [place] [address] Nov, Influenza J11.1 [facility] [id number] [place] [address] 07 Nov, 2015 Anxiety F41.9 [facility] [address] [facility] [id number] [place] [address] Sep, Sore throat J02.9 [facility] [address] [facility] [id number] [place] [address] 16 Jul, 2015 Amenorrhea, unspecified N91. 2 and Dysuria R30.0 [facility] [id number] [place] [address] Jun, Acute nasopharyngitis J00 [facility] [address] [facility] [id number] [place] [address] Jun, [facility] [address] [facility] [id number] [place] [address] Mar, Pubertal menorrhagia 626.3 ; Initiation of OCP (BCP) V25.01 and Need for HPV vaccination V04.89 [facility] [address] [facility] [id number] [place] [address] Mar, Mood disorder 296.90 and ADH D (attention deficit hyperactivity disorder), combined type 314.01 [facility] [address] [facility] [id number] [place] [address] Dec, [facility] [id number] [place] [address] Dec, [facility] [id number] [place] [address] Aug, [facility] [id number] [place] [address] Aug, [facility] [id number] [place] [address] Aug, [facility] [id number] [place] [address] Aug, [facility] [id number] [place] [address] Aug, [facility] [address] [facility] [id number] [place] [address] Aug, [facility] [address] [facility] [id number] [place] [address] Aug, [facility] [address] [facility] [id number] [place] [address] Jul, [facility] [address] [id number] [address] [place] [address], [place] [address] Jul, [facility] [address] [id number] [address] [place] [address], [place] [address] Jul, [facility] [address] [id number] [address] [place] [address], [place] [address] Jul, [facility] [address] [id number] [address] [place] [address], [place] [address] Jun, [facility] [address] [id number] [address] [place] [address], [place] [address] Jun, [facility] [address] [id number] [address] [place] [address], [place] [address] Jun, [facility] [address] [id number] [address] [place] [address], [place] [address] Jun, [facility] [address] [id number] [address] [place] [address], [place] [address] January, [facility] [address] [id number] [address] [place] [address], [place] [address] January, [facility] [address] [id number] [address] [place] [address], [place] [address] January, [facility] [address] [id number] [address] [place] [address], [place] [address] Nov, [facility] [address] [id number] [address] [place] [address], [place] [address] Nov, [facility] [address] [id number] [address] [place] [address], [place] [address] Aug, [facility] [address] [id number] [address] [place] [address], [place] [address] Aug, [facility] [address] [id number] [address] [place] [address], [place] [address] Aug, [facility] [address] [id number] [address] [place] [address], [place] [address] Aug, [facility] [address] [id number] [address] [place] [address], [place] [address] Aug, [facility] [address] [id number] [address] [place] [address], [place] [address] Jul, [facility] [address] [id number] [address] [place] [address], [place] [address] Jul, [facility] [address] [id number] [address] [place] [address], [place] [address] Jun, [facility] [address] [id number] [address] [place] [address], [place] [address] Jun, [facility] [address] [id number] [address] [place] [address], [place] [address] Jun, [facility] [address] [id number] [address] [place] [address], [place] [address] Jun, [facility] [address] [id number] [address] [place] [address], [place] [address] Jun, [facility] [address] [id number] [address] [place] [address], [place] [address] Jun, [facility] [address] [id number] [address] [place] [address] Jun, [facility] [address] [id number] [address] [place] [address], [place] [address] Jun, [facility] [address] [id number] [address] [place] [address] Jun, [facility] [address] [id number] [address] [place] [address], [place] [address] Nov, [facility] [address] [id number] [address] [place] [address] Nov, [facility] [address] [id number] [address] [place] [address], [place] [address] Oct, [facility] [address] [id number] [address] [place] [address], [place] [address] 09 Oct, 2012 [facility] [address] [id number] [address] [place] [address], [place] [address] Jul, [facility] [address] [id number] [address] [place] [address], [place] [address] Jul, [facility] [address] [id number] [address] [place] [address], [place] [address] Jul, [facility] [address] [id number] [address] [place] [address], [place] [address] Jul, [facility] [address] [id number] [address] [place] [address], [place] [address] Jul, [facility] [address] [id number] [address] [place] [address], [place] [address] Jul, [facility] [address] [id number] [address] [place] [address], [place] [address] Jun, [facility] [address] [id number] [address] [place] [address], [place] [address] Jun, [facility] [address] [id number] [address] [place] [address], [place] [address] Jun, [facility] [address] [id number] [address] [place] [address], [place] [address] Jun, [facility] [address] [id number] [address] [place] [address], [place] [address] May, [facility] [address] [id number] [address] [place] [address], [place] [address] May, [facility] [address] [id number] [address] [place] [address], [place] [address] Oct, [facility] [address] [id number] [address] [place] [address], [place] [address] Sep, [facility] [address] [id number] [address] [place] [address], [place] [address] Sep, [facility] [address] [id number] [address] [place] [address] Aug, [facility] [address] [id number] [address] [place] [address] Aug, [facility] [address] [id number] [address] [place] [address] Aug, [facility] [address] [id number] [address] [place] [address] Jun, [facility] [address] [id number] [address] [place] [address] Sep, [facility] [address] [id number] [address] [place] [address] Jul, [facility] [address] [facility] [id number] [place] [address] Jul, IMMUNIZATIONS No Known Immunizations SOCIAL HISTORY Never Assessed REASON FOR VISIT [facility] [place] VITAL SIGNS MEDICATIONS No [...]
--- OUTSIDE RECORDS SUMMARY | 2019-12-20 23:02 | XMS REPORT ---
Author Author Kathleen [facility] Address [address] [place] [address] Care Team Providers Care Library Cataloging Technician Name Role Phone TINOCOFELIX Unavailable PROBLEMS Type Condition ICD9-CM Code BYO03-BM Code Onset Dates Condition S tatus SNOMED Code Problem Seasonal allergic rhinitis, unspecified allergic rhinitis trigger J30.2 Active 469933765 Problem Major depressive disorder, recurrent episode, mild F33.0 Active 983057904 Problem Missed period N92.6 Active 256718 00 Problem Late menses N92.6 Active 11681958 Problem Anxiety, generalized F41.1 Active 02449933 Problem Irregular menses N92.6 Active 386 809882 Problem Body mass index (BMI) of 36.0-36.9 in adult Z68.36 Active 236410640 Problem Other obesity due to excess calories E66.09 Active 189608601 ALLERGIES Substance Reaction Event Type Date Status Imitrex body pain Drug Allergy Aug, Active ENCOUNTERS Encounter Location Date Diagnosis [facility] [address] [address] Aug, Exposure to STD Z20.2 and Mi ssed period N92.6 [facility] [address] [place] [id number] [place] [address] Jun, Non-intractable vomiting wit h nausea, unspecified vomiting type R11.2 ; Late menses N92.6 and Encounter for initial prescription of contraceptives, unspecified contraceptive Z30.019 [facility] [address] [place] [id number] [place] [address] Apr, Seasonal allergic rhinitis, unspecified allergic rhinitis trigger J30.2 and Sore throat J02.9 [facility] [address] [place] [id number] [place] [address] Apr, [facility] [address] [address] Feb, Acute bacterial conjunctivit is of left eye H10.32 [place] [address] [address] January, Major depressive disorder, r ecurrent episode, mild F33.0 ; Anxiety, generalized F41.1 and Irregular menses N92.6 [place] [address] [address] January, Major depressive disorder, r ecurrent episode, mild F33.0 ; Anxiety, generalized F41.1 ; Seasonal allergic rhinitis, unspecified allergic rhinitis trigger J30.2 ; Irregular menses N92.6 ; Other obesity due to excess calories E66.09 ; Body mass index (BMI) of 36.0-36.9 in adult Z68.36 and Encounter for repeat prescription of oral contraceptives Z30.41 [place] [address] [address] Dec, Anxiety, generalized F41.1 a nd Major depressive disorder, recurrent episode, mild F33.0 [place] [address] [address] Nov, [place] [address] [address] Nov, Anxiety, generalized F41.1 a nd Major depressive disorder, recurrent episode, mild F33.0 [place] [address] [address] Oct, Anxiety, generalized F41.1 a nd Major depressive disorder, recurrent episode, mild F33.0 [place] [address] [address] 13 Oct, 2017 Rectal bleeding K62.5 [facility] [address] [id number] [place] [address] 10 Oct, 2017 Sore throat J02.9 and Acute nasopharyngitis J00 [facility] [address] [place] [id number] [address] [place] [address] Oct, Viral gastroenteritis A08.4 [facility] [address] [place] [id number] [address] [place] [address] Sep, Chest wall pain R07.89 [facility] [address] [address] Sep, Major depressive disorder, r ecurrent episode, moderate F33.1 [facility] [address] [id number] Sep, Viral syndrome B34.9 [place] [address] [address] Aug, Major depressive disorder, r ecurrent episode, moderate F33.1 and Anxiety, generalized F41.1 [place] [address] [address] Jul, [facility] [address] [place] [id number] [place] [address] Jul, Viral syndrome B34.9 [place] [address] [address] Jun, Anxiety, generalized F41.1 a nd Major depressive disorder, recurrent episode, moderate F33.1 [place] [address] [place] [id number] [place] [address] May, Anxiety, generalized F41.1 a nd Major depressive disorder, recurrent episode, moderate F33.1 [place] [address] [address] May, Tear of medial meniscus of l eft knee, current, unspecified tear type, initial encounter S83.242A [facility] [address] [place] [id number] [place] [id number] 13 May, 2017 Encounter for immunization Z 23 [place] [address] [address] Apr, Major depressive disorder, r ecurrent episode, moderate F33.1 and Anxiety, generalized F41.1 [place] [address] [address] Apr, Moderate single current epis ode of major depressive disorder F32.1 ; Anxiety, generalized F41.1 and Panic disorder [episodic paroxysmal anxiety] without agoraphobia F41.0 [place] [address] [address] Apr, Sports physical Z02.5 ; Enco unter [...] and Acute pain of right knee M25.561 [facility] [address] [address] Mar, Acute pain of left knee M25. 562 [place] [address] [id number] January, Irregular menses N92.6 and S creen for STD (sexually transmitted disease) Z11.3 [facility] [place] [address] [id number] January, Right lower quadrant abdomin al pain R10.31 and Flank pain R10.[address] [address] Oct, Influenza B J10.1 [facility] [address] [address] Oct, Acute nasopharyngitis J00 an d Seasonal allergic rhinitis, unspecified allergic rhinitis trigger J30.2 [place] [address] [id number] [address] [place] [address] Jun, [facility] [address] [id number] [address] [place] [address] May, [facility] [address] [id number] [address] [place] [address] May, [facility] [address] [id number] [address] [place] [address] May, [facility] [address] [id number] [address] [place] [address] May, [facility] [address] [id number] [address] [place] [address] Apr, [facility] [address] [facility] [id number] [address] [place] [address] Apr, [facility] [address] [id number] [address] [place] [address] Apr, [facility] [address] [facility] [id number] [address] [place] [address] Apr, Arthritis of left knee M19.9 0 and Tick-borne disease B88.2 [facility] [address] [facility] [id number] [address] [place] [address] Dec, [facility] [address] [facility] [id number] [place] [id number] 30 Nov, 2016 Encounter for immunization Z 23 [facility] [address] [facility] [id number] [address] [place] [address] 11 Nov, 2015 Influenza J11.1 [facility] [id number] [place] [id number] 07 Nov, 2016 Anxiety F41.9 [facility] [address] [facility] [id number] [address] [place] [address] Sep, Sore throat J02.9 [facility] [address] [address] Jul, Amenorrhea, unspecified N91. 2 and Dysuria R30.0 [facility] [address] [address] Jun, Acute nasopharyngitis J00 [facility] [address] [address] Jun, [facility] [address] [address] Mar, Pubertal menorrhagia 626.3 ; Initiation of OCP (BCP) V25.01 and Need for HPV vaccination V04.89 [facility] [address] [address] Mar, Mood disorder 296.90 and ADH D (attention deficit hyperactivity disorder), combined type 314.01 [facility] [address] [address] Dec, [facility] [address] [address] Dec, [facility] [address] [address] Aug, [facility] [address] [address] Aug, [facility] [address] [address] Aug, [facility] [address] [place] [id number] [place] [address] Aug, [facility] [address] [address] Aug, [facility] [address] [place] [id number] [address] [place] [address] Aug, [facility] [address] [address] Aug, [facility] [address] [id number] [address] [place] [address], [place] [address] Jul, [facility] [address] [id number] [address] [place] [address], [place] [address] Jul, [facility] [address] [id number] [address] [place] [address], [place] [address] Jul, [facility] [address] [id number] [address] [place] [address], [place] [address] Jul, [facility] [address] [id number] [address] [place] [address], [place] [address] Jun, [facility] [address] [id number] [address] [place] [address], [place] [address] Jun, [facility] [address] [id number] [address] [place] [address], [place] [address] Jun, [facility] [address] [id number] [address] [place] [address], [place] [address] Jun, [facility] [address] [id number] [address] [place] [address], [place] [address] January, [facility] [address] [id number] [address] [place] [address], [place] [address] January, [facility] [address] [id number] [address] [place] [address], [place] [address] January, [facility] [address] [id number] [address] [place] [address], [place] [address] Nov, [facility] [address] [id number] [address] [place] [address], [place] [address] Nov, [facility] [address] [id number] [address] [place] [address], [place] [address] Aug, [facility] [address] [id number] [address] [place] [address], [place] [address] Aug, [facility] [address] [id number] [address] [place] [address], [place] [address] 18 Aug, 2013 [facility] [address] [id number] [address] [place] [address], [place] [address] 18 Aug, 2013 [facility] [address] [id number] [address] [place] [address], [place] [address] Aug, [facility] [address] [id number] [address] [place] [address], [place] [address] Jul, [facility] [address] [id number] [address] [place] [address], [place] [address] Jul, [facility] [address] [id number] [address] [place] [address], [place] [address] Jun, [facility] [address] [id number] [address] [place] [address], [place] [address] Jun, [facility] [address] [id number] [address] [place] [address], [place] [address] Jun, [facility] [address] [id number] [address] [place] [address], [place] [address] Jun, [facility] [address] [id number] [address] [place] [address], [place] [address] 24 Jun, 2013 [facility] [address] [id number] [address] [place] [address], [place] [address] Jun, [facility] [address] [id number] [address] [place] [address], [place] [address] 17 Jun, 2013 [facility] [address] [id number] [address] [place] [address], [place] [address] 10 Jun, 2013 [facility] [address] [id number] [address] [place] [address], [place] [address] 03 Jun, 2013 [facility] [address] [id number] [address] [place] [address], [place] [address] 11 Nov, 2012 [facility] [address] [id number] [address] [place] [address], [place] [address] 11 Nov, 2012 [facility] [address] [id number] [address] [place] [address], [place] [address] Oct, [facility] [address] [id number] [address] [place] [address], [place] [address] Oct, [facility] [address] [id number] [address] [place] [address], [place] [address] Jul, [facility] [address] [id number] [address] [place] [address], [place] [address] Jul, [facility] [address] [id number] [address] [place] [address], [place] [address] Jul, [facility] [address] [id number] [address] [place] [address], [place] [address] Jul, [facility] [address] [id number] [address] [place] [address], [place] [address] Jul, [facility] [address] [id number] [address] [place] [address], [place] [address] Jul, [facility] [address] [id number] [address] [place] [address], [place] [address] Jun, [facility] [address] [id number] [address] [place] [address], [place] [address] Jun, [facility] [address] [id number] [address] [place] [address], [place] [address] Jun, [facility] [address] [id number] [address] [place] [address], [place] [address] 16 Jun, 2012 [facility] [address] [id number] [address] [place] [address], [place] [address] May, [facility] [address] [id number] [address] [place] [address], [place] [address] May, [facility] [address] [id number] [address] [place] [address], [place] [address] Oct, [facility] [address] [id number] [address] [place] [address] Sep, [facility] [address] [id number] [address] [place] [address] Sep, [facility] [address] [id number] [address] [place] [address] Aug, [facility] [address] [id number] [address] [place] [address] Aug, [facility] [address] [id number] [address] [place] [address] Aug, [facility] [address] [id number] [address] [place] [address] Jun, [facility] [address] [id number] [address] [place] [address] Sep, [facility] [address] [id number] [address] [place] [address] Jul, [facility] [address] [id number] [address] [place] [address] Jul, IMMUNIZATIONS No Known Immunizations SOCIAL HISTORY Never Assessed REASON FOR VISIT STD check/ all Andreia Soto, Pt hasn't had period for 3 months with back pain and n ausea Andreia SOTO Pt reported that someone she slept with has slept with some one who had chlamydia Andreia Soto PLAN OF CARE Activity Details Follow Up w/ PCP Reason:if symptoms wo rsen or not improving Pending Test GC/CHLAM URINE (STATE) VITAL SIGNS Height 63 in 2018-08-23 Weight 204.2 lbs 2018-08-23 Temperature 98.5 degrees Fahrenheit 2018-08-23 Heart Rate 78 bpm 2018-08-23 Respiratory Rate 20 2018-08-23 BMI 36.17 kg/m2 2018-08-23 Blood pressure systolic 112 mmHg 2018-08-23 Blood pressure diastolic 76 mmHg 2018-08-23 MEDICATIONS No Known Medications RESULTS Name Result Date Reference Range TEST, URINE (IN HOUSE) 2018-08-23 RESULTS Negative Lot # [id number] Control + Exp date 03/05/2020 PROCEDURES Procedure Date Ordered Result Body Site No Charge Aug 23, 2018 URINE TEST Aug 23, 2018 INSTRUCTIONS MEDICATIONS ADMINISTERED No Known Medications MEDICAL [...]
--- OUTSIDE RECORDS SUMMARY | 2019-12-20 23:02 | XMS REPORT ---
Author Author Migration, Doctor Organization [facility] Address Unknown Phone Unavailable Care Team Providers Care Performance Improvement Consultant Name Role Phone Migration, Doctor Unavailable Unavailable PROBLEMS Type Condition ICD9-CM Code KPY06-HS Code Onset Dates Condition S tatus SNOMED Code Problem Major depressive disorder, recurrent episode, mild F33.0 Active 974404849 Problem Seasonal allergic rhinitis, unspecified allergic rhinitis trigger J30.2 Active 176912199 Problem Late menses N92.6 Active 34150635 Problem Missed period N92.6 Active 412547 00 Problem Irregular menses N92.6 Active 386 262402 Problem Anxiety, generalized F41.1 Active 00685357 Problem Other obesity due to excess calories E66.09 Active 779145635 Problem Body mass index (BMI) of 36.0-36.9 in adult Z68.36 Active 817724888 ALLERGIES No Information ENCOUNTERS Encounter Location Date Diagnosis [facility] [id number] [place] [id number] Aug, Exposure to STD Z20.2 and Mi ssed period N92.6 [facility] [id number] [place] [id number] 15 Jun, 2018 Non-intractable vomiting wit h nausea, unspecified vomiting type R11.2 ; Late menses N92.6 and Encounter for initial prescription of contraceptives, unspecified contraceptive Z30.019 [facility] [address] [id number] [address] [place] [phone] Apr, Seasonal allergic rhinitis, unspecified allergic rhinitis trigger J30.2 and Sore throat J02.9 [facility] [address] [address] Apr, [facility] [address] [id number] [address] [place] [id number] Feb, Acute bacterial conjunctivit is of left eye H10.32 [place] [address] [address] January, Major depressive disorder, r ecurrent episode, mild F33.0 ; Anxiety, generalized F41.1 and Irregular menses N92.6 [place] [address] [address] January, Major depressive disorder, r ecurrent episode, mild F33.0 ; Anxiety, generalized F41.1 ; Seasonal allergic rhinitis, unspecified allergic rhinitis trigger J30.2 ; Irregular menses N92.6 ; Other obesity due to excess calories E66.09 ; Body mass index (BMI) of 36.0-36.9 in adult Z68.36 and Encounter for repeat prescription of oral contraceptives Z30.41 [place] [address] [address] Dec, Anxiety, generalized F41.1 a nd Major depressive disorder, recurrent episode, mild F33.0 [place] [address] [address] Nov, [place] [address] [address] Nov, Anxiety, generalized F41.1 a nd Major depressive disorder, recurrent episode, mild F33.0 [place] [address] [address] Oct, Anxiety, generalized F41.1 a nd Major depressive disorder, recurrent episode, mild F33.0 [place] [address] [address] 13 Oct, 2017 Rectal bleeding K62.5 [facility] [place] [address] [address] 10 Oct, 2017 Sore throat J02.9 and Acute nasopharyngitis J00 [facility] [address] [address] 04 Oct, 2017 Viral gastroenteritis A08.4 [facility] [address] [facility] [id number] [address] [place] [id number] Sep, Chest wall pain R07.89 [place] [address] [facility] [id number] [address] [place] [id number] Sep, Major depressive disorder, r ecurrent episode, moderate F33.1 [facility] [id number] [place] [id number] Sep, Viral syndrome B34.9 [place] [address] [address] [facility] [id number] [address] [place] [phone] Aug, Major depressive disorder, r ecurrent episode, moderate F33.1 and Anxiety, generalized F41.1 [place] [address] [place] [id number] [place] [phone] Jul, [facility] [id number] [address] [place] [address] Jul, Viral syndrome B34.9 [place] [address] [place] [id number] [place] [phone] Jun, Anxiety, generalized F41.1 a nd Major depressive disorder, recurrent episode, moderate F33.1 [place] [address] [place] [id number] [place] [address] May, Anxiety, generalized F41.1 a nd Major depressive disorder, recurrent episode, moderate F33.1 [place] [address] [place] [id number] [place] [address] May, Tear of medial meniscus of l eft knee, current, unspecified tear type, initial encounter S83.242A [facility] [id number] [place] [id number] 13 May, 2017 Encounter for immunization Z 23 [place] [address] [facility] [id number] [address] [place] [address] Apr, Major depressive disorder, r ecurrent episode, moderate F33.1 and Anxiety, generalized F41.1 [place] [id number] [address] Apr, Moderate single current epis ode of major depressive disorder F32.1 ; Anxiety, generalized F41.1 and Panic disorder [episodic paroxysmal anxiety] without agoraphobia F41.0 [place] [address] [address] Apr, Sports physical Z02.5 ; Enco unter [...] and Acute pain of right knee M25.561 [facility] [address] [address] Mar, Acute pain of left knee M25. 562 [facility] [address] [id number] January, Irregular menses N92.6 and S creen for STD (sexually transmitted disease) Z11.3 [facility] [place] [address] [id number] January, Right lower quadrant abdomin al pain R10.31 and Flank pain R10.9 [place] [address] [address] Oct, Influenza B J10.1 [facility] [address] [address] Oct, Acute nasopharyngitis J00 an d Seasonal allergic rhinitis, unspecified allergic rhinitis trigger J30.2 [place] [address] [address] Jun, [place] [address] [place] [address] May, [facility] [address] [id number] [address] [place] [phone] May, [facility] [address] [facility] [id number] [address] [place] [phone] May, [facility] [address] [facility] [id number] [address] [place] [phone] May, [facility] [address] [id number] [address] [place] [phone] Apr, [facility] [address] [id number] [address] [place] [id number] Apr, [facility] [address] [facility] [id number] [address] [place] [phone] Apr, [facility] [address] [facility] [id number] [address] [place] [address] Apr, Arthritis of left knee M19.9 0 and Tick-borne disease B88.2 [facility] [address] [facility] [id number] [address] [place] [phone] Dec, [facility] [address] [facility] [id number] [place] [id number] Nov, Encounter for immunization Z 23 [facility] [address] [facility] [id number] [address] [place] [phone] Nov, Influenza J11.1 [facility] [address] [place] [id number] 07 Nov, [address] [facility] [address] [facility] [id number] [address] [place] [address] Sep, Sore throat J02.9 [facility] [address] [facility] [id number] [address] [place] [id number] 16 Jul, 2015 Amenorrhea, unspecified N91. 2 and Dysuria R30.0 [facility] [address] [place] [address] Jun, Acute nasopharyngitis J00 [facility] [address] [facility] [id number] [address] [place] [phone] Jun, [facility] [address] [facility] [id number] [address] [place] [id number] Mar, Pubertal menorrhagia 626.3 ; Initiation of OCP (BCP) V25.01 and Need for HPV vaccination V04.89 [facility] [address] [facility] [id number] [address] [place] [phone] Mar, Mood disorder 296.90 and ADH D (attention deficit hyperactivity disorder), combined type 314.01 [facility] [address] [facility] [id number] [address] [place] [phone] Dec, [facility] [id number] [place] [address] Dec, [facility] [id number] [address] [place] [phone] Aug, [facility] [id number] [place] [phone] Aug, [facility] [id number] [place] [phone] Aug, [facility] [id number] [place] [id number] Aug, [facility] [id number] [place] [id number] Aug, [facility] [address] [facility] [id number] [address] [place] [phone] Aug, [facility] [address] [facility] [id number] [address] [place] [phone] Aug, [facility] [address] [facility] [id number] [address] [place] [phone] Jul, [facility] [address] [id number] [address] [place] [address], [place] [address] Jul, [facility] [address] [id number] [address] [place] [address], [place] [address] Jul, [facility] [address] [id number] [address] [place] [address], [place] [address] Jul, [facility] [address] [id number] [address] [place] [address], [place] [address] Jun, [facility] [address] [id number] [address] [place] [address], [place] [address] Jun, [facility] [address] [id number] [address] [place] [address], [place] [address] Jun, [facility] [address] [id number] [address] [place] [address], [place] [address] Jun, [facility] [address] [id number] [address] [place] [address], [place] [address] January, [facility] [address] [id number] [address] [place] [address], [place] [address] January, [facility] [address] [id number] [address] [place] [address], [place] [address] January, [facility] [address] [id number] [address] [place] [address], [place] [address] Nov, [facility] [address] [id number] [address] [place] [address], [place] [address] Nov, [facility] [address] [id number] [address] [place] [address], [place] [address] Aug, [facility] [address] [id number] [address] [place] [address], [place] [address] Aug, [facility] [address] [id number] [address] [place] [address], [place] [address] Aug, [facility] [address] [id number] [address] [place] [address], [place] [address] Aug, [facility] [address] [id number] [address] [place] [address], [place] [address] Aug, [facility] [address] [id number] [address] [place] [address], [place] [address] Jul, [facility] [address] [id number] [address] [place] [address], [place] [address] Jul, [facility] [address] [id number] [address] [place] [address], [place] [address] Jun, [facility] [address] [id number] [address] [place] [address], [place] [address] Jun, [facility] [address] [id number] [address] [place] [address], [place] [address] Jun, [facility] [address] [id number] [address] [place] [address], [place] [address] Jun, [facility] [address] [id number] [address] [place] [address], [place] [address] Jun, [facility] [address] [id number] [address] [place] [address], [place] [address] Jun, [facility] [address] [id number] [address] [place] [id number] Jun, [facility] [address] [id number] [address] [place] [address], [place] [address] Jun, [facility] [address] [id number] [address] [place] [phone] Jun, [facility] [address] [id number] [address] [place] [address], [place] [address] Nov, [facility] [address] [id number] [address] [place] [id number] Nov, [facility] [address] [id number] [address] [place] [address], [place] [address] Oct, [facility] [address] [id number] [address] [place] [address], [place] [address] 09 Oct, 2012 [facility] [address] [id number] [address] [place] [address], [place] [address] Jul, [facility] [address] [id number] [address] [place] [address], [place] [address] Jul, [facility] [address] [id number] [address] [place] [address], [place] [address] Jul, [facility] [address] [id number] [address] [place] [address], [place] [address] Jul, [facility] [address] [id number] [address] [place] [address], [place] [address] Jul, [facility] [address] [id number] [address] [place] [address], [place] [address] Jul, [facility] [address] [id number] [address] [place] [address], [place] [address] Jun, [facility] [address] [id number] [address] [place] [address], [place] [address] Jun, [facility] [address] [id number] [address] [place] [address], [place] [address] Jun, [facility] [address] [id number] [address] [place] [address], [place] [address] Jun, [facility] [address] [id number] [address] [place] [address], [place] [address] May, [facility] [address] [id number] [address] [place] [address], [place] [address] May, [facility] [address] [id number] [address] [place] [address], [place] [address] Oct, [facility] [address] [id number] [address] [place] [address], [place] [address] Sep, [facility] [address] [id number] [address] [place] [address], [place] [address] Sep, [facility] [address] [id number] [address] [place] [id number] Aug, [facility] [address] [id number] [address] [place] [address] Aug, [facility] [address] [id number] [address] [place] [id number] Aug, [facility] [address] [id number] [address] [place] [id number] Jun, [facility] [address] [id number] [address] [place] [address] Sep, [facility] [address] [id number] [address] [place] [address] Jul, [facility] [address] [facility] [id number] [address] [place] [address] Jul, IMMUNIZATIONS No Known Immunizations SOCIAL HISTORY Never Assessed REASON FOR VISIT [facility] [place] VITAL SIGNS MEDICATIONS No [...]
--- OUTSIDE RECORDS SUMMARY | 2019-12-20 23:02 | XMS REPORT ---
Author Author Migration, Doctor Organization [facility] Address Unknown Phone Unavailable Care Team Providers Care Bridge Rigger Name Role Phone Migration, Doctor Unavailable Unavailable PROBLEMS Type Condition ICD9-CM Code POY28-QH Code Onset Dates Condition S tatus SNOMED Code Problem Major depressive disorder, recurrent episode, mild F33.0 Active 518975233 Problem Seasonal allergic rhinitis, unspecified allergic rhinitis trigger J30.2 Active 505318608 Problem Late menses N92.6 Active 01414644 Problem Missed period N92.6 Active 480881 00 Problem Irregular menses N92.6 Active 386 995393 Problem Anxiety, generalized F41.1 Active 90320317 Problem Other obesity due to excess calories E66.09 Active 792895532 Problem Body mass index (BMI) of 36.0-36.9 in adult Z68.36 Active 651933815 ALLERGIES No Information ENCOUNTERS Encounter Location Date Diagnosis [facility] [address] [id number] [address] [place] [address] Aug, Exposure to STD Z20.2 and Mi ssed period N92.6 [facility] [address] [id number] [address] [place] [address] 15 Jun, 2018 Non-intractable vomiting wit h nausea, unspecified vomiting type R11.2 ; Late menses N92.6 and Encounter for initial prescription of contraceptives, unspecified contraceptive Z30.019 [facility] [address] [id number] [address] [place] [address] Apr, Seasonal allergic rhinitis, unspecified allergic rhinitis trigger J30.2 and Sore throat J02.9 [facility] [address] [address] Apr, [facility] [address] [id number] [address] [place] [address] Feb, Acute bacterial conjunctivit is of left eye H10.32 [place] [address] [address] January, Major depressive disorder, r ecurrent episode, mild F33.0 ; Anxiety, generalized F41.1 and Irregular menses N92.6 [place] [address] [address] January, Major depressive disorder, r ecurrent episode, mild F33.0 ; Anxiety, generalized F41.1 ; Seasonal allergic rhinitis, unspecified allergic rhinitis trigger J30.2 ; Irregular menses N92.6 ; Other obesity due to excess calories E66.09 ; Body mass index (BMI) of 36.0-36.9 in adult Z68.36 and Encounter for repeat prescription of oral contraceptives Z30.41 [place] [address] [address] Dec, Anxiety, generalized F41.1 a nd Major depressive disorder, recurrent episode, mild F33.0 [place] [address] [address] Nov, [place] [address] [address] Nov, Anxiety, generalized F41.1 a nd Major depressive disorder, recurrent episode, mild F33.0 [place] [address] [address] Oct, Anxiety, generalized F41.1 a nd Major depressive disorder, recurrent episode, mild F33.0 [place] [address] [address] 13 Oct, 2017 Rectal bleeding K62.5 [facility] [place] [address] [address] 10 Oct, 2017 Sore throat J02.9 and Acute nasopharyngitis J00 [facility] [address] [address] 04 Oct, 2017 Viral gastroenteritis A08.4 [facility] [address] [facility] [id number] [address] [place] [address] Sep, Chest wall pain R07.89 [place] [address] [facility] [id number] [address] [place] [address] Sep, Major depressive disorder, r ecurrent episode, moderate F33.1 [facility] [id number] [place] [id number] Sep, Viral syndrome B34.9 [place] [address] [facility] [id number] [address] [place] [phone] Aug, Major depressive disorder, r ecurrent episode, moderate F33.1 and Anxiety, generalized F41.1 [place] [address] [place] [id number] [address] [place] [address] Jul, [facility] [address] [id number] [address] [place] [phone] Jul, Viral syndrome B34.9 [place] [address] [address] [id number] [address] [place] [phone] Jun, Anxiety, generalized F41.1 a nd Major depressive disorder, recurrent episode, moderate F33.1 [place] [address] [place] [address] [id number] [address] [place] [phone] May, Anxiety, generalized F41.1 a nd Major depressive disorder, recurrent episode, moderate F33.1 [place] [address] [place] [id number] [address] [place] [address] May, Tear of medial meniscus of l eft knee, current, unspecified tear type, initial encounter S83.242A [facility] [id number] [place] [id number] May, 2017 Encounter for immunization Z 23 [place] [address] [facility] [id number] [address] [place] [phone] Apr, Major depressive disorder, r ecurrent episode, moderate F33.1 and Anxiety, generalized F41.1 [place] [address] [address] Apr, Moderate single current epis ode of major depressive disorder F32.1 ; Anxiety, generalized F41.1 and Panic disorder [episodic paroxysmal anxiety] without agoraphobia F41.0 [place] [address] [address] Apr, Sports physical Z02.5 ; Enco unter [...] and Acute pain of right knee M25.561 [facility] [address] [address] Mar, Acute pain of left knee M25. 562 [facility] [address] [id number] January, Irregular menses N92.6 and S creen for STD (sexually transmitted disease) Z11.3 [facility] [address] [id number] January, Right lower quadrant abdomin al pain R10.31 and Flank pain R10.9 [place] [address] [address] Oct, Influenza B J10.1 [facility] [address] [address] Oct, Acute nasopharyngitis J00 an d Seasonal allergic rhinitis, unspecified allergic rhinitis trigger J30.2 [place] [address] [address] Jun, [place] [address] [place] [address] May, [facility] [address] [id number] [address] [place] [address] May, [facility] [address] [facility] [id number] [address] [place] [phone] May, [facility] [address] [facility] [id number] [address] [place] [address] May, [facility] [address] [id number] [address] [place] [address] Apr, [facility] [address] [id number] [address] [place] [address] Apr, [facility] [address] [facility] [id number] [address] [place] [address] Apr, [facility] [address] [facility] [id number] [address] [place] [address] Apr, Arthritis of left knee M19.9 0 and Tick-borne disease B88.2 [facility] [address] [facility] [id number] [address] [place] [address] Dec, [facility] [address] [facility] [id number] [place] [id number] Nov, Encounter for immunization Z 23 [facility] [address] [facility] [id number] [address] [place] [phone] Nov, Influenza J11.1 [facility] [id number] [place] [address] 07 Nov, 2015 Anxiety F41.9 [facility] [address] [facility] [id number] [address] [place] [phone] Sep, Sore throat J02.9 [facility] [address] [facility] [id number] [address] [place] [id number] 16 Jul, 2015 Amenorrhea, unspecified N91. 2 and Dysuria R30.0 [facility] [address] [place] [address] Jun, Acute nasopharyngitis J00 [facility] [address] [facility] [id number] [address] [place] [address] Jun, [facility] [address] [facility] [id number] [address] [place] [phone] Mar, Pubertal menorrhagia 626.3 ; Initiation of OCP (BCP) V25.01 and Need for HPV vaccination V04.89 [facility] [address] [facility] [id number] [address] [place] [phone] Mar, Mood disorder 296.90 and ADH D (attention deficit hyperactivity disorder), combined type 314.01 [facility] [address] [facility] [id number] [address] [place] [phone] Dec, [facility] [id number] [place] [address] Dec, [facility] [address] [id number] [address] [place] [address] Aug, [facility] [address] [id number] [address] [place] [phone] Aug, [facility] [address] [id number] [address] [place] [phone] Aug, [facility] [address] [id number] [address] [place] [address] Aug, [facility] [address] [id number] [address] [place] [phone] Aug, [facility] [address] [facility] [id number] [address] [place] [phone] Aug, [facility] [address] [facility] [id number] [address] [place] [phone] Aug, [facility] [address] [facility] [id number] [address] [place] [phone] Jul, [facility] [address] [id number] [address] [place] [address], [place] [address] Jul, [facility] [address] [id number] [address] [place] [address], [place] [address] Jul, [facility] [address] [id number] [address] [place] [address], [place] [address] Jul, [facility] [address] [id number] [address] [place] [address], [place] [address] Jun, [facility] [address] [id number] [address] [place] [address], [place] [address] Jun, [facility] [address] [id number] [address] [place] [address], [place] [address] Jun, [facility] [address] [id number] [address] [place] [address], [place] [address] Jun, [facility] [address] [id number] [address] [place] [address], [place] [address] January, [facility] [address] [id number] [address] [place] [address], [place] [address] January, [facility] [address] [id number] [address] [place] [address], [place] [address] January, [facility] [address] [id number] [address] [place] [address], [place] [address] Nov, [facility] [address] [id number] [address] [place] [address], [place] [address] Nov, [facility] [address] [id number] [address] [place] [address], [place] [address] Aug, [facility] [address] [id number] [address] [place] [address], [place] [address] Aug, [facility] [address] [id number] [address] [place] [address], [place] [address] Aug, [facility] [address] [id number] [address] [place] [address], [place] [address] Aug, [facility] [address] [id number] [address] [place] [address], [place] [address] Aug, [facility] [address] [id number] [address] [place] [address], [place] [address] Jul, [facility] [address] [id number] [address] [place] [address], [place] [address] Jul, [facility] [address] [id number] [address] [place] [address], [place] [address] Jun, [facility] [address] [id number] [address] [place] [address], [place] [address] Jun, [facility] [address] [id number] [address] [place] [address], [place] [address] Jun, [facility] [address] [id number] [address] [place] [address], [place] [address] Jun, [facility] [address] [id number] [address] [place] [address], [place] [address] Jun, [facility] [address] [id number] [address] [place] [address], [place] [address] Jun, [facility] [address] [id number] [address] [place] [phone] Jun, [facility] [address] [id number] [address] [place] [address], [place] [address] Jun, [facility] [address] [id number] [address] [place] [address] Jun, [facility] [address] [id number] [address] [place] [address], [place] [address] Nov, [facility] [address] [id number] [address] [place] [address] Nov, [facility] [address] [id number] [address] [place] [address], [place] [address] Oct, [facility] [address] [id number] [address] [place] [address], [place] [address] 09 Oct, 2012 [facility] [address] [id number] [address] [place] [address], [place] [address] Jul, [facility] [address] [id number] [address] [place] [address], [place] [address] Jul, [facility] [address] [id number] [address] [place] [address], [place] [address] Jul, [facility] [address] [id number] [address] [place] [address], [place] [address] Jul, [facility] [address] [id number] [address] [place] [address], [place] [address] Jul, [facility] [address] [id number] [address] [place] [address], [place] [address] Jul, [facility] [address] [id number] [address] [place] [address], [place] [address] Jun, [facility] [address] [id number] [address] [place] [address], [place] [address] Jun, [facility] [address] [id number] [address] [place] [address], [place] [address] Jun, [facility] [address] [id number] [address] [place] [address], [place] [address] Jun, [facility] [address] [id number] [address] [place] [address], [place] [address] May, [facility] [address] [id number] [address] [place] [address], [place] [address] May, [facility] [address] [id number] [address] [place] [address], [place] [address] Oct, [facility] [address] [id number] [address] [place] [address], [place] [address] Sep, [facility] [address] [id number] [address] [place] [address], [place] [address] Sep, [facility] [address] [id number] [address] [place] [phone] Aug, [facility] [address] [id number] [address] [place] [address] Aug, [facility] [address] [id number] [address] [place] [address] Aug, [facility] [address] [id number] [address] [place] [address] Jun, [facility] [address] [id number] [address] [place] [address] Sep, [facility] [address] [id number] [address] [place] [address] Jul, [facility] [address] [facility] [id number] [address] [place] [address] Jul, IMMUNIZATIONS No Known Immunizations SOCIAL HISTORY Never Assessed REASON FOR VISIT [facility] PLAN OF CARE VITAL SIGNS MEDICATIONS No [...]
--- OUTSIDE RECORDS SUMMARY | 2019-12-20 23:02 | XMS REPORT ---
Author Author Migration, Doctor Organization [facility] Address Unknown Phone Unavailable Care Team Providers Care Technical Supervisor Name Role Phone Migration, Doctor Unavailable Unavailable PROBLEMS Type Condition ICD9-CM Code [id number] Code Onset Dates Condition S tatus SNOMED Code Problem Major depressive disorder, recurrent episode, mild F33.0 Active 954341500 Problem Seasonal allergic rhinitis, unspecified allergic rhinitis trigger J30.2 Active 060877585 Problem Late menses N92.6 Active 89597071 Problem Missed period N92.6 Active 335042 00 Problem Irregular menses N92.6 Active 386 496367 Problem Anxiety, generalized F41.1 Active 13945517 Problem Other obesity due to excess calories E66.09 Active 283310466 Problem Body mass index (BMI) of 36.0-36.9 in adult Z68.36 Active 950866781 ALLERGIES No Information ENCOUNTERS Encounter Location Date Diagnosis [facility] [address] [id number] [place] [address] Aug, Exposure to STD Z20.2 and Mi ssed period N92.6 [facility] [address] [id number] [address] [place] [address] 15 Jun, 2018 Non-intractable vomiting wit h nausea, unspecified vomiting type R11.2 ; Late menses N92.6 and Encounter for initial prescription of contraceptives, unspecified contraceptive Z30.019 [facility] [address] [id number] [address] [place] [address] Apr, Seasonal allergic rhinitis, unspecified allergic rhinitis trigger J30.2 and Sore throat J02.9 [facility] [address] [address] Apr, [facility] [address] [id number] [address] [place] [address] Feb, Acute bacterial conjunctivit is of left eye H10.32 [place] [address] [address] January, Major depressive disorder, r ecurrent episode, mild F33.0 ; Anxiety, generalized F41.1 and Irregular menses N92.6 [place] [address] [address] January, Major depressive disorder, r ecurrent episode, mild F33.0 ; Anxiety, generalized F41.1 ; Seasonal allergic rhinitis, unspecified allergic rhinitis trigger J30.2 ; Irregular menses N92.6 ; Other obesity due to excess calories E66.09 ; Body mass index (BMI) of 36.0-36.9 in adult Z68.36 and Encounter for repeat prescription of oral contraceptives Z30.41 [place] [address] [address] Dec, Anxiety, generalized F41.1 a nd Major depressive disorder, recurrent episode, mild F33.0 [place] [address] [address] Nov, [place] [address] [address] Nov, Anxiety, generalized F41.1 a nd Major depressive disorder, recurrent episode, mild F33.0 [place] [address] [address] Oct, Anxiety, generalized F41.1 a nd Major depressive disorder, recurrent episode, mild F33.0 [place] [address] [address] 13 Oct, 2017 Rectal bleeding K62.5 [facility] [place] [address] [address] 10 Oct, 2017 Sore throat J02.9 and Acute nasopharyngitis J00 [facility] IN [facility] [address] [address] 04 Oct, 2017 Viral gastroenteritis A08.4 [facility] [address] [facility] [id number] [address] [place] [address] Sep, Chest wall pain R07.89 [place] [address] [facility] [id number] [address] [place] [address] Sep, Major depressive disorder, r ecurrent episode, moderate F33.1 [facility] [id number] [place] [id number] Sep, Viral syndrome B34.9 [place] [address] [facility] [id number] [address] [place] [address] Aug, Major depressive disorder, r ecurrent episode, moderate F33.1 and Anxiety, generalized F41.1 [place] [address] [place] [id number] [place] [address] Jul, [facility] [id number] [address] [place] [address] Jul, Viral syndrome B34.9 [place] [address] [place] [id number] [place] [address] Jun, Anxiety, generalized F41.1 a nd Major depressive disorder, recurrent episode, moderate F33.1 [place] [address] [place] [id number] [address] [place] [address] May, Anxiety, generalized F41.1 a nd Major depressive disorder, recurrent episode, moderate F33.1 [place] [address] [place] [id number] [place] [address] May, Tear of medial meniscus of l eft knee, current, unspecified tear type, initial encounter S83.242A [facility] [id number] [place] [id number] 13 May, 2017 Encounter for immunization Z 23 [place] [address] [facility] [id number] [address] [place] [address] Apr, Major depressive disorder, r ecurrent episode, moderate F33.1 and Anxiety, generalized F41.1 [place] [id number] [address] Apr, Moderate single current epis ode of major depressive disorder F32.1 ; Anxiety, generalized F41.1 and Panic disorder [episodic paroxysmal anxiety] without agoraphobia F41.0 [place] [address] [address] Apr, Sports physical Z02.5 ; Enco unter [...] and Acute pain of right knee M25.561 [facility] [address] [address] Mar, Acute pain of left knee M25. 562 [facility] [address] [id number] January, Irregular menses N92.6 and S creen for STD (sexually transmitted disease) Z11.3 [facility] [address] [id number] January, Right lower quadrant abdomin al pain R10.31 and Flank pain R10.9 [place] [address] [address] Oct, Influenza B J10.1 [facility] IN [facility] [address] [address] Oct, Acute nasopharyngitis J00 an d Seasonal allergic rhinitis, unspecified allergic rhinitis trigger J30.2 [place] [address] [address] Jun, [place] [address] [place] [address] May, [facility] [address] [id number] [address] [place] [address] May, [facility] [address] [facility] [id number] [address] [place] [address] May, [facility] [address] [facility] [id number] [address] [place] [address] May, [facility] [address] [id number] [address] [place] [address] Apr, [facility] [address] [id number] [address] [place] [address] Apr, [facility] [address] [facility] [id number] [address] [place] [address] Apr, [facility] [address] [facility] [id number] [address] [place] [address] Apr, Arthritis of left knee M19.9 0 and Tick-borne disease B88.2 [facility] [address] [facility] [id number] [address] [place] [address] Dec, [facility] [address] [facility] [id number] [place] [id number] Nov, Encounter for immunization Z 23 [facility] [address] [facility] [id number] [address] [place] [address] Nov, Influenza J11.1 [facility] [address] [place] [address] 07 Nov, 2015 Anxiety F41.9 [facility] [address] [facility] [id number] [address] [place] [address] Sep, Sore throat J02.9 [facility] [address] [facility] [id number] [address] [place] [address] 16 Jul, 2015 Amenorrhea, unspecified N91. 2 and Dysuria R30.0 [facility] [address] [place] [address] Jun, Acute nasopharyngitis J00 [facility] [address] [facility] [id number] [address] [place] [address] Jun, [facility] [address] [facility] [id number] [address] [place] [address] Mar, Pubertal menorrhagia 626.3 ; Initiation of OCP (BCP) V25.01 and Need for HPV vaccination V04.89 [facility] [address] [facility] [id number] [address] [place] [address] Mar, Mood disorder 296.90 and ADH D (attention deficit hyperactivity disorder), combined type 314.01 [facility] [address] [facility] [id number] [address] [place] [address] Dec, [facility] [id number] [place] [address] Dec, [facility] [address] [id number] [address] [place] [address] Aug, [facility] [address] [id number] [place] [address] Aug, [facility] [address] [id number] [place] [address] Aug, [facility] [address] [id number] [address] [place] [address] Aug, [facility] [id number] [place] [address] Aug, [facility] [address] [facility] [id number] [address] [place] [address] Aug, [facility] [address] [facility] [id number] [address] [place] [address] Aug, [facility] [address] [facility] [id number] [address] [place] [address] Jul, [facility] [address] [id number] [address] [place] [address], [place] [address] Jul, [facility] [address] [id number] [address] [place] [address], [place] [address] Jul, [facility] [address] [id number] [address] [place] [address], [place] [address] Jul, [facility] [address] [id number] [address] [place] [address], [place] [address] Jun, [facility] [address] [id number] [address] [place] [address], [place] [address] Jun, [facility] [address] [id number] [address] [place] [address], [place] [address] Jun, [facility] [address] [id number] [address] [place] [address], [place] [address] Jun, [facility] [address] [id number] [address] [place] [address], [place] [address] January, [facility] [address] [id number] [address] [place] [address], [place] [address] January, [facility] [address] [id number] [address] [place] [address], [place] [address] January, [facility] [address] [id number] [address] [place] [address], [place] [address] Nov, [facility] [address] [id number] [address] [place] [address], [place] [address] Nov, [facility] [address] [id number] [address] [place] [address], [place] [address] Aug, [facility] [address] [id number] [address] [place] [address], [place] [address] Aug, [facility] [address] [id number] [address] [place] [address], [place] [address] Aug, [facility] [address] [id number] [address] [place] [address], [place] [address] Aug, [facility] [address] [id number] [address] [place] [address], [place] [address] Aug, [facility] [address] [id number] [address] [place] [address], [place] [address] Jul, [facility] [address] [id number] [address] [place] [address], [place] [address] Jul, [facility] [address] [id number] [address] [place] [address], [place] [address] Jun, [facility] [address] [id number] [address] [place] [address], [place] [address] Jun, [facility] [address] [id number] [address] [place] [address], [place] [address] Jun, [facility] [address] [id number] [address] [place] [address], [place] [address] Jun, [facility] [address] [id number] [address] [place] [address], [place] [address] Jun, [facility] [address] [id number] [address] [place] [address], [place] [address] Jun, [facility] [address] [id number] [address] [place] [address] Jun, [facility] [address] [id number] [address] [place] [address], [place] [address] Jun, [facility] [address] [id number] [address] [place] [id number] Jun, [facility] [address] [id number] [address] [place] [address], [place] [address] Nov, [facility] [address] [id number] [address] [place] [address] Nov, [facility] [address] [id number] [address] [place] [address], [place] [address] Oct, [facility] [address] [id number] [address] [place] [address], [place] [address] 09 Oct, 2012 [facility] [address] [id number] [address] [place] [address], [place] [address] Jul, [facility] [address] [id number] [address] [place] [address], [place] [address] Jul, [facility] [address] [id number] [address] [place] [address], [place] [address] Jul, [facility] [address] [id number] [address] [place] [address], [place] [address] Jul, [facility] [address] [id number] [address] [place] [address], [place] [address] Jul, [facility] [address] [id number] [address] [place] [address], [place] [address] Jul, [facility] [address] [id number] [address] [place] [address], [place] [address] Jun, [facility] [address] [id number] [address] [place] [address], [place] [address] Jun, [facility] [address] [id number] [address] [place] [address], [place] [address] Jun, [facility] [address] [id number] [address] [place] [address], [place] [address] Jun, [facility] [address] [id number] [address] [place] [address], [place] [address] May, [facility] [address] [id number] [address] [place] [address], [place] [address] May, [facility] [address] [id number] [address] [place] [address], [place] [address] Oct, [facility] [address] [id number] [address] [place] [address], [place] [address] Sep, [facility] [address] [id number] [address] [place] [address], [place] [address] Sep, [facility] [address] [id number] [address] [place] [address] Aug, [facility] [address] [id number] [address] [place] [address] Aug, [facility] [address] [id number] [address] [place] [address] Aug, [facility] [address] [id number] [address] [place] [address] Jun, [facility] [address] [id number] [address] [place] [address] Sep, [facility] [address] [id number] [address] [place] [id number] Jul, [facility] [address] [facility] [id number] [address] [place] [address] Jul, IMMUNIZATIONS No Known Immunizations SOCIAL HISTORY Never Assessed REASON FOR VISIT [facility] [place] CARE VITAL SIGNS [...]
--- OUTSIDE RECORDS SUMMARY | 2019-12-20 23:03 | XMS REPORT ---
Author Author Kathleen VIDALES Organization [facility] Address Unknown Care Team Providers Care Senior Energy Market Coordinator Name Role Phone ESME VIDALES Unavailable PROBLEMS Type Condition ICD9-CM Code [id number] Code Onset Dates Condition S tatus SNOMED Code Problem Other obesity due to excess calories E66.09 Active 400913454 Problem Body mass index (BMI) of 36.0-36.9 in adult Z68.36 Active 978289560 Problem Seasonal allergic rhinitis, unspecified allergic rhinitis trigger J30.2 Active 409708119 Problem Major depressive disorder, recurrent episode, mild F33.0 Active 111331839 Problem Anxiety, generalized F41.1 Active 69650756 Problem Irregular menses N92.6 Active [id number] ALLERGIES No Information ENCOUNTERS Encounter Location Date Diagnosis [place] [address] [place] [id number] [place] [id number] Feb, Acute bacterial conjunctivit is of left eye H10.32 [place] [address] [address] January, Major depressive disorder, r ecurrent episode, mild F33.0 ; Anxiety, generalized F41.1 and Irregular menses N92.6 [place] [address] [place] [id number] [place] [id number] January, Major depressive disorder, r ecurrent episode, mild F33.0 ; Anxiety, generalized F41.1 ; Seasonal allergic rhinitis, unspecified allergic rhinitis trigger J30.2 ; Irregular menses N92.6 ; Other obesity due to excess calories E66.09 ; Body mass index (BMI) of 36.0-36.9 in adult Z68.36 and Encounter for repeat prescription of oral contraceptives Z30.41 [place] [address] [place] [id number] [place] [address] Dec, Anxiety, generalized F41.1 a nd Major depressive disorder, recurrent episode, mild F33.0 [place] [id number] [place] [address] Nov, [facility] [address] [place] [id number] [address] [place] [id number] Nov, Anxiety, generalized F41.1 a nd Major depressive disorder, recurrent episode, mild F33.0 [place] [address] [place] [id number] [place] [address] Oct, Anxiety, generalized F41.1 a nd Major depressive disorder, recurrent episode, mild F33.0 [place] [address] [place] [id number] [place] [address] Oct, Rectal bleeding K62.5 [facility] [place] [address] [address] Oct, Sore throat J02.9 and Acute nasopharyngitis J00 [facility] [place] [address] [place] [id number] [place] [address] Oct, Viral gastroenteritis A08.4 [facility] [place] [address] [place] [address] Sep, Chest wall pain R07.89 [place] [address] [place] [id number] [place] [address] Sep, Major depressive disorder, r ecurrent episode, moderate F33.1 [facility] [address] [place] [id number] [place] [id number] Sep, Viral syndrome B34.9 [place] [address] [place] [id number] [place] [address] Aug, Major depressive disorder, r ecurrent episode, moderate F33.1 and Anxiety, generalized F41.1 [place] [address] [place] [id number] [place] [address] Jul, [facility] [address] [place] [id number] [address] [place] [address] Jul, Viral syndrome B34.9 [place] [address] [place] [id number] [place] [address] Jun, Anxiety, generalized F41.1 a nd Major depressive disorder, recurrent episode, moderate F33.1 [place] [address] [place] [id number] [place] [address] May, Anxiety, generalized F41.1 a nd Major depressive disorder, recurrent episode, moderate F33.1 [place] [address] [address] May, Tear of medial meniscus of l eft knee, current, unspecified tear type, initial encounter S83.242A [facility] [id number] [place] [id number] May, Encounter for immunization Z 23 [place] [address] [place] [id number] [place] [address] Apr, Major depressive disorder, r ecurrent episode, moderate F33.1 and Anxiety, generalized F41.1 [place] [address] [address] Apr, Moderate single current epis ode of major depressive disorder F32.1 ; Anxiety, generalized F41.1 and Panic disorder [episodic paroxysmal anxiety] without agoraphobia F41.0 [place] [address] [place] [id number] [place] [address] Apr, Sports physical Z02.5 ; Enco unter [...] and Acute pain of right knee M25.561 [facility] [address] [id number] [address] [place] [address] Mar, Acute pain of left knee M25. 562 [facility] [address] [id number] [place] [address] [id number] January, Irregular menses N92.6 and S creen for STD (sexually transmitted disease) Z11.3 [facility] [address] [facility] [id number] [place] [id number] January, Right lower quadrant abdomin al pain R10.31 and Flank pain R10.9 [facility] [address] [facility] [id number] [address] [place] [id number] Oct, Influenza B J10.1 [facility] [address] [facility] [id number] [address] [place] [id number] Oct, Acute nasopharyngitis J00 an d Seasonal allergic rhinitis, unspecified allergic rhinitis trigger J30.2 [facility] [address] [facility] [id number] [address] [place] [id number] Jun, [facility] [address] [facility] [id number] [address] [place] [phone] May, [facility] [address] [facility] [id number] [address] [place] [id number] May, [facility] [address] [facility] [id number] [address] [place] [phone] May, [facility] [address] [facility] [id number] [address] [place] [id number] May, [facility] [address] [facility] [id number] [address] [place] [phone] Apr, [facility] [address] [facility] [id number] [address] [place] [phone] Apr, [facility] [address] [facility] [id number] [address] [place] [phone] Apr, [facility] [address] [place] [id number] [place] [phone] Apr, Arthritis of left knee M19.9 0 and Tick-borne disease B88.2 [place] [address] [place] [id number] [place] [phone] Dec, [facility] [address] [place] [id number] [place] [address] [id number] 30 Nov, 2015 Encounter for immunization Z 23 [facility] [address] [address] 11 Nov, 2015 Influenza J11.1 [facility] [address] [address] 07 Nov, 2015 Anxiety F41.9 [facility] [address] [address] Sep, Sore throat J02.9 [place] [address] [address] Jul, Amenorrhea, unspecified N91. 2 and Dysuria R30.0 [place] [address] [address] Jun, Acute nasopharyngitis J00 [place] [address] [address] Jun, [place] [address] [address] Mar, Pubertal menorrhagia 626.3 ; Initiation of OCP (BCP) V25.01 and Need for HPV vaccination V04.89 [place] [address] [address] Mar, Mood disorder 296.90 and ADH D (attention deficit hyperactivity disorder), combined type 314.01 [place] [address] [address] Dec, [facility] [address] [id number] [address] [place] [address], [place] [address] 13 Dec, 2014 [facility] [address] [id number] [address] [place] [address], [place] [address] Aug, [facility] [address] [id number] [address] [place] [address], [place] [address] Aug, [facility] [address] [id number] [address] [place] [address], [place] [address] Aug, [facility] [address] [id number] [address] [place] [address], [place] [address] Aug, [facility] [address] [id number] [address] [place] [address], [place] [address] Aug, [facility] [address] [id number] [address] [place] [address], [place] [address] Aug, [facility] [address] [id number] [address] [place] [address], [place] [address] Aug, [facility] [address] [id number] [address] [place] [address], [place] [address] Jul, [facility] [address] [id number] [address] [place] [address], [place] [address] Jul, [facility] [address] [id number] [address] [place] [address], [place] [address] Jul, [facility] [address] [id number] [address] [place] [address], [place] [address] Jul, [facility] [address] [id number] [address] [place] [address], [place] [address] Jun, [facility] [address] [id number] [address] [place] [address], [place] [address] Jun, [facility] [address] [id number] [address] [place] [address], [place] [address] Jun, [facility] [address] [id number] [address] [place] [address], [place] [address] Jun, [facility] [address] [id number] [address] [place] [address], [place] [address] January, [facility] [address] [id number] [address] [place] [address], [place] [address] January, [facility] [address] [id number] [address] [place] [address], [place] [address] January, [facility] [address] [id number] [address] [place] [address], [place] [address] Nov, [facility] [address] [id number] [address] [place] [address], [place] [address] Nov, [facility] [address] [id number] [address] [place] [address], [place] [address] Aug, [facility] [address] [id number] [address] [place] [address], [place] [address] Aug, [facility] [address] [id number] [address] [place] [address], [place] [address] Aug, [facility] [address] [id number] [address] [place] [address], [place] [address] Aug, [facility] [address] [id number] [address] [place] [address], [place] [address] Aug, [facility] [address] [id number] [address] [place] [address], [place] [address] Jul, [facility] [address] [id number] [address] [place] [address], [place] [address] Jul, [facility] [address] [id number] [address] [place] [address], [place] [address] Jun, [facility] [address] [id number] [address] [place] [address], [place] [address] Jun, [facility] [address] [id number] [address] [place] [address], [place] [address] Jun, [facility] [address] [id number] [address] [place] [address], [place] [address] Jun, [facility] [address] [id number] [address] [place] [address], [place] [address] Jun, [facility] [address] [id number] [address] [place] [address], [place] [address] Jun, [facility] [address] [id number] [address] [place] [address], [place] [address] Jun, [facility] [address] [id number] [address] [place] [address], [place] [address] Jun, [facility] [address] [id number] [address] [place] [address], [place] [address] Jun, [facility] [address] [id number] [address] [place] [address], [place] [address] Nov, [facility] [address] [id number] [address] [place] [address], [place] [address] Nov, [facility] [address] [id number] [address] [place] [address], [place] [address] Oct, [facility] [address] [id number] [address] [place] [address], [place] [address] Oct, [facility] [address] [id number] [address] [place] [address], [place] [address] Jul, [facility] [address] [id number] [address] [place] [address], [place] [address] Jul, [facility] [address] [id number] [address] [place] [address], [place] [address] Jul, [facility] [address] [id number] [address] [place] [address], [place] [address] Jul, [facility] [address] [id number] [address] [place] [address], [place] [address] Jul, [facility] [address] [id number] [address] [place] [address], [place] [address] Jul, [facility] [address] [id number] [address] [place] [address], [place] [address] 31 Jun, 2012 [facility] [address] [id number] [address] [place] [address], [place] [address] Jun, [facility] [address] [id number] [address] [place] [address], [place] [address] Jun, [facility] [address] [id number] [address] [place] [address], [place] [address] 16 Jun, 2012 [facility] [address] [id number] [address] [place] [address], [place] [address] May, [facility] [address] [id number] [address] [place] [address], [place] [address] May, [facility] [address] [id number] [address] [place] [address], [place] [address] Oct, [facility] [address] [id number] [address] [place] [address], [place] [address] Sep, [facility] [address] [id number] [address] [place] [address], [place] [address] Sep, [facility] [address] [id number] [address] [place] [address], [place] [address] 29 Aug, 2011 [facility] [address] [id number] [address] [place] [address], [place] [address] 14 Aug, 2011 [facility] [address] [id number] [address] [place] [address], [place] [address] 14 Aug, 2011 [facility] [address] [id number] [address] [place] [address], [place] [address] Jun, [facility] [address] [id number] [address] [place] [address], [place] [address] 14 Sep, 2009 [facility] [address] [id number] [address] [place] [address], [place] [address] 19 Jul, 2009 [facility] [address] [id number] [address] [place] [address], [place] [address] Jul, IMMUNIZATIONS No Known Immunizations SOCIAL HISTORY Never Assessed REASON FOR VISIT f/u PLAN OF CARE Activity Details Follow Up Next available Reason: VITAL SIGNS MEDICATIONS Unknown Medications RESULTS No Results PROCEDURES Procedure Date Ordered Result Body Site Psychotherapy, patient &/family, 30 minutes, established pat ient December 30, 2017 INSTRUCTIONS MEDICATIONS ADMINISTERED No Known Medications MEDICAL [...]
--- OUTSIDE RECORDS SUMMARY | 2019-12-20 23:03 | XMS REPORT ---
Author Author Kathleen VIDALES Organization [facility] [place] Address Unknown Care Team Providers Care Academic Affairs Coordinator Name Role Phone ESME VIDALES Unavailable PROBLEMS Type Condition ICD9-CM Code AKX22-MN Code Onset Dates Condition S tatus SNOMED Code Problem Other obesity due to excess calories E66.09 Active 289391060 Problem Body mass index (BMI) of 36.0-36.9 in adult Z68.36 Active 335890815 Problem Seasonal allergic rhinitis, unspecified allergic rhinitis trigger J30.2 Active 672381350 Problem Major depressive disorder, recurrent episode, mild F33.0 Active 380169959 Problem Anxiety, generalized F41.1 Active 92284397 Problem Irregular menses N92.6 Active 386 [id number] ALLERGIES No Information ENCOUNTERS Encounter Location Date Diagnosis [place] [address] [place] [id number] [place] [id number] Feb, Acute bacterial conjunctivit is of left eye H10.32 [place] [address] [place] [id number] [place] [id number] January, Major depressive disorder, r ecurrent episode, mild F33.0 ; Anxiety, generalized F41.1 and Irregular menses N92.6 [place] [id number] [place] [id number] [address] [place] [id number] January, Major depressive disorder, r ecurrent episode, mild F33.0 ; Anxiety, generalized F41.1 ; Seasonal allergic rhinitis, unspecified allergic rhinitis trigger J30.2 ; Irregular menses N92.6 ; Other obesity due to excess calories E66.09 ; Body mass index (BMI) of 36.0-36.9 in adult Z68.36 and Encounter for repeat prescription of oral contraceptives Z30.41 [place] [address] [place] [id number] [place] [id number] Dec, Anxiety, generalized F41.1 a nd Major depressive disorder, recurrent episode, mild F33.0 [place] [address] [place] [id number] Nov, [facility] [place] [address] [place] [id number] [address] [place] [phone] Nov, Anxiety, generalized F41.1 a nd Major depressive disorder, recurrent episode, mild F33.0 [place] [address] [place] [id number] [place] [id number] Oct, Anxiety, generalized F41.1 a nd Major depressive disorder, recurrent episode, mild F33.0 [place] [address] [place] [id number] [place] [phone] Oct, Rectal bleeding K62.5 [facility] [place] [address] [address] Oct, Sore throat J02.9 and Acute nasopharyngitis J00 [facility] [place] [address] [place] [id number] [place] [id number] Oct, Viral gastroenteritis A08.4 [facility] [place] [address] [place] [address] Sep, Chest wall pain R07.89 [place] [address] [place] [id number] [place] [phone] Sep, Major depressive disorder, r ecurrent episode, moderate F33.1 [facility] [address] [place] [id number] [place] [id number] Sep, Viral syndrome B34.9 [place] [address] [place] [id number] [place] [address] Aug, Major depressive disorder, r ecurrent episode, moderate F33.1 and Anxiety, generalized F41.1 [place] [address] [place] [id number] [place] [id number] Jul, [facility] [address] [place] [id number] [address] [place] [phone] Jul, Viral syndrome B34.9 [place] [address] [place] [id number] [place] [phone] Jun, Anxiety, generalized F41.1 a nd Major depressive disorder, recurrent episode, moderate F33.1 [place] [address] [place] [id number] [place] [id number] May, Anxiety, generalized F41.1 a nd Major depressive disorder, recurrent episode, moderate F33.1 [place] [address] [address] May, Tear of medial meniscus of l eft knee, current, unspecified tear type, initial encounter S83.242A [facility] [id number] [place] [address] [id number] May, Encounter for immunization Z 23 [place] [address] [place] [id number] [place] [phone] Apr, Major depressive disorder, r ecurrent episode, moderate F33.1 and Anxiety, generalized F41.1 [place] [address] [address] Apr, Moderate single current epis ode of major depressive disorder F32.1 ; Anxiety, generalized F41.1 and Panic disorder [episodic paroxysmal anxiety] without agoraphobia F41.0 [place] [address] [place] [id number] [place] [phone] Apr, Sports physical Z02.5 ; Enco unter [...] [facility] [address] [id number] [address] [place] [phone] Mar, Acute pain of left knee M25. 562 [facility] [address] [id number] [place] [address] [id number] January, Irregular menses N92.6 and S creen for STD (sexually transmitted disease) Z11.3 [facility] [address] [facility] [id number] [place] [id number] January, Right lower quadrant abdomin al pain R10.31 and Flank pain R10.9 [facility] [place] [address] [facility] [id number] [address] [place] [phone] Oct, Influenza B J10.1 [facility] [address] [facility] [id number] [address] [place] [phone] Oct, Acute nasopharyngitis J00 an d Seasonal allergic rhinitis, unspecified allergic rhinitis trigger J30.2 [facility] [place] [address] [facility] [id number] [address] [place] [id number] Jun, [facility] [place] [address] [facility] [id number] [address] [place] [phone] May, [facility] [place] [address] [facility] [id number] [address] [place] [phone] May, [facility] [place] [address] [facility] [id number] [address] [place] [phone] May, [facility] [place] [address] [facility] [id number] [address] [place] [phone] May, [facility] [place] [address] [facility] [id number] [address] [place] [id number] Apr, [facility] [place] [address] [facility] [id number] [address] [place] [id number] Apr, [facility] [place] [address] [facility] [id number] [address] [place] [phone] Apr, [facility] [place] [address] [place] [id number] [place] [phone] Apr, Arthritis of left knee M19.9 0 and Tick-borne disease B88.2 [place] [address] [place] [id number] [place] [phone] Dec, [facility] [address] [place] [id number] [place] [address] [id number] 30 Nov, 2015 Encounter for immunization Z 23 [facility] [place] [address] [id number] 11 Nov, 2015 Influenza J11.1 [facility] [address] [id number] 07 Nov, 2015 Anxiety F41.9 [facility] [address] [address] Sep, Sore throat J02.9 [place] [address] [address] Jul, Amenorrhea, unspecified N91. 2 and Dysuria R30.0 [place] [address] [address] Jun, Acute nasopharyngitis J00 [place] [address] [address] Jun, [place] [address] [address] Mar, Pubertal menorrhagia 626.3 ; Initiation of OCP (BCP) V25.01 and Need for HPV vaccination V04.89 [place] [address] [address] Mar, Mood disorder 296.90 and ADH D (attention deficit hyperactivity disorder), combined type 314.01 [place] [address] [address] Dec, [facility] [address] [id number] [address] [place] [address], [place] [id number] 13 Dec, 2014 [facility] [address] [id number] [address] [place] [address], [place] [address] Aug, [facility] [address] [id number] [address] [place] [address], [place] [address] Aug, [facility] [address] [id number] [address] [place] [address], [place] [id number] Aug, [facility] [address] [id number] [address] [place] [address], [place] [address] Aug, [facility] [address] [id number] [address] [place] [address], [place] [address] Aug, [facility] [address] [id number] [address] [place] [address], [place] [address] Aug, [facility] [address] [id number] [address] [place] [address], [place] [address] Aug, [facility] [address] [id number] [address] [place] [address], [place] [id number] Jul, [facility] [address] [id number] [address] [place] [address], [place] [id number] Jul, [facility] [address] [id number] [address] [place] [address], [place] [id number] Jul, [facility] [address] [id number] [address] [place] [address], [place] [address] Jul, [facility] [address] [id number] [address] [place] [address], [place] [address] Jun, [facility] [address] [id number] [address] [place] [address], [place] [address] Jun, [facility] [address] [id number] [address] [place] [address], [place] [id number] Jun, [facility] [address] [id number] [address] [place] [address], [place] [address] Jun, [facility] [address] [id number] [address] [place] [address], [place] [phone] January, [facility] [address] [id number] [address] [place] [address], [place] [address] January, [facility] [address] [id number] [address] [place] [address], [place] [address] January, [facility] [address] [id number] [address] [place] [address], [place] [address] Nov, [facility] [address] [id number] [address] [place] [address], [place] [address] Nov, [facility] [address] [id number] [address] [place] [address], [place] [address] Aug, [facility] [address] [id number] [address] [place] [address], [place] [address] Aug, [facility] [address] [id number] [address] [place] [address], [place] [address] Aug, [facility] [address] [id number] [address] [place] [address], [place] [address] Aug, [facility] [address] [id number] [address] [place] [address], [place] [address] Aug, [facility] [address] [id number] [address] [place] [address], [place] [address] Jul, [facility] [address] [id number] [address] [place] [address], [place] [address] Jul, [facility] [address] [id number] [address] [place] [address], [place] [address] Jun, [facility] [address] [id number] [address] [place] [address], [place] [address] Jun, [facility] [address] [id number] [address] [place] [address], [place] [address] Jun, [facility] [address] [id number] [address] [place] [address], [place] [address] Jun, [facility] [address] [id number] [address] [place] [address], [place] [address] Jun, [facility] [address] [id number] [address] [place] [address], [place] [address] Jun, [facility] [address] [id number] [address] [place] [address], [place] [address] Jun, [facility] [address] [id number] [address] [place] [address], [place] [address] Jun, [facility] [address] [id number] [address] [place] [address], [place] [address] Jun, [facility] [address] [id number] [address] [place] [address], [place] [address] Nov, [facility] [address] [id number] [address] [place] [address], [place] [address] Nov, [facility] [address] [id number] [address] [place] [address], [place] [address] Oct, [facility] [address] [id number] [address] [place] [address], [place] [address] Oct, [facility] [address] [id number] [address] [place] [address], [place] [address] Jul, [facility] [address] [id number] [address] [place] [address], [place] [address] Jul, [facility] [address] [id number] [address] [place] [address], [place] [address] Jul, [facility] [address] [id number] [address] [place] [address], [place] [address] Jul, [facility] [address] [id number] [address] [place] [address], [place] [address] Jul, [facility] [address] [id number] [address] [place] [address], [place] [address] Jul, [facility] [address] [id number] [address] [place] [address], [place] [address] 31 Jun, 2012 [facility] [address] [id number] [address] [place] [address], [place] [address] Jun, [facility] [address] [id number] [address] [place] [address], [place] [address] Jun, [facility] [address] [id number] [address] [place] [address], [place] [address] 16 Jun, 2012 [facility] [address] [id number] [address] [place] [address], [place] [address] May, [facility] [address] [id number] [address] [place] [address], [place] [address] May, [facility] [address] [id number] [address] [place] [address], [place] [address] Oct, [facility] [address] [id number] [address] [place] [address], [place] [address] Sep, [facility] [address] [id number] [address] [place] [address], [place] [address] Sep, [facility] [address] [id number] [address] [place] [address], [place] [address] 29 Aug, 2011 [facility] [address] [id number] [address] [place] [address], [place] [address] 14 Aug, 2011 [facility] [address] [id number] [address] [place] [address], [place] [address] 14 Aug, 2011 [facility] [address] [id number] [address] [place] [address], [place] [address] Jun, [facility] [address] [id number] [address] [place] [address], [place] [address] 14 Sep, 2009 [facility] [address] [id number] [address] [place] [address], [place] [address] 19 Jul, 2009 [facility] [address] [id number] [address] [place] [address], [place] [address] Jul, IMMUNIZATIONS No Known Immunizations SOCIAL HISTORY Never Assessed REASON FOR VISIT f/u PLAN OF CARE Activity Details Follow Up Next available Reason: VITAL SIGNS MEDICATIONS Unknown Medications RESULTS No Results PROCEDURES Procedure Date Ordered Result Body Site Psychotherapy, patient &/family, 30 minutes, established pat ient November 15, 2017 INSTRUCTIONS MEDICATIONS ADMINISTERED No Known Medications [...]
--- OUTSIDE RECORDS SUMMARY | 2019-12-20 23:03 | XMS REPORT ---
Author Author Kathleen BEAL Organization [facility] Address [address] [place] [address] Care Team Providers Care Sanitary Inspector Name Role Phone IVAN BEAL Unavailable PROBLEMS Type Condition ICD9-CM Code ARM50-DE Code Onset Dates Condition S tatus SNOMED Code Problem Other obesity due to excess calories E66.09 Active 796642060 Problem Body mass index (BMI) of 36.0-36.9 in adult Z68.36 Active 689477814 Problem Seasonal allergic rhinitis, unspecified allergic rhinitis trigger J30.2 Active 285614883 Problem Major depressive disorder, recurrent episode, mild F33.0 Active 489084806 Problem Anxiety, generalized F41.1 Active 58676213 Problem Irregular menses N92.6 Active 386 148812 ALLERGIES No Information ENCOUNTERS Encounter Location Date Diagnosis [facility] [address] [facility] [id number] [address] [place] [phone] Apr, Seasonal allergic rhinitis, unspecified allergic rhinitis trigger J30.2 and Sore throat J02.9 [facility] [address] [facility] [id number] [address] [place] [id number] Apr, [facility] [address] [facility] [id number] [address] [place] [id number] Feb, Acute bacterial conjunctivit is of left eye H10.32 [facility] [address] [facility] [id number] [address] [place] [phone] January, Major depressive disorder, r ecurrent episode, mild F33.0 ; Anxiety, generalized F41.1 and Irregular menses N92.6 [facility] [address] [facility] [id number] [address] [place] [address] January, Major depressive disorder, r ecurrent episode, mild F33.0 ; Anxiety, generalized F41.1 ; Seasonal allergic rhinitis, unspecified allergic rhinitis trigger J30.2 ; Irregular menses N92.6 ; Other obesity due to excess calories E66.09 ; Body mass index (BMI) of 36.0-36.9 in adult Z68.36 and Encounter for repeat prescription of oral contraceptives Z30.41 [place] [address] [address] 26 Dec, 2018 Anxiety, generalized F41.1 a nd Major depressive disorder, recurrent episode, mild F33.0 [place] [address] [id number] 13 Nov, 2017 [place] [address] [address] 12 Nov, 2017 Anxiety, generalized F41.1 a nd Major depressive disorder, recurrent episode, mild F33.0 [place] [address] [address] 22 Oct, 2017 Anxiety, generalized F41.1 a nd Major depressive disorder, recurrent episode, mild F33.0 [place] [address] [address] 13 Oct, 2017 Rectal bleeding K62.5 [facility] [place] [address] [address] 10 Oct, 2017 Sore throat J02.9 and Acute nasopharyngitis J00 [facility] [place] [address] [address] 04 Oct, 2017 Viral gastroenteritis A08.4 [facility] [place] [address] [address] Sep, Chest wall pain R07.89 [place] [address] [address] Sep, Major depressive disorder, r ecurrent episode, moderate F33.1 [facility] [address] [place] [id number] [place] [id number] Sep, Viral syndrome B34.9 [facility] [address] [id number] [address] [place] [address] Aug, Major depressive disorder, r ecurrent episode, moderate F33.1 and Anxiety, generalized F41.1 [facility] [address] [id number] [address] [place] [id number] Jul, [facility] [address] [id number] [address] [place] [address] Jul, Viral syndrome B34.9 [facility] [address] [id number] [address] [place] [address] Jun, Anxiety, generalized F41.1 a nd Major depressive disorder, recurrent episode, moderate F33.1 [place] [address] [facility] [id number] [address] [place] [phone] May, Anxiety, generalized F41.1 a nd Major depressive disorder, recurrent episode, moderate F33.1 [facility] [address] [id number] [address] [place] [address] May, Tear of medial meniscus of l eft knee, current, unspecified tear type, initial encounter S83.242A [facility] [address] [id number] [place] [id number] 13 May, 2017 Encounter for immunization Z 23 [facility] [address] [id number] [address] [place] [id number] Apr, Major depressive disorder, r ecurrent episode, moderate F33.1 and Anxiety, generalized F41.1 [facility] [address] [id number] [address] [place] [address] Apr, Moderate single current epis ode of major depressive disorder F32.1 ; Anxiety, generalized F41.1 and Panic disorder [episodic paroxysmal anxiety] without agoraphobia F41.0 [facility] [address] [id number] [address] [place] [address] Apr, Sports physical Z02.5 ; Enco unter [...] and Acute pain of right knee M25.561 [facility] [address] [facility] [id number] [address] [place] [id number] Mar, Acute pain of left knee M25. 562 [facility] [place] [address] [place] [id number] [place] [id number] January, Irregular menses N92.6 and S creen for STD (sexually transmitted disease) Z11.3 [facility] [place] [address] [place] [id number] [place] [address] [id number] January, Right lower quadrant abdomin al pain R10.31 and Flank pain R10.9 [facility] [address] [place] [address] Oct, Influenza B J10.1 [facility] [address] [place] [id number] [address] [place] [id number] Oct, Acute nasopharyngitis J00 an d Seasonal allergic rhinitis, unspecified allergic rhinitis trigger J30.2 [place] [address] [address] [place] [id number] [address] [place] [address] Jun, [place] [address] [place] [id number] [address] [place] [phone] May, [place] [address] [place] [id number] [address] [place] [address] May, [place] [address] [place] [id number] [address] [place] [address] May, [place] [address] [place] [id number] [address] [place] [phone] May, [place] [address] [facility] [id number] [address] [place] [phone] Apr, [facility] [address] [facility] [id number] [address] [place] [phone] Apr, [facility] [address] [facility] [id number] [address] [place] [id number] Apr, [facility] [address] [place] [id number] Apr, Arthritis of left knee M19.9 0 and Tick-borne disease B88.2 [facility] [address] [facility] [id number] [address] [place] [phone] Dec, [facility] [address] [facility] [id number] [place] [address] [id number] Nov, Encounter for immunization Z 23 [facility] [address] [place] [id number] [address] [place] [phone] Nov, Influenza J11.1 [facility] [address] [address] Nov, Anxiety F41.9 [facility] [address] [place] [id number] [address] [place] [id number] Sep, Sore throat J02.9 [facility] [address] [place] [id number] [address] [place] [id number] Jul, Amenorrhea, unspecified N91. 2 and Dysuria R30.0 [facility] [address] [place] [address] Jun, Acute nasopharyngitis J00 [facility] [address] [place] [phone] Jun, [facility] [address] [place] [id number] [address] [place] [id number] Mar, Pubertal menorrhagia 626.3 ; Initiation of OCP (BCP) V25.01 and Need for HPV vaccination V04.89 [facility] [address] [id number] [address] [place] [id number] Mar, Mood disorder 296.90 and ADH D (attention deficit hyperactivity disorder), combined type 314.01 [facility] [address] [id number] [address] [place] [address], [place] [address] 14 Dec, 2014 [facility] [address] [id number] [address] [place] [id number] Dec, [facility] [address] [id number] [address] [place] [phone] Aug, [facility] [address] [id number] [address] [place] [phone] Aug, [facility] [address] [id number] [address] [place] [id number] Aug, [facility] [address] [id number] [address] [place] [phone] Aug, [facility] [address] [id number] [address] [place] [phone] Aug, [facility] [address] [id number] [address] [place] [id number] Aug, [facility] [address] [id number] [address] [place] [phone] Aug, [facility] [address] [id number] [address] [place] [id number] Jul, [facility] [address] [id number] [address] [place] [id number] Jul, [facility] [address] [id number] [address] [place] [id number] Jul, [facility] [address] [id number] [address] [place] [phone] Jul, [facility] [address] [id number] [address] [place] [id number] Jun, [facility] [address] [id number] [address] [place] [address], [place] [address] Jun, [facility] [address] [id number] [address] [place] [address], [place] [address] Jun, [facility] [address] [id number] [address] [place] [address], [place] [address] Jun, [facility] [address] [id number] [address] [place] [address], [place] [address] January, [facility] [address] [id number] [address] [place] [address], [place] [address] January, [facility] [address] [id number] [address] [place] [address], [place] [address] January, [facility] [address] [id number] [address] [place] [address], [place] [address] Nov, [facility] [address] [id number] [address] [place] [address], [place] [address] Nov, [facility] [address] [id number] [address] [place] [address], [place] [address] Aug, [facility] [address] [id number] [address] [place] [address], [place] [address] Aug, [facility] [address] [id number] [address] [place] [address], [place] [address] Aug, [facility] [address] [id number] [address] [place] [address], [place] [address] Aug, [facility] [address] [id number] [address] [place] [address], [place] [address] 17 Aug, 2013 [facility] [address] [id number] [address] [place] [address], [place] [address] Jul, [facility] [address] [id number] [address] [place] [address], [place] [address] Jul, [facility] [address] [id number] [address] [place] [address], [place] [address] Jun, [facility] [address] [id number] [address] [place] [address], [place] [address] Jun, [facility] [address] [id number] [address] [place] [address], [place] [address] Jun, [facility] [address] [id number] [address] [place] [address], [place] [address] Jun, [facility] [address] [id number] [address] [place] [address], [place] [address] Jun, [facility] [address] [id number] [address] [place] [address], [place] [address] Jun, [facility] [address] [id number] [address] [place] [address], [place] [address] Jun, [facility] [address] [id number] [address] [place] [address], [place] [address] Jun, [facility] [address] [id number] [address] [place] [address], [place] [address] Jun, [facility] [address] [id number] [address] [place] [address], [place] [address] Nov, [facility] [address] [id number] [address] [place] [address], [place] [address] Nov, [facility] [address] [id number] [address] [place] [address], [place] [address] Oct, [facility] [address] [id number] [address] [place] [address], [place] [address] Oct, [facility] [address] [id number] [address] [place] [address], [place] [address] Jul, [facility] [address] [id number] [address] [place] [address], [place] [address] Jul, [facility] [address] [id number] [address] [place] [address], [place] [address] Jul, [facility] [address] [id number] [address] [place] [address], [place] [address] Jul, [facility] [address] [id number] [address] [place] [address], [place] [address] Jul, [facility] [address] [id number] [address] [place] [address], [place] [address] Jul, [facility] [address] [id number] [address] [place] [address], [place] [address] Jun, [facility] [address] [id number] [address] [place] [address], [place] [address] Jun, [facility] [address] [id number] [address] [place] [address], [place] [address] Jun, [facility] [address] [id number] [address] [place] [address], [place] [address] Jun, [facility] [address] [id number] [address] [place] [address], [place] [address] May, [facility] [address] [id number] [address] [place] [address], [place] [address] May, [facility] [address] [id number] [address] [place] [address], [place] [address] Oct, [facility] [address] [id number] [address] [place] [address], [place] [address] Sep, [facility] [address] [id number] [address] [place] [address], [place] [address] Sep, [facility] [address] [id number] [address] [place] [address], [place] [address] Aug, [facility] [address] [id number] [address] [place] [address], [place] [address] Aug, [facility] [address] [id number] [address] [place] [address], [place] [address] Aug, [facility] [address] [id number] [address] [place] [address] Jun, [facility] [address] [facility] [id number] [address] [place] [address] Sep, [facility] [address] [facility] [id number] [address] [place] [address] Jul, [facility] [address] [facility] [id number] [address] [place] [address] Jul, IMMUNIZATIONS No Known Immunizations SOCIAL HISTORY Never Assessed REASON FOR VISIT Eye c/o PLAN OF CARE Activity Details Follow Up prn Reason: VITAL SIGNS MEDICATIONS No Known Medications RESULTS [...]
--- OUTSIDE RECORDS SUMMARY | 2019-12-20 23:03 | XMS REPORT ---
Author Author FINESSE Kathleen PISANO Organization [facility] Address [address] [place] [address] Care Team Providers Care Academic Services Coordinator Name Role Phone ALIYA KILPATRICK Unavailable PROBLEMS Type Condition ICD9-CM Code QVJ02-CD Code Onset Dates Condition S tatus SNOMED Code Problem Other obesity due to excess calories E66.09 Active 561710451 Problem Body mass index (BMI) of 36.0-36.9 in adult Z68.36 Active 660275758 Problem Seasonal allergic rhinitis, unspecified allergic rhinitis trigger J30.2 Active 219486664 Problem Major depressive disorder, recurrent episode, mild F33.0 Active 460590271 Problem Anxiety, generalized F41.1 Active 96620670 Problem Irregular menses N92.6 Active [id number] ALLERGIES No Information ENCOUNTERS Encounter Location Date Diagnosis [place] [id number] [place] [id number] [place] [id number] Feb, Acute bacterial conjunctivit is of left eye H10.32 [facility] [address] [place] [id number] [place] [id number] January, Major depressive disorder, r ecurrent episode, mild F33.0 ; Anxiety, generalized F41.1 and Irregular menses N92.6 [facility] [address] [place] [id number] [place] [id number] 03 Jan, 2018 Major depressive disorder, r ecurrent episode, mild F33.0 ; Anxiety, generalized F41.1 ; Seasonal allergic rhinitis, unspecified allergic rhinitis trigger J30.2 ; Irregular menses N92.6 ; Other obesity due to excess calories E66.09 ; Body mass index (BMI) of 36.0-36.9 in adult Z68.36 and Encounter for repeat prescription of oral contraceptives Z30.41 [facility] [address] [place] [id number] [place] [id number] Dec, Anxiety, generalized F41.1 a nd Major depressive disorder, recurrent episode, mild F33.0 [facility] [address] [place] [id number] [place] [id number] Nov, [facility] [address] [facility] [id number] [address] [place] [address] Nov, Anxiety, generalized F41.1 a nd Major depressive disorder, recurrent episode, mild F33.0 [place] [address] [place] [id number] [place] [id number] 22 Oct, 2017 Anxiety, generalized F41.1 a nd Major depressive disorder, recurrent episode, mild F33.0 [place] [address] [place] [id number] [place] [id number] 13 Oct, 2017 Rectal bleeding K62.5 [facility] [place] [address] [place] [id number] [place] [id number] 10 Oct, 2017 Sore throat J02.9 and Acute nasopharyngitis J00 [facility] [place] [address] [place] [address] 04 Oct, 2017 Viral gastroenteritis A08.4 [facility] [place] [address] [address] [place] [id number] [place] [id number] Sep, Chest wall pain R07.89 [place] [address] [place] [address] Sep, Major depressive disorder, r ecurrent episode, moderate F33.1 [facility] [address] [facility] [id number] [place] [id number] Sep, Viral syndrome B34.9 [place] [address] [place] [id number] [place] [id number] 04 Aug, 2017 Major depressive disorder, r ecurrent episode, moderate F33.1 and Anxiety, generalized F41.1 [place] [address] [place] [address] Jul, [facility] [address] [place] [id number] [place] [id number] Jul, Viral syndrome B34.9 [facility] [address] [place] [id number] [place] [id number] Jun, Anxiety, generalized F41.1 a nd Major depressive disorder, recurrent episode, moderate F33.1 [facility] [address] [place] [id number] [place] [id number] May, Anxiety, generalized F41.1 a nd Major depressive disorder, recurrent episode, moderate F33.1 [place] [address] [id number] May, Tear of medial meniscus of l eft knee, current, unspecified tear type, initial encounter S83.242A [facility] [address] [place] [id number] [place] [id number] 13 May, 2017 Encounter for immunization Z 23 [facility] [address] [place] [id number] [place] [id number] Apr, Major depressive disorder, r ecurrent episode, moderate F33.1 and Anxiety, generalized F41.1 [facility] [address] [place] [address] Apr, Moderate single current epis ode of major depressive disorder F32.1 ; Anxiety, generalized F41.1 and Panic disorder [episodic paroxysmal anxiety] without agoraphobia F41.0 [facility] [address] [place] [address] Apr, Sports physical Z02.5 ; Enco unter [...] and Acute pain of right knee M25.561 [facility] [address] [id number] [address] [place] [id number] Mar, Acute pain of left knee M25. 562 [facility] [address] [id number] [place] [id number] January, Irregular menses N92.6 and S creen for STD (sexually transmitted disease) Z11.3 [facility] [address] [id number] [place] [id number] January, Right lower quadrant abdomin al pain R10.31 and Flank pain R10.9 [facility] [address] [facility] [id number] [address] [place] [id number] Oct, Influenza B J10.1 [facility] WALK IN [facility] [address] [facility] [id number] [address] [place] [id number] Oct, Acute nasopharyngitis J00 an d Seasonal allergic rhinitis, unspecified allergic rhinitis trigger J30.2 [facility] [address] [facility] [id number] [address] [place] [id number] Jun, [facility] [address] [facility] [id number] [address] [place] [id number] May, [facility] [address] [facility] [id number] [address] [place] [id number] May, [facility] [address] [facility] [id number] [address] [place] [id number] May, [facility] [address] [facility] [id number] [address] [place] [id number] May, [facility] [address] [facility] [id number] [address] [place] [id number] Apr, [facility] [address] [facility] [id number] [address] [place] [id number] Apr, [facility] [address] [facility] [id number] [address] [place] [id number] Apr, [facility] [address] [place] [id number] Apr, Arthritis of left knee M19.9 0 and Tick-borne disease B88.2 [facility] [address] [place] [id number] [place] [id number] Dec, [facility] [place] [address] [place] [id number] [place] [id number] 30 Nov, 2015 Encounter for immunization Z 23 [place] [address] [id number] Nov, Influenza J11.1 [facility] [address] [address] Nov, Anxiety F41.9 [facility] W[facility] [place] [address] [id number] Sep, Sore throat J02.9 [place] [address] [address] Jul, Amenorrhea, unspecified N91. 2 and Dysuria R30.0 [place] [address] [address] Jun, Acute nasopharyngitis J00 [place] [address] [id number] Jun, [place] [address] [address] Mar, Pubertal menorrhagia 626.3 ; Initiation of OCP (BCP) V25.01 and Need for HPV vaccination V04.89 [place] [address] [address] Mar, Mood disorder 296.90 and ADH D (attention deficit hyperactivity disorder), combined type 314.01 [place] [address] [address] Dec, [facility] [address] [id number] [address] [place] [address], [place] [address] 13 Dec, 2014 [facility] [address] [id number] [address] [place] [address], [place] [address] Aug, [facility] [address] [id number] [address] [place] [address], [place] [address] Aug, [facility] [address] [id number] [address] [place] [address], [place] [address] Aug, [facility] [address] [id number] [address] [place] [address], [place] [address] Aug, [facility] [address] [id number] [address] [place] [address], [place] [address] Aug, [facility] [address] [id number] [address] [place] [address], [place] [address] Aug, [facility] [address] [id number] [address] [place] [address], [place] [address] Aug, [facility] [address] [id number] [address] [place] [address], [place] [address] Jul, [facility] [address] [id number] [address] [place] [address], [place] [address] Jul, [facility] [address] [id number] [address] [place] [address], [place] [address] Jul, [facility] [address] [id number] [address] [place] [address], [place] [address] Jul, [facility] [address] [id number] [address] [place] [address], [place] [address] Jun, [facility] [address] [id number] [address] [place] [address], [place] [address] Jun, [facility] [address] [id number] [address] [place] [address], [place] [address] Jun, [facility] [address] [id number] [address] [place] [address], [place] [address] Jun, [facility] [address] [id number] [address] [place] [address], [place] [address] January, [facility] [address] [id number] [address] [place] [address], [place] [address] January, [facility] [address] [id number] [address] [place] [address], [place] [address] January, [facility] [address] [id number] [address] [place] [address], [place] [address] Nov, [facility] [address] [id number] [address] [place] [address], [place] [address] Nov, [facility] [address] [id number] [address] [place] [address], [place] [address] Aug, [facility] [address] [id number] [address] [place] [address], [place] [address] Aug, [facility] [address] [id number] [address] [place] [address], [place] [address] Aug, [facility] [address] [id number] [address] [place] [address], [place] [address] Aug, [facility] [address] [id number] [address] [place] [address], [place] [address] Aug, [facility] [address] [id number] [address] [place] [address], [place] [address] Jul, [facility] [address] [id number] [address] [place] [address], [place] [address] Jul, [facility] [address] [id number] [address] [place] [address], [place] [address] Jun, [facility] [address] [id number] [address] [place] [address], [place] [address] Jun, [facility] [address] [id number] [address] [place] [address], [place] [address] Jun, [facility] [address] [id number] [address] [place] [address], [place] [address] Jun, [facility] [address] [id number] [address] [place] [address], [place] [address] Jun, [facility] [address] [id number] [address] [place] [address], [place] [address] Jun, [facility] [address] [id number] [address] [place] [address], [place] [address] Jun, [facility] [address] [id number] [address] [place] [address], [place] [address] Jun, [facility] [address] [id number] [address] [place] [address], [place] [address] Jun, [facility] [address] [id number] [address] [place] [address], [place] [address] Nov, [facility] [address] [id number] [address] [place] [address], [place] [address] Nov, [facility] [address] [id number] [address] [place] [address], [place] [address] Oct, [facility] [address] [id number] [address] [place] [address], [place] [address] Oct, [facility] [address] [id number] [address] [place] [address], [place] [address] Jul, [facility] [address] [id number] [address] [place] [address], [place] [address] Jul, [facility] [address] [id number] [address] [place] [address], [place] [address] Jul, [facility] [address] [id number] [address] [place] [address], [place] [address] Jul, [facility] [address] [id number] [address] [place] [address], [place] [address] Jul, [facility] [address] [id number] [address] [place] [address], [place] [address] Jul, [facility] [address] [id number] [address] [place] [address], [place] [address] 31 Jun, 2012 [facility] [address] [id number] [address] [place] [address], [place] [address] Jun, [facility] [address] [id number] [address] [place] [address], [place] [address] Jun, [facility] [address] [id number] [address] [place] [address], [place] [address] 16 Jun, 2012 [facility] [address] [id number] [address] [place] [address], [place] [address] May, [facility] [address] [id number] [address] [place] [address], [place] [address] May, [facility] [address] [id number] [address] [place] [address], [place] [address] Oct, [facility] [address] [id number] [address] [place] [address], [place] [address] Sep, [facility] [address] [id number] [address] [place] [address], [place] [address] Sep, [facility] [address] [id number] [address] [place] [address], [place] [address] 29 Aug, 2011 [facility] [address] [id number] [address] [place] [id number] 14 Aug, 2011 [facility] [address] [id number] [address] [place] [id number] 14 Aug, 2011 [facility] [address] [id number] [address] [place] [address], [place] [address] Jun, [facility] [address] [id number] [address] [place] [id number] 14 Sep, 2009 [facility] [address] [id number] [address] [place] [address], [place] [address] Jul, [facility] [address] [id number] [address] [place] [address] Jul, IMMUNIZATIONS No Known Immunizations SOCIAL HISTORY Never Assessed REASON FOR VISIT Lab (walk-in) PLAN OF CARE VITAL SIGNS MEDICATIONS Unknown Medications RESULTS No Results PROCEDURES Procedure Date Ordered Result Body Site LAB NOT BILLED BY [email or web address] January 07, 2018 Hemoglobin Test Send Out 0 dollar January 07, 2018 INSTRUCTIONS MEDICATIONS ADMINISTERED No Known Medications [...]
--- OUTSIDE RECORDS SUMMARY | 2019-12-20 23:03 | XMS REPORT ---
Author Author Kathleen KILPATRICKELE Organization [facility] Address [address] [place] [address] Care Team Providers Care Mobile Crane Operator Name Role Phone ALIYA KILPATRICK Unavailable PROBLEMS Type Condition ICD9-CM Code [id number] Code Onset Dates Condition S tatus SNOMED Code Problem Other obesity due to excess calories E66.09 Active 141571449 Problem Body mass index (BMI) of 36.0-36.9 in adult Z68.36 Active 622953193 Problem Seasonal allergic rhinitis, unspecified allergic rhinitis trigger J30.2 Active 978696654 Problem Major depressive disorder, recurrent episode, mild F33.0 Active 467247505 Problem Anxiety, generalized F41.1 Active 03941768 Problem Irregular menses N92.6 Active 386 642613 ALLERGIES Substance Reaction Event Type Date Status Imitrex body pain Drug Allergy January, Active ENCOUNTERS Encounter Location Date Diagnosis [place] [address] [address] Feb, Acute bacterial conjunctivit is of left eye H10.32 [place] [address] [place] [id number] [place] [address] January, Major depressive disorder, r ecurrent episode, mild F33.0 ; Anxiety, generalized F41.1 and Irregular menses N92.6 [facility] [address] [place] [id number] [place] [address] January, Major depressive disorder, r ecurrent episode, mild F33.0 ; Anxiety, generalized F41.1 ; Seasonal allergic rhinitis, unspecified allergic rhinitis trigger J30.2 ; Irregular menses N92.6 ; Other obesity due to excess calories E66.09 ; Body mass index (BMI) of 36.0-36.9 in adult Z68.36 and Encounter for repeat prescription of oral contraceptives Z30.41 [facility] [address] [place] [address] Dec, Anxiety, generalized F41.1 a nd Major depressive disorder, recurrent episode, mild F33.0 [facility] [address] [place] [id number] [place] [address] Nov, [facility] [address] [address] Nov, Anxiety, generalized F41.1 a nd Major depressive disorder, recurrent episode, mild F33.0 [place] [address] [address] Oct, Anxiety, generalized F41.1 a nd Major depressive disorder, recurrent episode, mild F33.0 [place] [address] [place] [id number] [place] [address] 13 Oct, 2017 Rectal bleeding K62.5 [facility] [place] [address] [address] Oct, Sore throat J02.9 and Acute nasopharyngitis J00 [facility] [place] [address] [address] 04 Oct, 2017 Viral gastroenteritis A08.4 [facility] [place] [address] [place] [id number] [place] [address] Sep, Chest wall pain R07.89 [place] [address] [place] [id number] [place] [address] Sep, Major depressive disorder, r ecurrent episode, moderate F33.1 [facility] [address] [place] [id number] [place] [id number] Sep, Viral syndrome B34.9 [place] [address] [place] [id number] [place] [address] 04 Aug, 2017 Major depressive disorder, r ecurrent episode, moderate F33.1 and Anxiety, generalized F41.1 [place] [address] [place] [id number] [place] [address] Jul, [facility] [address] [place] [id number] [place] [address] Jul, Viral syndrome B34.9 [facility] [address] [place] [id number] [place] [address] Jun, Anxiety, generalized F41.1 a nd Major depressive disorder, recurrent episode, moderate F33.1 [facility] [address] [place] [id number] [place] [address] May, Anxiety, generalized F41.1 a nd Major depressive disorder, recurrent episode, moderate F33.1 [place] [address] [place] [address] May, Tear of medial meniscus of l eft knee, current, unspecified tear type, initial encounter S83.242A [facility] [address] [place] [id number] [place] [id number] May, Encounter for immunization Z 23 [place] [address] [place] [id number] [place] [address] Apr, Major depressive disorder, r ecurrent episode, moderate F33.1 and Anxiety, generalized F41.1 [facility] [address] [place] [address] Apr, Moderate single current epis ode of major depressive disorder F32.1 ; Anxiety, generalized F41.1 and Panic disorder [episodic paroxysmal anxiety] without agoraphobia F41.0 [facility] [address] [place] [id number] [place] [address] Apr, Sports physical Z02.5 ; Enco unter [...] knee M25.561 [facility] [address] [facility] [id number] [address] [place] [address] Mar, Acute pain of left knee M25. 562 [facility] [address] [facility] [id number] [place] [id number] January, Irregular menses N92.6 and S creen for STD (sexually transmitted disease) Z11.3 [facility] [address] [id number] [place] [id number] January, Right lower quadrant abdomin al pain R10.31 and Flank pain R10.9 [facility] [address] [facility] [id number] [address] [place] [address] Oct, Influenza B J10.1 [facility] [address] [place] [id number] [place] [id number] Oct, Acute nasopharyngitis J00 an d Seasonal allergic rhinitis, unspecified allergic rhinitis trigger J30.2 [facility] [address] [facility] [id number] [address] [place] [address] Jun, [facility] [address] [place] [id number] [place] [address] May, [facility] [address] [place] [id number] [place] [address] May, [facility] [address] [place] [id number] [place] [address] May, [facility] [address] [facility] [id number] [address] [place] [id number] May, [facility] [address] [place] [id number] [place] [address] Apr, [facility] [address] [place] [id number] [place] [address] Apr, [facility] [address] [place] [address] Apr, [facility] [address] [place] [id number] [place] [address] Apr, Arthritis of left knee M19.9 0 and Tick-borne disease B88.2 [facility] [address] [place] [id number] [place] [address] Dec, [facility] [address] [place] [id number] [place] [id number] 30 Nov, 2015 Encounter for immunization Z 23 [place] [address] [address] Nov, Influenza J11.1 [facility] [address] [address] Nov, Anxiety F41.9 [facility] [address] [address] Sep, Sore throat J02.9 [facility] [address] [address] Jul, Amenorrhea, unspecified N91. 2 and Dysuria R30.0 [facility] [address] [place] [id number] [place] [address] Jun, Acute nasopharyngitis J00 [place] [address] [address] Jun, [place] [address] [place] [id number] [place] [address] Mar, Pubertal menorrhagia 626.3 ; Initiation of OCP (BCP) V25.01 and Need for HPV vaccination V04.89 [facility] [address] [place] [id number] [place] [id number] Mar, Mood disorder 296.90 and ADH D (attention deficit hyperactivity disorder), combined type 314.01 [place] [address] [place] [address] 14 Dec, 2014 [facility] [address] [id number] [address] [place] [address], [place] [address] 13 Dec, 2014 [facility] [address] [id number] [address] [place] [address], [place] [address] 19 Aug, 2014 [facility] [address] [id number] [address] [place] [address], [place] [address] Aug, [facility] [address] [id number] [address] [place] [address], [place] [address] Aug, [facility] [address] [id number] [address] [place] [address], [place] [address] Aug, [facility] [address] [id number] [address] [place] [address], [place] [address] Aug, [facility] [address] [id number] [address] [place] [address], [place] [address] Aug, [facility] [address] [id number] [address] [place] [address], [place] [address] Aug, [facility] [address] [id number] [address] [place] [address], [place] [address] Jul, [facility] [address] [id number] [address] [place] [address], [place] [address] 18 Jul, 2014 [facility] [address] [id number] [address] [place] [address], [place] [address] Jul, [facility] [address] [id number] [address] [place] [address], [place] [address] Jul, [facility] [address] [id number] [address] [place] [address], [place] [address] Jun, [facility] [address] [id number] [address] [place] [address], [place] [address] Jun, [facility] [address] [id number] [address] [place] [address], [place] [address] 08 Jun, 2014 [facility] [address] [id number] [address] [place] [address], [place] [address] Jun, [facility] [address] [id number] [address] [place] [address], [place] [address] January, [facility] [address] [id number] [address] [place] [address], [place] [address] January, [facility] [address] [id number] [address] [place] [address], [place] [address] January, [facility] [address] [id number] [address] [place] [address], [place] [address] Nov, [facility] [address] [id number] [address] [place] [address], [place] [address] Nov, [facility] [address] [id number] [address] [place] [address], [place] [address] Aug, [facility] [address] [id number] [address] [place] [address], [place] [address] Aug, [facility] [address] [id number] [address] [place] [address], [place] [address] Aug, [facility] [address] [id number] [address] [place] [address], [place] [address] Aug, [facility] [address] [id number] [address] [place] [address], [place] [address] Aug, [facility] [address] [id number] [address] [place] [address], [place] [address] Jul, [facility] [address] [id number] [address] [place] [address], [place] [address] Jul, [facility] [address] [id number] [address] [place] [address], [place] [address] Jun, [facility] [address] [id number] [address] [place] [address], [place] [address] Jun, [facility] [address] [id number] [address] [place] [address], [place] [address] Jun, [facility] [address] [id number] [address] [place] [address], [place] [address] Jun, [facility] [address] [id number] [address] [place] [address], [place] [address] Jun, [facility] [address] [id number] [address] [place] [address], [place] [address] Jun, [facility] [address] [id number] [address] [place] [address], [place] [address] Jun, [facility] [address] [id number] [address] [place] [address], [place] [address] Jun, [facility] [address] [id number] [address] [place] [address], [place] [address] Jun, [facility] [address] [id number] [address] [place] [address], [place] [address] Nov, [facility] [address] [id number] [address] [place] [address], [place] [address] Nov, [facility] [address] [id number] [address] [place] [address], [place] [address] Oct, [facility] [address] [id number] [address] [place] [address], [place] [address] Oct, [facility] [address] [id number] [address] [place] [address], [place] [address] Jul, [facility] [address] [id number] [address] [place] [address], [place] [address] Jul, [facility] [address] [id number] [address] [place] [address], [place] [address] Jul, [facility] [address] [id number] [address] [place] [address], [place] [address] Jul, [facility] [address] [id number] [address] [place] [address], [place] [address] Jul, [facility] [address] [id number] [address] [place] [address], [place] [address] Jul, [facility] [address] [id number] [address] [place] [address], [place] [address] Jun, [facility] [address] [id number] [address] [place] [address], [place] [address] Jun, [facility] [address] [id number] [address] [place] [address], [place] [address] Jun, [facility] [address] [id number] [address] [place] [address], [place] [address] Jun, [facility] [address] [id number] [address] [place] [address], [place] [address] May, [facility] [address] [id number] [address] [place] [address], [place] [address] May, [facility] [address] [id number] [address] [place] [address], [place] [address] Oct, [facility] [address] [id number] [address] [place] [address], [place] [address] Sep, [facility] [address] [id number] [address] [place] [address], [place] [address] Sep, [facility] [address] [id number] [address] [place] [address], [place] [address] 29 Aug, 2011 [facility] [address] [id number] [address] [place] [address], [place] [address] 14 Aug, 2011 [facility] [address] [id number] [address] [place] [address], [place] [address] Aug, [facility] [address] [id number] [address] [place] [address], [place] [address] Jun, [facility] [address] [id number] [address] [place] [address], [place] [address] Sep, [facility] [address] [id number] [address] [place] [address], [place] [address] Jul, [facility] [address] [facility] [id number] [address] [place] [address] Jul, IMMUNIZATIONS No Known Immunizations SOCIAL HISTORY Never Assessed REASON FOR VISIT establish----DBennettRN, persistant rectal bleeding, anemia, had colonoscopy don e by Dr. Cano 11/01/17, requesting referral to [facility] for left knee PLAN OF CARE Activity Details Follow Up 4 Weeks Reason:follow up on depression VITAL SIGNS Height 63 in 2018-01-06 Weight 204 lbs 2018-01-06 Temperature 98.7 degrees Fahrenheit 2018-01-06 Heart Rate 90 bpm 2018-01-06 Respiratory Rate 20 2018-01-06 BMI 36.13 kg/m2 2018-01-06 Blood pressure systolic 122 mmHg 2018-01-06 Blood pressure diastolic 70 mmHg 2018-01-06 MEDICATIONS Medication Instructions Dosage Frequency Start Date End Date Duration S tatus Sertraline HCl 50 mg Orally Once a day 1 tablet 24h January, 30 day(s) Active Sprintec 28 0.25-35 MG-MCG Orally Once a day 1 tablet 24h 28 days Active Nitro-Bid 2 % 10 Active RESULTS No Results PROCEDURES No Known [...]
--- OUTSIDE RECORDS SUMMARY | 2019-12-20 23:03 | XMS REPORT ---
Author Author Kathleen HANSON JANETH [facility] Address [address] [place] [address] Care Team Providers Care V Belt Builder Name Role Phone JANETH HANSON Unavailable PROBLEMS Type Condition ICD9-CM Code KMD07-WP Code Onset Dates Condition S tatus SNOMED Code Problem Other obesity due to excess calories E66.09 Active 253254258 Problem Body mass index (BMI) of 36.0-36.9 in adult Z68.36 Active 417222566 Problem Seasonal allergic rhinitis, unspecified allergic rhinitis trigger J30.2 Active 624566345 Problem Major depressive disorder, recurrent episode, mild F33.0 Active 493480762 Problem Anxiety, generalized F41.1 Active 77372747 Problem Irregular menses N92.6 Active 386 342992 ALLERGIES Substance Reaction Event Type Date Status Imitrex body pain Drug Allergy Apr, Active ENCOUNTERS Encounter Location Date Diagnosis [facility] [address] [address] Apr, Seasonal allergic rhinitis, unspecified allergic rhinitis trigger J30.2 and Sore throat J02.9 [facility] [address] [place] [id number] [address] [place] [address] Apr, [facility] [address] [place] [id number] [address] [place] [address] Feb, Acute bacterial conjunctivit is of left eye H10.32 [facility] [id number] [address] [place] [address] January, Major depressive disorder, r ecurrent episode, mild F33.0 ; Anxiety, generalized F41.1 and Irregular menses N92.6 [facility] [address] [facility] [id number] [address] [place] [address] January, Major depressive disorder, r ecurrent episode, mild F33.0 ; Anxiety, generalized F41.1 ; Seasonal allergic rhinitis, unspecified allergic rhinitis trigger J30.2 ; Irregular menses N92.6 ; Other obesity due to excess calories E66.09 ; Body mass index (BMI) of 36.0-36.9 in adult Z68.36 and Encounter for repeat prescription of oral contraceptives Z30.41 [place] [address] [address] Dec, Anxiety, generalized F41.1 a nd Major depressive disorder, recurrent episode, mild F33.0 [place] [address] [address] Nov, [address] [address] Nov, Anxiety, generalized F41.1 a nd Major depressive disorder, recurrent episode, mild F33.0 [place] [address] [address] Oct, Anxiety, generalized F41.1 a nd Major depressive disorder, recurrent episode, mild F33.[address] [address] 13 Oct, 2017 Rectal bleeding K62.5 [facility] [address] [address] 10 Oct, 2017 Sore throat J02.9 and Acute nasopharyngitis J00 [facility] [address] [address] 04 Oct, 2017 Viral gastroenteritis A08.4 [facility] [address] [address] Sep, Chest wall pain R07.[address] [address] Sep, Major depressive disorder, r ecurrent episode, moderate F33.1 [facility] [address] [place] [id number] Sep, Viral syndrome B34.9 [facility] [id number] [address] [place] [address] Aug, Major depressive disorder, r ecurrent episode, moderate F33.1 and Anxiety, generalized F41.1 [facility] [id number] [place] [address] Jul, [facility] [id number] [place] [address] Jul, Viral syndrome B34.9 [facility] [address] [address] Jun, Anxiety, generalized F41.1 a nd Major depressive disorder, recurrent episode, moderate F33.1 [place] [address] [address] May, Anxiety, generalized F41.1 a nd Major depressive disorder, recurrent episode, moderate F33.1 [facility] [address] [address] May, Tear of medial meniscus of l eft knee, current, unspecified tear type, initial encounter S83.242A [facility] [id number] [place] [id number] 13 May, 2017 Encounter for immunization Z 23 [facility] [id number] [place] [address] Apr, Major depressive disorder, r ecurrent episode, moderate F33.1 and Anxiety, generalized F41.1 [facility] [id number] [place] [address] Apr, Moderate single current epis ode of major depressive disorder F32.1 ; Anxiety, generalized F41.1 and Panic disorder [episodic paroxysmal anxiety] without agoraphobia F41.0 [facility] [id number] [place] [address] 10 Aug, 2017 Sports physical Z02.5 ; Enco unter for [...] and Acute pain of right knee M25.561 [facility] [address] [facility] [id number] [address] [place] [address] Mar, Acute pain of left knee M25. 562 [facility] [address] [id number] January, Irregular menses N92.6 and S creen for STD (sexually transmitted disease) Z11.3 [facility] [address] [id number] January, Right lower quadrant abdomin al pain R10.31 and Flank pain R10.9 [place] [address] [place] [id number] [place] [address] Oct, Influenza B J10.1 [facility] [address] [id number] [place] [address] Oct, Acute nasopharyngitis J00 an d Seasonal allergic rhinitis, unspecified allergic rhinitis trigger J30.2 [facility] [address] [id number] [place] [address] Jun, [place] [address] [place] [id number] [place] [address] May, [place] [address] [place] [id number] [place] [address] May, [place] [address] [facility] [id number] [address] [place] [address] May, [facility] [address] [id number] [address] [place] [address] May, [facility] [id number] [address] [place] [address] Apr, [facility] [address] [place] [id number] [place] [address] Apr, [facility] [address] [place] [id number] [place] [address] Apr, [facility] [address] [id number] [place] [address] Apr, Arthritis of left knee M19.9 0 and Tick-borne disease B88.2 [place] [address] [address] Dec, [facility] [address] [place] [address] [id number] [place] [id number] Nov, Encounter for immunization Z 23 [place] [address] [address] Nov, Influenza J11.1 [facility] [address] [address] Nov, Anxiety F41.9 [facility] [place] [id number] [place] [address] Sep, Sore throat J02.9 [facility] [address] [place] [id number] [place] [address] Jul, Amenorrhea, unspecified N91. 2 and Dysuria R30.0 [facility] [id number] [place] [address] Jun, Acute nasopharyngitis J00 [facility] [address] [place] [id number] [place] [address] Jun, [facility] [address] [place] [id number] [place] [address] Mar, Pubertal menorrhagia 626.3 ; Initiation of OCP (BCP) V25.01 and Need for HPV vaccination V04.89 [facility] [address] [id number] [address] [place] [address] Mar, Mood disorder 296.90 and ADH D (attention deficit hyperactivity disorder), combined type 314.01 [facility] [address] [id number] [address] [place] [address] Dec, [facility] [address] [id number] [address] [place] [address] Dec, [facility] [address] [id number] [address] [place] [address] Aug, [facility] [address] [id number] [address] [place] [address] Aug, [facility] [address] [id number] [address] [place] [address] Aug, [facility] [address] [id number] [address] [place] [address] Aug, [facility] [address] [id number] [address] [place] [address] Aug, [facility] [address] [id number] [address] [place] [address] Aug, [facility] [address] [id number] [address] [place] [address] Aug, [facility] [address] [id number] [address] [place] [address] Jul, [facility] [address] [id number] [address] [place] [address] Jul, [facility] [address] [id number] [address] [place] [address] Jul, [facility] [address] [id number] [address] [place] [address] Jul, [facility] [address] [id number] [address] [place] [address], [place] [address] Jun, [facility] [address] [id number] [address] [place] [address], [place] [address] Jun, [facility] [address] [id number] [address] [place] [address], [place] [address] Jun, [facility] [address] [id number] [address] [place] [address], [place] [address] Jun, [facility] [address] [id number] [address] [place] [address], [place] [address] January, [facility] [address] [id number] [address] [place] [address], [place] [address] January, [facility] [address] [id number] [address] [place] [address], [place] [address] January, [facility] [address] [id number] [address] [place] [address], [place] [address] Nov, [facility] [address] [id number] [address] [place] [address], [place] [address] Nov, [facility] [address] [id number] [address] [place] [address], [place] [address] Aug, [facility] [address] [id number] [address] [place] [address], [place] [address] Aug, [facility] [address] [id number] [address] [place] [address], [place] [address] Aug, [facility] [place] [facility] [address] [id number] [address] [place] [address], [place] [address] 18 Aug, 2013 [facility] [place] [facility] [address] [id number] [address] [place] [address], [place] [address] 17 Aug, 2013 [facility] [place] [facility] [address] [id number] [address] [place] [address], [place] [address] Jul, [facility] [address] [id number] [address] [place] [address], [place] [address] Jul, [facility] [place] [facility] [address] [id number] [address] [place] [address], [place] [address] Jun, [facility] [address] [id number] [address] [place] [address], [place] [address] Jun, [facility] [address] [id number] [address] [place] [address], [place] [address] Jun, [facility] [address] [id number] [address] [place] [address], [place] [address] Jun, [facility] [address] [id number] [address] [place] [address], [place] [address] Jun, [facility] [address] [id number] [address] [place] [address], [place] [address] Jun, [facility] [address] [id number] [address] [place] [address], [place] [address] Jun, [facility] [address] [id number] [address] [place] [address], [place] [address] Jun, [facility] [address] [id number] [address] [place] [address], [place] [address] Jun, [facility] [address] [id number] [address] [place] [address], [place] [address] Nov, [facility] [address] [id number] [address] [place] [address], [place] [address] Nov, [facility] [address] [id number] [address] [place] [address], [place] [address] Oct, [facility] [address] [id number] [address] [place] [address], [place] [address] Oct, [facility] [address] [id number] [address] [place] [address], [place] [address] Jul, [facility] [address] [id number] [address] [place] [address], [place] [address] Jul, [facility] [address] [id number] [address] [place] [address] Jul, [facility] [address] [id number] [address] [place] [address], [place] [address] Jul, [facility] [address] [id number] [address] [place] [address] Jul, [facility] [address] [id number] [address] [place] [address], [place] [address] Jul, [facility] [address] [id number] [address] [place] [address], [place] [address] Jun, [facility] [address] [id number] [address] [place] [address], [place] [address] Jun, [facility] [address] [id number] [address] [place] [address], [place] [address] Jun, [facility] [address] [id number] [address] [place] [address] Jun, [facility] [address] [id number] [address] [place] [address], [place] [address] May, [facility] [address] [id number] [address] [place] [address] May, [facility] [address] [id number] [address] [place] [address] Oct, [facility] [address] [id number] [address] [place] [address] Sep, [facility] [address] [id number] [address] [place] [address] Sep, [facility] [address] [id number] [address] [place] [address] Aug, [facility] [place] [facility] [address] [id number] [address] [place] [address], [place] [address] Aug, [facility] [address] [id number] [address] [place] [address] Aug, [facility] [place] [facility] [address] [id number] [address] [place] [address] Jun, [facility] [address] [facility] [id number] [address] [place] [address] 14 Sep, 2009 [facility] [address] [facility] [id number] [address] [place] [address] Jul, [facility] [address] [facility] [id number] [address] [place] [address] Jul, IMMUNIZATIONS No Known Immunizations SOCIAL HISTORY Never Assessed REASON FOR VISIT sore throat for 4 days. reports boyfriend had tonsilitis last week. she has been sick for 4 days. arlene PLAN OF CARE Activity Details Follow Up prn Reason: VITAL SIGNS Height 63 in 2018-04-25 Weight 201.4 lbs 2018-04-25 Temperature 98.9 degrees Fahrenheit 2018-04-25 Heart Rate 88 bpm 2018-04-25 Respiratory Rate 2018-04-25 BMI 35.67 kg/m2 2018-04-25 Blood pressure systolic 118 mmHg 2018-04-25 Blood pressure diastolic 72 mmHg 2018-04-25 MEDICATIONS Medication Instructions Dosage Frequency Start Date End Date Duration S tat Sprintec 28 0.25-35 MG-MCG Orally Once a day 1 tablet 24h 28 days Active Fluticasone Propionate 50 MCG/ACT Nasally Once a day 2 spray in each nostril 24h Apr, 14 days Active RESULTS Name Result Date Reference Range STREP A (IN HOUSE) STREP A negative Control + Lot # [id number] Exp date 2019 10 16 PROCEDURES Procedure Date Ordered Result Body Site STREP A ASSAY W/OPTIC Apr 25, 2018 INSTRUCTIONS MEDICATIONS ADMINISTERED No Known Medications [...]
--- OUTSIDE RECORDS SUMMARY | 2019-12-20 23:04 | XMS REPORT ---
Author Author Kathleen HALL Organization [facility] Address [address] [place] [address] Care Team Providers Care Production Support Engineer Name Role Phone CAM HALLYL Unavailable PROBLEMS Type Condition ICD9-CM Code CMQ03-NC Code Onset Dates Condition S tatus SNOMED Code Problem Other obesity due to excess calories E66.09 Active 129776558 Problem Body mass index (BMI) of 36.0-36.9 in adult Z68.36 Active 153132468 Problem Seasonal allergic rhinitis, unspecified allergic rhinitis trigger J30.2 Active 251358912 Problem Major depressive disorder, recurrent episode, mild F33.0 Active 865286669 Problem Anxiety, generalized F41.1 Active 76284326 Problem Irregular menses N92.6 Active 386 011045 ALLERGIES Substance Reaction Event Type Date Status Imitrex body pain Drug Allergy Sep, Active ENCOUNTERS Encounter Location Date Diagnosis [place] [id number] [place] [id number] [address] [place] [phone] January, Major depressive disorder, r ecurrent episode, mild F33.0 ; Anxiety, generalized F41.1 and Irregular menses N92.6 [facility] [address] [place] [id number] [address] [place] [phone] January, Major depressive disorder, r ecurrent episode, mild F33.0 ; Anxiety, generalized F41.1 ; Seasonal allergic rhinitis, unspecified allergic rhinitis trigger J30.2 ; Irregular menses N92.6 ; Other obesity due to excess calories E66.09 ; Body mass index (BMI) of 36.0-36.9 in adult Z68.36 and Encounter for repeat prescription of oral contraceptives Z30.41 [facility] [address] [facility] [place] [id number] [address] [place] [phone] Dec, Anxiety, generalized F41.1 a nd Major depressive disorder, recurrent episode, mild F33.0 [facility] [address] [facility] [place] [id number] [address] [place] [phone] Nov, [facility] [address] [facility] [place] [id number] [address] [place] [phone] Nov, Anxiety, generalized F41.1 a nd Major depressive disorder, recurrent episode, mild F33.0 [facility] [address] [facility] [place] [id number] [address] [place] [phone] Oct, Anxiety, generalized F41.1 a nd Major depressive disorder, recurrent episode, mild F33.0 [facility] [address] [facility] [place] [id number] [address] [place] [phone] Oct, Rectal bleeding K62.5 [facility] [address] [facility] [place] [id number] [address] [place] [phone] 10 Oct, 2017 Sore throat J02.9 and Acute nasopharyngitis J00 [facility] [address] [facility] [place] [id number] [address] [place] [phone] Oct, Viral gastroenteritis A08.4 [facility] [address] [facility] [place] [id number] [address] [place] [phone] Sep, Chest wall pain R07.89 [facility] [address] [place] [id number] [address] [place] [phone] Sep, Major depressive disorder, r ecurrent episode, moderate F33.1 [facility] [address] [facility] [place] [id number] [place] [id number] Sep, Viral syndrome B34.9 [facility] [address] [facility] [place] [id number] [address] [place] [phone] Aug, Major depressive disorder, r ecurrent episode, moderate F33.1 and Anxiety, generalized F41.1 [facility] [address] [place] [place] [id number] [address] [place] [phone] Jul, [facility] [address] [place] [place] [id number] [address] [place] [phone] Jul, Viral syndrome B34.9 [place] [address] [phone] Jun, Anxiety, generalized F41.1 a nd Major depressive disorder, recurrent episode, moderate F33.1 [place] [address] [place] [id number] [address] [place] [phone] May, Anxiety, generalized F41.1 a nd Major depressive disorder, recurrent episode, moderate F33.1 [place] [address] [address] May, Tear of medial meniscus of l eft knee, current, unspecified tear type, initial encounter S83.242A [facility] [address] [place] [id number] [place] [id number] 13 May, 2017 Encounter for immunization Z 23 [place] [address] [address] Apr, Major depressive disorder, r ecurrent episode, moderate F33.1 and Anxiety, generalized F41.1 [place] [address] [address] Apr, Moderate single current epis ode of major depressive disorder F32.1 ; Anxiety, generalized F41.1 and Panic disorder [episodic paroxysmal anxiety] without agoraphobia F41.0 [place] [address] [place] [id number] [address] [place] [phone] Apr, Sports physical Z02.5 ; Enco unter [...] of right knee M25.561 [facility] [address] [place] [id number] [address] [place] [phone] Mar, Acute pain of left knee M25. 562 [facility] [address] [facility] [place] [id number] [place] [phone] January, Irregular menses N92.6 and S creen for STD (sexually transmitted disease) Z11.3 [facility] [address] [facility] [place] [id number] [place] [id number] January, Right lower quadrant abdomin al pain R10.31 and Flank pain R10.9 [facility] [address] [id number] [address] [place] [phone] Oct, Influenza B J10.1 [facility] [address] [facility] [place] [id number] [address] [place] [phone] Oct, Acute nasopharyngitis J00 an d Seasonal allergic rhinitis, unspecified allergic rhinitis trigger J30.2 [facility] [address] [facility] [place] [id number] [address] [place] [phone] Jun, [facility] [address] [place] [id number] [address] [place] [phone] May, [facility] [address] [place] [place] [id number] [address] [place] [phone] May, [facility] [address] [place] [place] [id number] [address] [place] [phone] May, [facility] [address] [facility] [place] [id number] [address] [place] [phone] May, [facility] [address] [facility] [place] [id number] [address] [place] [phone] Apr, [facility] [address] [facility] [place] [id number] [address] [place] [phone] Apr, [facility] [address] [facility] [place] [id number] [address] [place] [phone] Apr, [facility] [address] [place] [id number] [address] [place] [phone] Apr, Arthritis of left knee M19.9 0 and Tick-borne disease B88.2 [facility] [address] [place] [id number] [address] [place] [phone] Dec, [facility] [address] [place] [place] [id number] [place] [address] [id number] 30 Nov, 2015 Encounter for immunization Z 23 [facility] [address] [id number] 11 Nov, 2015 Influenza J11.1 [facility] [address] [id number] 07 Nov, 2015 Anxiety F41.9 [facility] [address] [address] Sep, Sore throat J02.9 [facility] [address] [id number] Jul, Amenorrhea, unspecified N91. 2 and Dysuria R30.0 [facility] [address] [phone] Jun, Acute nasopharyngitis J00 [place] [address] [phone] Jun, [facility] [address] [id number] Mar, Pubertal menorrhagia 626.3 ; Initiation of OCP (BCP) V25.01 and Need for HPV vaccination V04.89 [place] [address] [place] [id number] [address] [place] [address] Mar, Mood disorder 296.90 and ADH D (attention deficit hyperactivity disorder), combined type 314.01 [place] [address] [place] [id number] [address] [place] [phone] 14 Dec, 2014 [facility] [address] [address] Dec, [facility] [address] [id number] [address] [place] [address], [place] [address] Aug, [facility] [address] [id number] [address] [place] [address], [place] [address] Aug, [facility] [address] [id number] [address] [place] [address], [place] [address] Aug, [facility] [address] [id number] [address] [place] [address], [place] [address] Aug, [facility] [address] [id number] [address] [place] [address], [place] [address] Aug, [facility] [address] [id number] [address] [place] [address], [place] [address] Aug, [facility] [address] [id number] [address] [place] [address], [place] [address] Aug, [facility] [address] [id number] [address] [place] [address], [place] [address] Jul, [facility] [address] [id number] [address] [place] [address], [place] [address] Jul, [facility] [address] [id number] [address] [place] [address], [place] [address] Jul, [facility] [address] [id number] [address] [place] [address], [place] [address] Jul, [facility] [address] [id number] [address] [place] [address], [place] [address] Jun, [facility] [address] [id number] [address] [place] [address], [place] [address] Jun, [facility] [address] [id number] [address] [place] [address], [place] [address] Jun, [facility] [address] [id number] [address] [place] [address], [place] [address] Jun, [facility] [address] [id number] [address] [place] [address], [place] [address] January, [facility] [address] [id number] [address] [place] [address], [place] [address] January, [facility] [address] [id number] [address] [place] [address], [place] [address] January, [facility] [address] [id number] [address] [place] [address], [place] [address] Nov, [facility] [address] [id number] [address] [place] [address], [place] [address] Nov, [facility] [address] [id number] [address] [place] [address], [place] [address] Aug, [facility] [address] [id number] [address] [place] [address], [place] [address] Aug, [facility] [address] [id number] [address] [place] [address], [place] [address] Aug, [facility] [address] [id number] [address] [place] [address], [place] [address] Aug, [facility] [address] [id number] [address] [place] [address], [place] [address] Aug, [facility] [address] [id number] [address] [place] [address], [place] [address] Jul, [facility] [address] [id number] [address] [place] [address], [place] [address] Jul, [facility] [address] [id number] [address] [place] [address], [place] [address] Jun, [facility] [address] [id number] [address] [place] [address], [place] [address] Jun, [facility] [address] [id number] [address] [place] [address], [place] [address] Jun, [facility] [address] [id number] [address] [place] [address], [place] [address] Jun, [facility] [address] [id number] [address] [place] [address], [place] [address] Jun, [facility] [address] [id number] [address] [place] [address], [place] [address] Jun, [facility] [address] [id number] [address] [place] [address], [place] [address] Jun, [facility] [address] [id number] [address] [place] [address], [place] [address] Jun, [facility] [address] [id number] [address] [place] [address], [place] [address] Jun, [facility] [address] [id number] [address] [place] [address], [place] [address] Nov, [facility] [address] [id number] [address] [place] [address], [place] [address] Nov, [facility] [address] [id number] [address] [place] [address], [place] [address] Oct, [facility] [address] [id number] [address] [place] [address], [place] [address] Oct, [facility] [address] [id number] [address] [place] [address], [place] [address] Jul, [facility] [address] [id number] [address] [place] [address], [place] [address] Jul, [facility] [address] [id number] [address] [place] [address], [place] [address] Jul, [facility] [address] [id number] [address] [place] [address], [place] [address] Jul, [facility] [address] [id number] [address] [place] [address], [place] [address] Jul, [facility] [address] [id number] [address] [place] [address], [place] [address] Jul, [facility] [address] [id number] [address] [place] [phone] Jun, [facility] [address] [id number] [address] [place] [id number] Jun, [facility] [address] [id number] [address] [place] [phone] Jun, [facility] [address] [id number] [address] [place] [id number] 16 Jun, 2012 [facility] [address] [id number] [address] [place] [id number] 12 May, 2012 [facility] [address] [id number] [address] [place] [phone] May, [facility] [address] [id number] [address] [place] [id number] Oct, [facility] [address] [id number] [address] [place] [phone] Sep, [facility] [address] [id number] [address] [place] [phone] Sep, [facility] [address] [id number] [address] [place] [id number] Aug, [facility] [address] [id number] [address] [place] [phone] Aug, [facility] [address] [id number] [address] [place] [phone] Aug, [facility] [address] [id number] [address] [place] [phone] Jun, [facility] [address] [id number] [address] [place] [id number] 14 Sep, 2009 [facility] [address] [id number] [address] [place] [id number] Jul, [facility] [address] [id number] [address] [place] [phone] Jul, IMMUNIZATIONS No Known Immunizations SOCIAL HISTORY Never Assessed REASON FOR VISIT body aches DILANjosh BRITTANY PLAN OF CARE Activity Details Follow Up prn Reason: VITAL SIGNS Height 63 in 2017-09-08 Weight 185 lbs 2017-09-08 Temperature 98.2 degrees Fahrenheit 2017-09-08 Heart Rate 82 bpm 2017-09-08 Respiratory Rate 20 2017-09-08 BMI 32.77 kg/m2 2017-09-08 Blood pressure systolic 129 mmHg 2017-09-08 Blood pressure diastolic 67 mmHg 2017-09-08 MEDICATIONS Medication Instructions Dosage Frequency Start Date End Date Duration S tatus Fluticasone Propionate 50 MCG/ACT Nasally Once a day 1 spray in each nostril 24h Oct, 30 day(s) Unknown Sprintec 28 Unknown Pristiq 25 MG Orally Once a day 1 tablet 24h Apr, Unknown Tylenol 325 MG Orally every 6 hrs 2 tablets as needed 6h Unknown RESULTS Name Result Date Reference Range INFLUENZA A & B (IN HOUSE) 2017-09-08 INFLUENZA A negative INFLUENZA B negative Control + Lot # [id number] Exp date 11/03/2018 PROCEDURES Procedure Date Ordered Result Body Site INFLUENZA ASSAY W/OPTIC Sep 08, 2017 INSTRUCTIONS MEDICATIONS ADMINISTERED No Known Medications [...]
--- OUTSIDE RECORDS SUMMARY | 2019-12-20 23:04 | XMS REPORT ---
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 Role Phone ALIYA KILPATRICK Unavailable PROBLEMS Type Condition ICD9-CM Code DNX49-RN Code Onset Dates Condition S tatus SNOMED Code Problem Other obesity due to excess calories E66.09 Active 256103852 Problem Body mass index (BMI) of 36.0-36.9 in adult Z68.36 Active 733973860 Problem Seasonal allergic rhinitis, unspecified allergic rhinitis trigger J30.2 Active 160797487 Problem Major depressive disorder, recurrent episode, mild F33.0 Active 953907107 Problem Anxiety, generalized F41.1 Active 39503199 Problem Irregular menses N92.6 Active 386 024671 ALLERGIES Substance Reaction Event Type Date Status Imitrex body pain Drug Allergy Oct, Active ENCOUNTERS Encounter Location Date Diagnosis [place] [id number] [address] Feb, Acute bacterial conjunctivit is of left eye H10.32 [place] [id number] [address] [place] [address] January, Major depressive disorder, r ecurrent episode, mild F33.0 ; Anxiety, generalized F41.1 and Irregular menses N92.6 [facility] [address] [facility] [id number] [address] [place] [address] 03 Jan, 2018 Major depressive disorder, r ecurrent episode, mild F33.0 ; Anxiety, generalized F41.1 ; Seasonal allergic rhinitis, unspecified allergic rhinitis trigger J30.2 ; Irregular menses N92.6 ; Other obesity due to excess calories E66.09 ; Body mass index (BMI) of 36.0-36.9 in adult Z68.36 and Encounter for repeat prescription of oral contraceptives Z30.41 [place] [address] [place] [address] Dec, Anxiety, generalized F41.1 a nd Major depressive disorder, recurrent episode, mild F33.0 [place] [address] [place] [id number] [address] [place] [address] Nov, [place] [address] [address] Nov, Anxiety, generalized F41.1 a nd Major depressive disorder, recurrent episode, mild F33.0 [place] [address] [address] Oct, Anxiety, generalized F41.1 a nd Major depressive disorder, recurrent episode, mild F33.0 [place] [address] [address] 13 Oct, 2017 Rectal bleeding K62.5 [facility] [place] [address] [address] Oct, Sore throat J02.9 and Acute nasopharyngitis J00 [facility] [place] [address] [address] 04 Oct, 2017 Viral gastroenteritis A08.4 [facility] [place] [address] [address] Sep, Chest wall pain R07.89 [place] [address] [address] Sep, Major depressive disorder, r ecurrent episode, moderate F33.1 [facility] [address] [place] [id number] [place] [id number] Sep, Viral syndrome B34.9 [place] [address] [place] [id number] [address] [place] [address] 04 Aug, 2017 Major depressive disorder, r ecurrent episode, moderate F33.1 and Anxiety, generalized F41.1 [place] [address] [place] [id number] [place] [address] Jul, [facility] [address] [place] [id number] [place] [address] 08 Jul, 2017 Viral syndrome B34.9 [facility] [address] [facility] [id number] [address] [place] [address] Jun, Anxiety, generalized F41.1 a nd Major depressive disorder, recurrent episode, moderate F33.1 [facility] [address] [place] [id number] [place] [address] 25 May, 2017 Anxiety, generalized F41.1 a nd Major depressive disorder, recurrent episode, moderate F33.1 [place] [address] [place] [id number] [place] [address] 21 May, 2017 Tear of medial meniscus of l eft knee, current, unspecified tear type, initial encounter S83.242A [facility] [address] [place] [id number] [place] [id number] 13 May, 2017 Encounter for immunization Z 23 [place] [address] [place] [address] Apr, Major depressive disorder, r ecurrent episode, moderate F33.1 and Anxiety, generalized F41.1 [facility] [address] [place] [address] Apr, Moderate single current epis ode of major depressive disorder F32.1 ; Anxiety, generalized F41.1 and Panic disorder [episodic paroxysmal anxiety] without agoraphobia F41.0 [facility] [address] [place] [id number] [place] [address] Apr, Sports physical Z02.5 ; Enco unter [...] and Acute pain of right knee M25.561 [facility] [address] [facility] [id number] [address] [place] [address] Mar, Acute pain of left knee M25. 562 [facility] [address] [facility] [id number] [place] [id number] January, Irregular menses N92.6 and S creen for STD (sexually transmitted disease) Z11.3 [facility] [address] [id number] [place] [id number] January, Right lower quadrant abdomin al pain R10.31 and Flank pain R10.9 [facility] [address] [place] [id number] [place] [address] Oct, Influenza B J10.1 [facility] IN [facility] [address] [place] [id number] [place] [address] Oct, Acute nasopharyngitis J00 an d Seasonal allergic rhinitis, unspecified allergic rhinitis trigger J30.2 [facility] [address] [facility] [id number] [address] [place] [address] Jun, [facility] [address] [place] [id number] [place] [address] May, [facility] [address] [place] [id number] [place] [address] May, [facility] [address] [place] [id number] [place] [address] May, [facility] [address] [facility] [id number] [address] [place] [address] May, [facility] [address] [facility] [id number] [address] [place] [address] Apr, [facility] [address] [place] [id number] [place] [address] Apr, [facility] [address] [place] [address] Apr, [facility] [address] [place] [id number] [address] [place] [address] Apr, Arthritis of left knee M19.9 0 and Tick-borne disease B88.2 [facility] [address] [place] [id number] [address] [place] [address] Dec, [facility] [address] [place] [id number] [place] [id number] Nov, 2015 Encounter for immunization Z 23 [place] [id number] [address] [place] [address] Nov, Influenza J11.1 [facility] [address] [place] [id number] [address] [place] [address] Nov, Anxiety F41.9 [facility] [address] [place] [address] Sep, Sore throat J02.9 [place] [address] [place] [id number] [address] [place] [address] Jul, Amenorrhea, unspecified N91. 2 and Dysuria R30.0 [place] [address] [place] [id number] [address] [place] [address] Jun, Acute nasopharyngitis J00 [place] [address] [place] [id number] [address] [place] [address] Jun, [place] [address] [place] [id number] [address] [place] [address] Mar, Pubertal menorrhagia 626.3 ; Initiation of OCP (BCP) V25.01 and Need for HPV vaccination V04.89 [place] [address] [place] [id number] [address] [place] [address] Mar, Mood disorder 296.90 and ADH D (attention deficit hyperactivity disorder), combined type 314.01 [place] [address] [place] [address] 14 Dec, 2014 [facility] [address] [id number] [address] [place] [address], [place] [address] 13 Dec, 2014 [facility] [address] [id number] [address] [place] [address], [place] [address] 19 Aug, 2014 [facility] [address] [id number] [address] [place] [address], [place] [address] Aug, [facility] [place] [facility] [address] [id number] [address] [place] [address], [place] [address] Aug, [facility] [address] [id number] [address] [place] [address], [place] [address] Aug, [facility] [address] [id number] [address] [place] [address], [place] [address] Aug, [facility] [address] [id number] [address] [place] [address], [place] [address] Aug, [facility] [address] [id number] [address] [place] [address], [place] [address] Aug, [facility] [address] [id number] [address] [place] [address], [place] [address] Jul, [facility] [address] [id number] [address] [place] [address], [place] [address] 18 Jul, 2014 [facility] [address] [id number] [address] [place] [address], [place] [address] Jul, [facility] [place] [facility] [address] [id number] [address] [place] [address], [place] [address] Jul, [facility] [address] [id number] [address] [place] [address], [place] [address] Jun, [facility] [address] [id number] [address] [place] [address], [place] [address] Jun, [facility] [address] [id number] [address] [place] [address], [place] [address] Jun, [facility] [address] [id number] [address] [place] [address], [place] [address] Jun, [facility] [address] [id number] [address] [place] [address], [place] [address] January, [facility] [address] [id number] [address] [place] [address], [place] [address] January, [facility] [address] [id number] [address] [place] [address], [place] [address] January, [facility] [address] [id number] [address] [place] [address], [place] [address] Nov, [facility] [address] [id number] [address] [place] [address], [place] [address] Nov, [facility] [address] [id number] [address] [place] [address], [place] [address] Aug, [facility] [address] [id number] [address] [place] [address], [place] [address] Aug, [facility] [address] [id number] [address] [place] [address], [place] [address] Aug, [facility] [address] [id number] [address] [place] [address], [place] [address] Aug, [facility] [address] [id number] [address] [place] [address], [place] [address] Aug, [facility] [address] [id number] [address] [place] [address], [place] [address] Jul, [facility] [address] [id number] [address] [place] [address], [place] [address] Jul, [facility] [address] [id number] [address] [place] [address], [place] [address] Jun, [facility] [address] [id number] [address] [place] [address], [place] [address] Jun, [facility] [address] [id number] [address] [place] [address], [place] [address] Jun, [facility] [address] [id number] [address] [place] [address], [place] [address] Jun, [facility] [address] [id number] [address] [place] [address], [place] [address] Jun, [facility] [address] [id number] [address] [place] [address], [place] [address] Jun, [facility] [address] [id number] [address] [place] [address], [place] [address] Jun, [facility] [address] [id number] [address] [place] [address], [place] [address] Jun, [facility] [address] [id number] [address] [place] [address], [place] [address] Jun, [facility] [address] [id number] [address] [place] [address], [place] [address] Nov, [facility] [address] [id number] [address] [place] [address], [place] [address] Nov, [facility] [address] [id number] [address] [place] [address], [place] [address] Oct, [facility] [address] [id number] [address] [place] [address], [place] [address] Oct, [facility] [address] [id number] [address] [place] [address], [place] [address] Jul, [facility] [address] [id number] [address] [place] [address], [place] [address] Jul, [facility] [address] [id number] [address] [place] [address], [place] [address] Jul, [facility] [address] [id number] [address] [place] [address], [place] [address] Jul, [facility] [address] [id number] [address] [place] [address], [place] [address] Jul, [facility] [address] [id number] [address] [place] [address], [place] [address] Jul, [facility] [address] [id number] [address] [place] [address], [place] [address] Jun, [facility] [address] [id number] [address] [place] [address], [place] [address] Jun, [facility] [address] [id number] [address] [place] [address], [place] [address] Jun, [facility] [address] [id number] [address] [place] [address], [place] [address] Jun, [facility] [address] [id number] [address] [place] [address], [place] [address] May, [facility] [address] [id number] [address] [place] [address], [place] [address] May, [facility] [address] [id number] [address] [place] [address], [place] [address] Oct, [facility] [address] [id number] [address] [place] [address], [place] [address] Sep, [facility] [address] [id number] [address] [place] [address], [place] [address] Sep, [facility] [address] [id number] [address] [place] [address], [place] [address] Aug, [facility] [address] [id number] [address] [place] [address], [place] [address] 14 Aug, 2011 [facility] [address] [id number] [address] [place] [address], [place] [address] Aug, [facility] [address] [id number] [address] [place] [address], [place] [address] Jun, [facility] [address] [id number] [address] [place] [address], [place] [address] 14 Sep, 2009 [facility] [address] [id number] [address] [place] [address], [place] [address] Jul, [facility] [address] [facility] [id number] [address] [place] [address] Jul, IMMUNIZATIONS No Known Immunizations SOCIAL HISTORY Never Assessed REASON FOR VISIT irregular bleeding--tjanssenMA, --past 3 weeks bleeding from her anus. Pt state s that it is uncomfortable and even happens when she urinates. , --questions he morrhoids. No constipation at this time. PLAN OF CARE Activity Details Follow Up prn Reason: VITAL SIGNS Height 63 in 2017-10-19 Weight 188.7 lbs 2017-10-19 Temperature 98.5 degrees Fahrenheit 2017-10-19 Heart Rate 90 bpm 2017-10-19 Respiratory Rate 20 2017-10-19 BMI 33.42 kg/m2 2017-10-19 Blood pressure systolic 108 mmHg 2017-10-19 Blood pressure diastolic 74 mmHg 2017-10-19 MEDICATIONS Medication Instructions Dosage Frequency Start Date End Date Duration S tatus Sprintec 28 Active Tylenol 325 MG Orally every 6 hrs 2 tablets as needed 6h Active Zofran ODT 4 MG Orally every 8 hrs 1 tablet on the tongue and al low to dissolve 8h Oct, 10 days Active RESULTS Name Result Date Reference Range CBC 2017-10-19 WHITE BLOOD CELL COUNT 8.7 4.5-13.0 RED BLOOD CELL COUNT 4.00 3.80-5.10 HEMOGLOBIN 11.2 11.5-15.3 HEMATOCRIT 35.1 34.0-46.0 MCV 87.8 78.0-98.0 MCH 28.0 25.0-35.0 MCHC 31.9 31.0-36.0 RDW 11.8 11.0-15.0 PLATELET COUNT 366 140-400 MPV 11.0 7.5-12.5 ABSOLUTE NEUTROPHILS 5603 9638-9952 ABSOLUTE LYMPHOCYTES 2184 9752-5125 ABSOLUTE MONOCYTES 722 200-900 ABSOLUTE EOSINOPHILS 148 15-500 ABSOLUTE BASOPHILS 44 0-200 NEUTROPHILS 64.4 LYMPHOCYTES 25.1 MONOCYTES 8.3 EOSINOPHILS 1.7 BASOPHILS 0.5 PROCEDURES Procedure Date Ordered Result Body Site LAB NOT BILLED BY [facility] Oct 19, 2017 VENIPUNCT, ROUTINE* Oct 19, 2017 INSTRUCTIONS MEDICATIONS ADMINISTERED No Known Medications [...]
--- OUTSIDE RECORDS SUMMARY | 2019-12-20 23:04 | XMS REPORT ---
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 Role Phone MARYANNE PICHARDO Unavailable PROBLEMS Type Condition ICD9-CM Code NDX42-ZT Code Onset Dates Condition S tatus SNOMED Code Problem Other obesity due to excess calories E66.09 Active 171661376 Problem Body mass index (BMI) of 36.0-36.9 in adult Z68.36 Active 084066122 Problem Seasonal allergic rhinitis, unspecified allergic rhinitis trigger J30.2 Active 956740339 Problem Major depressive disorder, recurrent episode, mild F33.0 Active 827273327 Problem Anxiety, generalized F41.1 Active 89699068 Problem Irregular menses N92.6 Active 386 507761 ALLERGIES Substance Reaction Event Type Date Status Imitrex body pain Drug Allergy Oct, Active ENCOUNTERS Encounter Location Date Diagnosis [place] [address] [place] [id number] [address] [place] [address] Feb, Acute bacterial conjunctivit is of left eye H10.32 [place] [address] [place] [id number] [address] [place] [address] January, Major depressive disorder, r ecurrent episode, mild F33.0 ; Anxiety, generalized F41.1 and Irregular menses N92.6 [facility] [place] [address] [facility] [id number] [address] [place] [address] January, Major depressive disorder, r ecurrent episode, mild F33.0 ; Anxiety, generalized F41.1 ; Seasonal allergic rhinitis, unspecified allergic rhinitis trigger J30.2 ; Irregular menses N92.6 ; Other obesity due to excess calories E66.09 ; Body mass index (BMI) of 36.0-36.9 in adult Z68.36 and Encounter for repeat prescription of oral contraceptives Z30.41 [place] [address] [place] [address] Dec, Anxiety, generalized F41.1 a nd Major depressive disorder, recurrent episode, mild F33.0 [facility] [place] [address] [place] [id number] [address] [place] [address] Nov, [place] [address] [address] Nov, Anxiety, generalized F41.1 a nd Major depressive disorder, recurrent episode, mild F33.0 [place] [address] [address] Oct, Anxiety, generalized F41.1 a nd Major depressive disorder, recurrent episode, mild F33.0 [place] [address] [address] Oct, Rectal bleeding K62.5 [facility] [place] [address] [address] 10 Oct, 2017 Sore throat J02.9 and Acute nasopharyngitis J00 [facility] [place] [address] [address] 04 Oct, 2017 Viral gastroenteritis A08.4 [facility] [place] [id number] [address] [place] [address] Sep, Chest wall pain R07.89 [place] [address] [place] [id number] [address] [place] [address] Sep, Major depressive disorder, r ecurrent episode, moderate F33.1 [facility] [address] [place] [id number] [place] [id number] Sep, Viral syndrome B34.9 [place] [address] [place] [id number] [address] [place] [id number] 04 Aug, 2017 Major depressive disorder, r ecurrent episode, moderate F33.1 and Anxiety, generalized F41.1 [facility] [place] [address] [facility] [id number] [address] [place] [address] Jul, [facility] [address] [facility] [id number] [address] [place] [address] Jul, Viral syndrome B34.9 [facility] [place] [address] [facility] [id number] [address] [place] [address] Jun, Anxiety, generalized F41.1 a nd Major depressive disorder, recurrent episode, moderate F33.1 [facility] [place] [address] [facility] [id number] [address] [place] [address] May, Anxiety, generalized F41.1 a nd Major depressive disorder, recurrent episode, moderate F33.1 [facility] [place] [address] [facility] [id number] [address] [place] [address] 21 May, 2017 Tear of medial meniscus of l eft knee, current, unspecified tear type, initial encounter S83.242A [facility] [address] [place] [id number] [place] [id number] 13 May, 2017 Encounter for immunization Z 23 [facility] [place] [address] [place] [id number] [address] [place] [address] Apr, Major depressive disorder, r ecurrent episode, moderate F33.1 and Anxiety, generalized F41.1 [facility] [place] [address] [place] [id number] [address] [place] [address] Apr, Moderate single current epis ode of major depressive disorder F32.1 ; Anxiety, generalized F41.1 and Panic disorder [episodic paroxysmal anxiety] without agoraphobia F41.0 [facility] [place] [address] [facility] [id number] [address] [place] [address] Apr, Sports physical Z02.5 ; Enco unter [...] right knee M25.561 [facility] [address] [facility] [id number] [address] [place] [address] Mar, Acute pain of left knee M25. 562 [facility] [address] [place] [id number] [place] [address] [id number] January, Irregular menses N92.6 and S creen for STD (sexually transmitted disease) Z11.3 [facility] [address] [place] [id number] [place] [id number] January, Right lower quadrant abdomin al pain R10.31 and Flank pain R10.9 [facility] [place] [address] [place] [id number] [address] [place] [address] Oct, Influenza B J10.1 [facility] [address] [place] [id number] [address] [place] [address] Oct, Acute nasopharyngitis J00 an d Seasonal allergic rhinitis, unspecified allergic rhinitis trigger J30.2 [facility] [place] [address] [place] [id number] [address] [place] [id number] Jun, [facility] [place] [address] [place] [id number] [address] [place] [id number] May, [facility] [place] [address] [place] [id number] [address] [place] [phone] May, [facility] [place] [address] [place] [id number] [address] [place] [id number] May, [facility] [place] [address] [place] [id number] [address] [place] [phone] May, [facility] [place] [address] [place] [id number] [address] [place] [id number] Apr, [facility] [place] [address] [place] [id number] [address] [place] [id number] Apr, [facility] [place] [address] [place] [id number] Apr, [facility] [place] [address] [address] Apr, Arthritis of left knee M19.9 0 and Tick-borne disease B88.2 [facility] [place] [address] [place] [id number] [address] [place] [address] Dec, [facility] [address] [place] [id number] [place] [address] [id number] 30 Nov, 2015 Encounter for immunization Z 23 [place] [address] [address] Nov, Influenza J11.1 [facility] [address] [address] Nov, Anxiety F41.9 [facility] [address] [address] Sep, Sore throat J02.9 [place] [address] [address] Jul, Amenorrhea, unspecified N91. 2 and Dysuria R30.0 [place] [address] [place] [id number] [address] [place] [address] Jun, Acute nasopharyngitis J00 [place] [address] [address] Jun, [place] [address] [address] Mar, Pubertal menorrhagia 626.3 ; Initiation of OCP (BCP) V25.01 and Need for HPV vaccination V04.89 [place] [address] [place] [id number] [address] [place] [address] Mar, Mood disorder 296.90 and ADH D (attention deficit hyperactivity disorder), combined type 314.01 [facility] [address] [id number] [address] [place] [address], [place] [address] 14 Dec, 2014 [facility] [address] [id number] [address] [place] [address], [place] [address] 13 Dec, 2014 [facility] [address] [id number] [address] [place] [address], [place] [address] 19 Aug, 2014 [facility] [address] [id number] [address] [place] [address], [place] [address] 19 Aug, 2014 [facility] [address] [id number] [address] [place] [address], [place] [address] Aug, [facility] [address] [id number] [address] [place] [address], [place] [address] Aug, [facility] [address] [id number] [address] [place] [address], [place] [address] Aug, [facility] [address] [id number] [address] [place] [address], [place] [address] Aug, [facility] [address] [id number] [address] [place] [address], [place] [address] 09 Aug, 2014 [facility] [address] [id number] [address] [place] [address], [place] [address] Jul, [facility] [address] [id number] [address] [place] [address], [place] [address] 18 Jul, 2014 [facility] [address] [id number] [address] [place] [address], [place] [address] 17 Jul, 2014 [facility] [address] [id number] [address] [place] [address], [place] [address] 17 Jul, 2014 [facility] [address] [id number] [address] [place] [address], [place] [address] Jun, [facility] [address] [id number] [address] [place] [address], [place] [address] Jun, [facility] [address] [id number] [address] [place] [address], [place] [address] Jun, [facility] [address] [id number] [address] [place] [address], [place] [address] Jun, [facility] [address] [id number] [address] [place] [address], [place] [address] January, [facility] [address] [id number] [address] [place] [address], [place] [address] January, [facility] [address] [id number] [address] [place] [address], [place] [address] January, [facility] [address] [id number] [address] [place] [address], [place] [address] Nov, [facility] [address] [id number] [address] [place] [address], [place] [address] Nov, [facility] [address] [id number] [address] [place] [address], [place] [address] Aug, [facility] [address] [id number] [address] [place] [address], [place] [address] Aug, [facility] [address] [id number] [address] [place] [address], [place] [address] Aug, [facility] [address] [id number] [address] [place] [address], [place] [address] Aug, [facility] [address] [id number] [address] [place] [address], [place] [address] Aug, [facility] [address] [id number] [address] [place] [address], [place] [address] Jul, [facility] [address] [id number] [address] [place] [address], [place] [address] Jul, [facility] [address] [id number] [address] [place] [address], [place] [address] Jun, [facility] [address] [id number] [address] [place] [address], [place] [address] Jun, [facility] [address] [id number] [address] [place] [address], [place] [address] Jun, [facility] [address] [id number] [address] [place] [address], [place] [address] Jun, [facility] [address] [id number] [address] [place] [address], [place] [address] Jun, [facility] [address] [id number] [address] [place] [address], [place] [address] Jun, [facility] [address] [id number] [address] [place] [address], [place] [address] Jun, [facility] [address] [id number] [address] [place] [address], [place] [address] Jun, [facility] [address] [id number] [address] [place] [address], [place] [address] Jun, [facility] [address] [id number] [address] [place] [address], [place] [address] Nov, [facility] [address] [id number] [address] [place] [address], [place] [address] Nov, [facility] [address] [id number] [address] [place] [address], [place] [address] Oct, [facility] [address] [id number] [address] [place] [address], [place] [address] Oct, [facility] [address] [id number] [address] [place] [address], [place] [address] Jul, [facility] [address] [id number] [address] [place] [address], [place] [address] Jul, [facility] [address] [id number] [address] [place] [address], [place] [address] Jul, [facility] [address] [id number] [address] [place] [address], [place] [address] Jul, [facility] [address] [id number] [address] [place] [address], [place] [address] Jul, [facility] [address] [id number] [address] [place] [address], [place] [address] Jul, [facility] [address] [id number] [address] [place] [address], [place] [address] Jun, [facility] [address] [id number] [address] [place] [address], [place] [address] Jun, [facility] [address] [id number] [address] [place] [address], [place] [address] Jun, [facility] [address] [id number] [address] [place] [address], [place] [address] 16 Jun, 2012 [facility] [address] [id number] [address] [place] [address], [place] [address] May, [facility] [address] [id number] [address] [place] [address], [place] [address] May, [facility] [address] [id number] [address] [place] [address], [place] [address] Oct, [facility] [address] [id number] [address] [place] [address], [place] [address] Sep, [facility] [address] [id number] [address] [place] [address] Sep, [facility] [address] [id number] [address] [place] [address] Aug, [facility] [address] [id number] [address] [place] [address] 14 Aug, 2011 [facility] [address] [id number] [address] [place] [address], [place] [address] Aug, [facility] [address] [id number] [address] [place] [address], [place] [address] Jun, [facility] [address] [id number] [address] [place] [address] 14 Sep, 2009 [facility] [address] [id number] [address] [place] [address] Jul, [facility] [place] [address] [facility] [id number] [address] [address] Jul, IMMUNIZATIONS No Known Immunizations SOCIAL HISTORY Never Assessed REASON FOR VISIT Sore throat, congestion JStrasserRN PLAN OF CARE Activity Details Follow Up prn Reason: VITAL SIGNS Height 63 in 2017-10-16 Weight 188.2 lbs 2017-10-16 Temperature 97.2 degrees Fahrenheit 2017-10-16 Heart Rate 96 bpm 2017-10-16 Respiratory Rate 20 2017-10-16 BMI 33.33 kg/m2 2017-10-16 Blood pressure systolic 110 mmHg 2017-10-16 Blood pressure diastolic 70 mmHg 2017-10-16 MEDICATIONS Medication Instructions Dosage Frequency Start Date End Date Duration S tatus Sprintec 28 Not-Taking Fluticasone Propionate 50 MCG/ACT Nasally Once a day 1 spray in each nostril 24h Oct, 30 day(s) Not-Taking Pristiq 25 MG Orally Once a day 1 tablet 24h Apr, Not-Taking Tylenol 325 MG Orally every 6 hrs 2 tablets as needed 6h Active Zofran ODT 4 MG Orally every 8 hrs 1 tablet on the tongue and al low to dissolve 8h Oct, 10 days Not-Taking RESULTS Name Result Date Reference Range STREP A (IN HOUSE) 2017-10-16 STREP A negative Control + Lot # [id number] Exp date 08-05-18 PROCEDURES Procedure Date Ordered Result Body Site STREP A ASSAY W/OPTIC Oct 16, 2017 INSTRUCTIONS MEDICATIONS ADMINISTERED No Known Medications [...]
--- OUTSIDE RECORDS SUMMARY | 2019-12-20 23:04 | XMS REPORT ---
Author Author FINESSE Kathleen PISANO Organization [facility] Address [address] [place] [address] Care Team Providers Care Administrative Staff Supervisor Name Role Phone ALIYA KILPATRICK Unavailable PROBLEMS Type Condition ICD9-CM Code DIM03-PB Code Onset Dates Condition S tatus SNOMED Code Problem Other obesity due to excess calories E66.09 Active 941048252 Problem Body mass index (BMI) of 36.0-36.9 in adult Z68.36 Active 585396967 Problem Seasonal allergic rhinitis, unspecified allergic rhinitis trigger J30.2 Active 319062778 Problem Major depressive disorder, recurrent episode, mild F33.0 Active 770486076 Problem Anxiety, generalized F41.1 Active 56154625 Problem Irregular menses N92.6 Active [id number] ALLERGIES No Information ENCOUNTERS Encounter Location Date Diagnosis [place] [id number] [place] [id number] [place] [address] Feb, Acute bacterial conjunctivit is of left eye H10.32 [facility] [address] [place] [id number] [address] [place] [address] January, Major depressive disorder, r ecurrent episode, mild F33.0 ; Anxiety, generalized F41.1 and Irregular menses N92.6 [facility] [address] [place] [id number] [place] [id number] 03 Jan, 2018 Major depressive disorder, r ecurrent episode, mild F33.0 ; Anxiety, generalized F41.1 ; Seasonal allergic rhinitis, unspecified allergic rhinitis trigger J30.2 ; Irregular menses N92.6 ; Other obesity due to excess calories E66.09 ; Body mass index (BMI) of 36.0-36.9 in adult Z68.36 and Encounter for repeat prescription of oral contraceptives Z30.41 [facility] [address] [place] [id number] [place] [id number] Dec, Anxiety, generalized F41.1 a nd Major depressive disorder, recurrent episode, mild F33.0 [facility] [address] [place] [id number] [place] [address] Nov, [facility] [address] [facility] [id number] [address] [place] [address] Nov, Anxiety, generalized F41.1 a nd Major depressive disorder, recurrent episode, mild F33.0 [place] [address] [place] [id number] [place] [id number] 22 Oct, 2017 Anxiety, generalized F41.1 a nd Major depressive disorder, recurrent episode, mild F33.0 [place] [address] [place] [id number] [place] [phone] 13 Oct, 2017 Rectal bleeding K62.5 [facility] [place] [address] [address] [place] [id number] [place] [address] 10 Oct, 2017 Sore throat J02.9 and Acute nasopharyngitis J00 [facility] [place] [address] [place] [id number] 04 Oct, 2017 Viral gastroenteritis A08.4 [facility] [place] [address] [address] [place] [id number] [place] [address] Sep, Chest wall pain R07.89 [place] [address] [place] [address] Sep, Major depressive disorder, r ecurrent episode, moderate F33.1 [facility] [address] [facility] [id number] [place] [id number] Sep, Viral syndrome B34.9 [place] [address] [place] [id number] [place] [id number] 04 Aug, 2017 Major depressive disorder, r ecurrent episode, moderate F33.1 and Anxiety, generalized F41.1 [place] [address] [place] [address] Jul, [facility] [address] [place] [id number] [place] [phone] Jul, Viral syndrome B34.9 [facility] [address] [place] [id number] [place] [address] Jun, Anxiety, generalized F41.1 a nd Major depressive disorder, recurrent episode, moderate F33.1 [facility] [address] [place] [id number] [place] [address] May, Anxiety, generalized F41.1 a nd Major depressive disorder, recurrent episode, moderate F33.1 [place] [address] [address] May, Tear of medial meniscus of l eft knee, current, unspecified tear type, initial encounter S83.242A [facility] [address] [place] [id number] [place] [id number] 13 May, 2017 Encounter for immunization Z 23 [facility] [address] [place] [id number] [place] [id number] Apr, Major depressive disorder, r ecurrent episode, moderate F33.1 and Anxiety, generalized F41.1 [facility] [address] [place] [phone] Apr, Moderate single current epis ode of major depressive disorder F32.1 ; Anxiety, generalized F41.1 and Panic disorder [episodic paroxysmal anxiety] without agoraphobia F41.0 [facility] [address] [place] [address] Apr, Sports physical Z02.5 ; Enco unter [...] of right knee M25.561 [facility] [address] [id number] [address] [place] [phone] Mar, Acute pain of left knee M25. 562 [facility] [address] [id number] [place] [id number] January, Irregular menses N92.6 and S creen for STD (sexually transmitted disease) Z11.3 [facility] [address] [id number] [place] [address] [id number] January, Right lower quadrant abdomin al pain R10.31 and Flank pain R10.9 [facility] [address] [facility] [id number] [address] [place] [phone] Oct, Influenza B J10.1 [facility] [address] [facility] [id number] [address] [place] [phone] Oct, Acute nasopharyngitis J00 an d Seasonal allergic rhinitis, unspecified allergic rhinitis trigger J30.2 [facility] [address] [facility] [id number] [address] [place] [phone] Jun, [facility] [address] [facility] [id number] [address] [place] [phone] May, [facility] [address] [facility] [id number] [address] [place] [phone] May, [facility] [address] [facility] [id number] [address] [place] [phone] May, [facility] [address] [facility] [id number] [address] [place] [phone] May, [facility] [address] [facility] [id number] [address] [place] [phone] Apr, [facility] [address] [facility] [id number] [address] [place] [phone] Apr, [facility] [address] [facility] [id number] [address] [place] [address] Apr, [facility] [address] [place] [phone] Apr, Arthritis of left knee M19.9 0 and Tick-borne disease B88.2 [facility] [address] [place] [id number] [address] [place] [phone] Dec, [facility] [address] [place] [id number] [place] [address] [id number] 30 Nov, 2015 Encounter for immunization Z 23 [place] [address] [phone] Nov, Influenza J11.1 [facility] [address] [address] Nov, Anxiety F41.9 [facility] [place] [address] [address] Sep, Sore throat J02.9 [place] [address] [address] Jul, Amenorrhea, unspecified N91. 2 and Dysuria R30.0 [place] [address] [address] Jun, Acute nasopharyngitis J00 [place] [address] [address] Jun, [place] [address] [address] Mar, Pubertal menorrhagia 626.3 ; Initiation of OCP (BCP) V25.01 and Need for HPV vaccination V04.89 [place] [address] [id number] Mar, Mood disorder 296.90 and ADH D (attention deficit hyperactivity disorder), combined type 314.01 [place] [address] [address] Dec, [facility] [address] [id number] [address] [place] [address], [place] [address] 13 Dec, 2014 [facility] [address] [id number] [address] [place] [address], [place] [address] Aug, [facility] [address] [id number] [address] [place] [address], [place] [address] Aug, [facility] [address] [id number] [address] [place] [address], [place] [address] Aug, [facility] [address] [id number] [address] [place] [address], [place] [address] Aug, [facility] [address] [id number] [address] [place] [address], [place] [address] Aug, [facility] [address] [id number] [address] [place] [address], [place] [address] Aug, [facility] [address] [id number] [address] [place] [address], [place] [address] Aug, [facility] [address] [id number] [address] [place] [address], [place] [address] Jul, [facility] [address] [id number] [address] [place] [address], [place] [address] Jul, [facility] [address] [id number] [address] [place] [address], [place] [address] Jul, [facility] [address] [id number] [address] [place] [address], [place] [address] Jul, [facility] [address] [id number] [address] [place] [address], [place] [address] Jun, [facility] [address] [id number] [address] [place] [address], [place] [address] Jun, [facility] [address] [id number] [address] [place] [address], [place] [address] Jun, [facility] [address] [id number] [address] [place] [address], [place] [address] Jun, [facility] [address] [id number] [address] [place] [address], [place] [address] January, [facility] [address] [id number] [address] [place] [address], [place] [address] January, [facility] [address] [id number] [address] [place] [address], [place] [address] January, [facility] [address] [id number] [address] [place] [address], [place] [address] Nov, [facility] [address] [id number] [address] [place] [address], [place] [address] Nov, [facility] [address] [id number] [address] [place] [address], [place] [address] Aug, [facility] [address] [id number] [address] [place] [address], [place] [address] Aug, [facility] [address] [id number] [address] [place] [address], [place] [address] Aug, [facility] [address] [id number] [address] [place] [address], [place] [address] Aug, [facility] [address] [id number] [address] [place] [address], [place] [address] Aug, [facility] [address] [id number] [address] [place] [address], [place] [address] Jul, [facility] [address] [id number] [address] [place] [address], [place] [address] Jul, [facility] [address] [id number] [address] [place] [address], [place] [address] Jun, [facility] [address] [id number] [address] [place] [address], [place] [address] Jun, [facility] [address] [id number] [address] [place] [address], [place] [address] Jun, [facility] [address] [id number] [address] [place] [address], [place] [address] Jun, [facility] [address] [id number] [address] [place] [address], [place] [address] Jun, [facility] [address] [id number] [address] [place] [address], [place] [address] Jun, [facility] [address] [id number] [address] [place] [address], [place] [address] Jun, [facility] [address] [id number] [address] [place] [address], [place] [address] Jun, [facility] [address] [id number] [address] [place] [address], [place] [address] Jun, [facility] [address] [id number] [address] [place] [address], [place] [address] Nov, [facility] [address] [id number] [address] [place] [address], [place] [address] Nov, [facility] [address] [id number] [address] [place] [address], [place] [address] Oct, [facility] [address] [id number] [address] [place] [address], [place] [address] Oct, [facility] [address] [id number] [address] [place] [address], [place] [address] Jul, [facility] [address] [id number] [address] [place] [address], [place] [address] Jul, [facility] [address] [id number] [address] [place] [address], [place] [address] Jul, [facility] [address] [id number] [address] [place] [address], [place] [address] Jul, [facility] [address] [id number] [address] [place] [address], [place] [address] Jul, [facility] [address] [id number] [address] [place] [address], [place] [address] Jul, [facility] [address] [id number] [address] [place] [address], [place] [address] 31 Jun, 2012 [facility] [address] [id number] [address] [place] [address], [place] [address] Jun, [facility] [address] [id number] [address] [place] [address], [place] [address] Jun, [facility] [address] [id number] [address] [place] [address], [place] [address] 16 Jun, 2012 [facility] [address] [id number] [address] [place] [address], [place] [address] May, [facility] [address] [id number] [address] [place] [address], [place] [address] May, [facility] [address] [id number] [address] [place] [address], [place] [address] Oct, [facility] [address] [id number] [address] [place] [address], [place] [address] Sep, [facility] [address] [id number] [address] [place] [address], [place] [address] Sep, [facility] [address] [id number] [address] [place] [address], [place] [address] 29 Aug, 2011 [facility] [address] [id number] [address] [place] [address] 14 Aug, 2011 [facility] [address] [id number] [address] [place] [address] 14 Aug, 2011 [facility] [address] [id number] [address] [place] [address], [place] [address] Jun, [facility] [address] [id number] [address] [place] [address] 14 Sep, 2009 [facility] [address] [id number] [address] [place] [address], [place] [address] Jul, [facility] [address] [id number] [address] [place] [address] Jul, IMMUNIZATIONS No Known Immunizations SOCIAL HISTORY Never Assessed REASON FOR VISIT Needs referral PLAN OF CARE VITAL SIGNS MEDICATIONS Unknown [...]
--- OUTSIDE RECORDS SUMMARY | 2019-12-20 23:04 | XMS REPORT ---
Author Author Kathleen VERGARA [facility] Address [address] [place] [address] Care Team Providers Care Glaciologist Name Role Phone JAI LAWRENCE Unavailable PROBLEMS Type Condition ICD9-CM Code LAD10-DE Code Onset Dates Condition S tatus SNOMED Code Problem Major depressive disorder, recurrent episode, mild F33.0 Active 469313862 Problem Irregular menses N92.6 Active 386 410179 Problem Seasonal allergic rhinitis, unspecified allergic rhinitis trigger J30.2 Active 514768889 Problem Anxiety, generalized F41.1 Active 60779692 Problem Heart palpitations R00.2 Active 8 2238420 Problem Acute pain of right knee M25.561 Activ e 66356371 Problem Family history of heart disease in male family m ember before age 55 Z82.49 Active 948911744 Problem Overweight E66.3 Active 944338920 Problem High risk medication use Z79.899 Activ e [id number] ALLERGIES Substance Reaction Event Type Date Status Imitrex body pain Drug Allergy Mar, Active ENCOUNTERS Encounter Location Date Diagnosis [place] [address] [address] [facility] [id number] [address] [place] [address] January, [facility] [address] [facility] [id number] [address] [place] [address] Nov, [facility] [address] [facility] [id number] [address] [place] [address] Nov, Anxiety, generalized F41.1 a nd Major depressive disorder, recurrent episode, mild F33.0 [facility] [address] [facility] [id number] [address] [place] [address] Oct, Anxiety, generalized F41.1 a nd Major depressive disorder, recurrent episode, mild F33.0 [facility] [address] [facility] [id number] [address] [place] [address] 13 Oct, 2017 Rectal bleeding K62.5 [facility] [id number] [place] [address] 10 Oct, 2017 Sore throat J02.9 and Acute nasopharyngitis J00 [facility] [address] [place] [id number] [address] [place] [phone] 04 Oct, 2017 Viral gastroenteritis A08.4 [facility] [address] [place] [id number] [address] [place] [address] Sep, Chest wall pain R07.89 [place] [address] [address] Sep, Major depressive disorder, r ecurrent episode, moderate F33.1 [facility] [address] [place] [id number] [place] [id number] Sep, Viral syndrome B34.9 [place] [address] [address] Aug, Major depressive disorder, r ecurrent episode, moderate F33.1 and Anxiety, generalized F41.1 [place] [address] [address] Jul, [facility] [place] [address] [address] Jul, Viral syndrome B34.9 [place] [address] [address] Jun, Anxiety, generalized F41.1 a nd Major depressive disorder, recurrent episode, moderate F33.1 [place] [address] [address] May, Anxiety, generalized F41.1 a nd Major depressive disorder, recurrent episode, moderate F33.1 [place] [address] [address] [place] [id number] [address] [place] [address] May, Tear of medial meniscus of l eft knee, current, unspecified tear type, initial encounter S83.242A [facility] [address] [place] [id number] [place] [id number] 13 May, 2017 Encounter for immunization Z 23 [facility] [address] [address] 31 Apr, 2017 Major depressive disorder, r ecurrent episode, moderate F33.1 and Anxiety, generalized F41.1 [place] [address] [address] Apr, Moderate single current epis ode of major depressive disorder F32.1 ; Anxiety, generalized F41.1 and Panic disorder [episodic paroxysmal anxiety] without agoraphobia F41.0 [place] [address] [address] Apr, Sports physical Z02.5 ; Enco unter [...] right knee M25.561 [facility] [address] [address] Mar, Acute pain of left knee M25. 562 [facility] [address] [id number] January, Irregular menses N92.6 and S creen for STD (sexually transmitted disease) Z11.3 [facility] [address] [id number] January, Right lower quadrant abdomin al pain R10.31 and Flank pain R10.9 [facility] [address] [address] 28 Feb, 2017 Influenza B J10.1 [facility] [address] [facility] [id number] [address] [place] [phone] Oct, Acute nasopharyngitis J00 an d Seasonal allergic rhinitis, unspecified allergic rhinitis trigger J30.2 [facility] [address] [id number] [address] [place] [address] Jun, [facility] [address] [facility] [id number] [address] [place] [address] May, [facility] [address] [id number] [address] [place] [phone] May, [facility] [address] [facility] [id number] [address] [place] [address] May, [facility] [address] [facility] [id number] [address] [place] [address] May, [facility] [address] [facility] [id number] [address] [place] [address] Apr, [facility] [address] [facility] [id number] [address] [place] [address] Apr, [facility] [address] [facility] [id number] [address] [place] [phone] Apr, [facility] [address] [facility] [id number] [address] [place] [address] Apr, Arthritis of left knee M19.9 0 and Tick-borne disease B88.2 [facility] [address] [facility] [id number] [address] [place] [address] Dec, [facility] [address] [facility] [id number] [place] [id number] Nov, Encounter for immunization Z 23 [facility] [address] [facility] [id number] [address] [place] [phone] Nov, Influenza J11.1 [facility] [address] [facility] [id number] [address] [place] [id number] 07 Mar, 2016 Anxiety F41.9 [facility] [address] [place] [id number] [address] [place] [address] Sep, Sore throat J02.9 [facility] [address] [address] Jul, Amenorrhea, unspecified N91. 2 and Dysuria R30.0 [facility] [address] [address] Jun, Acute nasopharyngitis J00 [facility] [address] [address] Jun, [facility] [address] [address] Mar, Pubertal menorrhagia 626.3 ; Initiation of OCP (BCP) V25.01 and Need for HPV vaccination V04.89 [facility] [address] [address] Mar, Mood disorder 296.90 and ADH D (attention deficit hyperactivity disorder), combined type 314.01 [facility] [address] [address] Dec, [facility] [address] [address] Dec, [facility] [address] [address] Aug, [facility] [address] [address] Aug, [facility] [address] [address] Aug, [facility] [address] [address] Aug, [facility] [address] [address] Aug, [facility] [address] [id number] [address] [place] [address], [place] [address] Aug, [facility] [address] [id number] [address] [place] [address], [place] [address] Aug, [facility] [address] [id number] [address] [place] [address], [place] [address] Jul, [facility] [address] [id number] [address] [place] [address], [place] [address] Jul, [facility] [address] [id number] [address] [place] [address], [place] [address] Jul, [facility] [address] [id number] [address] [place] [address], [place] [address] Jul, [facility] [address] [id number] [address] [place] [address], [place] [address] Jun, [facility] [address] [id number] [address] [place] [address], [place] [address] Jun, [facility] [address] [id number] [address] [place] [address], [place] [address] Jun, [facility] [address] [id number] [address] [place] [address], [place] [address] Jun, [facility] [address] [id number] [address] [place] [address], [place] [address] January, [facility] [address] [id number] [address] [place] [address], [place] [address] January, [facility] [address] [id number] [address] [place] [address], [place] [address] January, [facility] [address] [id number] [address] [place] [address], [place] [address] Nov, [facility] [address] [id number] [address] [place] [address], [place] [address] Nov, [facility] [address] [id number] [address] [place] [id number] 20 Aug, 2013 [facility] [address] [id number] [address] [place] [address], [place] [address] 20 Aug, 2013 [facility] [address] [id number] [address] [place] [address] 18 Aug, 2013 [facility] [address] [id number] [address] [place] [address], [place] [address] 18 Aug, 2013 [facility] [address] [id number] [address] [place] [address], [place] [address] 17 Aug, 2013 [facility] [address] [id number] [address] [place] [address], [place] [address] Jul, [facility] [address] [id number] [address] [place] [address], [place] [address] Jul, [facility] [address] [id number] [address] [place] [phone] Jun, [facility] [address] [id number] [address] [place] [address], [place] [address] 28 Jun, 2013 [facility] [address] [id number] [address] [place] [address], [place] [address] 28 Jun, 2013 [facility] [address] [id number] [address] [place] [address], [place] [address] 28 Jun, 2013 [facility] [address] [id number] [address] [place] [address], [place] [address] 24 Jun, 2013 [facility] [address] [id number] [address] [place] [phone] 17 Jun, 2013 [facility] [address] [id number] [address] [place] [address] 17 Jun, 2013 [facility] [address] [id number] [address] [place] [id number] 10 Jun, 2013 [facility] [address] [id number] [address] [place] [address] 03 Jun, 2012 [facility] [address] [id number] [address] [place] [address], [place] [address] Nov, [facility] [address] [id number] [address] [place] [address], [place] [address] Nov, [facility] [address] [id number] [address] [place] [address], [place] [address] Oct, [facility] [address] [id number] [address] [place] [address], [place] [address] Oct, [facility] [address] [id number] [address] [place] [address], [place] [address] Jul, [facility] [address] [id number] [address] [place] [address], [place] [address] Jul, [facility] [address] [id number] [address] [place] [address], [place] [address] Jul, [facility] [address] [id number] [address] [place] [address], [place] [address] Jul, [facility] [address] [id number] [address] [place] [address], [place] [address] Jul, [facility] [address] [id number] [address] [place] [address], [place] [address] Jul, [facility] [address] [id number] [address] [place] [address], [place] [address] Jun, [facility] [address] [id number] [address] [place] [address], [place] [address] Jun, [facility] [address] [id number] [address] [place] [address], [place] [address] Jun, [facility] [address] [id number] [address] [place] [address], [place] [address] 16 Jun, 2012 [facility] [address] [id number] [address] [place] [address], [place] [address] May, [facility] [address] [id number] [address] [place] [address], [place] [address] May, [facility] [address] [id number] [address] [place] [address] Oct, [facility] [address] [id number] [address] [place] [address] Sep, [facility] [address] [id number] [address] [place] [address] Sep, [facility] [address] [id number] [address] [place] [address] Aug, [facility] [address] [id number] [address] [place] [address] Aug, [facility] [address] [id number] [address] [place] [address] Aug, [facility] [address] [id number] [address] [place] [address] Jun, [facility] [address] [id number] [address] [place] [address] Sep, [facility] [address] [id number] [address] [place] [address] Jul, [facility] [address] [id number] [address] [place] [address] Jul, IMMUNIZATIONS No Known Immunizations SOCIAL HISTORY Never Assessed REASON FOR VISIT left knee pain that started a year ago...thought it was fluid on her knee...ende d up being a tic bite and pt was treated with antibiotice. now knee is doing the same thing. been bothering her for a week now. arlene, pcp..tanika PLAN OF CARE Activity Details Follow Up prn Reason: VITAL SIGNS Height 63 in 2017-03-27 Weight 180.0 lbs 2017-03-27 Temperature 97.8 degrees Fahrenheit 2017-03-27 Heart Rate 80 bpm 2017-03-27 Respiratory Rate 20 2017-03-27 BMI 31.88 kg/m2 2017-03-27 Blood pressure systolic 112 mmHg 2017-03-27 Blood pressure diastolic 68 mmHg 2017-03-27 MEDICATIONS Medication Instructions Dosage Frequency Start Date End Date Duration S ugo Ibuprofen 800 MG Orally Three times a day 1 tablet with food or mil k 8h Mar, Apr, 14 days Active RESULTS Name Result Date Reference Range Xray : Knee, Left PROCEDURES No Known procedures INSTRUCTIONS MEDICATIONS ADMINISTERED No Known Medications MEDICAL (GENERAL) HISTORY Type Description Date Medical History Migraine, unspecified withou t mention of intractable migraine without mention of status migrainosus Medical History Moderate single current episode of major depressive disorder Medical History Panic disorder [episodic par oxysmal anxiety] without agoraphobia Surgical History myringotomy with ventilating tube Surgical History cholecystectomy Jul 2016
--- OUTSIDE RECORDS SUMMARY | 2019-12-20 23:04 | XMS REPORT ---
Author Author Kathleen VIDALES Organization [facility] Address Unknown Care Team Providers Care Bailing Machine Operator Name Role Phone ESME VIDALES Unavailable PROBLEMS Type Condition ICD9-CM Code WDS25-FN Code Onset Dates Condition S tatus SNOMED Code Problem Other obesity due to excess calories E66.09 Active 538602976 Problem Body mass index (BMI) of 36.0-36.9 in adult Z68.36 Active 409425275 Problem Seasonal allergic rhinitis, unspecified allergic rhinitis trigger J30.2 Active 203022214 Problem Major depressive disorder, recurrent episode, mild F33.0 Active 726341326 Problem Anxiety, generalized F41.1 Active 27748342 Problem Irregular menses N92.6 Active 386 [id number] ALLERGIES No Information ENCOUNTERS Encounter Location Date Diagnosis [place] [address] [address] [place] [id number] [place] [address] Feb, Acute bacterial conjunctivit is of left eye H10.32 [place] [address] [address] January, Major depressive disorder, r ecurrent episode, mild F33.0 ; Anxiety, generalized F41.1 and Irregular menses N92.6 [place] [address] [place] [id number] [place] [address] January, Major depressive disorder, r ecurrent episode, mild F33.0 ; Anxiety, generalized F41.1 ; Seasonal allergic rhinitis, unspecified allergic rhinitis trigger J30.2 ; Irregular menses N92.6 ; Other obesity due to excess calories E66.09 ; Body mass index (BMI) of 36.0-36.9 in adult Z68.36 and Encounter for repeat prescription of oral contraceptives Z30.41 [place] [address] [place] [id number] [place] [address] Dec, Anxiety, generalized F41.1 a nd Major depressive disorder, recurrent episode, mild F33.0 [place] [id number] [place] [address] Nov, [facility] [address] [place] [id number] [address] [place] [id number] Nov, Anxiety, generalized F41.1 a nd Major depressive disorder, recurrent episode, mild F33.0 [place] [address] [place] [id number] [place] [address] Oct, Anxiety, generalized F41.1 a nd Major depressive disorder, recurrent episode, mild F33.0 [place] [address] [place] [id number] [place] [address] Oct, Rectal bleeding K62.5 [facility] [place] [address] [address] Oct, Sore throat J02.9 and Acute nasopharyngitis J00 [facility] [place] [address] [place] [id number] [place] [address] Oct, Viral gastroenteritis A08.4 [facility] [place] [address] [place] [address] Sep, Chest wall pain R07.89 [place] [address] [place] [id number] [place] [address] Sep, Major depressive disorder, r ecurrent episode, moderate F33.1 [facility] [address] [place] [id number] [place] [id number] Sep, Viral syndrome B34.9 [place] [address] [place] [id number] [place] [address] Aug, Major depressive disorder, r ecurrent episode, moderate F33.1 and Anxiety, generalized F41.1 [place] [address] [place] [id number] [place] [address] Jul, [facility] [address] [place] [id number] [address] [place] [address] Jul, Viral syndrome B34.9 [place] [address] [place] [id number] [place] [address] Jun, Anxiety, generalized F41.1 a nd Major depressive disorder, recurrent episode, moderate F33.1 [place] [address] [place] [id number] [place] [address] May, Anxiety, generalized F41.1 a nd Major depressive disorder, recurrent episode, moderate F33.1 [place] [address] [address] May, Tear of medial meniscus of l eft knee, current, unspecified tear type, initial encounter S83.242A [facility] [id number] [place] [id number] May, Encounter for immunization Z 23 [place] [address] [place] [id number] [place] [address] Apr, Major depressive disorder, r ecurrent episode, moderate F33.1 and Anxiety, generalized F41.1 [place] [address] [address] Apr, Moderate single current epis ode of major depressive disorder F32.1 ; Anxiety, generalized F41.1 and Panic disorder [episodic paroxysmal anxiety] without agoraphobia F41.0 [place] [address] [place] [id number] [place] [address] Apr, Sports physical Z02.5 ; Enco unter [...] [facility] [address] [id number] [address] [place] [address] Mar, Acute pain of left knee M25. 562 [facility] [address] [id number] [place] [address] [id number] January, Irregular menses N92.6 and S creen for STD (sexually transmitted disease) Z11.3 [facility] [address] [facility] [id number] [place] [phone] January, Right lower quadrant abdomin al pain R10.31 and Flank pain R10.9 [facility] [address] [facility] [id number] [address] [place] [phone] Oct, Influenza B J10.1 [facility] [address] [facility] [id number] [address] [place] [id number] Oct, Acute nasopharyngitis J00 an d Seasonal allergic rhinitis, unspecified allergic rhinitis trigger J30.2 [facility] [address] [facility] [id number] [address] [place] [address] Jun, [facility] [address] [facility] [id number] [address] [place] [address] May, [facility] [address] [facility] [id number] [address] [place] [address] May, [facility] [address] [facility] [id number] [address] [place] [phone] May, [facility] [address] [facility] [id number] [address] [place] [phone] May, [facility] [address] [facility] [id number] [address] [place] [id number] Apr, [facility] [address] [facility] [id number] [address] [place] [address] Apr, [facility] [address] [facility] [id number] [address] [place] [phone] Apr, [facility] [address] [place] [id number] [place] [address] Apr, Arthritis of left knee M19.9 0 and Tick-borne disease B88.2 [place] [address] [place] [id number] [place] [address] Dec, [facility] [address] [place] [id number] [place] [address] [id number] 30 Nov, 2015 Encounter for immunization Z 23 [facility] [address] [address] 11 Nov, 2015 Influenza J11.1 [facility] [address] [address] 07 Nov, 2015 Anxiety F41.9 [facility] [address] [address] Sep, Sore throat J02.9 [place] [address] [address] Jul, Amenorrhea, unspecified N91. 2 and Dysuria R30.0 [place] [address] [address] Jun, Acute nasopharyngitis J00 [place] [address] [address] Jun, [place] [address] [address] Mar, Pubertal menorrhagia 626.3 ; Initiation of OCP (BCP) V25.01 and Need for HPV vaccination V04.89 [place] [address] [address] Mar, Mood disorder 296.90 and ADH D (attention deficit hyperactivity disorder), combined type 314.01 [place] [address] [address] Dec, [facility] [address] [id number] [address] [place] [address], [place] [address] 13 Dec, 2014 [facility] [address] [id number] [address] [place] [address], [place] [address] Aug, [facility] [address] [id number] [address] [place] [address], [place] [address] Aug, [facility] [address] [id number] [address] [place] [address], [place] [address] Aug, [facility] [address] [id number] [address] [place] [address], [place] [address] Aug, [facility] [address] [id number] [address] [place] [address], [place] [address] Aug, [facility] [address] [id number] [address] [place] [address], [place] [address] Aug, [facility] [address] [id number] [address] [place] [address], [place] [address] Aug, [facility] [address] [id number] [address] [place] [address], [place] [address] Jul, [facility] [address] [id number] [address] [place] [address], [place] [address] Jul, [facility] [address] [id number] [address] [place] [address], [place] [address] Jul, [facility] [address] [id number] [address] [place] [address], [place] [address] Jul, [facility] [address] [id number] [address] [place] [address], [place] [address] Jun, [facility] [address] [id number] [address] [place] [address], [place] [address] Jun, [facility] [address] [id number] [address] [place] [address], [place] [address] Jun, [facility] [address] [id number] [address] [place] [address], [place] [address] Jun, [facility] [address] [id number] [address] [place] [address], [place] [address] January, [facility] [address] [id number] [address] [place] [address], [place] [address] January, [facility] [address] [id number] [address] [place] [address], [place] [address] January, [facility] [address] [id number] [address] [place] [address], [place] [address] Nov, [facility] [address] [id number] [address] [place] [address], [place] [address] Nov, [facility] [address] [id number] [address] [place] [address], [place] [address] Aug, [facility] [address] [id number] [address] [place] [address], [place] [address] Aug, [facility] [address] [id number] [address] [place] [address], [place] [address] Aug, [facility] [address] [id number] [address] [place] [address], [place] [address] Aug, [facility] [address] [id number] [address] [place] [address], [place] [address] Aug, [facility] [address] [id number] [address] [place] [address], [place] [address] Jul, [facility] [address] [id number] [address] [place] [address], [place] [address] Jul, [facility] [address] [id number] [address] [place] [address], [place] [address] Jun, [facility] [address] [id number] [address] [place] [address], [place] [address] Jun, [facility] [address] [id number] [address] [place] [address], [place] [address] Jun, [facility] [address] [id number] [address] [place] [address], [place] [address] Jun, [facility] [address] [id number] [address] [place] [address], [place] [address] Jun, [facility] [address] [id number] [address] [place] [address], [place] [address] Jun, [facility] [address] [id number] [address] [place] [address], [place] [address] Jun, [facility] [address] [id number] [address] [place] [address], [place] [address] Jun, [facility] [address] [id number] [address] [place] [address], [place] [address] Jun, [facility] [address] [id number] [address] [place] [address], [place] [address] Nov, [facility] [address] [id number] [address] [place] [address], [place] [address] Nov, [facility] [address] [id number] [address] [place] [address], [place] [address] Oct, [facility] [address] [id number] [address] [place] [address], [place] [address] Oct, [facility] [address] [id number] [address] [place] [address], [place] [address] Jul, [facility] [address] [id number] [address] [place] [address], [place] [address] Jul, [facility] [address] [id number] [address] [place] [address], [place] [address] Jul, [facility] [address] [id number] [address] [place] [address], [place] [address] Jul, [facility] [address] [id number] [address] [place] [address], [place] [address] Jul, [facility] [address] [id number] [address] [place] [address], [place] [address] Jul, [facility] [address] [id number] [address] [place] [address], [place] [address] 31 Jun, 2012 [facility] [address] [id number] [address] [place] [address], [place] [address] Jun, [facility] [address] [id number] [address] [place] [address], [place] [address] Jun, [facility] [address] [id number] [address] [place] [address], [place] [address] 16 Jun, 2012 [facility] [address] [id number] [address] [place] [address], [place] [address] May, [facility] [address] [id number] [address] [place] [address], [place] [address] May, [facility] [address] [id number] [address] [place] [address], [place] [address] Oct, [facility] [address] [id number] [address] [place] [address], [place] [address] Sep, [facility] [address] [id number] [address] [place] [address], [place] [address] Sep, [facility] [address] [id number] [address] [place] [address], [place] [address] 29 Aug, 2011 [facility] [address] [id number] [address] [place] [address], [place] [address] 14 Aug, 2011 [facility] [address] [id number] [address] [place] [address], [place] [address] 14 Aug, 2011 [facility] [address] [id number] [address] [place] [address], [place] [address] Jun, [facility] [address] [id number] [address] [place] [address], [place] [address] 14 Sep, 2009 [facility] [address] [id number] [address] [place] [address], [place] [address] 19 Jul, 2009 [facility] [address] [id number] [address] [place] [address], [place] [address] Jul, IMMUNIZATIONS No Known Immunizations SOCIAL HISTORY Never Assessed REASON FOR VISIT f/u PLAN OF CARE Activity Details Follow Up Next available Reason: VITAL SIGNS MEDICATIONS Unknown Medications RESULTS No Results PROCEDURES Procedure Date Ordered Result Body Site Psychotherapy, patient &/family, 45 minutes, established patient Oct 28, 2017 INSTRUCTIONS MEDICATIONS ADMINISTERED No Known Medications [...]
--- OUTSIDE RECORDS SUMMARY | 2019-12-20 23:04 | XMS REPORT ---
Author Author Kathleen VIDALES ESME Organization [facility] Address Unknown Care Team Providers Care Title Closer Name Role Phone ESME VIDALES Unavailable PROBLEMS Type Condition ICD9-CM Code VVY13-IQ Code Onset Dates Condition S tatus SNOMED Code Problem Other obesity due to excess calories E66.09 Active 020428238 Problem Body mass index (BMI) of 36.0-36.9 in adult Z68.36 Active 158428538 Problem Seasonal allergic rhinitis, unspecified allergic rhinitis trigger J30.2 Active 904425413 Problem Major depressive disorder, recurrent episode, mild F33.0 Active 738204493 Problem Anxiety, generalized F41.1 Active 54994687 Problem Irregular menses N92.6 Active [id number] ALLERGIES No Information ENCOUNTERS Encounter Location Date Diagnosis [place] [address] [address] January, Major depressive disorder, r ecurrent episode, mild F33.0 ; Anxiety, generalized F41.1 and Irregular menses N92.6 [place] [address] [address] [place] [id number] [place] [address] January, Major depressive disorder, r ecurrent episode, mild F33.0 ; Anxiety, generalized F41.1 ; Seasonal allergic rhinitis, unspecified allergic rhinitis trigger J30.2 ; Irregular menses N92.6 ; Other obesity due to excess calories E66.09 ; Body mass index (BMI) of 36.0-36.9 in adult Z68.36 and Encounter for repeat prescription of oral contraceptives Z30.41 [place] [address] [address] Dec, Anxiety, generalized F41.1 a nd Major depressive disorder, recurrent episode, mild F33.0 [place] [address] [address] Nov, [facility] [address] [place] [address] Nov, Anxiety, generalized F41.1 a nd Major depressive disorder, recurrent episode, mild F33.0 [place] [address] [place] [address] 22 Oct, 2017 Anxiety, generalized F41.1 a nd Major depressive disorder, recurrent episode, mild F33.0 [facility] [address] [place] [id number] [place] [address] 13 Oct, 2017 Rectal bleeding K62.5 [facility] [place] [address] [address] 10 Oct, 2017 Sore throat J02.9 and Acute nasopharyngitis J00 [facility] [place] [address] [address] 04 Oct, 2017 Viral gastroenteritis A08.4 [facility] [address] [place] [id number] [address] [place] [address] Sep, Chest wall pain R07.89 [place] [address] [address] Sep, Major depressive disorder, r ecurrent episode, moderate F33.1 [facility] [address] [place] [id number] [place] [id number] Sep, Viral syndrome B34.9 [facility] [address] [place] [address] Aug, Major depressive disorder, r ecurrent episode, moderate F33.1 and Anxiety, generalized F41.1 [place] [address] [place] [id number] [place] [address] Jul, [facility] [address] [place] [id number] [address] [place] [address] Jul, Viral syndrome B34.9 [facility] [address] [facility] [id number] [address] [place] [address] Jun, Anxiety, generalized F41.1 a nd Major depressive disorder, recurrent episode, moderate F33.1 [place] [address] [address] [facility] [id number] [address] [place] [address] May, Anxiety, generalized F41.1 a nd Major depressive disorder, recurrent episode, moderate F33.1 [place] [address] [address] [facility] [id number] [address] [place] [address] 21 May, 2017 Tear of medial meniscus of l eft knee, current, unspecified tear type, initial encounter S83.242A [facility] [address] [place] [id number] [place] [id number] 13 May, 2017 Encounter for immunization Z 23 [place] [address] [address] [place] [id number] [address] [place] [address] 31 Apr, 2017 Major depressive disorder, r ecurrent episode, moderate F33.1 and Anxiety, generalized F41.1 [place] [address] [place] [address] 10 Apr, 2017 Moderate single current epis ode of major depressive disorder F32.1 ; Anxiety, generalized F41.1 and Panic disorder [episodic paroxysmal anxiety] without agoraphobia F41.0 [place] [address] [address] [place] [id number] [place] [address] Apr, Sports physical Z02.5 ; Enco unter [...] Acute pain of right knee M25.561 [facility] [address] [facility] [id number] [address] [place] [address] Mar, Acute pain of left knee M25. 562 [facility] [address] [facility] [id number] [place] [id number] January, Irregular menses N92.6 and S creen for STD (sexually transmitted disease) Z11.3 [facility] [address] [place] [id number] [place] [id number] January, Right lower quadrant abdomin al pain R10.31 and Flank pain R10.9 [facility] [address] [place] [address] Oct, Influenza B J10.1 [facility] [address] [facility] [id number] [address] [place] [address] Oct, Acute nasopharyngitis J00 an d Seasonal allergic rhinitis, unspecified allergic rhinitis trigger J30.2 [facility] [address] [place] [id number] [place] [address] Jun, [facility] [address] [place] [id number] [address] [place] [address] May, [facility] [address] [place] [id number] [address] [place] [address] May, [facility] [address] [address] May, [facility] [address] [place] [address] May, [facility] [address] [place] [address] Apr, [facility] [address] [place] [id number] [address] [place] [address] Apr, [facility] [address] [place] [address] Apr, [facility] [address] [place] [id number] [address] [place] [address] Apr, Arthritis of left knee M19.9 0 and Tick-borne disease B88.2 [facility] [address] [place] [id number] [address] [place] [address] 14 Dec, 2015 [facility] [address] [place] [id number] [place] [address] [id number] 30 Nov, 2015 Encounter for immunization Z 23 [facility] [address] [address] 11 Nov, 2015 Influenza J11.1 [facility] [address] [address] 07 Nov, 2015 Anxiety F41.9 [facility] [address] [address] Sep, Sore throat J02.9 [facility] [address] [address] Jul, Amenorrhea, unspecified N91. 2 and Dysuria R30.0 [facility] [address] [address] Jun, Acute nasopharyngitis J00 [place] [address] [address] Jun, [facility] [address] [address] Mar, Pubertal menorrhagia 626.3 ; Initiation of OCP (BCP) V25.01 and Need for HPV vaccination V04.89 [facility] [address] [address] Mar, Mood disorder 296.90 and ADH D (attention deficit hyperactivity disorder), combined type 314.01 [facility] [address] [address] Dec, [facility] [address] [address] Dec, [facility] [address] [address] Aug, [facility] [address] [id number] [address] [place] [address], [place] [address] Aug, [facility] [address] [id number] [address] [place] [address], [place] [address] Aug, [facility] [address] [id number] [address] [place] [address], [place] [address] Aug, [facility] [address] [id number] [address] [place] [address], [place] [address] Aug, [facility] [address] [id number] [address] [place] [address], [place] [address] Aug, [facility] [address] [id number] [address] [place] [address], [place] [address] Aug, [facility] [address] [id number] [address] [place] [address], [place] [address] Jul, [facility] [address] [id number] [address] [place] [address], [place] [address] Jul, [facility] [address] [id number] [address] [place] [address], [place] [address] Jul, [facility] [address] [id number] [address] [place] [address], [place] [address] Jul, [facility] [address] [id number] [address] [place] [address], [place] [address] Jun, [facility] [address] [id number] [address] [place] [address], [place] [address] Jun, [facility] [address] [id number] [address] [place] [address], [place] [address] Jun, [facility] [address] [id number] [address] [place] [address], [place] [address] Jun, [facility] [address] [id number] [address] [place] [address], [place] [address] January, [facility] [address] [id number] [address] [place] [address], [place] [address] January, [facility] [address] [id number] [address] [place] [address], [place] [address] January, [facility] [address] [id number] [address] [place] [address], [place] [address] Nov, [facility] [address] [id number] [address] [place] [address], [place] [address] Nov, [facility] [address] [id number] [address] [place] [address], [place] [address] Aug, [facility] [address] [id number] [address] [place] [address], [place] [address] Aug, [facility] [address] [id number] [address] [place] [address], [place] [address] Aug, [facility] [address] [id number] [address] [place] [address], [place] [address] Aug, [facility] [address] [id number] [address] [place] [address], [place] [address] Aug, [facility] [address] [id number] [address] [place] [address], [place] [address] Jul, [facility] [address] [id number] [address] [place] [address], [place] [address] Jul, [facility] [address] [id number] [address] [place] [address], [place] [address] Jun, [facility] [address] [id number] [address] [place] [address], [place] [address] Jun, [facility] [address] [id number] [address] [place] [address], [place] [address] Jun, [facility] [address] [id number] [address] [place] [address], [place] [address] Jun, [facility] [address] [id number] [address] [place] [address], [place] [address] Jun, [facility] [address] [id number] [address] [place] [address], [place] [address] Jun, [facility] [address] [id number] [address] [place] [address], [place] [address] Jun, [facility] [address] [id number] [address] [place] [address], [place] [address] Jun, [facility] [address] [id number] [address] [place] [address], [place] [address] Jun, [facility] [address] [id number] [address] [place] [address], [place] [address] Nov, [facility] [address] [id number] [address] [place] [address], [place] [address] Nov, [facility] [address] [id number] [address] [place] [address], [place] [address] Oct, [facility] [address] [id number] [address] [place] [address], [place] [address] Oct, [facility] [address] [id number] [address] [place] [address], [place] [address] Jul, [facility] [address] [id number] [address] [place] [address], [place] [address] Jul, [facility] [address] [id number] [address] [place] [address], [place] [address] Jul, [facility] [address] [id number] [address] [place] [address] Jul, [facility] [address] [id number] [address] [place] [address], [place] [address] Jul, [facility] [address] [id number] [address] [place] [address], [place] [address] Jul, [facility] [address] [id number] [address] [place] [address], [place] [address] Jun, [facility] [address] [id number] [address] [place] [address] Jun, [facility] [address] [id number] [address] [place] [address] Jun, [facility] [address] [id number] [address] [place] [id number] 16 Jun, 2012 [facility] [address] [id number] [address] [place] [address] May, [facility] [address] [id number] [address] [place] [address] May, [facility] [address] [id number] [address] [place] [address] Oct, [facility] [address] [id number] [address] [place] [address] Sep, [facility] [address] [id number] [address] [place] [address] Sep, [facility] [address] [id number] [address] [place] [address] Aug, [facility] [address] [id number] [address] [place] [address] Aug, [facility] [address] [id number] [address] [place] [address] Aug, [facility] [address] [id number] [address] [place] [address] Jun, [facility] [address] [id number] [address] [place] [address] 14 Sep, 2009 [facility] [address] [id number] [address] [place] [address] Jul, [facility] [address] [id number] [address] [place] [address] Jul, IMMUNIZATIONS No Known Immunizations SOCIAL HISTORY Never Assessed REASON FOR VISIT f/u PLAN OF CARE Activity Details Follow Up Next available Reason: VITAL SIGNS MEDICATIONS Unknown Medications RESULTS No Results PROCEDURES Procedure Date Ordered Result Body Site Psychotherapy, patient &/family, 30 minutes, established patient Aug 09, 2017 INSTRUCTIONS MEDICATIONS ADMINISTERED No Known Medications [...]
--- OUTSIDE RECORDS SUMMARY | 2019-12-20 23:05 | XMS REPORT ---
Author Author Kathleen BLANC Organization [facility] Address [address] [place] [address] Care Team Providers Care Door Patcher Name Role Phone LEON BLANCON Unavailable PROBLEMS Type Condition ICD9-CM Code ANH37-JC Code Onset Dates Condition S tatus SNOMED Code Problem Other obesity due to excess calories E66.09 Active 208056213 Problem Body mass index (BMI) of 36.0-36.9 in adult Z68.36 Active 648298224 Problem Seasonal allergic rhinitis, unspecified allergic rhinitis trigger J30.2 Active 359014229 Problem Major depressive disorder, recurrent episode, mild F33.0 Active 881219784 Problem Anxiety, generalized F41.1 Active 36052270 Problem Irregular menses N92.6 Active 386 042724 ALLERGIES No Information ENCOUNTERS Encounter Location Date Diagnosis [place] [address] [place] [id number] [address] [place] [id number] January, Major depressive disorder, r ecurrent episode, mild F33.0 ; Anxiety, generalized F41.1 and Irregular menses N92.6 [place] [address] [place] [id number] [address] [place] [address] January, Major depressive disorder, r ecurrent episode, mild F33.0 ; Anxiety, generalized F41.1 ; Seasonal allergic rhinitis, unspecified allergic rhinitis trigger J30.2 ; Irregular menses N92.6 ; Other obesity due to excess calories E66.09 ; Body mass index (BMI) of 36.0-36.9 in adult Z68.36 and Encounter for repeat prescription of oral contraceptives Z30.41 [facility] [address] [place] [id number] [address] [place] [address] Dec, Anxiety, generalized F41.1 a nd Major depressive disorder, recurrent episode, mild F33.0 [place] [address] [place] [id number] [address] [place] [id number] 13 Nov, 2017 [facility] [address] [facility] [id number] [address] [place] [address] Nov, Anxiety, generalized F41.1 a nd Major depressive disorder, recurrent episode, mild F33.0 [facility] [address] [place] [id number] [address] [place] [address] 22 Oct, 2017 Anxiety, generalized F41.1 a nd Major depressive disorder, recurrent episode, mild F33.0 [facility] [address] [facility] [id number] [address] [place] [id number] 13 Oct, 2017 Rectal bleeding K62.5 [facility] WALK IN [place] [address] [place] [id number] [address] [place] [id number] 10 Oct, 2017 Sore throat J02.9 and Acute nasopharyngitis J00 [facility] WALK IN [place] [address] [place] [id number] [address] [place] [id number] 04 Oct, 2017 Viral gastroenteritis A08.4 [facility] WALK IN [place] [address] [place] [id number] [address] [place] [address] Sep, Chest wall pain R07.89 [facility] [address] [place] [id number] [address] [place] [address] Sep, Major depressive disorder, r ecurrent episode, moderate F33.1 [facility] [address] [place] [id number] [place] [id number] Sep, Viral syndrome B34.9 [facility] [address] [place] [id number] [address] [place] [address] Aug, Major depressive disorder, r ecurrent episode, moderate F33.1 and Anxiety, generalized F41.1 [facility] [address] [place] [id number] [address] [place] [address] Jul, [facility] WALK IN [facility] [address] [place] [id number] [address] [place] [address] Jul, Viral syndrome B34.9 [facility] [address] [place] [id number] [address] [place] [address] Jun, Anxiety, generalized F41.1 a nd Major depressive disorder, recurrent episode, moderate F33.1 [facility] [address] [facility] [id number] [address] [place] [address] May, Anxiety, generalized F41.1 a nd Major depressive disorder, recurrent episode, moderate F33.1 [place] [address] [place] [id number] [address] [place] [address] May, Tear of medial meniscus of l eft knee, current, unspecified tear type, initial encounter S83.242A [facility] [address] [place] [id number] [place] [address] [id number] 13 May, 2017 Encounter for immunization Z 23 [place] [address] [place] [id number] [address] [place] [address] Apr, Major depressive disorder, r ecurrent episode, moderate F33.1 and Anxiety, generalized F41.1 [place] [address] [place] [id number] [address] [place] [address] Apr, Moderate single current epis ode of major depressive disorder F32.1 ; Anxiety, generalized F41.1 and Panic disorder [episodic paroxysmal anxiety] without agoraphobia F41.0 [place] [address] [place] [id number] [address] [place] [address] Apr, Sports physical Z02.5 ; Enco unter [...] and Acute pain of right knee M25.561 [facility] CARE [address] [place] [id number] [address] [place] [address] Mar, Acute pain of left knee M25. 562 [facility] [address] [facility] [id number] [place] [address] [id number] January, Irregular menses N92.6 and S creen for STD (sexually transmitted disease) Z11.3 [facility] [address] [facility] [id number] [place] [address] [id number] January, Right lower quadrant abdomin al pain R10.31 and Flank pain R10.9 [facility] [address] [place] [id number] [address] [place] [address] Oct, Influenza B J10.1 [facility] IN [facility] [address] [place] [address] Oct, Acute nasopharyngitis J00 an d Seasonal allergic rhinitis, unspecified allergic rhinitis trigger J30.2 [facility] [address] [place] [id number] [address] [place] [address] Jun, [facility] [address] [place] [id number] [address] [place] [id number] May, [facility] [address] [place] [id number] [address] [place] [address] May, [facility] [address] [place] [id number] [address] [place] [address] May, [facility] [address] [place] [id number] [address] [place] [address] May, [facility] [address] [place] [id number] [address] [place] [phone] Apr, [facility] [address] [place] [id number] [address] [place] [id number] Apr, [facility] [address] [place] [id number] [address] [place] [id number] Apr, [facility] [address] [place] [id number] [address] [place] [address] Apr, Arthritis of left knee M19.9 0 and Tick-borne disease B88.2 [facility] [address] [place] [id number] [address] [place] [id number] 14 Dec, 2015 [facility] [address] [place] [id number] [place] [address] [id number] 30 Nov, 2015 Encounter for immunization Z 23 [place] [address] [address] 11 Nov, 2015 Influenza J11.1 [facility] W[facility] IN CARE [address] [address] 07 Nov, 2015 Anxiety F41.9 [facility] WALK IN CARE [facility] N [address] [address] Sep, Sore throat J02.9 [place] [address] [address] Jul, Amenorrhea, unspecified N91. 2 and Dysuria R30.0 [place] [address] [address] Jun, Acute nasopharyngitis J00 [place] [address] [address] Jun, [place] [address] [address] Mar, Pubertal menorrhagia 626.3 ; Initiation of OCP (BCP) V25.01 and Need for HPV vaccination V04.89 [place] [address] [place] [id number] [address] [place] [address] Mar, Mood disorder 296.90 and ADH D (attention deficit hyperactivity disorder), combined type 314.01 [place] [address] [address] Dec, [facility] [address] [address] Dec, [facility] [address] [id number] [address] [place] [address], [place] [address] Aug, [facility] [address] [id number] [address] [place] [address], [place] [address] Aug, [facility] [address] [id number] [address] [place] [address], [place] [address] Aug, [facility] [address] [id number] [address] [place] [address], [place] [address] Aug, [facility] [address] [id number] [address] [place] [address], [place] [address] Aug, [facility] [address] [id number] [address] [place] [address], [place] [address] Aug, [facility] [address] [id number] [address] [place] [address], [place] [address] Aug, [facility] [address] [id number] [address] [place] [address], [place] [address] Jul, [facility] [address] [id number] [address] [place] [address], [place] [address] Jul, [facility] [address] [id number] [address] [place] [address], [place] [address] Jul, [facility] [address] [id number] [address] [place] [address], [place] [address] Jul, [facility] [address] [id number] [address] [place] [address], [place] [address] Jun, [facility] [address] [id number] [address] [place] [address], [place] [address] Jun, [facility] [address] [id number] [address] [place] [address], [place] [address] Jun, [facility] [address] [id number] [address] [place] [address], [place] [address] Jun, [facility] [address] [id number] [address] [place] [address], [place] [address] January, [facility] [address] [id number] [address] [place] [address], [place] [address] January, [facility] [address] [id number] [address] [place] [address], [place] [address] January, [facility] [address] [id number] [address] [place] [address], [place] [address] Nov, [facility] [address] [id number] [address] [place] [address], [place] [address] Nov, [facility] [address] [id number] [address] [place] [address], [place] [address] Aug, [facility] [address] [id number] [address] [place] [address], [place] [address] Aug, [facility] [address] [id number] [address] [place] [address], [place] [address] Aug, [facility] [address] [id number] [address] [place] [address], [place] [address] Aug, [facility] [address] [id number] [address] [place] [address], [place] [address] Aug, [facility] [address] [id number] [address] [place] [address], [place] [address] Jul, [facility] [address] [id number] [address] [place] [address], [place] [address] Jul, [facility] [address] [id number] [address] [place] [address] Jun, [facility] [address] [id number] [address] [place] [address], [place] [address] Jun, [facility] [address] [id number] [address] [place] [address], [place] [address] Jun, [facility] [address] [id number] [address] [place] [address], [place] [address] Jun, [facility] [address] [id number] [address] [place] [address] Jun, [facility] [address] [id number] [address] [place] [address], [place] [address] Jun, [facility] [address] [id number] [address] [place] [address], [place] [address] Jun, [facility] [address] [id number] [address] [place] [address], [place] [address] Jun, [facility] [address] [id number] [address] [place] [address], [place] [address] Jun, [facility] [address] [id number] [address] [place] [address], [place] [address] Nov, [facility] [address] [id number] [address] [place] [address], [place] [address] Nov, [facility] [address] [id number] [address] [place] [address], [place] [address] Oct, [facility] [address] [id number] [address] [place] [address], [place] [address] Oct, [facility] [address] [id number] [address] [place] [address], [place] [address] Jul, [facility] [address] [id number] [address] [place] [address], [place] [address] Jul, [facility] [address] [id number] [address] [place] [address], [place] [address] Jul, [facility] [address] [id number] [address] [place] [address], [place] [address] Jul, [facility] [address] [id number] [address] [place] [address], [place] [address] Jul, [facility] [address] [id number] [address] [place] [address], [place] [address] Jul, [facility] [address] [id number] [address] [place] [address], [place] [address] Jun, [facility] [address] [id number] [address] [place] [address] Jun, [facility] [address] [id number] [address] [place] [address] Jun, [facility] [address] [id number] [address] [place] [address] Jun, [facility] [address] [id number] [address] [place] [address] May, [facility] [address] [id number] [address] [place] [address] May, [facility] [address] [id number] [address] [place] [address] Oct, [facility] [address] [id number] [address] [place] [address] Sep, [facility] [address] [id number] [address] [place] [address] Sep, [facility] [address] [id number] [address] [place] [address] Aug, [facility] [address] [id number] [address] [place] [address] Aug, [facility] [address] [id number] [address] [place] [address] Aug, [facility] [address] [id number] [address] [place] [address] Jun, [facility] [address] [id number] [address] [place] [address] Sep, [facility] [address] [id number] [address] [place] [address] Jul, [facility] [address] [id number] [address] [place] [address] Jul, IMMUNIZATIONS No Known Immunizations SOCIAL HISTORY Never Assessed REASON FOR VISIT Left knee pain-xray done PLAN OF CARE Activity Details Follow Up prn Reason: VITAL SIGNS MEDICATIONS Unknown Medications RESULTS Name Result Date Reference Range MRI : Knee, Left w/o contrast 2017-06-02 MRI : Knee, Left w/o contrast 2017-06-02 PROCEDURES No Known procedures INSTRUCTIONS MEDICATIONS ADMINISTERED [...]
--- OUTSIDE RECORDS SUMMARY | 2019-12-20 23:05 | XMS REPORT ---
Author Author Kathleen COBOS Organization [facility] Address [address] [place] [address] Care Team Providers Care Marble Coper Name Role Phone LAKSHMI COBOS Unavailable PROBLEMS Type Condition ICD9-CM Code [id number] Code Onset Dates Condition S tatus SNOMED Code Problem Major depressive disorder, recurrent episode, mild F33.0 Active 538429224 Problem Irregular menses N92.6 Active 386 787539 Problem Seasonal allergic rhinitis, unspecified allergic rhinitis trigger J30.2 Active 921749322 Problem Anxiety, generalized F41.1 Active 32980447 Problem Heart palpitations R00.2 Active 8 2357535 Problem Acute pain of right knee M25.561 Activ e 02569481 Problem Family history of heart disease in male family m ember before age 55 Z82.49 Active 373993737 Problem Overweight E66.3 Active 486117937 Problem High risk medication use Z79.899 Activ e [id number] ALLERGIES No Information ENCOUNTERS Encounter Location Date Diagnosis [facility] [address] [facility] [id number] [address] [place] [address] January, [facility] [address] [facility] [id number] [address] [place] [id number] Dec, [facility] [address] [facility] [id number] [address] [place] [address] Nov, [facility] [address] [facility] [id number] [address] [place] [address] Nov, Anxiety, generalized F41.1 a nd Major depressive disorder, recurrent episode, mild F33.0 [facility] [address] [facility] [id number] [address] [place] [address] Oct, Anxiety, generalized F41.1 a nd Major depressive disorder, recurrent episode, mild F33.0 [place] [id number] [place] [address] 13 Oct, 2017 Rectal bleeding K62.5 [facility] [id number] [place] [address] 10 Oct, 2017 Sore throat J02.9 and Acute nasopharyngitis J00 [facility] [place] [address] [id number] 04 Oct, 2017 Viral gastroenteritis A08.4 [facility] [place] [address] [place] [id number] [address] [place] [address] Sep, Chest wall pain R07.89 [place] [address] [address] Sep, Major depressive disorder, r ecurrent episode, moderate F33.1 [facility] [place] [address] [place] [id number] [place] [id number] Sep, Viral syndrome B34.9 [place] [address] [address] Aug, Major depressive disorder, r ecurrent episode, moderate F33.1 and Anxiety, generalized F41.1 [place] [address] [address] Jul, [facility] [place] [address] [place] [id number] [address] [place] [address] Jul, Viral syndrome B34.9 [place] [address] [place] [id number] [address] [place] [address] Jun, Anxiety, generalized F41.1 a nd Major depressive disorder, recurrent episode, moderate F33.1 [place] [address] [place] [id number] [address] [place] [address] May, Anxiety, generalized F41.1 a nd Major depressive disorder, recurrent episode, moderate F33.1 [place] [address] [address] 21 May, 2017 Tear of medial meniscus of l eft knee, current, unspecified tear type, initial encounter S83.242A [facility] [place] [address] [place] [id number] [place] [id number] 13 May, 2017 Encounter for immunization Z 23 [facility] [address] [place] [id number] [address] [place] [address] 31 Apr, 2017 Major depressive disorder, r ecurrent episode, moderate F33.1 and Anxiety, generalized F41.1 [place] [address] [facility] [id number] [address] [place] [phone] Apr, Moderate single current epis ode of major depressive disorder F32.1 ; Anxiety, generalized F41.1 and Panic disorder [episodic paroxysmal anxiety] without agoraphobia F41.0 [place] [address] [address] Apr, Sports physical Z02.5 ; Enco unter [...] of right knee M25.561 [facility] [address] [place] [id number] [address] [place] [address] Mar, Acute pain of left knee M25. 562 [facility] [place] [address] [facility] [id number] [address] [place] [id number] January, Irregular menses N92.6 and S creen for STD (sexually transmitted disease) Z11.3 [facility] [place] [address] [place] [id number] [address] [place] [address] [id number] January, Right lower quadrant abdomin al pain R10.31 and Flank pain R10.9 [facility] [address] [place] [id number] [address] [place] [address] Oct, Influenza B J10.1 [facility] [address] [facility] [id number] [address] [place] [address] Oct, Acute nasopharyngitis J00 an d Seasonal allergic rhinitis, unspecified allergic rhinitis trigger J30.2 [facility] [address] [facility] [id number] [address] [place] [id number] Jun, [facility] [address] [facility] [id number] [address] [place] [address] May, [facility] [address] [facility] [id number] [address] [place] [address] May, [facility] [address] [facility] [id number] [address] [place] [address] May, [facility] [address] [facility] [id number] [address] [place] [address] May, [facility] [address] [facility] [id number] [address] [place] [phone] Apr, [facility] [address] [facility] [id number] [address] [place] [address] Apr, [facility] [address] [facility] [id number] [address] [place] [address] Apr, [facility] [address] [facility] [id number] [address] [place] [address] Apr, Arthritis of left knee M19.9 0 and Tick-borne disease B88.2 [facility] [address] [facility] [id number] [address] [place] [address] Dec, [facility] [place] [address] [facility] [id number] [place] [address] [id number] Nov, Encounter for immunization Z 23 [facility] [address] [facility] [id number] [address] [place] [address] Nov, Influenza J11.1 [facility] [address] [place] [id number] [address] [place] [id number] 07 Nov, 2015 Anxiety F41.9 [facility] [address] [place] [id number] [place] [address] Sep, Sore throat J02.9 [facility] [address] [place] [id number] [place] [address] Jul, Amenorrhea, unspecified N91. 2 and Dysuria R30.0 [facility] [address] [id number] Jun, Acute nasopharyngitis J00 [facility] [address] [address] Jun, [facility] [address] [address] Mar, Pubertal menorrhagia 626.3 ; Initiation of OCP (BCP) V25.01 and Need for HPV vaccination V04.89 [facility] [address] [address] Mar, Mood disorder 296.90 and ADH D (attention deficit hyperactivity disorder), combined type 314.01 [facility] [address] [id number] Dec, [facility] [address] [address] Dec, [facility] [address] [address] Aug, [facility] [address] [id number] Aug, [facility] [address] [address] Aug, [facility] [address] [id number] Aug, [facility] [address] [place] [address] Aug, [facility] [address] [id number] [address] [place] [address], [place] [address] Aug, [facility] [place] [facility] [address] [id number] [address] [place] [address], [place] [address] Aug, [facility] [place] [facility] [address] [id number] [address] [place] [address], [place] [address] Jul, [facility] [place] [facility] [address] [id number] [address] [place] [address], [place] [address] Jul, [facility] [place] [facility] [address] [id number] [address] [place] [address], [place] [address] Jul, [facility] [place] [facility] [address] [id number] [address] [place] [address], [place] [address] Jul, [facility] [address] [id number] [address] [place] [address], [place] [address] Jun, [facility] [place] [facility] [address] [id number] [address] [place] [address], [place] [address] Jun, [facility] [place] [facility] [address] [id number] [address] [place] [address], [place] [address] Jun, [facility] [place] [facility] [address] [id number] [address] [place] [address], [place] [address] Jun, [facility] [place] [facility] [address] [id number] [address] [place] [address], [place] [address] January, [facility] [address] [id number] [address] [place] [address], [place] [address] January, [facility] [place] [facility] [address] [id number] [address] [place] [address], [place] [address] January, [facility] [address] [id number] [address] [place] [address], [place] [address] Nov, [facility] [address] [id number] [address] [place] [address], [place] [address] Nov, [facility] [address] [id number] [address] [place] [address], [place] [address] Aug, [facility] [address] [id number] [address] [place] [address], [place] [address] Aug, [facility] [address] [id number] [address] [place] [address], [place] [address] Aug, [facility] [address] [id number] [address] [place] [address], [place] [address] Aug, [facility] [address] [id number] [address] [place] [address], [place] [address] Aug, [facility] [address] [id number] [address] [place] [address], [place] [address] Jul, [facility] [address] [id number] [address] [place] [address], [place] [address] Jul, [facility] [address] [id number] [address] [place] [address], [place] [address] Jun, [facility] [address] [id number] [address] [place] [address], [place] [address] Jun, [facility] [address] [id number] [address] [place] [address], [place] [address] Jun, [facility] [address] [id number] [address] [place] [address], [place] [address] Jun, [facility] [address] [id number] [address] [place] [address], [place] [address] 24 Jun, 2013 [facility] [address] [id number] [address] [place] [address], [place] [address] Jun, [facility] [address] [id number] [address] [place] [address], [place] [address] 17 Jun, 2013 [facility] [address] [id number] [address] [place] [address], [place] [address] 10 Jun, 2013 [facility] [address] [id number] [address] [place] [address] Jun, [facility] [address] [id number] [address] [place] [address], [place] [address] Nov, [facility] [address] [id number] [address] [place] [address], [place] [address] Nov, [facility] [address] [id number] [address] [place] [address], [place] [address] Oct, [facility] [address] [id number] [address] [place] [address] Oct, [facility] [address] [id number] [address] [place] [address], [place] [address] Jul, [facility] [address] [id number] [address] [place] [address], [place] [address] Jul, [facility] [address] [id number] [address] [place] [address] Jul, [facility] [address] [id number] [address] [place] [address], [place] [address] Jul, [facility] [address] [id number] [address] [place] [address], [place] [address] Jul, [facility] [address] [id number] [address] [place] [address], [place] [address] Jul, [facility] [address] [id number] [address] [place] [address] Jun, [facility] [address] [id number] [address] [place] [address] Jun, [facility] [address] [id number] [address] [place] [address], [place] [address] Jun, [facility] [address] [id number] [address] [place] [address], [place] [address] 16 Jun, 2012 [facility] [address] [id number] [address] [place] [address], [place] [address] May, [facility] [address] [id number] [address] [place] [address] May, [facility] [address] [id number] [address] [place] [address] Oct, [facility] [address] [id number] [address] [place] [address] Sep, [facility] [address] [id number] [address] [place] [address] Sep, [facility] [address] [id number] [address] [place] [address] Aug, [facility] [address] [id number] [address] [place] [address] Aug, [facility] [address] [id number] [address] [place] [address] Aug, [facility] [address] [id number] [address] [place] [address] Jun, [facility] [address] [id number] [address] [place] [address] Sep, [facility] [address] [id number] [address] [place] [address] Jul, [facility] [address] [id number] [address] [place] [address] Jul, IMMUNIZATIONS No Known Immunizations SOCIAL HISTORY Never Assessed REASON FOR VISIT [facility] Contact PLAN OF CARE Activity Details Follow Up Patient and her mother agree d to an emergency intake next week with Alana Vasquez. Reason: VITAL SIGNS MEDICATIONS Unknown Medications RESULTS No Results PROCEDURES Procedure Date Ordered Result Body Site Crisis psychotherapy, first 60 minutes, new patient Apr 15, 2017 INSTRUCTIONS MEDICATIONS ADMINISTERED No Known [...]
--- OUTSIDE RECORDS SUMMARY | 2019-12-20 23:05 | XMS REPORT ---
Author Author Kathleen VIDALES ESME Organization [facility] Address Unknown Care Team Providers Care Decision Science Analyst Name Role Phone ESME VIDALES Unavailable PROBLEMS Type Condition ICD9-CM Code DTB33-HN Code Onset Dates Condition S tatus SNOMED Code Problem Other obesity due to excess calories E66.09 Active 887890384 Problem Body mass index (BMI) of 36.0-36.9 in adult Z68.36 Active 571678031 Problem Seasonal allergic rhinitis, unspecified allergic rhinitis trigger J30.2 Active 999685456 Problem Major depressive disorder, recurrent episode, mild F33.0 Active 871845672 Problem Anxiety, generalized F41.1 Active 99069634 Problem Irregular menses N92.6 Active [id number] ALLERGIES No Information ENCOUNTERS Encounter Location Date Diagnosis [place] [address] [address] January, Major depressive disorder, r ecurrent episode, mild F33.0 ; Anxiety, generalized F41.1 and Irregular menses N92.6 [place] [address] [address] [place] [id number] [place] [id number] January, Major depressive disorder, r ecurrent episode, mild F33.0 ; Anxiety, generalized F41.1 ; Seasonal allergic rhinitis, unspecified allergic rhinitis trigger J30.2 ; Irregular menses N92.6 ; Other obesity due to excess calories E66.09 ; Body mass index (BMI) of 36.0-36.9 in adult Z68.36 and Encounter for repeat prescription of oral contraceptives Z30.41 [place] [address] [address] Dec, Anxiety, generalized F41.1 a nd Major depressive disorder, recurrent episode, mild F33.0 [place] [address] [address] Nov, [facility] [address] [place] [phone] Nov, Anxiety, generalized F41.1 a nd Major depressive disorder, recurrent episode, mild F33.0 [place] [address] [place] [id number] 22 Oct, 2017 Anxiety, generalized F41.1 a nd Major depressive disorder, recurrent episode, mild F33.0 [facility] [address] [place] [id number] [address] [place] [id number] 13 Oct, 2017 Rectal bleeding K62.5 [facility] [place] [address] [address] 10 Oct, 2017 Sore throat J02.9 and Acute nasopharyngitis J00 [facility] [place] [address] [address] 04 Oct, 2017 Viral gastroenteritis A08.4 [facility] [address] [place] [id number] [address] [place] [id number] Sep, Chest wall pain R07.89 [place] [address] [address] Sep, Major depressive disorder, r ecurrent episode, moderate F33.1 [facility] [address] [place] [id number] [place] [id number] Sep, Viral syndrome B34.9 [facility] [address] [place] [phone] Aug, Major depressive disorder, r ecurrent episode, moderate F33.1 and Anxiety, generalized F41.1 [place] [address] [address] [place] [id number] [place] [id number] Jul, [facility] [address] [place] [id number] [address] [place] [id number] Jul, Viral syndrome B34.9 [facility] [address] [facility] [id number] [address] [place] [id number] Jun, Anxiety, generalized F41.1 a nd Major depressive disorder, recurrent episode, moderate F33.1 [place] [address] [address] [facility] [id number] [address] [place] [id number] May, Anxiety, generalized F41.1 a nd Major depressive disorder, recurrent episode, moderate F33.1 [place] [address] [address] [facility] [id number] [address] [place] [id number] 21 May, 2017 Tear of medial meniscus of l eft knee, current, unspecified tear type, initial encounter S83.242A [facility] [address] [place] [id number] [place] [address] [id number] 13 May, 2017 Encounter for immunization Z 23 [place] [address] [address] [place] [id number] [address] [place] [id number] 31 Apr, 2017 Major depressive disorder, r ecurrent episode, moderate F33.1 and Anxiety, generalized F41.1 [place] [address] [place] [id number] 10 Apr, 2017 Moderate single current epis ode of major depressive disorder F32.1 ; Anxiety, generalized F41.1 and Panic disorder [episodic paroxysmal anxiety] without agoraphobia F41.0 [place] [address] [address] [place] [id number] [address] [place] [phone] Apr, Sports physical Z02.5 ; Enco unter [...] and Acute pain of right knee M25.561 [facility] [address] [facility] [id number] [address] [place] [id number] Mar, Acute pain of left knee M25. 562 [facility] [address] [facility] [id number] [place] [id number] January, Irregular menses N92.6 and S creen for STD (sexually transmitted disease) Z11.3 [facility] [address] [place] [id number] [place] [address] [id number] January, Right lower quadrant abdomin al pain R10.31 and Flank pain R10.9 [facility] [address] [place] [id number] Oct, Influenza B J10.1 [facility] [address] [facility] [id number] [address] [place] [id number] Oct, Acute nasopharyngitis J00 an d Seasonal allergic rhinitis, unspecified allergic rhinitis trigger J30.2 [facility] [address] [place] [id number] [place] [phone] Jun, [facility] [address] [place] [id number] [place] [id number] May, [facility] [address] [place] [id number] [place] [phone] May, [facility] [address] [address] May, [facility] [address] [place] [id number] May, [facility] [address] [place] [phone] Apr, [facility] [address] [place] [id number] [address] [place] [id number] Apr, [facility] [address] [place] [id number] Apr, [facility] [address] [place] [id number] [address] [place] [phone] Apr, Arthritis of left knee M19.9 0 and Tick-borne disease B88.2 [facility] [address] [place] [id number] [place] [id number] 14 Dec, 2015 [facility] [address] [place] [id number] [place] [id number] 30 Nov, 2015 Encounter for immunization Z 23 [facility] [address] [address] 11 Nov, 2015 Influenza J11.1 [facility] [address] [id number] 07 Nov, 2015 Anxiety F41.9 [facility] [address] [address] Sep, Sore throat J02.9 [facility] [address] [address] Jul, Amenorrhea, unspecified N91. 2 and Dysuria R30.0 [facility] [address] [id number] Jun, Acute nasopharyngitis J00 [place] [address] [address] Jun, [facility] [address] [address] Mar, Pubertal menorrhagia 626.3 ; Initiation of OCP (BCP) V25.01 and Need for HPV vaccination V04.89 [facility] [address] [address] Mar, Mood disorder 296.90 and ADH D (attention deficit hyperactivity disorder), combined type 314.01 [facility] [address] [address] Dec, [facility] [address] [address] Dec, [facility] [address] [address] Aug, [facility] [address] [id number] [address] [place] [address], [place] [address] Aug, [facility] [address] [id number] [address] [place] [address], [place] [address] Aug, [facility] [address] [id number] [address] [place] [address], [place] [address] Aug, [facility] [address] [id number] [address] [place] [address], [place] [address] Aug, [facility] [address] [id number] [address] [place] [address], [place] [address] Aug, [facility] [address] [id number] [address] [place] [address], [place] [address] Aug, [facility] [address] [id number] [address] [place] [address], [place] [address] Jul, [facility] [address] [id number] [address] [place] [address], [place] [address] Jul, [facility] [address] [id number] [address] [place] [address], [place] [address] Jul, [facility] [address] [id number] [address] [place] [address], [place] [address] Jul, [facility] [address] [id number] [address] [place] [address], [place] [address] Jun, [facility] [address] [id number] [address] [place] [address], [place] [address] Jun, [facility] [address] [id number] [address] [place] [address], [place] [address] Jun, [facility] [address] [id number] [address] [place] [address], [place] [address] Jun, [facility] [address] [id number] [address] [place] [address], [place] [address] January, [facility] [address] [id number] [address] [place] [address], [place] [address] January, [facility] [address] [id number] [address] [place] [address], [place] [address] January, [facility] [address] [id number] [address] [place] [address], [place] [address] Nov, [facility] [address] [id number] [address] [place] [address], [place] [address] Nov, [facility] [address] [id number] [address] [place] [address], [place] [address] Aug, [facility] [address] [id number] [address] [place] [address], [place] [address] Aug, [facility] [address] [id number] [address] [place] [address], [place] [address] Aug, [facility] [address] [id number] [address] [place] [address], [place] [address] Aug, [facility] [address] [id number] [address] [place] [address], [place] [address] Aug, [facility] [address] [id number] [address] [place] [address], [place] [address] Jul, [facility] [address] [id number] [address] [place] [address], [place] [address] Jul, [facility] [address] [id number] [address] [place] [address], [place] [address] Jun, [facility] [address] [id number] [address] [place] [address], [place] [address] Jun, [facility] [address] [id number] [address] [place] [address], [place] [address] Jun, [facility] [address] [id number] [address] [place] [address], [place] [address] Jun, [facility] [address] [id number] [address] [place] [address], [place] [address] Jun, [facility] [address] [id number] [address] [place] [address], [place] [address] Jun, [facility] [address] [id number] [address] [place] [address], [place] [address] Jun, [facility] [address] [id number] [address] [place] [address], [place] [address] Jun, [facility] [address] [id number] [address] [place] [address], [place] [address] Jun, [facility] [address] [id number] [address] [place] [address], [place] [address] Nov, [facility] [address] [id number] [address] [place] [address], [place] [address] Nov, [facility] [address] [id number] [address] [place] [address], [place] [address] Oct, [facility] [address] [id number] [address] [place] [address], [place] [address] Oct, [facility] [address] [id number] [address] [place] [address], [place] [address] Jul, [facility] [address] [id number] [address] [place] [address], [place] [address] Jul, [facility] [address] [id number] [address] [place] [address], [place] [address] Jul, [facility] [address] [id number] [address] [place] [id number] Jul, [facility] [address] [id number] [address] [place] [address], [place] [address] Jul, [facility] [address] [id number] [address] [place] [address], [place] [address] Jul, [facility] [address] [id number] [address] [place] [address], [place] [address] Jun, [facility] [address] [id number] [address] [place] [id number] Jun, [facility] [address] [id number] [address] [place] [id number] Jun, [facility] [address] [id number] [address] [place] [id number] 16 Jun, 2012 [facility] [address] [id number] [address] [place] [id number] May, [facility] [address] [id number] [address] [place] [id number] May, [facility] [address] [id number] [address] [place] [id number] Oct, [facility] [address] [id number] [address] [place] [id number] Sep, [facility] [address] [id number] [address] [place] [id number] Sep, [facility] [address] [id number] [address] [place] [phone] Aug, [facility] [address] [id number] [address] [place] [id number] Aug, [facility] [address] [id number] [address] [place] [id number] Aug, [facility] [address] [id number] [address] [place] [id number] Jun, [facility] [address] [id number] [address] [place] [id number] 14 Sep, 2009 [facility] [address] [id number] [address] [place] [id number] Jul, [facility] [address] [id number] [address] [place] [id number] Jul, IMMUNIZATIONS No Known Immunizations SOCIAL HISTORY Never Assessed REASON FOR VISIT f/u PLAN OF CARE Activity Details Follow Up Next available Reason: VITAL SIGNS MEDICATIONS Unknown Medications RESULTS No Results PROCEDURES Procedure Date Ordered Result Body Site Psychotherapy, patient &/family, 45 minutes, established patient Jul 05, 2017 INSTRUCTIONS MEDICATIONS ADMINISTERED No Known Medications [...]
--- OUTSIDE RECORDS SUMMARY | 2019-12-20 23:05 | XMS REPORT ---
Author Author Kathleen BLANC Organization [facility] Address [address] [place] [address] Care Team Providers Care Logistics Management Specialist Name Role Phone LEON BLANCON Unavailable PROBLEMS Type Condition ICD9-CM Code OHF25-KI Code Onset Dates Condition S tatus SNOMED Code Problem Other obesity due to excess calories E66.09 Active 569269059 Problem Body mass index (BMI) of 36.0-36.9 in adult Z68.36 Active 819637782 Problem Seasonal allergic rhinitis, unspecified allergic rhinitis trigger J30.2 Active 560070666 Problem Major depressive disorder, recurrent episode, mild F33.0 Active 262828798 Problem Anxiety, generalized F41.1 Active 54370144 Problem Irregular menses N92.6 Active [id number] ALLERGIES No Information ENCOUNTERS Encounter Location Date Diagnosis [place] [id number] [place] [id number] [place] [id number] January, Major depressive disorder, r ecurrent episode, mild F33.0 ; Anxiety, generalized F41.1 and Irregular menses N92.6 [place] [address] [place] [id number] [place] [id number] January, Major depressive disorder, r ecurrent episode, mild F33.0 ; Anxiety, generalized F41.1 ; Seasonal allergic rhinitis, unspecified allergic rhinitis trigger J30.2 ; Irregular menses N92.6 ; Other obesity due to excess calories E66.09 ; Body mass index (BMI) of 36.0-36.9 in adult Z68.36 and Encounter for repeat prescription of oral contraceptives Z30.41 [facility] [address] [place] [id number] [place] [phone] Dec, Anxiety, generalized F41.1 a nd Major depressive disorder, recurrent episode, mild F33.0 [place] [address] [place] [id number] [place] [id number] 13 Nov, 2017 [facility] [address] [facility] [id number] [address] [place] [phone] Nov, Anxiety, generalized F41.1 a nd Major depressive disorder, recurrent episode, mild F33.0 [facility] [address] [place] [id number] [place] [id number] 22 Oct, 2017 Anxiety, generalized F41.1 a nd Major depressive disorder, recurrent episode, mild F33.0 [facility] [address] [facility] [id number] [address] [place] [id number] 13 Oct, 2017 Rectal bleeding K62.5 [facility] [place] [address] [place] [id number] [place] [phone] 10 Oct, 2017 Sore throat J02.9 and Acute nasopharyngitis J00 [facility] [place] [address] [place] [id number] [place] [id number] 04 Oct, 2017 Viral gastroenteritis A08.4 [facility] [place] [address] [place] [id number] [place] [phone] Sep, Chest wall pain R07.89 [facility] [address] [place] [id number] [place] [phone] Sep, Major depressive disorder, r ecurrent episode, moderate F33.1 [facility] [address] [place] [id number] [place] [id number] Sep, Viral syndrome B34.9 [facility] [address] [place] [id number] [place] [phone] Aug, Major depressive disorder, r ecurrent episode, moderate F33.1 and Anxiety, generalized F41.1 [facility] [address] [place] [id number] [place] [phone] Jul, [facility] [address] [place] [id number] [place] [phone] Jul, Viral syndrome B34.9 [facility] [address] [place] [id number] [place] [phone] Jun, Anxiety, generalized F41.1 a nd Major depressive disorder, recurrent episode, moderate F33.1 [facility] [address] [facility] [id number] [address] [place] [phone] May, Anxiety, generalized F41.1 a nd Major depressive disorder, recurrent episode, moderate F33.1 [place] [address] [place] [id number] [place] [id number] May, Tear of medial meniscus of l eft knee, current, unspecified tear type, initial encounter S83.242A [facility] [address] [place] [id number] [place] [id number] 13 May, 2017 Encounter for immunization Z 23 [place] [address] [place] [id number] [place] [phone] Apr, Major depressive disorder, r ecurrent episode, moderate F33.1 and Anxiety, generalized F41.1 [place] [address] [place] [id number] [place] [phone] Apr, Moderate single current epis ode of major depressive disorder F32.1 ; Anxiety, generalized F41.1 and Panic disorder [episodic paroxysmal anxiety] without agoraphobia F41.0 [place] [address] [place] [id number] [place] [id number] Apr, Sports physical Z02.5 ; Enco unter [...] and Acute pain of right knee M25.561 [facility] [address] [place] [id number] [place] [id number] Mar, Acute pain of left knee M25. 562 [facility] [address] [facility] [id number] [place] [address] [id number] January, Irregular menses N92.6 and S creen for STD (sexually transmitted disease) Z11.3 [facility] [address] [facility] [id number] [place] [id number] January, Right lower quadrant abdomin al pain R10.31 and Flank pain R10.9 [facility] [address] [place] [id number] [place] [phone] Oct, Influenza B J10.1 [facility] [id number] [place] [phone] Oct, Acute nasopharyngitis J00 an d Seasonal allergic rhinitis, unspecified allergic rhinitis trigger J30.2 [facility] [address] [place] [id number] [place] [id number] Jun, [facility] [address] [place] [id number] [place] [phone] May, [facility] [address] [place] [id number] [place] [phone] May, [facility] [address] [place] [id number] [place] [phone] May, [facility] [address] [place] [id number] [place] [phone] May, [facility] [address] [place] [id number] [place] [phone] Apr, [facility] [address] [place] [id number] [place] [phone] Apr, [facility] [address] [place] [id number] [place] [id number] Apr, [facility] [address] [place] [id number] [place] [phone] Apr, Arthritis of left knee M19.9 0 and Tick-borne disease B88.2 [facility] [address] [place] [id number] [place] [phone] 14 Dec, 2015 [facility] [address] [place] [id number] [place] [address] [id number] 30 Nov, 2015 Encounter for immunization Z 23 [place] [address] [id number] 11 Nov, 2015 Influenza J11.1 [facility] [address] [id number] 07 Nov, 2015 Anxiety F41.9 [facility] [address] [address] Sep, Sore throat J02.9 [place] [address] [address] Jul, Amenorrhea, unspecified N91. 2 and Dysuria R30.0 [place] [address] [address] Jun, Acute nasopharyngitis J00 [place] [address] [id number] Jun, [place] [address] [address] Mar, Pubertal menorrhagia 626.3 ; Initiation of OCP (BCP) V25.01 and Need for HPV vaccination V04.89 [place] [address] [place] [id number] [place] [phone] Mar, Mood disorder 296.90 and ADH D (attention deficit hyperactivity disorder), combined type 314.01 [place] [address] [address] Dec, [facility] [address] [address] Dec, [facility] [address] [id number] [address] [place] [address], [place] [address] Aug, [facility] [address] [id number] [address] [place] [address], [place] [address] Aug, [facility] [address] [id number] [address] [place] [address], [place] [address] Aug, [facility] [address] [id number] [address] [place] [address], [place] [address] Aug, [facility] [address] [id number] [address] [place] [address], [place] [address] Aug, [facility] [address] [id number] [address] [place] [address], [place] [address] Aug, [facility] [address] [id number] [address] [place] [address], [place] [address] Aug, [facility] [address] [id number] [address] [place] [address], [place] [address] Jul, [facility] [address] [id number] [address] [place] [address], [place] [address] Jul, [facility] [address] [id number] [address] [place] [address], [place] [address] Jul, [facility] [address] [id number] [address] [place] [address], [place] [address] Jul, [facility] [address] [id number] [address] [place] [address], [place] [address] Jun, [facility] [address] [id number] [address] [place] [address], [place] [address] Jun, [facility] [address] [id number] [address] [place] [address], [place] [address] Jun, [facility] [address] [id number] [address] [place] [address], [place] [address] Jun, [facility] [address] [id number] [address] [place] [address], [place] [address] January, [facility] [address] [id number] [address] [place] [address], [place] [address] January, [facility] [address] [id number] [address] [place] [address], [place] [address] January, [facility] [address] [id number] [address] [place] [address], [place] [address] Nov, [facility] [address] [id number] [address] [place] [address], [place] [address] Nov, [facility] [address] [id number] [address] [place] [address], [place] [address] Aug, [facility] [address] [id number] [address] [place] [address], [place] [address] Aug, [facility] [address] [id number] [address] [place] [address], [place] [address] Aug, [facility] [address] [id number] [address] [place] [address], [place] [address] Aug, [facility] [address] [id number] [address] [place] [address], [place] [address] Aug, [facility] [address] [id number] [address] [place] [address], [place] [address] Jul, [facility] [address] [id number] [address] [place] [address], [place] [address] Jul, [facility] [address] [id number] [address] [place] [phone] Jun, [facility] [address] [id number] [address] [place] [address], [place] [address] Jun, [facility] [address] [id number] [address] [place] [address], [place] [address] Jun, [facility] [address] [id number] [address] [place] [address], [place] [address] Jun, [facility] [address] [id number] [address] [place] [phone] Jun, [facility] [address] [id number] [address] [place] [address], [place] [address] Jun, [facility] [address] [id number] [address] [place] [address], [place] [address] Jun, [facility] [address] [id number] [address] [place] [address], [place] [address] Jun, [facility] [address] [id number] [address] [place] [address], [place] [address] Jun, [facility] [address] [id number] [address] [place] [address], [place] [address] Nov, [facility] [address] [id number] [address] [place] [address], [place] [address] Nov, [facility] [address] [id number] [address] [place] [address], [place] [address] Oct, [facility] [address] [id number] [address] [place] [address], [place] [address] Oct, [facility] [address] [id number] [address] [place] [address], [place] [address] Jul, [facility] [address] [id number] [address] [place] [address], [place] [address] Jul, [facility] [address] [id number] [address] [place] [address], [place] [address] Jul, [facility] [address] [id number] [address] [place] [address], [place] [address] Jul, [facility] [address] [id number] [address] [place] [address], [place] [address] Jul, [facility] [address] [id number] [address] [place] [address], [place] [address] Jul, [facility] [address] [id number] [address] [place] [address], [place] [address] Jun, [facility] [address] [id number] [address] [place] [phone] Jun, [facility] [address] [id number] [address] [place] [phone] Jun, [facility] [address] [id number] [address] [place] [id number] Jun, [facility] [address] [id number] [address] [place] [phone] May, [facility] [address] [id number] [address] [place] [phone] May, [facility] [address] [id number] [address] [place] [id number] Oct, [facility] [address] [id number] [address] [place] [id number] Sep, [facility] [address] [id number] [address] [place] [id number] Sep, [facility] [address] [id number] [address] [place] [id number] Aug, [facility] [address] [id number] [address] [place] [phone] Aug, [facility] [address] [id number] [address] [place] [phone] Aug, [facility] [address] [id number] [address] [place] [phone] Jun, [facility] [address] [id number] [address] [place] [phone] Sep, [facility] [address] [id number] [address] [place] [id number] Jul, [facility] [address] [id number] [address] [place] [phone] Jul, IMMUNIZATIONS No Known Immunizations SOCIAL HISTORY Never Assessed REASON FOR VISIT Referral Added PLAN OF CARE VITAL SIGNS MEDICATIONS Unknown [...]
--- OUTSIDE RECORDS SUMMARY | 2019-12-20 23:05 | XMS REPORT ---
Author Author Kathleen VIDALES ESME Organization [facility] Address Unknown Care Team Providers Care Follow Up Manager Name Role Phone ESME VIDALES Unavailable PROBLEMS Type Condition ICD9-CM Code DST60-PD Code Onset Dates Condition S tatus SNOMED Code Problem Other obesity due to excess calories E66.09 Active 020458687 Problem Body mass index (BMI) of 36.0-36.9 in adult Z68.36 Active 260319480 Problem Seasonal allergic rhinitis, unspecified allergic rhinitis trigger J30.2 Active 400886400 Problem Major depressive disorder, recurrent episode, mild F33.0 Active 183119152 Problem Anxiety, generalized F41.1 Active 81980330 Problem Irregular menses N92.6 Active 386 267128 ALLERGIES No Information ENCOUNTERS Encounter Location Date Diagnosis [place] [id number] [address] January, Major depressive disorder, r ecurrent episode, mild F33.0 ; Anxiety, generalized F41.1 and Irregular menses N92.6 [place] [address] [address] [place] [id number] [place] [address] January, Major depressive disorder, r ecurrent episode, mild F33.0 ; Anxiety, generalized F41.1 ; Seasonal allergic rhinitis, unspecified allergic rhinitis trigger J30.2 ; Irregular menses N92.6 ; Other obesity due to excess calories E66.09 ; Body mass index (BMI) of 36.0-36.9 in adult Z68.36 and Encounter for repeat prescription of oral contraceptives Z30.41 [place] [address] [address] Dec, Anxiety, generalized F41.1 a nd Major depressive disorder, recurrent episode, mild F33.0 [place] [address] [address] Nov, [facility] [address] [place] [address] Nov, Anxiety, generalized F41.1 a nd Major depressive disorder, recurrent episode, mild F33.0 [place] [address] [place] [id number] 22 Oct, 2017 Anxiety, generalized F41.1 a nd Major depressive disorder, recurrent episode, mild F33.0 [facility] [address] [place] [id number] [place] [id number] 13 Oct, 2017 Rectal bleeding K62.5 [facility] [place] [address] [address] 10 Oct, 2017 Sore throat J02.9 and Acute nasopharyngitis J00 [facility] [place] [address] [id number] 04 Oct, 2017 Viral gastroenteritis A08.4 [facility] [address] [place] [id number] [place] [address] Sep, Chest wall pain R07.89 [place] [address] [address] Sep, Major depressive disorder, r ecurrent episode, moderate F33.1 [facility] [address] [place] [id number] [place] [id number] Sep, Viral syndrome B34.9 [facility] [address] [place] [address] Aug, Major depressive disorder, r ecurrent episode, moderate F33.1 and Anxiety, generalized F41.1 [place] [address] [address] [place] [id number] [place] [address] Jul, [facility] [address] [place] [id number] [place] [phone] Jul, Viral syndrome B34.9 [facility] [address] [facility] [id number] [address] [place] [id number] Jun, Anxiety, generalized F41.1 a nd Major depressive disorder, recurrent episode, moderate F33.1 [place] [address] [address] [facility] [id number] [address] [place] [address] May, Anxiety, generalized F41.1 a nd Major depressive disorder, recurrent episode, moderate F33.1 [place] [address] [address] [facility] [id number] [address] [place] [id number] 21 May, 2017 Tear of medial meniscus of l eft knee, current, unspecified tear type, initial encounter S83.242A [facility] [address] [place] [id number] [place] [id number] 13 May, 2017 Encounter for immunization Z 23 [place] [address] [address] [place] [id number] [place] [id number] 31 Apr, 2017 Major depressive disorder, r ecurrent episode, moderate F33.1 and Anxiety, generalized F41.1 [place] [address] [place] [address] 10 Apr, 2017 Moderate single current epis ode of major depressive disorder F32.1 ; Anxiety, generalized F41.1 and Panic disorder [episodic paroxysmal anxiety] without agoraphobia F41.0 [place] [address] [address] [place] [id number] [place] [address] Apr, Sports physical Z02.5 ; Enco unter [...] and Acute pain of right knee M25.561 [facility] [address] [facility] [id number] [address] [place] [address] Mar, Acute pain of left knee M25. 562 [facility] [address] [facility] [id number] [place] [id number] January, Irregular menses N92.6 and S creen for STD (sexually transmitted disease) Z11.3 [facility] [address] [place] [id number] [place] [id number] January, Right lower quadrant abdomin al pain R10.31 and Flank pain R10.9 [facility] [address] [place] [phone] Oct, Influenza B J10.1 [facility] IN [facility] [address] [facility] [id number] [address] [place] [phone] Oct, Acute nasopharyngitis J00 an d Seasonal allergic rhinitis, unspecified allergic rhinitis trigger J30.2 [facility] [address] [place] [id number] [place] [phone] Jun, [facility] [address] [place] [id number] [place] [phone] May, [facility] [address] [place] [id number] [place] [address] May, [facility] [address] [address] May, [facility] [address] [place] [address] May, [facility] [address] [place] [phone] Apr, [facility] [address] [place] [id number] [place] [phone] Apr, [facility] [address] [place] [address] Apr, [facility] [address] [place] [id number] [place] [address] Apr, Arthritis of left knee M19.9 0 and Tick-borne disease B88.2 [facility] [address] [place] [id number] [place] [id number] 14 Dec, 2015 [facility] [address] [place] [id number] [place] [id number] 30 Nov, 2015 Encounter for immunization Z 23 [facility] [address] [address] 11 Nov, 2015 Influenza J11.1 [facility] [address] [address] 07 Nov, 2015 Anxiety F41.9 [facility] [address] [address] Sep, Sore throat J02.9 [facility] [address] [address] Jul, Amenorrhea, unspecified N91. 2 and Dysuria R30.0 [facility] [address] [address] Jun, Acute nasopharyngitis J00 [place] [address] [address] Jun, [facility] [address] [address] Mar, Pubertal menorrhagia 626.3 ; Initiation of OCP (BCP) V25.01 and Need for HPV vaccination V04.89 [facility] [address] [address] Mar, Mood disorder 296.90 and ADH D (attention deficit hyperactivity disorder), combined type 314.01 [facility] [address] [address] Dec, [facility] [address] [address] Dec, [facility] [address] [address] Aug, [facility] [address] [id number] [address] [place] [address], [place] [address] Aug, [facility] [address] [id number] [address] [place] [address], [place] [address] Aug, [facility] [address] [id number] [address] [place] [address], [place] [address] Aug, [facility] [address] [id number] [address] [place] [address], [place] [address] Aug, [facility] [address] [id number] [address] [place] [address], [place] [address] Aug, [facility] [address] [id number] [address] [place] [address], [place] [address] Aug, [facility] [address] [id number] [address] [place] [address], [place] [address] Jul, [facility] [address] [id number] [address] [place] [address], [place] [address] Jul, [facility] [address] [id number] [address] [place] [address], [place] [address] Jul, [facility] [address] [id number] [address] [place] [address], [place] [address] Jul, [facility] [address] [id number] [address] [place] [address], [place] [address] Jun, [facility] [address] [id number] [address] [place] [address], [place] [address] Jun, [facility] [address] [id number] [address] [place] [address], [place] [address] Jun, [facility] [address] [id number] [address] [place] [address], [place] [address] Jun, [facility] [address] [id number] [address] [place] [address], [place] [address] January, [facility] [address] [id number] [address] [place] [address], [place] [address] January, [facility] [address] [id number] [address] [place] [address], [place] [address] January, [facility] [address] [id number] [address] [place] [address], [place] [address] Nov, [facility] [address] [id number] [address] [place] [address], [place] [address] Nov, [facility] [address] [id number] [address] [place] [address], [place] [address] Aug, [facility] [address] [id number] [address] [place] [address], [place] [address] Aug, [facility] [address] [id number] [address] [place] [address], [place] [address] Aug, [facility] [address] [id number] [address] [place] [address], [place] [address] Aug, [facility] [address] [id number] [address] [place] [address], [place] [address] Aug, [facility] [address] [id number] [address] [place] [address], [place] [address] Jul, [facility] [address] [id number] [address] [place] [address], [place] [address] Jul, [facility] [address] [id number] [address] [place] [address], [place] [address] Jun, [facility] [address] [id number] [address] [place] [address], [place] [address] Jun, [facility] [address] [id number] [address] [place] [address], [place] [address] Jun, [facility] [address] [id number] [address] [place] [address], [place] [address] Jun, [facility] [address] [id number] [address] [place] [address], [place] [address] Jun, [facility] [address] [id number] [address] [place] [address], [place] [address] Jun, [facility] [address] [id number] [address] [place] [address], [place] [address] Jun, [facility] [address] [id number] [address] [place] [address], [place] [address] Jun, [facility] [address] [id number] [address] [place] [address], [place] [address] Jun, [facility] [address] [id number] [address] [place] [address], [place] [address] Nov, [facility] [address] [id number] [address] [place] [address], [place] [address] Nov, [facility] [address] [id number] [address] [place] [address], [place] [address] Oct, [facility] [address] [id number] [address] [place] [address], [place] [address] Oct, [facility] [address] [id number] [address] [place] [address], [place] [address] Jul, [facility] [address] [id number] [address] [place] [address], [place] [address] Jul, [facility] [address] [id number] [address] [place] [address], [place] [address] Jul, [facility] [address] [id number] [address] [place] [address] Jul, [facility] [address] [id number] [address] [place] [address], [place] [address] Jul, [facility] [address] [id number] [address] [place] [address], [place] [address] Jul, [facility] [address] [id number] [address] [place] [address], [place] [address] Jun, [facility] [address] [id number] [address] [place] [address] Jun, [facility] [address] [id number] [address] [place] [address] Jun, [facility] [address] [id number] [address] [place] [id number] 16 Jun, 2012 [facility] [address] [id number] [address] [place] [address] May, [facility] [address] [id number] [address] [place] [address] May, [facility] [address] [id number] [address] [place] [address] Oct, [facility] [address] [id number] [address] [place] [address] Sep, [facility] [address] [id number] [address] [place] [address] Sep, [facility] [address] [id number] [address] [place] [id number] Aug, [facility] [address] [id number] [address] [place] [address] Aug, [facility] [address] [id number] [address] [place] [address] Aug, [facility] [address] [id number] [address] [place] [id number] Jun, [facility] [address] [id number] [address] [place] [id number] 14 Sep, 2009 [facility] [address] [id number] [address] [place] [address] Jul, [facility] [address] [id number] [address] [place] [address] Jul, IMMUNIZATIONS No Known Immunizations SOCIAL HISTORY Never Assessed REASON FOR VISIT f/u PLAN OF CARE Activity Details Follow Up Next available Reason: VITAL SIGNS MEDICATIONS Unknown Medications RESULTS No Results PROCEDURES Procedure Date Ordered Result Body Site Psychotherapy, patient &/family, 45 minutes, established patient Sep 23, 2017 INSTRUCTIONS MEDICATIONS ADMINISTERED No Known Medications [...]
--- OUTSIDE RECORDS SUMMARY | 2019-12-20 23:05 | XMS REPORT ---
Author Author Kathleen VERGARA [facility] Address [address] [place] [address] Care Team Providers Care Field Service Technician Poultry Name Role Phone JAI LAWRENCE Unavailable PROBLEMS Type Condition ICD9-CM Code [id number] Code Onset Dates Condition S tatus SNOMED Code Problem Other obesity due to excess calories E66.09 Active 723381691 Problem Body mass index (BMI) of 36.0-36.9 in adult Z68.36 Active 329443552 Problem Seasonal allergic rhinitis, unspecified allergic rhinitis trigger J30.2 Active 783277638 Problem Major depressive disorder, recurrent episode, mild F33.0 Active 156588878 Problem Anxiety, generalized F41.1 Active 50721907 Problem Irregular menses N92.6 Active [id number] ALLERGIES Substance Reaction Event Type Date Status Imitrex body pain Drug Allergy Sep, Active ENCOUNTERS Encounter Location Date Diagnosis [facility] [place] [address] [id number] [address] [place] [phone] January, Major depressive disorder, r ecurrent episode, mild F33.0 ; Anxiety, generalized F41.1 and Irregular menses N92.6 [facility] [place] [address] [facility] [id number] [address] [place] [id number] January, Major depressive disorder, r ecurrent episode, mild F33.0 ; Anxiety, generalized F41.1 ; Seasonal allergic rhinitis, unspecified allergic rhinitis trigger J30.2 ; Irregular menses N92.6 ; Other obesity due to excess calories E66.09 ; Body mass index (BMI) of 36.0-36.9 in adult Z68.36 and Encounter for repeat prescription of oral contraceptives Z30.41 [facility] [place] [address] [facility] [id number] [address] [place] [id number] Dec, Anxiety, generalized F41.1 a nd Major depressive disorder, recurrent episode, mild F33.0 [facility] [place] [address] [facility] [id number] [address] [place] [id number] Nov, [facility] [place] [address] [facility] [id number] [address] [place] [phone] Nov, Anxiety, generalized F41.1 a nd Major depressive disorder, recurrent episode, mild F33.0 [facility] [place] [address] [facility] [id number] [address] [place] [phone] Oct, Anxiety, generalized F41.1 a nd Major depressive disorder, recurrent episode, mild F33.0 [facility] [place] [address] [facility] [id number] [address] [place] [phone] Oct, Rectal bleeding K62.5 [facility] WALK IN [facility] [address] [facility] [id number] [address] [place] [id number] 10 Oct, 2017 Sore throat J02.9 and Acute nasopharyngitis J00 [facility] WALK IN [facility] [address] [facility] [id number] [address] [place] [phone] Oct, Viral gastroenteritis A08.4 [facility] WALK IN [facility] [address] [facility] [id number] [address] [place] [id number] Sep, Chest wall pain R07.89 [facility] [place] [address] [id number] [address] [place] [phone] Sep, Major depressive disorder, r ecurrent episode, moderate F33.1 [facility] [address] [facility] [id number] [place] [id number] Sep, Viral syndrome B34.9 [facility] [place] [address] [facility] [id number] [address] [place] [phone] Aug, Major depressive disorder, r ecurrent episode, moderate F33.1 and Anxiety, generalized F41.1 [facility] [place] [address] [id number] [address] [place] [phone] Jul, [facility] [address] [id number] [address] [place] [id number] Jul, Viral syndrome B34.9 [place] [address] [id number] Jun, Anxiety, generalized F41.1 a nd Major depressive disorder, recurrent episode, moderate F33.1 [place] [address] [place] [id number] [address] [place] [phone] May, Anxiety, generalized F41.1 a nd Major depressive disorder, recurrent episode, moderate F33.1 [place] [address] [id number] May, Tear of medial meniscus of l eft knee, current, unspecified tear type, initial encounter S83.242A [facility] [id number] [place] [address] [id number] 13 May, 2017 Encounter for immunization Z 23 [place] [address] [id number] Apr, Major depressive disorder, r ecurrent episode, moderate F33.1 and Anxiety, generalized F41.1 [place] [address] [id number] Apr, Moderate single current epis ode of major depressive disorder F32.1 ; Anxiety, generalized F41.1 and Panic disorder [episodic paroxysmal anxiety] without agoraphobia F41.0 [place] [address] [id number] [address] [place] [phone] Apr, Sports physical Z02.5 ; [place] unter [...] pain of right knee M25.561 [facility] [address] [id number] [address] [place] [phone] Mar, Acute pain of left knee M25. 562 [facility] [address] [facility] [id number] [place] [id number] January, Irregular menses N92.6 and S creen for STD (sexually transmitted disease) Z11.3 [facility] [address] [facility] [id number] [place] [id number] January, Right lower quadrant abdomin al pain R10.31 and Flank pain R10.9 [facility] [place] [address] [id number] [address] [place] [phone] Oct, Influenza B J10.[address] [facility] IN [facility] [address] [facility] [id number] [address] [place] [phone] Oct, Acute nasopharyngitis J00 an d Seasonal allergic rhinitis, unspecified allergic rhinitis trigger J30.2 [facility] [place] [address] [facility] [id number] [address] [place] [phone] Jun, [facility] [place] [address] [id number] [address] [place] [phone] May, [facility] [place] [address] [id number] [address] [place] [phone] May, [facility] [place] [address] [id number] [address] [place] [phone] May, [facility] [place] [address] [facility] [id number] [address] [place] [phone] May, [facility] [place] [address] [facility] [id number] [address] [place] [phone] Apr, [facility] [place] [address] [facility] [id number] [address] [place] [id number] Apr, [facility] [place] [address] [facility] [id number] [address] [place] [phone] Apr, [facility] [place] [address] [id number] [address] [place] [id number] Apr, Arthritis of left knee M19.9 0 and Tick-borne disease B88.2 [facility] [place] [address] [id number] [address] [place] [phone] Dec, [facility] [address] [id number] [place] [address] [id number] 30 Nov, 2015 Encounter for immunization Z 23 [facility] [place] [address] [id number] 11 Nov, 2015 Influenza J11.1 [facility] [address] [id number] 07 Nov, 2015 Anxiety F41.9 [facility] [address] [id number] Sep, Sore throat J02.9 [facility] [place] [address] [id number] Jul, Amenorrhea, unspecified N91. 2 and Dysuria R30.0 [facility] [place] [address] [id number] Jun, Acute nasopharyngitis J00 [place] [address] [id number] Jun, [facility] [place] [address] [address] Mar, Pubertal menorrhagia 626.3 ; Initiation of OCP (BCP) V25.01 and Need for HPV vaccination V04.89 [place] [address] [id number] [address] [place] [phone] Mar, Mood disorder 296.90 and ADH D (attention deficit hyperactivity disorder), combined type 314.01 [place] [address] [place] [id number] [address] [place] [id number] 14 Dec, 2014 [facility] [place] [address] [id number] Dec, [facility] [address] [id number] [address] [place] [address], [place] [address] Aug, [facility] [address] [id number] [address] [place] [address], [place] [address] Aug, [facility] [address] [id number] [address] [place] [address], [place] [address] Aug, [facility] [address] [id number] [address] [place] [address], [place] [address] Aug, [facility] [address] [id number] [address] [place] [address], [place] [address] Aug, [facility] [address] [id number] [address] [place] [address], [place] [id number] Aug, [facility] [address] [id number] [address] [place] [address], [place] [address] Aug, [facility] [address] [id number] [address] [place] [address], [place] [address] Jul, [facility] [address] [id number] [address] [place] [address], [place] [address] Jul, [facility] [address] [id number] [address] [place] [address], [place] [address] Jul, [facility] [address] [id number] [address] [place] [address], [place] [address] Jul, [facility] [address] [id number] [address] [place] [address], [place] [address] Jun, [facility] [address] [id number] [address] [place] [address], [place] [address] Jun, [facility] [address] [id number] [address] [place] [address], [place] [address] Jun, [facility] [address] [id number] [address] [place] [address], [place] [address] Jun, [facility] [address] [id number] [address] [place] [address], [place] [address] January, [facility] [address] [id number] [address] [place] [address], [place] [address] January, [facility] [address] [id number] [address] [place] [address], [place] [address] January, [facility] [address] [id number] [address] [place] [address], [place] [address] Nov, [facility] [address] [id number] [address] [place] [address], [place] [address] Nov, [facility] [address] [id number] [address] [place] [address], [place] [address] Aug, [facility] [address] [id number] [address] [place] [address], [place] [address] Aug, [facility] [address] [id number] [address] [place] [address], [place] [address] Aug, [facility] [address] [id number] [address] [place] [address], [place] [address] Aug, [facility] [address] [id number] [address] [place] [address], [place] [address] Aug, [facility] [address] [id number] [address] [place] [address], [place] [address] Jul, [facility] [address] [id number] [address] [place] [address], [place] [address] Jul, [facility] [address] [id number] [address] [place] [address], [place] [address] Jun, [facility] [address] [id number] [address] [place] [address], [place] [address] Jun, [facility] [address] [id number] [address] [place] [address], [place] [address] Jun, [facility] [address] [id number] [address] [place] [address], [place] [address] Jun, [facility] [address] [id number] [address] [place] [address], [place] [address] Jun, [facility] [address] [id number] [address] [place] [address], [place] [address] Jun, [facility] [address] [id number] [address] [place] [address], [place] [address] Jun, [facility] [address] [id number] [address] [place] [address], [place] [address] Jun, [facility] [address] [id number] [address] [place] [address], [place] [address] Jun, [facility] [address] [id number] [address] [place] [address], [place] [address] Nov, [facility] [address] [id number] [address] [place] [address], [place] [address] Nov, [facility] [address] [id number] [address] [place] [address], [place] [address] Oct, [facility] [address] [id number] [address] [place] [address], [place] [address] Oct, [facility] [address] [id number] [address] [place] [address], [place] [address] Jul, [facility] [address] [id number] [address] [place] [address], [place] [address] Jul, [facility] [address] [id number] [address] [place] [address], [place] [address] Jul, [facility] [address] [id number] [address] [place] [address], [place] [address] Jul, [facility] [address] [id number] [address] [place] [address], [place] [address] Jul, [facility] [address] [id number] [address] [place] [address], [place] [address] Jul, [facility] [address] [id number] [address] [place] [phone] Jun, [facility] [address] [id number] [address] [place] [phone] Jun, [facility] [address] [id number] [address] [place] [phone] Jun, [facility] [address] [id number] [address] [place] [id number] 16 Jun, 2012 [facility] [address] [id number] [address] [place] [id number] 12 May, 2012 [facility] [address] [id number] [address] [place] [phone] May, [facility] [address] [id number] [address] [place] [phone] Oct, [facility] [address] [id number] [address] [place] [phone] Sep, [facility] [address] [id number] [address] [place] [id number] Sep, [facility] [address] [id number] [address] [place] [id number] Aug, [facility] [address] [id number] [address] [place] [phone] Aug, [facility] [address] [id number] [address] [place] [phone] Aug, [facility] [address] [id number] [address] [place] [phone] Jun, [facility] [address] [id number] [address] [place] [id number] [address] Sep, [address] [facility] [address] [id number] [address] [place] [id number] Jul, [facility] [address] [id number] [address] [place] [phone] Jul, IMMUNIZATIONS No Known Immunizations SOCIAL HISTORY Never Assessed REASON FOR VISIT possible bronchitis/sore throat x3 days JStrasserRN PLAN OF CARE Activity Details Follow Up prn Reason: VITAL SIGNS Height 63 in 2017-09-28 Weight 187.2 lbs 2017-09-28 Temperature 97.8 degrees Fahrenheit 2017-09-28 Heart Rate 96 bpm 2017-09-28 Respiratory Rate 18 2017-09-28 BMI 33.16 kg/m2 2017-09-28 Blood pressure systolic 122 mmHg 2017-09-28 Blood pressure diastolic 68 mmHg 2017-09-28 MEDICATIONS Medication Instructions Dosage Frequency Start Date End Date Duration S tatus Pristiq 25 MG Orally Once a day 1 tablet 24h Apr, Not-Taking Ibuprofen 800 MG Orally Three times a day 1 tablet with food or milk as needed 8h Sep, Sep, 7 days Active Sprintec 28 Not-Taking Tylenol 325 MG Orally every 6 hrs 2 tablets as needed 6h Not-Taking Fluticasone Propionate 50 MCG/ACT Nasally Once a day 1 spray in each nostril 24h Oct, 30 day(s) Not-Taking RESULTS No Results PROCEDURES No Known procedures [...]
--- OUTSIDE RECORDS SUMMARY | 2019-12-20 23:05 | XMS REPORT ---
Author Author Kathleen HALL [facility] Address [address] [place] [address] Care Team Providers Care Conservation Worker Name Role Phone CAM HALLYL Unavailable PROBLEMS Type Condition ICD9-CM Code BWK08-UD Code Onset Dates Condition S tatus SNOMED Code Problem Major depressive disorder, recurrent episode, mild F33.0 Active 345558424 Problem Irregular menses N92.6 Active 386 916605 Problem Seasonal allergic rhinitis, unspecified allergic rhinitis trigger J30.2 Active 760860867 Problem Anxiety, generalized F41.1 Active 25431669 Problem Heart palpitations R00.2 Active 8 1412221 Problem Acute pain of right knee M25.561 Activ e 17942948 Problem Family history of heart disease in male family m ember before age 55 Z82.49 Active 700694003 Problem Overweight E66.3 Active 851300865 Problem High risk medication use Z79.899 Activ e [id number] ALLERGIES No Information ENCOUNTERS Encounter Location Date Diagnosis [place] [address] [facility] [id number] [address] [place] [address] January, [place] [place] [id number] [address] [place] [address] Nov, [place] [address] [place] [id number] [address] [place] [address] Nov, Anxiety, generalized F41.1 a nd Major depressive disorder, recurrent episode, mild F33.0 [place] [place] [id number] [address] [place] [address] Oct, Anxiety, generalized F41.1 a nd Major depressive disorder, recurrent episode, mild F33.0 [place] [address] [facility] [id number] [address] [place] [address] Oct, Rectal bleeding K62.5 [facility] [address] [facility] [id number] [address] [place] [address] 10 Oct, 2017 Sore throat J02.9 and Acute nasopharyngitis J00 [facility] WALK IN [facility] [address] [facility] [id number] [address] [place] [id number] 04 Oct, 2017 Viral gastroenteritis A08.4 [facility] WALK IN [facility] [address] [facility] [id number] [address] [place] [address] Sep, Chest wall pain R07.89 [facility] [address] [facility] [id number] [address] [place] [address] Sep, Major depressive disorder, r ecurrent episode, moderate F33.1 [facility] [address] [facility] [id number] [place] [id number] Sep, Viral syndrome B34.9 [place] [address] [place] [id number] [address] [place] [address] Aug, Major depressive disorder, r ecurrent episode, moderate F33.1 and Anxiety, generalized F41.1 [place] [address] [place] [id number] [address] [place] [address] Jul, [facility] WALK IN [facility] [address] [facility] [id number] [address] [place] [address] Jul, Viral syndrome B34.9 [facility] [address] [place] [id number] [address] [place] [address] Jun, Anxiety, generalized F41.1 a nd Major depressive disorder, recurrent episode, moderate F33.1 [facility] [address] [facility] [id number] [address] [place] [address] May, Anxiety, generalized F41.1 a nd Major depressive disorder, recurrent episode, moderate F33.1 [place] [address] [facility] [id number] [address] [place] [address] May, Tear of medial meniscus of l eft knee, current, unspecified tear type, initial encounter S83.242A [facility] [address] [id number] May, 2017 Encounter for immunization Z [address] [address] Apr, Major depressive disorder, r ecurrent episode, moderate F33.1 and Anxiety, generalized F41.[address] [address] Apr, Moderate single current epis ode of major depressive disorder F32.1 ; Anxiety, generalized F41.1 and Panic disorder [episodic paroxysmal anxiety] without agoraphobia F41.[address] [address] Apr, Sports physical Z02.5 ; En[place] unter [...] pain of right knee M25.561 [facility] WALK IN [address] [address] Mar, Acute pain of left knee M25. 562 [place] [address] [id number] January, Irregular menses N92.6 and S creen for STD (sexually transmitted disease) Z11.[address] [id number] January, Right lower quadrant abdomin al pain R10.31 and Flank pain R10.9 [place] [id number] [address] [place] [address] Oct, Influenza B J10.1 [facility] WALK IN [address] [place] [address] Oct, Acute nasopharyngitis J00 an d Seasonal allergic rhinitis, unspecified allergic rhinitis trigger J30.2 [facility] [address] [facility] [id number] [address] [place] [address] Jun, [facility] [address] [facility] [id number] [address] [place] [address] May, [facility] [address] [facility] [id number] [address] [place] [address] May, [facility] [address] [facility] [id number] [address] [place] [address] May, [facility] [address] [place] [address] May, [facility] [address] [place] [id number] [address] [place] [address] Apr, [facility] [address] [place] [id number] [address] [place] [address] Apr, [facility] [address] [facility] [id number] [address] [place] [address] Apr, [facility] [address] [place] [address] Apr, Arthritis of left knee M19.9 0 and Tick-borne disease B88.2 [facility] [address] [place] [address] Dec, [facility] [address] [place] [id number] [place] [id number] Nov, Encounter for immunization Z 23 [facility] [address] [place] [id number] [address] [place] [address] Nov, Influenza J11.1 [facility] [address] [place] [address] 07 Nov, 2015 Anxiety F41.9 [facility] [address] [place] [id number] [address] [place] [address] Sep, Sore throat J02.9 [facility] [address] [place] [id number] [place] [address] Jul, Amenorrhea, unspecified N91. 2 and Dysuria R30.0 [facility] [address] [address] Jun, Acute nasopharyngitis J00 [facility] [address] [place] [id number] [place] [address] Jun, [facility] [address] [address] Mar, Pubertal menorrhagia 626.3 ; Initiation of OCP (BCP) V25.01 and Need for HPV vaccination V04.89 [facility] [address] [address] Mar, Mood disorder 296.90 and ADH D (attention deficit hyperactivity disorder), combined type 314.01 [facility] [address] [address] Dec, [facility] [address] [address] Dec, [facility] [address] [place] [id number] [address] [place] [address] Aug, [facility] [address] [place] [id number] [address] [place] [address] Aug, [facility] [address] [address] Aug, [facility] [address] [place] [id number] [place] [address] Aug, [facility] [address] [place] [id number] [address] [place] [address] Aug, [facility] [address] [place] [address] Aug, [facility] [address] [id number] [address] [place] [address], [place] [address] Aug, [facility] [place] [facility] [address] [id number] [address] [place] [address], [place] [address] Jul, [facility] [address] [id number] [address] [place] [address], [place] [address] Jul, [facility] [place] [facility] [address] [id number] [address] [place] [address], [place] [address] Jul, [facility] [place] [facility] [address] [id number] [address] [place] [address], [place] [address] Jul, [facility] [place] [facility] [address] [id number] [address] [place] [address], [place] [address] Jun, [facility] [address] [id number] [address] [place] [address], [place] [address] Jun, [facility] [place] [facility] [address] [id number] [address] [place] [address], [place] [address] Jun, [facility] [place] [facility] [address] [id number] [address] [place] [address], [place] [address] Jun, [facility] [address] [id number] [address] [place] [address], [place] [address] January, [facility] [place] [facility] [address] [id number] [address] [place] [address], [place] [address] January, [facility] [place] [facility] [address] [id number] [address] [place] [address], [place] [address] January, [facility] [place] [facility] [address] [id number] [address] [place] [address], [place] [address] Nov, [facility] [place] [facility] [address] [id number] [address] [place] [address], [place] [address] Nov, [facility] [place] [address] [id number] [address] [place] [address], [place] [address] Aug, [facility] [place] [facility] [address] [id number] [address] [place] [address], [place] [address] Aug, [facility] [address] [id number] [address] [place] [address], [place] [address] Aug, [facility] [address] [id number] [address] [place] [address], [place] [address] Aug, [facility] [address] [id number] [address] [place] [address], [place] [address] Aug, [facility] [address] [id number] [address] [place] [address], [place] [address] Jul, [facility] [address] [id number] [address] [place] [address], [place] [address] Jul, [facility] [address] [id number] [address] [place] [address], [place] [address] Jun, [facility] [address] [id number] [address] [place] [address], [place] [address] Jun, [facility] [address] [id number] [address] [place] [address], [place] [address] Jun, [facility] [address] [id number] [address] [place] [address], [place] [address] Jun, [facility] [address] [id number] [address] [place] [address], [place] [address] 24 Jun, 2013 [facility] [address] [id number] [address] [place] [address], [place] [address] Jun, [facility] [address] [id number] [address] [place] [address], [place] [address] 17 Jun, 2013 [facility] [address] [id number] [address] [place] [address], [place] [address] 10 Jun, 2013 [facility] [address] [id number] [address] [place] [address], [place] [address] 03 Jun, 2013 [facility] [address] [id number] [address] [place] [address], [place] [address] Nov, [facility] [address] [id number] [address] [place] [address], [place] [address] Nov, [facility] [address] [id number] [address] [place] [address], [place] [address] Oct, [facility] [address] [id number] [address] [place] [address], [place] [address] Oct, [facility] [address] [id number] [address] [place] [address], [place] [address] Jul, [facility] [address] [id number] [address] [place] [address], [place] [address] Jul, [facility] [address] [id number] [address] [place] [address], [place] [address] Jul, [facility] [address] [id number] [address] [place] [address], [place] [address] Jul, [facility] [address] [id number] [address] [place] [address], [place] [address] Jul, [facility] [address] [id number] [address] [place] [address], [place] [address] Jul, [facility] [address] [id number] [address] [place] [address], [place] [address] Jun, [facility] [address] [id number] [address] [place] [address], [place] [address] Jun, [facility] [address] [id number] [address] [place] [address] Jun, [facility] [address] [id number] [address] [place] [address], [place] [address] 16 Jun, 2012 [facility] [address] [id number] [address] [place] [address], [place] [address] 12 May, 2012 [facility] [address] [id number] [address] [place] [address], [place] [address] 11 May, 2012 [facility] [place] [facility] [address] [id number] [address] [place] [address] Oct, [facility] [address] [id number] [address] [place] [address] Sep, [facility] [address] [id number] [address] [place] [address] Sep, [facility] [address] [id number] [address] [place] [address] Aug, [facility] [address] [id number] [address] [place] [address] Aug, [facility] [address] [id number] [address] [place] [address] Aug, [facility] [address] [id number] [address] [place] [address] Jun, [facility] [address] [id number] [address] [place] [address] Sep, [facility] [address] [id number] [address] [place] [id number] Jul, [facility] [address] [id number] [address] [place] [address] Jul, IMMUNIZATIONS Vaccine Route Administration Date Status BEXSERO (MEN B) IM Intramuscular May 19, 2017 Administered SOCIAL HISTORY Never Assessed REASON FOR VISIT #2 [facility] 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
--- OUTSIDE RECORDS SUMMARY | 2019-12-20 23:06 | XMS REPORT ---
Author Author Kathleen VIDALES ESME Organization [facility] Address Unknown Care Team Providers [employer] Name Role Phone ESME VIDALES Unavailable PROBLEMS Type Condition ICD9-CM Code [id number] Code Onset Dates Condition S tatus SNOMED Code Problem Other obesity due to excess calories E66.09 Active 893828727 Problem Body mass index (BMI) of 36.0-36.9 in adult Z68.36 Active 719029065 Problem Seasonal allergic rhinitis, unspecified allergic rhinitis trigger J30.2 Active 644157870 Problem Major depressive disorder, recurrent episode, mild F33.0 Active 023485629 Problem Anxiety, generalized F41.1 Active 95839556 Problem Irregular menses N92.6 Active [id number] ALLERGIES No Information ENCOUNTERS Encounter Location Date Diagnosis [place] [id number] [address] January, Major depressive disorder, r ecurrent episode, mild F33.0 ; Anxiety, generalized F41.1 and Irregular menses N92.6 [place] [address] [address] [place] [id number] [place] [address] January, Major depressive disorder, r ecurrent episode, mild F33.0 ; Anxiety, generalized F41.1 ; Seasonal allergic rhinitis, unspecified allergic rhinitis trigger J30.2 ; Irregular menses N92.6 ; Other obesity due to excess calories E66.09 ; Body mass index (BMI) of 36.0-36.9 in adult Z68.36 and Encounter for repeat prescription of oral contraceptives Z30.41 [place] [address] [address] Dec, Anxiety, generalized F41.1 a nd Major depressive disorder, recurrent episode, mild F33.0 [place] [address] [address] Nov, [facility] [address] [place] [address] Nov, Anxiety, generalized F41.1 a nd Major depressive disorder, recurrent episode, mild F33.0 [place] [address] [place] [address] 22 Oct, 2017 Anxiety, generalized F41.1 a nd Major depressive disorder, recurrent episode, mild F33.0 [facility] [address] [place] [id number] [place] [id number] 13 Oct, 2017 Rectal bleeding K62.5 [facility] IN [place] [address] [address] 10 Oct, 2017 Sore throat J02.9 and Acute nasopharyngitis J00 [facility] [place] [address] [address] 04 Oct, 2017 Viral gastroenteritis A08.4 [facility] WALK IN [facility] [address] [place] [id number] [place] [address] Sep, Chest wall pain R07.89 [place] [address] [address] Sep, Major depressive disorder, r ecurrent episode, moderate F33.1 [facility] [address] [place] [id number] [place] [id number] Sep, Viral syndrome B34.9 [facility] [address] [place] [address] Aug, Major depressive disorder, r ecurrent episode, moderate F33.1 and Anxiety, generalized F41.1 [place] [address] [address] [place] [id number] [place] [address] Jul, [facility]ALK IN [facility] [address] [place] [id number] [place] [address] Jul, Viral syndrome B34.9 [facility] [address] [facility] [id number] [address] [place] [address] Jun, Anxiety, generalized F41.1 a nd Major depressive disorder, recurrent episode, moderate F33.1 [place] [address] [address] [facility] [id number] [address] [place] [address] May, Anxiety, generalized F41.1 a nd Major depressive disorder, recurrent episode, moderate F33.1 [place] [address] [address] [facility] [id number] [address] [place] [address] 21 May, 2017 Tear of medial meniscus of l eft knee, current, unspecified tear type, initial encounter S83.242A [facility] [address] [place] [id number] [place] [id number] 13 May, 2017 Encounter for immunization Z 23 [place] [address] [address] [place] [id number] [place] [id number] 31 Apr, 2017 Major depressive disorder, r ecurrent episode, moderate F33.1 and Anxiety, generalized F41.1 [place] [address] [place] [address] 10 Apr, 2017 Moderate single current epis ode of major depressive disorder F32.1 ; Anxiety, generalized F41.1 and Panic disorder [episodic paroxysmal anxiety] without agoraphobia F41.0 [place] [address] [address] [place] [id number] [place] [address] Apr, Sports physical Z02.5 ; Enco unter [...] pain of right knee M25.561 [facility] [address] [facility] [id number] [address] [place] [address] Mar, Acute pain of left knee M25. 562 [facility] [address] [facility] [id number] [place] [id number] January, Irregular menses N92.6 and S creen for STD (sexually transmitted disease) Z11.3 [facility] [address] [place] [id number] [place] [id number] January, Right lower quadrant abdomin al pain R10.31 and Flank pain R10.9 [facility] [address] [place] [address] Oct, Influenza B J10.1 [facility] [address] [facility] [id number] [address] [place] [address] Oct, Acute nasopharyngitis J00 an d Seasonal allergic rhinitis, unspecified allergic rhinitis trigger J30.2 [facility] [address] [place] [id number] [place] [address] Jun, [facility] [address] [place] [id number] [place] [address] May, [facility] [address] [place] [id number] [place] [address] May, [facility] [address] [address] May, [facility] [address] [place] [address] May, [facility] [address] [place] [address] Apr, [facility] [address] [place] [id number] [place] [address] Apr, [facility] [address] [place] [address] Apr, [facility] [address] [place] [id number] [place] [address] Apr, Arthritis of left knee M19.9 0 and Tick-borne disease B88.2 [facility] [address] [place] [id number] [place] [id number] [address], [address] [facility] [address] [place] [id number] [place] [id number] 30 Nov, 2015 Encounter for immunization Z 23 [facility] [address] [address] 11 Nov, 2015 Influenza J11.1 [facility] [address] [address] 07 Nov, 2015 Anxiety F41.9 [facility] [address] [address] Sep, Sore throat J02.9 [facility] [address] [address] Jul, Amenorrhea, unspecified N91. 2 and Dysuria R30.0 [facility] [address] [address] Jun, Acute nasopharyngitis J00 [place] [address] [address] Jun, [facility] [address] [address] Mar, Pubertal menorrhagia 626.3 ; Initiation of OCP (BCP) V25.01 and Need for HPV vaccination V04.89 [facility] [address] [address] Mar, Mood disorder 296.90 and ADH D (attention deficit hyperactivity disorder), combined type 314.01 [facility] [address] [address] Dec, [facility] [address] [address] Dec, [facility] [address] [address] Aug, [facility] [address] [id number] [address] [place] [address], [place] [address] Aug, [facility] [address] [id number] [address] [place] [address], [place] [address] Aug, [facility] [address] [id number] [address] [place] [address], [place] [address] Aug, [facility] [address] [id number] [address] [place] [address], [place] [address] Aug, [facility] [address] [id number] [address] [place] [address], [place] [address] Aug, [facility] [address] [id number] [address] [place] [address], [place] [address] Aug, [facility] [address] [id number] [address] [place] [address], [place] [address] Jul, [facility] [address] [id number] [address] [place] [address], [place] [address] Jul, [facility] [address] [id number] [address] [place] [address], [place] [address] Jul, [facility] [address] [id number] [address] [place] [address], [place] [address] Jul, [facility] [address] [id number] [address] [place] [address], [place] [address] Jun, [facility] [address] [id number] [address] [place] [address], [place] [address] Jun, [facility] [address] [id number] [address] [place] [address], [place] [address] Jun, [facility] [address] [id number] [address] [place] [address], [place] [address] Jun, [facility] [address] [id number] [address] [place] [address], [place] [address] January, [facility] [address] [id number] [address] [place] [address], [place] [address] January, [facility] [address] [id number] [address] [place] [address], [place] [address] January, [facility] [address] [id number] [address] [place] [address], [place] [address] Nov, [facility] [address] [id number] [address] [place] [address], [place] [address] Nov, [facility] [address] [id number] [address] [place] [address], [place] [address] Aug, [facility] [address] [id number] [address] [place] [address], [place] [address] Aug, [facility] [address] [id number] [address] [place] [address], [place] [address] Aug, [facility] [address] [id number] [address] [place] [address], [place] [address] Aug, [facility] [address] [id number] [address] [place] [address], [place] [address] Aug, [facility] [address] [id number] [address] [place] [address], [place] [address] Jul, [facility] [address] [id number] [address] [place] [address], [place] [address] Jul, [facility] [address] [id number] [address] [place] [address], [place] [address] Jun, [facility] [address] [id number] [address] [place] [address], [place] [address] Jun, [facility] [address] [id number] [address] [place] [address], [place] [address] Jun, [facility] [address] [id number] [address] [place] [address], [place] [address] Jun, [facility] [address] [id number] [address] [place] [address], [place] [address] Jun, [facility] [address] [id number] [address] [place] [address], [place] [address] Jun, [facility] [address] [id number] [address] [place] [address], [place] [address] Jun, [facility] [address] [id number] [address] [place] [address], [place] [address] Jun, [facility] [address] [id number] [address] [place] [address], [place] [address] Jun, [facility] [address] [id number] [address] [place] [address], [place] [address] Nov, [facility] [address] [id number] [address] [place] [address], [place] [address] Nov, [facility] [address] [id number] [address] [place] [address], [place] [address] Oct, [facility] [address] [id number] [address] [place] [address], [place] [address] Oct, [facility] [address] [id number] [address] [place] [address], [place] [address] Jul, [facility] [address] [id number] [address] [place] [address], [place] [address] Jul, [facility] [address] [id number] [address] [place] [address], [place] [address] Jul, [facility] [address] [id number] [address] [place] [address] Jul, [facility] [address] [id number] [address] [place] [address], [place] [address] Jul, [facility] [address] [id number] [address] [place] [address], [place] [address] Jul, [facility] [address] [id number] [address] [place] [address], [place] [address] Jun, [facility] [address] [id number] [address] [place] [address] Jun, [facility] [address] [id number] [address] [place] [address] Jun, [facility] [address] [id number] [address] [place] [address] 16 Jun, 2012 [facility] [address] [id number] [address] [place] [address] May, [facility] [address] [id number] [address] [place] [address] May, [facility] [address] [id number] [address] [place] [address] Oct, [facility] [address] [id number] [address] [place] [address] Sep, [facility] [address] [id number] [address] [place] [address] Sep, [facility] [address] [id number] [address] [place] [address] Aug, [facility] [address] [id number] [address] [place] [address] Aug, [facility] [address] [id number] [address] [place] [address] Aug, [facility] [address] [id number] [address] [place] [address] Jun, [facility] [address] [id number] [address] [place] [address] 14 Sep, 2009 [facility] [address] [id number] [address] [place] [address] Jul, [facility] [address] [id number] [address] [place] [address] Jul, IMMUNIZATIONS No Known Immunizations SOCIAL HISTORY Never Assessed REASON FOR VISIT f/u PLAN OF CARE Activity Details Follow Up Next available Reason: VITAL SIGNS MEDICATIONS Unknown Medications RESULTS No Results PROCEDURES Procedure Date Ordered Result Body Site Psychotherapy, patient &/family, 45 minutes, established pat ient May 31, 2017 INSTRUCTIONS MEDICATIONS ADMINISTERED No Known Medications [...]
--- OUTSIDE RECORDS SUMMARY | 2019-12-20 23:06 | XMS REPORT | Continuity of Care Document ---
Author Organization Unknown Address Unknown Phone Unavailable Allergies Active Description Code Type Severity Reaction Onset Reported/Identified Relationship to Patient Clinical Status Yes Imitrex Drug Allergy N/A N/A 07/24/2014 Yes sumatriptan [id number] Drug Aller gy Unknown N/A 09/15/2018 Yes sumatriptan succinate [id number] Drug Allergy Unknown N/A 09/15/2018 Medications There is no data. Problems Date Dx Coded Attending Type Code Diagnosis Diagnosed By 07/25/2009 ANTOINE DO HAYLEY K 380.22 Other [...] Acute Otitis Externa 07/25/2009 MARIBEL MAGDALENO, TISH 380. 22 Other Acute Otitis Externa 07/25/2009 MANOJ LARSON APRN 380.22 Other Acute Otitis Externa 07/25/2009 MANOJ LARSON APRN 380.22 Other Acute Otitis Externa 07/25/2009 ANTOINE DO, HAYLEY K 380.22 Other Acute Otitis Externa 07/25/2009 ANTOINE DO, HAYLEY K 380.22 Other Acute Otitis Externa 07/25/2009 ANTOINE DO, HAYLEY K 380.22 Other Acute Otitis Externa 07/25/2009 ANTOINE DO, HAYLEY K 380.22 Other Acute Otitis Externa 09/19/2009 ANTOINE DO HAYLEY K 599.0 Urinary Tract Infection 09/19/2009 ELINA GUERRERO HAYLEY K 599.0 Urinary Tract Infection 09/19/2009 RAFAEL FRANKLIN RALF A 599.0 Urinary Tract Infection 09/19/2009 ANTOINE DO, HAYLEY K 599.0 Urinary Tract Infection 09/19/2009 ANTOINE DO, HAYLEY K 599.0 Urinary Tract Infection 09/19/2009 ANTOINE DO, HAYLEY K 599.0 Urinary Tract Infection 09/19/2009 ANTOINE DO, HAYLEY K 599.0 Urinary Tract Infection 09/19/2009 CHANDLER TATE APRN R 599.0 Urinary Tract Infection 09/19/2009 TISH LÓPEZ MD 599. 0 Urinary Tract Infection 09/19/2009 MANOJ LARSON APRN 59 9.0 Urinary Tract Infection 09/19/2009 MANOJ LARSON APRN 59 9.0 Urinary Tract Infection 09/19/2009 ANTOINE DO, HAYLEY [...] APRN R 300.00 An Anxiety Unspec 11/13/2009 MARIBEL MAGDALENO, TISH 300. 00 An Anxiety Unspec 11/13/2009 MANOJ LARSON APRN [...] 789.00 Abdominal Pain Unspecified Site 12/25/2009 RAFAEL ASSISTANT PROFESSOR OF PSYCHOLOGY, RALF A 278.00 OBESITY UNSPECIFIED 12/25/2009 ROLANDE ASSISTANT PROFESSOR OF PSYCHOLOGY, RALF A 789.00 Abdominal Pain Unspecified Site [...] K 789.00 Abdominal Pain Unspecified Site 12/25/2009 LEA FRANKLIN, CHANDLER R 278.00 OBESITY UNSPECIFIED 12/25/2009 LEA FRANKLIN, CHANDLER R 789.00 Abdominal Pain Unspecified Site 12/25/2009 MARIBEL MAGDALENO, TISH 278. 00 OBESITY UNSPECIFIED 12/25/2009 MARIBEL MAGDALENO, TISH 789. 00 Abdominal Pain Unspecified Site 12/25/2009 MANOJ LARSON [...] Nasopharyngitis [common Cold] 05/27/2010 CHANDLER TATE APRN R 4 60 Acute Nasopharyngitis [common Cold] 05/27/2010 MARIBEL MAGDALENO, TISH 460 Acute Nasopharyngitis [common Cold] 05/27/2010 MANOJ LARSON APRN 46 0 Acute Nasopharyngitis [common Cold] 05/27/2010 MANOJ LARSON APRN 46 0 Acute Nasopharyngitis [common Cold] 05/27/2010 ANTOINE DO, [...] DO, HAYLEY K 691.8 ATOPIC DERMATITIS 04/01/2011 RAFAEL FRANKLIN RALF A 216.9 BENIGN NEOPLASM OF SKIN SITE UNSPECIFIED 04/01/2011 RAFAEL FRANKLIN RALF A 691.8 ATOPIC DERMATITIS 04/01/2011 ANTOINE DO, HAYLEY [...] BENIGN NEOPLASM OF SKIN SITE UNSPECIFIED 04/01/2011 SANDRA TATE APRNINA R 691.8 ATOPIC DERMATITIS 04/01/2011 TISH LÓPEZ MD 216. 9 BENIGN NEOPLASM OF SKIN SITE UNSPECIFIED 04/01/2011 MARIBEL MAGDALENO TISH 691. 8 ATOPIC DERMATITIS 04/01/2011 MARSHA FRANKLIN MANOJ T 21 6.9 BENIGN NEOPLASM OF SKIN SITE UNSPECIFIED 04/01/2011 MARSHA FRANKLIN MANOJ T 69 1.8 ATOPIC DERMATITIS 04/01/2011 MARSHA FRANKLIN MANOJ T 21 6.9 BENIGN NEOPLASM OF SKIN SITE UNSPECIFIED 04/01/2011 MARSHA FRANKLIN MANOJ T 69 1.8 ATOPIC DERMATITIS 04/01/2011 ANTOINE DO, HAYLEY K [...] DO, HAYLEY K 462 Acute Pharyngitis 04/27/2011 RAFAEL WANGN, RALF A 462 Acute Pharyngitis 04/27/2011 ANTOINE DO, HAYLEY K 462 Acute Pharyngitis 04/27/2011 ANTOINE DO, HAYLEY K 462 Acute Pharyngitis 04/27/2011 ANTOINE DO, HAYLEY K 462 Acute Pharyngitis 04/27/2011 ANTOINE DO, HAYLEY K 462 Acute Pharyngitis 04/27/2011 CHANDLER TATE APRN R 4 62 Acute Pharyngitis 04/27/2011 TISH LÓPEZ MD 462 Acute Pharyngitis 04/27/2011 MANOJ LARSON APRN 46 2 Acute Pharyngitis 04/27/2011 MANOJ LARSON APRN 46 2 Acute Pharyngitis 04/27/2011 ANTOINE DO, HAYLEY K [...] DO, HAYLEY K 784.0 Headache 05/28/2011 RAFAEL WANGN, RALF A 079.99 Viral Syndrome 05/28/2011 RAFAEL FRANKLIN, RALF A 784.0 Headache 05/28/2011 ANTOINE DO, [...] ANTOINE DO, HAYLEY K 784.0 Headache 05/28/2011 CHANDLER TATE APRN R 079.99 Viral Syndrome 05/28/2011 SANDRA TATE APRNINA R 784.0 Headache 05/28/2011 MARIBEL MAGDALENO, TISH 079. 99 Viral Syndrome 05/28/2011 MARIBEL MAGDALENO, TISH 784. 0 Headache 05/28/2011 MARSHA FRAKNLIN, MANOJ T 079.99 Viral Syndrome 05/28/2011 MARSHA FRANKLIN, MANOJ T 78 4.0 Headache 05/28/2011 MARSHA FRANKLIN, MANOJ T 079.99 Viral Syndrome 05/28/2011 MARSHA FRANKLIN, MANOJ T 78 4.0 Headache 05/28/2011 ANTOINE DO, HAYLEY K 079.99 [...] DO, HAYLEY K V20.2 WELL CHILD 08/19/2011 RAJOTTE ASSISTANT PROFESSOR OF PSYCHOLOGY, RALF A V03.89 Meningococcal Dx 08/19/2011 RAJOTTE ASSISTANT PROFESSOR OF PSYCHOLOGY, RALF A V04.89 Gardasil (hpv) Dx 08/19/2011 RAJOTTE ASSISTANT PROFESSOR OF PSYCHOLOGY, RALF A V06.1 Tdap Dx 08/19/2011 RAJOTTE ASSISTANT PROFESSOR OF PSYCHOLOGY, RALF A V20.2 WELL CHILD 08/19/2011 ANTOINE DO HAYLEY K V03.89 Meningococcal Dx 08/19/2011 ANTOINE [...] V20.2 WELL CHILD 08/19/2011 MARIBEL MAGDALENO, TISH V03. 89 Meningococcal Dx 08/19/2011 MARIBEL MAGDALENO, TISH V04. 89 Gardasil (hpv) Dx 08/19/2011 MARIBEL MAGDALENO, TISH V06. 1 Tdap Dx 08/19/2011 MARIBEL MAGDALENO, TISH V20. 2 WELL CHILD 08/19/2011 MANOJ LARSON APRN V03.89 Meningococcal Dx 08/19/2011 MANOJ LARSON APRN V04.89 Gardasil (hpv) Dx 08/19/2011 MANOJ LARSON APRN V0 6.1 Tdap Dx 08/19/2011 MARSHA FRANKLIN, MANOJ T V2 0.2 WELL CHILD 08/19/2011 MARSHA WANGN, MANOJ T V03.89 Meningococcal Dx 08/19/2011 MARSHA WANGN, MANOJ T V04.89 Gardasil (hpv) Dx 08/19/2011 MARSHA WANGN, MANOJ T V0 6.1 Tdap Dx 08/19/2011 MARSHA WANGN, MANOJ T V2 0.2 WELL CHILD 08/19/2011 ANTOINE DO, HAYLEY K [...] 346.90 HEADACHE, MIGRAINE 10/01/2011 RALF HALL APRN A 733.6 TIETZE'S DISEASE 10/01/2011 ANTOINE DO, HAYLEY [...] DO, HAYLEY K 733.6 TIETZE'S DISEASE 10/01/2011 CHANDLER ATTE APRN R 346.90 HEADACHE, MIGRAINE 10/01/2011 LEA FRANKLIN CHANDLER R 733.6 TIETZE'S DISEASE 10/01/2011 TISH LÓPEZ MD 346. 90 HEADACHE, MIGRAINE 10/01/2011 YUNIEL LÓPEZ MDISTA 733. 6 TIETZE'S DISEASE 10/01/2011 MANOJ LARSON APRN 346.90 HEADACHE, MIGRAINE 10/01/2011 MANOJ LARSON APRN 73 3.6 TIETZE'S DISEASE 10/01/2011 MANOJ LARSON APRN 346.90 HEADACHE, MIGRAINE 10/01/2011 MANOJ LARSON APRN T 73 3.6 TIETZE'S DISEASE 10/01/2011 ANTOINE DO, HAYLEY K [...] URIN TRACT INFECTION NOS 01/13/2012 Ot 789.03 ABD OMINAL PAIN, RIGHT LOWER QUADRANT 05/01/2012 Ot 682.6 CELL ULITIS OF LEG 05/01/2012 Ot 719.06 MARGARITO NT EFFUSION- L/LEG 07/01/2012 ANTOINE DO, HAYLEY K 784.0 HEADACHE 07/01/2012 ANTOINE DO, HAYLEY K 784.0 HEADACHE 07/01/2012 RAFAEL FRANKLIN RALF A 784.0 HEADACHE 07/01/2012 ANTOINE DO, HAYLEY K 784.0 HEADACHE 07/01/2012 ANTOINE DO, HAYLEY K 784.0 HEADACHE 07/01/2012 ANTOINE DO, HAYLEY K 784.0 HEADACHE 07/01/2012 ANTOINE DO, HAYLEY K 784.0 HEADACHE 07/01/2012 SANDRA TATE APRNINA R 784.0 HEADACHE 07/01/2012 MARIBEL MAGDALENO, TISH 784. 0 HEADACHE 07/01/2012 MANOJ LARSON APRN 78 4.0 HEADACHE 07/01/2012 MANOJ LARSON APRN 78 4.0 HEADACHE 07/01/2012 ANTOINE DO, HAYLEY K 784.0 [...] 709.9 SKIN LESIONS 11/14/2012 MARIBEL MAGDALENO, TISH 709. 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 0 INGROWN TOENAIL (infection) 06/08/2013 MANOJ LARSON APRN 70 3.0 INGROWN TOENAIL (infection) 06/08/2013 MANOJ LARSON APRN 70 3.0 INGROWN TOENAIL (infection) 06/08/2013 ANTOINE DO, HAYLEY [...] R 727.1 BUNION 06/22/2013 MARIBEL MAGDALENO, TISH 727. 1 BUNION 06/22/2013 MANOJ LARSON APRN T 72 7.1 BUNION 06/22/2013 MANOJ LARSON APRN T 72 7.1 BUNION 06/22/2013 ANTOINE DO, HAYLEY K 727.1 BUNION 06/22/2013 ANTOINE DO, HAYLEY K 727.1 BUNION 06/22/2013 ANTOINE DO, HAYLEY K 727.1 BUNION 07/03/2013 ANTOINE DO, HAYLEY K V04.81 FLU SHOT 07/03/2013 ANTOINE DO, HAYLEY K V04.81 FLU SHOT 07/03/2013 ANTOINE DO, HAYLEY K V04.81 FLU SHOT 07/03/2013 LEA FRANKLIN, CHANDLER R V04.81 FLU SHOT 07/03/2013 MARIBEL MAGDALENO, TISH V04. 81 FLU SHOT 07/03/2013 MANOJ LARSON APRN T V04.81 FLU SHOT 07/03/2013 MANOJ LARSON APRN T V04.81 FLU SHOT 07/03/2013 ANTOINE DO, HAYLEY K V04.81 FLU SHOT 07/03/2013 ANTOINE DO, HAYLEY K V04.81 FLU SHOT 07/03/2013 ANTOINE DO, HAYLEY K V04.81 FLU SHOT 08/25/2013 ANTOINE DO, HAYLEY K 703.8 ONYCHOCRYPTOSIS 08/25/2013 LEA FRANKLIN, CHANDLER R 703.8 ONYCHOCRYPTOSIS 08/25/2013 MARIBEL MAGDALENO, TISH 703. 8 ONYCHOCRYPTOSIS 08/25/2013 MANOJ LARSON APRN T 70 3.8 ONYCHOCRYPTOSIS 08/25/2013 MANOJ LARSON APRN T 70 3.8 ONYCHOCRYPTOSIS 08/25/2013 ANTOINE DO, HAYLEY K 703.8 ONYCHOCRYPTOSIS 08/25/2013 ANTOINE DO, HAYLEY K 703.8 ONYCHOCRYPTOSIS 08/25/2013 ANTOINE DO, HAYLEY K 703.8 ONYCHOCRYPTOSIS 10/30/2013 RHONDA ZAMAN MD Ot 923.00 CONTUSION SHOULDER REG 10/30/2013 RHONDA ZAMAN MD Ot 959.2 SHLDR/UPPER ARM INJ NOS 10/30/2013 AUSTYN MAGDALENO, HRONDA Rodrigues Ot E000.8 OTHER EXTERNAL CAUSE STATUS 10/30/2013 [...] ABDOMINAL PAIN RIGHT LOWER QUADRANT 06/13/2014 FELICIA DO MADINA K Ot 599.0 URIN TRACT INFECTION NOS 06/13/2014 FELICIA DO, MADINA K Ot 788.20 RETENTION OF URINE NOS 06/14/2014 BERNABE MAGDALENO, CHRISTINA Sommers Ot 564.00 UNSPEC CONSTIPATION 06/14/2014 BERNABE MAGDALENO, CHRISTINA Sommers Ot 789.00 ABDOMINAL PAIN, UNSPECIFIED SITE 07/23/2014 [...] CONSTIPATION 08/18/2014 SAMMY MAGDALENO, WILLIAM Whipple Ot 276.5 1 DEHYDRATION 08/18/2014 WILLIAM CHRISTIANSON MD Ot 564.0 0 UNSPEC CONSTIPATION 08/18/2014 WILLIAM CHRISTIANSON MD Ot V04.8 1 ND FOR PROPHYLACTIC VACCIN AND INOCULATI 08/18/2014 WILLIAM CHRISTIANSON MD Ot 276.5 1 08/18/2014 WILLIAM CHRISTIANSON MD Ot 564.0 0 08/18/2014 WILLIAM CHRISTIANSON MD Ot V04.8 1 04/25/2016 DUSTIN ALTAMIRANO ASSISTANT PROFESSOR OF PSYCHOLOGY Ot M23.92 UNSPECIFIED INTERNAL DERANGEMENT OF LEFT 04/25/2016 DUSTIN ALTAMIRANO ASSISTANT PROFESSOR OF PSYCHOLOGY Ot M25.562 PAIN IN LEFT KNEE 04/27/2016 DUSTIN ALTAMIRANO ASSISTANT PROFESSOR OF PSYCHOLOGY Ot M23.92 UNSPECIFIED INTERNAL DERANGEMENT OF LEFT 04/27/2016 DUSTIN ALTAMIRANO ASSISTANT PROFESSOR OF PSYCHOLOGY Ot M25.562 PAIN IN LEFT KNEE 05/01/2016 ALISA DO, MARIANA Ot B88.2 OTHER ARTHROPOD INFESTATIONS 05/06/2016 [...] Ot R10.11 RIGHT UPPER QUADRANT PAIN 07/16/2016 SILVIO CANO MD Ot K80.20 CALCULUS OF GALLBLADDER W/O CHOLECYSTITI 07/16/2016 SILVIO CANO MD Ot Z11.2 ENCOUNTER FOR SCREENING FOR OTHER BACTER 07/21/2016 KUSH MAGDALENO, SILVIO Carmen Ot K80.20 CALCULUS OF GALLBLADDER W/O CHOLECYSTITI 07/21/2016 KUSH MAGDALENO, SILVIO Carmen Ot Z11.2 ENCOUNTER FOR SCREENING FOR OTHER BACTER 07/24/2016 SHAKIR MAGDALENO, JAMAAL Rodriguez Ot R10.11 RIGHT UPPER QUADRANT PAIN 01/06/2017 Ot 784.0 HEAD ACHE 01/06/2017 Ot 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 01/06/2017 Ot V72.84 EXA M PRE- OPERATIVE NOS 01/06/2017 ALISA DO, MARIANA Ot B88.2 OTHER ARTHROPOD INFESTATIONS 01/06/2017 SHAKIR MAGDALENO, JAMAAL Rodriguez Ot R10.11 RIGHT UPPER QUADRANT PAIN 01/06/2017 KUSH MAGDALENO, SILVIO Carmen Ot K80.20 CALCULUS OF GALLBLADDER W/O CHOLECYSTITI 01/06/2017 KUSH MAGDALENO, SILVIO Carmen Ot Z01.818 ENCOUNTER FOR OTHER PREPROCEDURAL EXAMIN 01/08/2017 RALF HALL FISHING INSTRUCTOR Ot R10.31 RIGHT LOWER QUADRANT PAIN 01/25/2017 CAM HALLYL A FISHING INSTRUCTOR Ot R10.31 RIGHT LOWER QUADRANT PAIN 04/12/2017 LAWRENCE VERGARA APRN Ot M25.562 PAIN IN LEFT KNEE 05/01/2017 DUSTIN ALTAMIRANO APRN Ot F41 .9 ANXIETY DISORDER, UNSPECIFIED 05/01/2017 UDSTIN ALTAMIRANO APRN Ot F90 .9 ATTENTION-DEFICIT HYPERACTIVITY DISORDER 05/01/2017 DUSTIN ALTAMIRANO APRN Ot G43.909 MIGRAINE, UNSP, NOT INTRACTABLE, WITHOUT 05/01/2017 DUSTIN ALTAMIRANO APRN Ot K21 .9 GASTRO-ESOPHAGEAL REFLUX DISEASE WITHOUT 05/01/2017 DUSTIN ALTAMIRANO APRN Ot M23.91 UNSPECIFIED INTERNAL DERANGEMENT OF RIGH 05/01/2017 DUSTIN ALTAMIRANO APRN Ot M25.561 PAIN IN RIGHT KNEE 05/01/2017 DUSTIN ALTAMIRANO APRN Ot Z87.442 PERSONAL HISTORY OF URINARY CALCULI 05/01/2017 DUSTIN ALTAMIRANO APRN Ot Z87.448 PERSONAL HISTORY OF OTHER DISEASES OF UR 05/03/2017 DUSTIN ALTAMIRANO APRN Ot F41 .9 ANXIETY DISORDER, UNSPECIFIED 05/03/2017 DUSTIN ALTAMIRANO APRN Ot F90 .9 ATTENTION-DEFICIT HYPERACTIVITY DISORDER 05/03/2017 DUSTIN ALTAMIRANO APRN Ot G43.909 MIGRAINE, UNSP, NOT INTRACTABLE, WITHOUT 05/03/2017 DUSTIN ALTAMIRANO APRN Ot K21 .9 GASTRO-ESOPHAGEAL REFLUX DISEASE WITHOUT 05/03/2017 DUSTIN ALTAMIRANO APRN Ot M23.91 UNSPECIFIED INTERNAL DERANGEMENT OF RIGH 05/03/2017 DUSTIN ALTAMIRANO APRN Ot M25.561 PAIN IN RIGHT KNEE 05/03/2017 DUSTIN ATLAMIRANO APRN Ot Z87.442 PERSONAL HISTORY OF URINARY CALCULI 05/03/2017 DUSTIN ALTAMIRANO APRN Ot Z87.448 PERSONAL HISTORY OF OTHER DISEASES OF UR 07/22/2017 JAYASHREE TIKALANCE DELATORRE Ot M25.562 PAIN IN LEFT KNEE 10/21/2017 PATRIC CUETO Ot F41.9 ANXIETY DISORDER, UNSPECIFIED 10/21/2017 PTARIC CUETO Ot F90.9 ATTENTION-DEFICIT HYPERACTIVITY DISORDER 10/21/2017 PATRIC CUETO Ot G43.909 MIGRAINE, UNSP, NOT INTRACTABLE, WITHOUT 10/21/2017 PATRIC CUETO Ot J45.909 UNSPECIFIED ASTHMA, UNCOMPLICATED 10/21/2017 PATRIC CUETO Ot K21.9 GASTRO-ESOPHAGEAL REFLUX DISEASE WITHOUT 10/21/2017 PATRIC CUETO Ot K59.00 CONSTIPATION, UNSPECIFIED 10/21/2017 PATRIC CUETO Ot K60.2 ANAL FISSURE, UNSPECIFIED 10/21/2017 PATRIC CUETO Ot K62.5 HEMORRHAGE OF ANUS AND RECTUM 10/21/2017 PATRIC CUETO Ot N39.0 URINARY TRACT INFECTION, SITE NOT SPECIF 10/21/2017 PATRIC CUETO Ot Z87.19 PERSONAL HISTORY OF OTHER DISEASES OF TH 10/21/2017 PATRIC CUETO Ot Z87.448 PERSONAL HISTORY OF OTHER DISEASES OF UR 10/21/2017 PATRIC CUETO Ot Z88.8 ALLERGY STATUS TO OTH DRUG/MEDS/BIOL SUB 10/22/2017 PATRIC CUETO Ot F41.9 ANXIETY DISORDER, [...] PATRIC CUETO Ot Z88.8 ALLERGY STATUS TO OT DRUG/MEDS/BIOL SUB 10/26/2017 KUSH MAGDALENO, SILVIO Carmen Ot K62.5 HEMORRHAGE OF ANUS AND RECTUM 10/26/2017 KUSH MAGDALENO, SILVIO Carmen Ot Z01.818 ENCOUNTER FOR OTHER PREPROCEDURAL EXAMIN 10/27/2017 SILVIO CANO MD Ot K62.5 HEMORRHAGE OF ANUS AND RECTUM 10/27/2017 KUSH MAGDALENO, SILVIO Carmen Ot Z01.818 ENCOUNTER FOR OTHER PREPROCEDURAL EXAMIN 10/29/2017 Ot 784.0 HEAD ACHE 10/29/2017 Ot 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 10/29/2017 Ot V72.84 EXA M PRE- OPERATIVE NOS 10/29/2017 MARIANA CUELLAR DO Ot B88.2 OTHER ARTHROPOD INFESTATIONS 10/29/2017 SHAKIR MAGDALENO, JAMAAL Rodriguez Ot R10.11 RIGHT UPPER QUADRANT PAIN 10/29/2017 KUSH MAGDALENO, SILVIO Carmen Ot K80.20 CALCULUS OF GALLBLADDER W/O CHOLECYSTITI 10/29/2017 KUSH MAGDALENO, SILVIO Carmen Ot Z01.818 ENCOUNTER FOR OTHER PREPROCEDURAL EXAMIN 10/29/2017 LUNAIZA RALF [place] FISHING INSTRUCTOR Ot R10.31 RIGHT LOWER QUADRANT PAIN 10/29/2017 LAWRENCE VERGARA APRN Ot M25.562 PAIN IN LEFT KNEE 10/29/2017 BLANC TIKA Lilia FISHING INSTRUCTOR Ot M25.562 PAIN IN LEFT KNEE 11/01/2017 KUSH MAGDALENO, SILVIO M Ot K60.2 ANAL FISSURE, UNSPECIFIED 11/01/2017 KUSH MAGDALENO, SILVIO M Ot K64.8 OTHER HEMORRHOIDS 11/01/2017 KUSH MAGDALENO, SILVIO M Ot Z88.8 ALLERGY STATUS TO OTH DRUG/MEDS/BIOL SUB 11/02/2017 KUSH MAGDALENO, SILVIO M Ot K60.2 ANAL FISSURE, UNSPECIFIED 11/02/2017 KUSH MAGDALENO, SILVIO M Ot K64.8 OTHER HEMORRHOIDS 11/02/2017 KUSH MAGDALENO, SILVIO M Ot Z88.8 ALLERGY STATUS TO OTH DRUG/MEDS/BIOL SUB 11/02/2017 UKSH MAGDALENO, SILVIO M Ot K60.2 ANAL FISSURE, UNSPECIFIED 11/02/2017 KUSH MAGDALENO, SILVIO M Ot K64.8 OTHER HEMORRHOIDS 11/02/2017 KUSH MAGDALENO, SILVIO M Ot Z88.8 ALLERGY STATUS TO OTH DRUG/MEDS/BIOL SUB 11/07/2017 KUSH MAGDALENO, SILVIO M Ot K60.2 ANAL FISSURE, UNSPECIFIED 11/07/2017 KUSH MAGDALENO, SILVIO M Ot K64.8 OTHER HEMORRHOIDS 11/07/2017 KUSH MAGDALENO, SILVIO M Ot Z88.8 ALLERGY STATUS TO OTH DRUG/MEDS/BIOL SUB 09/15/2018 MARIANA CUELLAR DO Ot B88.2 OTHER ARTHROPOD INFESTATIONS 09/15/2018 SHAKIR MAGDALENO, JAMAAL Rodriguez Ot R10.11 RIGHT UPPER QUADRANT PAIN 09/15/2018 KUSH MAGDALENO, SILVIO M Ot K80.20 CALCULUS OF GALLBLADDER W/O CHOLECYSTITI 09/15/2018 KUSH MGADALENO, SILVIO M Ot Z01.818 ENCOUNTER FOR OTHER PREPROCEDURAL EXAMIN 09/15/2018 RALF HALL FISHING INSTRUCTOR Ot R10.31 RIGHT LOWER QUADRANT PAIN 09/15/2018 LAWRENCE VERGARA ASSISTANT PROFESSOR OF PSYCHOLOGY Ot M25.562 PAIN IN LEFT KNEE 09/15/2018 TIKA BLANCP Ot M25.562 PAIN IN LEFT KNEE 09/15/2018 MARIANA CUELLAR DO Ot B88.2 OTHER ARTHROPOD INFESTATIONS 09/15/2018 JAMAAL SCHILLING MD Ot R10.11 RIGHT UPPER QUADRANT PAIN 09/15/2018 KUSH MAGDALENO, SILVIO Carmen Ot K80.20 CALCULUS OF GALLBLADDER W/O CHOLECYSTITI 09/15/2018 KUSH MAGDALENO, SILVIO M Ot Z01.818 ENCOUNTER FOR OTHER PREPROCEDURAL EXAMIN 09/15/2018 RAJIZA RALF A FISHING INSTRUCTOR Ot R10.31 RIGHT LOWER QUADRANT PAIN 09/15/2018 LAWRENCE VERGARA APRN Ot M25.562 PAIN IN LEFT KNEE 09/15/2018 TIKA BLANCP Ot M25.562 PAIN IN LEFT KNEE 09/15/2018 ALISA GUERRERO MARIANA Ot B88.2 OTHER ARTHROPOD INFESTATIONS 09/15/2018 JAMAAL SCHILLING MD Ot R10.11 RIGHT UPPER QUADRANT PAIN 09/15/2018 KUSH MAGDALENO, SILVIO M Ot K80.20 CALCULUS OF GALLBLADDER W/O CHOLECYSTITI 09/15/2018 SILVIO CANO MD M Ot Z01.818 ENCOUNTER FOR OTHER PREPROCEDURAL EXAMIN 09/15/2018 RAJOTTE RALF A FISHING INSTRUCTOR Ot R10.31 RIGHT LOWER QUADRANT PAIN 09/15/2018 LAWRENCE VERGARA APRN Ot M25.562 PAIN IN LEFT KNEE 09/15/2018 TIKA BLANC FISHING INSTRUCTOR Ot M25.562 PAIN IN LEFT KNEE 09/15/2018 VIANCA HIGHTOWER Ot F41.9 ANXIETY DISORDER, UNSPECIFIED 09/15/2018 TAVON HIGHTOWERIS Ot J45.909 UNSPECIFIED ASTHMA, UNCOMPLICATED 09/15/2018 TAVON HIGHTOWERIS Ot K21.9 GASTRO-ESOPHAGEAL REFLUX DISEASE WITHOUT 09/15/2018 TAVON HIGHTOWERIS Ot R10.32 LEFT LOWER QUADRANT PAIN 09/15/2018 VIANCA HIGHTOWER Ot Z87.442 PERSONAL HISTORY OF URINARY CALCULI 09/15/2018 TAVON HIGHTOWERIS Ot Z87.448 PERSONAL HISTORY OF OTHER DISEASES OF UR 09/15/2018 TAVON HIGHTOWERIS Ot Z88.8 ALLERGY STATUS TO OTH DRUG/MEDS/BIOL SUB 09/19/2018 VIANCA HIGHTOWER Ot F41.9 ANXIETY DISORDER, UNSPECIFIED 09/19/2018 VIANCA HIGHTOWER Ot J45.909 UNSPECIFIED ASTHMA, UNCOMPLICATED 09/19/2018 VIANCA HIGHTOWER Ot K21.9 GASTRO-ESOPHAGEAL REFLUX DISEASE WITHOUT 09/19/2018 VIANCA HIGHTOWER Ot R10.32 LEFT LOWER QUADRANT PAIN 09/19/2018 TAVON HIGHTOWERIS Ot Z87.442 PERSONAL HISTORY OF URINARY CALCULI 09/19/2018 TAVON HIGHTOWERIS Ot Z87.448 PERSONAL HISTORY OF OTHER DISEASES OF UR 09/19/2018 VIANCA HIGHTOWER Ot Z88.8 ALLERGY STATUS TO OTH DRUG/MEDS/BIOL SUB 09/23/2019 MARIANA CUELLAR DO Ot B88.2 OTHER ARTHROPOD INFESTATIONS 09/23/2019 SHAKIR MAGDALENO, JAMAAL Rodriguez Ot R10.11 RIGHT UPPER QUADRANT PAIN 09/23/2019 KUSH MAGDALENO, SILVIO Carmen Ot K80.20 CALCULUS OF GALLBLADDER W/O CHOLECYSTITI 09/23/2019 KUSH MAGDALENO, SILVIO Carmen Ot Z01.818 ENCOUNTER FOR OTHER PREPROCEDURAL EXAMIN 09/23/2019 RALF HALL Ot R10.31 RIGHT LOWER QUADRANT PAIN 09/23/2019 LAWRENCE VERGARA APRN Ot M25.562 PAIN IN LEFT KNEE 09/23/2019 TIKA BLANC Ot M25.562 PAIN IN LEFT KNEE Procedures Code Description Performed By Per formed On Otolaryng Edison Cazares 07/15/2012 General S Silvio Cano 11/15/2012 PODIATRY W KALLIE SIMMONS 06/22/2013 30403 NAIL FOLD WEDGE EXCISION 07/14/2013 48703 CULT URE WOUND (AEROBIC) 01/14/2014 12367 CHARLES KATE OF NAIL BED 07/03/2014 25873 UA W / CULTURE IF INDICATED 07/23/2014 13117 ROUT INE VENIPUNCTURE 07/24/2014 66082 CMP 07/24/2014 66473 LIPASE 07/24/2014 BILTOTDIR BILIRUBIN TOTAL AND DIRECT 07/24/2014 27316 XRAY ABDOMEN 2 VIEWS 08/20/2014 Results Test Result Range Complete blood count (CBC) with automate d white blood cell (WBC) differential - 04/25/16 15:29 Blood leukocytes automated count (number/volume) 8.5 10*3/uL 4.3-11.0 Blood erythrocytes automated count (number/volume) 4.47 10*6/uL 4.35-5.85 Venous blood hemoglobin measurement (mass/volume) 13.5 g/dL 11.5-16.0 Blood hematocrit (volume fraction) 41 % 35-52 Automated erythrocyte mean corpuscular volume 92 [ foz_us] 80-99 Automated erythrocyte mean corpuscular h emoglobin (mass per erythrocyte) 30 pg 25-34 Automated erythrocyte mean corpuscular h emoglobin concentration measurement (mass/volume) 33 g/dL 32-36 Automated erythrocyte distribution width ratio 12. 2 % 10.0- 14.5 Automated blood platelet count (count/volume) 285 10*3/uL [...] 10*3 1.0-4.0 Blood monocytes automated count (number/volume) 0. 7 10*3 0.0-1.0 Automated eosinophil count 0.1 10*3/uL 0 .0-0.3 Automated blood basophil count (count/volume) 0.0 10*3/uL 0.0-0.1 Fibrin D-dimer FEU measurement in platel et poor plasma (mass/volume) - 04/25/16 15:29 Fibrin D-dimer FEU measurement in platelet poor plasma (mass/volume) < ug/mL 0.00-0.49 Erythrocyte sedimentation rate by moses gren method - 04/25/16 15:29 Erythrocyte sedimentation rate by westergren method 10 mm 0- 20 Serum or plasma C reactive protein measu rement (mass/volume) - 04/25/16 15:29 Serum or plasma C reactive protein measurement (mass/v olume) 0.19 mg/dL 0.00-0.50 Urine beta human chorionic gonadotropin (hCG) measurement - 07/15/16 08:10 Urine beta human chorionic gonadotropin (hCG) measurem ent NEGATIVE NEGATIVE Methicillin resistant Staphylococcus aur eus (MRSA) screening culture - 07/15/16 08:35 Methicillin resistant Staphylococcus aureus (MRSA) scr eening culture NEG NRG Complete blood count (CBC) with automate d white blood cell (WBC) differential - 01/06/17 16:09 Blood leukocytes automated count (number/volume) 11.0 10*3/uL 4.3-11.0 Blood erythrocytes automated count (number/volume) 4.40 10*6/uL 4.35-5.85 Venous blood hemoglobin measurement (mass/volume) 13.3 g/dL 11.5-16.0 Blood hematocrit (volume fraction) 41 % 35-52 Automated erythrocyte mean corpuscular volume 92 [ foz_us] 80-99 Automated erythrocyte mean corpuscular h emoglobin (mass per erythrocyte) 30 pg 25-34 Automated erythrocyte mean corpuscular h emoglobin concentration measurement (mass/volume) 33 g/dL 32-36 Automated erythrocyte distribution width ratio 12. 4 % 10.0- 14.5 Automated blood platelet count (count/volume) 305 10*3/uL [...] 10*3 1.0-4.0 Blood monocytes automated count (number/volume) 0. 9 10*3 0.0-1.0 Automated eosinophil count 0.1 10*3/uL 0 .0-0.3 Automated blood basophil count (count/volume) 0.0 10*3/uL 0.0-0.1 Serum or plasma C reactive protein measu rement (mass/volume) - 01/06/17 16:09 Serum or plasma C reactive protein measurement (mass/v olume) 0.09 mg/dL 0.00-0.50 Complete urinalysis with reflex to cultu re - 01/06/17 16:25 Urine color determination YELLOW NRG Urine clarity determination SLIGHTLY CLOUDY NRG Urine pH measurement by test strip 6 5-9 Specific gravity of urine by test strip 1.015 1.016-1.022 Urine protein assay by test strip, semi-quantitative NEGATIVE NEGATIVE Urine glucose detection by automated test strip NE GATIVE NEGATIVE Erythrocytes detection in urine sediment by light micr oscopy NEGATIVE NEGATIVE Urine ketones detection by automated test strip NE GATIVE NEGATIVE Urine nitrite detection by test strip NEGATIVE NEGATIVE Urine total bilirubin detection by test strip NEGA TIVE NEGATIVE Urine urobilinogen measurement by automated test strip (mass/volume) NORMAL NORMAL Urine leukocyte esterase detection by dipstick 1+ NEGATIVE Automated urine sediment erythrocyte cou nt by microscopy (number/high power field) NONE NRG Automated urine sediment leukocyte count by microscopy (number/high power field) [HPF] NRG Bacteria detection in urine sediment by light microsco py FEW NRG Squamous epithelial cells detection in u rine sediment by light microscopy 10-25 NRG Crystals detection in urine sediment by light microsco py NONE NRG Casts detection in urine sediment by light microscopy NONE NRG Mucus detection in urine sediment by light microscopy SMALL NRG Complete urinalysis with reflex to culture NO NRG Fibrin D-dimer FEU measurement in platel et poor plasma (mass/volume) - 05/01/17 19:32 Fibrin D-dimer FEU measurement in platelet poor plasma (mass/volume) < ug/mL 0.00-0.49 CBC - 10/19/17 15:46 WHITE BLOOD CELL COUNT 8.7 Thousand/uL 4 .5-13.0 RED BLOOD CELL COUNT 4.00 Million/uL 3.8 0-5.10 HEMOGLOBIN 11.2 g/dL 11.5-15.3 HEMATOCRIT 35.1 % 34.0-46.0 MCV 87.8 fL 78.0-98.0 MCH 28.0 pg 25.0-35.0 MCHC 31.9 g/dL 31.0-36.0 RDW 11.8 % 11.0-15.0 PLATELET COUNT 366 Thousand/uL 140-400 MPV 11.0 fL 7.5-12.5 ABSOLUTE NEUTROPHILS 5603 cells/uL 1800- 8000 ABSOLUTE LYMPHOCYTES 2184 cells/uL 1200- 5200 ABSOLUTE MONOCYTES 722 cells/uL 200-900 ABSOLUTE EOSINOPHILS 148 cells/uL 15-500 ABSOLUTE BASOPHILS 44 cells/uL 0-200 NEUTROPHILS 64.4 % NRG LYMPHOCYTES 25.1 % NRG MONOCYTES 8.3 % NRG EOSINOPHILS 1.7 % NRG BASOPHILS 0.5 % NRG Complete urinalysis with reflex to cultu re - 10/20/17 22:31 Urine color determination RED NRG Urine clarity determination BLOODY NR G Urine pH measurement by test strip 6 5-9 Specific gravity of urine by test strip 1.015 1.016-1.022 Urine protein assay by test strip, semi-quantitative 2+ NEGATIVE Urine glucose detection by automated test strip NE GATIVE NEGATIVE Erythrocytes detection in urine sediment by light micr oscopy 5+ NEGATIVE Urine ketones detection by automated test strip NE GATIVE NEGATIVE Urine nitrite detection by test strip NEGATIVE NEGATIVE Urine total bilirubin detection by test strip NEGA TIVE NEGATIVE Urine urobilinogen measurement by automated test strip (mass/volume) NORMAL NORMAL Urine leukocyte esterase detection by dipstick 3+ NEGATIVE Automated urine sediment erythrocyte cou nt by microscopy (number/high power field) TNTC NRG Automated urine sediment leukocyte count by microscopy (number/high power field) [HPF] NRG Bacteria detection in urine sediment by light microsco py FEW NRG Squamous epithelial cells detection in u rine sediment by light microscopy 0-2 NRG Crystals detection in urine sediment by light microsco py NONE NRG Casts detection in urine sediment by light microscopy NONE NRG Mucus detection in urine sediment by light microscopy NEGATIVE NRG Complete urinalysis with reflex to culture YES NRG Bacterial urine culture - 10/20/17 22:31 URINE CULTURE RESULTS <10,000/ML NRG Complete blood count (CBC) with automate d white blood cell (WBC) differential - 10/20/17 22:39 Blood leukocytes automated count (number/volume) 12.9 10*3/uL 4.3-11.0 Blood erythrocytes automated count (number/volume) 3.93 10*6/uL 4.35-5.85 Venous blood hemoglobin measurement (mass/volume) 11.4 g/dL 11.5-16.0 Blood hematocrit (volume fraction) 35 % 35-52 Automated erythrocyte mean corpuscular volume 89 [ foz_us] 80-99 Automated erythrocyte mean corpuscular h emoglobin (mass per erythrocyte) 29 pg 25-34 Automated erythrocyte mean corpuscular h emoglobin concentration measurement (mass/volume) 33 g/dL 32-36 Automated erythrocyte distribution width ratio 12. 4 % 10.0- 14.5 Automated blood platelet count (count/volume) 383 10*3/uL [...] 10*3 1.0-4.0 Blood monocytes automated count (number/volume) 1. 0 10*3 0.0-1.0 Automated eosinophil count 0.2 10*3/uL 0 .0-0.3 Automated blood basophil count (count/volume) 0.0 10*3/uL 0.0-0.1 Comprehensive metabolic panel - 10/20/17 22:39 Serum or plasma sodium measurement (moles/volume) 142 mmol/L 135-145 Serum or plasma potassium measurement (moles/volume) 3.7 mmol/L 3.6-5.0 Serum or plasma chloride measurement (moles/volume) 107 mmol/L 98-107 Carbon dioxide 22 mmol/L 21-32 Serum or plasma anion gap determination (moles/volume) 13 mmol/L 5-14 Serum or plasma urea nitrogen measurement (mass/volume ) 9 mg/dL 7-18 Serum or plasma creatinine measurement (mass/volume) 0.62 mg/dL 0.60-1.30 Serum or plasma urea nitrogen/creatinine mass ratio 15 NRG Serum or plasma creatinine measurement w ith calculation of estimated glomerular filtration rate > NRG Serum or plasma glucose measurement (mass/volume) 93 mg/dL 70-105 Serum or plasma calcium measurement (mass/volume) 9.1 mg/dL 8.5-10.1 Serum or plasma total bilirubin measurement (mass/volu me) 0.2 mg/dL 0.1-1.0 Serum or plasma alkaline phosphatase dirk surement (enzymatic activity/volume) 75 U/L 60-350 Serum or plasma aspartate aminotransfera se measurement (enzymatic activity/volume) 15 U/L 5-34 Serum or plasma alanine aminotransferase measurement (enzymatic activity/volume) 13 U/L 0-55 Serum or plasma protein measurement (mass/volume) 7.6 g/dL 6.4-8.2 Serum or plasma albumin measurement (mass/volume) 4.1 g/dL 3.2-4.5 Lipase - 10/20/17 22:39 Lipase 15 U/L 8-78 Serum or plasma C reactive protein measu rement (mass/volume) - 10/20/17 22:39 Serum or plasma C reactive protein measurement (mass/v olume) 0.14 mg/dL 0.00-0.50 Urine beta human chorionic gonadotropin (hCG) measurement - 11/01/17 08:30 Urine beta human chorionic gonadotropin (hCG) measurem ent NEGATIVE NEGATIVE A1C - 01/07/18 08:19 HEMOGLOBIN A1c 4.9 % of total Hgb <5.7 Complete blood count (CBC) with automate d white blood cell (WBC) differential - 09/15/18 17:44 Blood leukocytes automated count (number/volume) 9.1 10*3/uL 4.3-11.0 Blood erythrocytes automated count (number/volume) 4.87 10*6/uL 4.35-5.85 Venous blood hemoglobin measurement (mass/volume) 14.2 g/dL 11.5-16.0 Blood hematocrit (volume fraction) 43 % 35-52 Automated erythrocyte mean corpuscular volume 89 [ foz_us] 80-99 Automated erythrocyte mean corpuscular h emoglobin (mass per erythrocyte) 29 pg 25-34 Automated erythrocyte mean corpuscular h emoglobin concentration measurement (mass/volume) 33 g/dL 32-36 Automated erythrocyte distribution width ratio 13. 3 % 10.0- 14.5 Automated blood platelet count (count/volume) 321 10*3/uL 130-400 Automated blood platelet mean volume measurement 10.7 [foz_us] 7.4-10.4 Automated blood neutrophils/100 leukocytes 74 % 42-75 Automated blood lymphocytes/100 leukocytes 18 % 12-44 Blood monocytes/100 leukocytes 8 % 0-12 Automated blood eosinophils/100 leukocytes 1 % 0-10 Automated blood basophils/100 leukocytes 0 % 0-10 Blood neutrophils automated count (number/volume) 6.7 10*3 1.8-7.8 Blood lymphocytes automated count (number/volume) 1.6 10*3 1.0-4.0 Blood monocytes automated count (number/volume) 0. 7 10*3 0.0-1.0 Automated eosinophil count 0.1 10*3/uL 0 .0-0.3 Automated blood basophil count (count/volume) 0.0 10*3/uL 0.0-0.1 Serum or plasma choriogonadotropin (preg arian test) detection - 09/15/18 17:44 Serum or plasma choriogonadotropin ( test) de tection NEGATIVE NEGATIVE Comprehensive metabolic panel - 09/15/18 17:44 Serum or plasma sodium measurement (moles/volume) 141 mmol/L 135-145 Serum or plasma potassium measurement (moles/volume) 4.2 mmol/L 3.6-5.0 Serum or plasma chloride measurement (moles/volume) 104 mmol/L 98-107 Carbon dioxide 26 mmol/L 21-32 Serum or plasma anion gap determination (moles/volume) 11 mmol/L 5-14 Serum or plasma urea nitrogen measurement (mass/volume ) 11 mg/dL 7-18 Serum or plasma creatinine measurement (mass/volume) 0.78 mg/dL 0.60-1.30 Serum or plasma urea nitrogen/creatinine mass ratio 14 NRG Serum or plasma creatinine measurement w ith calculation of estimated glomerular filtration rate > NRG Serum or plasma glucose measurement (mass/volume) 86 mg/dL 70-105 Serum or plasma calcium measurement (mass/volume) 10.0 mg/dL 8.5-10.1 Serum or plasma total bilirubin measurement (mass/volu me) 0.4 mg/dL 0.1-1.0 Serum or plasma alkaline phosphatase dirk surement (enzymatic activity/volume) 91 U/L 40-136 Serum or plasma aspartate aminotransfera se measurement (enzymatic activity/volume) 13 U/L 5-34 Serum or plasma alanine aminotransferase measurement (enzymatic activity/volume) 10 U/L 0-55 Serum or plasma protein measurement (mass/volume) 8.3 g/dL 6.4-8.2 Serum or plasma albumin measurement (mass/volume) 4.7 g/dL 3.2-4.5 Serum or plasma amylase measurement (enz ymatic activity/volume) - 09/15/18 17:44 Serum or plasma amylase measurement (enzymatic activit y/volume) 37 U/L 25-125 Lipase - 09/15/18 17:44 Lipase 13 U/L 8-78 Complete urinalysis with reflex to cultu re - 09/15/18 18:22 Urine color determination YELLOW NRG Urine clarity determination VERY CLOUDY NRG Urine pH measurement by test strip 7 5-9 Specific gravity of urine by test strip 1.015 1.016-1.022 Urine protein assay by test strip, semi-quantitative 1+ NEGATIVE Urine glucose detection by automated test strip NE GATIVE NEGATIVE Erythrocytes detection in urine sediment by light micr oscopy NEGATIVE NEGATIVE Urine ketones detection by automated test strip 1+ NEGATIVE Urine nitrite detection by test strip NEGATIVE NEGATIVE Urine total bilirubin detection by test strip NEGA TIVE NEGATIVE Urine urobilinogen measurement by automated test strip (mass/volume) NORMAL NORMAL Urine leukocyte esterase detection by dipstick 2+ NEGATIVE Automated urine sediment erythrocyte cou nt by microscopy (number/high power field) NONE NRG Automated urine sediment leukocyte count by microscopy (number/high power field) [HPF] NRG Bacteria detection in urine sediment by light microsco py LARGE NRG Squamous epithelial cells detection in u rine sediment by light microscopy >50 NRG Crystals detection in urine sediment by light microsco py NONE NRG Casts detection in urine sediment by light microscopy NONE NRG Mucus detection in urine sediment by light microscopy NEGATIVE NRG Complete urinalysis with reflex to culture YES NRG Bacterial urine culture - 09/15/18 18:22 Bacterial urine culture NG NRG COVID-19 ([facility]) - 12/04/19 15:28 PATIENT SYMPTOMATIC? NOT GIVEN NRG SOURCE: NOT GIVEN NRG OVERALL RESULT: NOT DETECTED NOT DETE CTED SARS-CoV-2 RNA: NEGATIVE NEGATIVE DECKER-SARS RNA: NEGATIVE NEGATIVE Encounters ACCT No. Visit Date/Time Discharge Status Pt. Type Provider Facility Loc./Unit Complaint [id number] 10/29/2019 17:30:00 10/29/2019 23:59: 59 [id number] 12/04/2019 17:45:00 Document Registration [id number] 01/07/2018 08:40:00 Document Registration [id number] 10/19/2017 15:20:00 Document Registration [id number] 09/23/2019 00:22:00 020 02:23:00 DIS Emergency AUSTYN MAGDALENO, RHONDA Rodrigues [facility] ER RASH [id number] 09/15/2018 16:41:00 019 19:59:00 DIS Emergency VIANCA HIGHTOWER [facility] ER ABD PAIN, BLOOD IN STOO L [id number] 11/01/2017 08:21:00 018 11:30:00 DIS Outpatient KUSH MAGDALENO, SILVIO Carmen [facility] ENDO RECTAL BLEEDING [id number] 10/26/2017 05:39:00 018 12:23:00 DIS Outpatient KUSH MAGDALENO, SILVIO Carmen [facility] PREOP COLONOSCOPY [id number] 10/20/2017 21:32:00 018 00:23:00 DIS Emergency PATRIC CUETO [facility] ER ABD PAIN;BLOOD IN STOO L [id number] 07/05/2017 16:54:00 017 23:59:59 CLS Outpatient TIKA BLANC FISHING INSTRUCTOR [facility] RAD S83.242A [id number] 05/01/2017 18:38:00 017 20:06:00 DIS Emergency DUSTIN ALTAMIRANO ASSISTANT PROFESSOR OF PSYCHOLOGY [facility] ER L LEG PAIN/SWELLING [id number] 03/27/2017 14:43:00 017 23:59:59 CLS Outpatient LAWRENCE VERGARA ASSISTANT PROFESSOR OF PSYCHOLOGY [facility] RAD [id number] 01/06/2017 15:40:00 017 23:59:59 CLS Outpatient RALF HALL FISHING INSTRUCTOR [facility] RAD RLQ ABD PAIN R1 0.31 [id number] 07/22/2016 17:43:00 016 17:43:00 CAN Preadmit CLOTHIER LASHAWN RICHARDS [facility] RAD PT SWALLOWED A CROWN [id number] 07/15/2016 07:50:00 14:10:00 DIS Outpatient KUSH MAGDALENO, SILVIO Carmen [facility] SDC GALLSTONES [id number] 07/14/2016 12:24:00 23:59:59 CLS Outpatient KUSH MAGDALENO, SILVIO Carmen [facility] PREOP GALLSTONES [id number] 07/10/2016 07:17:00 23:59:59 CLS Outpatient JAMAAL SCHILLING MD [facility] RAD RUQ PAIN [id number] 04/29/2016 22:57:00 23:59:59 CLS Outpatient MARIANA CUELLAR DO [facility] LAB TICK-BORNE DISEASE B88. [id number] 04/25/2016 15:13:00 16:45:00 DIS Emergency DUSTIN ALTAMIRANO APRN [facility] ER L KNEE/LEG SWELLING [id number] 08/17/2014 17:35:00 16:15:00 DIS Inpatient SAMMY MAGDALENO, WILLIAM Whipple [facility] 4TH CONSTIPATION [id number] 07/23/2014 21:59:00 23:08:00 DIS Emergency RHONDA ZAMAN MD [facility] ER ABD PAIN [id number] 06/13/2014 22:34:00 01:23:00 DIS Emergency CHRISTINA KIDD MD [facility] ER MULTIPLE COMPLA INTS [id number] 06/12/2014 22:40:00 00:54:00 DIS Emergency MADINA DUARTE DO [facility] ER URINARY ISSUES ABDOMINA L PAIN [id number] 10/30/2013 22:09:00 23:00:00 DIS Emergency RHONDA ZAMAN MD [facility] ER L SHOULDER PAIN [id number] 10/04/2013 16:00:00 01/29/2 014 23:59:59 CLS Outpatient [id number] 09/14/2013 19:16:00 014 23:59:59 CLS Outpatient [id number] 01/11/2013 20:03:00 013 23:34:00 DIS Emergency MADINA DUARTE DO Vi [facility] ER FALL; R ANKLE PAIN [id number] 12/20/2019 22:54:[address] Emergency MADINA DUARTE DO [facility] ER VAGINAL BLEEDING [id number] 12/08/2012 07:15:00 Document Registration [id number] 12/05/2012 12:14:00 Document Registration [id number] 07/04/2012 13:20:00 Document Registration [id number] 2012 21:15:00 Document Registration [id number] 01/13/2012 11:28:00 Document Registration [id number] 08/24/2014 11:22:00 08/24/2014 23:59: 59 CLS Outpatient HAYLEY ANTOINE DO [id number] 08/17/2014 15:20:00 08/17/2014 23:59: 59 CLS Outpatient HAYLEY ANTOINE DO [id number] 07/23/2014 18:19:00 07/23/2014 23:59: 59 CLS Outpatient HAYLEY ANTOINE DO [id number] 07/03/2014 14:36:00 07/03/2014 23:59: 59 CLS Outpatient MANOJ LARSON APRN [id number] 06/13/2014 18:18:00 06/13/2014 23:59: 59 CLS Outpatient MANOJ LARSON APRN [id number] 01/11/2014 16:55:00 01/11/2014 23:59: 59 CLS Outpatient TISH LÓPEZ MD [id number] 12/01/2013 15:38:00 12/01/2013 23:59: 59 CLS Outpatient CHANDLER TATE APRN [id number] 08/25/2013 07:48:00 08/25/2013 23:59: 59 CLS Outpatient HAYLEY ANTOINE DO [id number] 07/14/2013 11:25:00 07/14/2013 23:59: 59 CLS Outpatient HAYLEY ANTOINE DO [id number] 07/03/2013 17:37:00 07/03/2013 23:59: 59 CLS Outpatient HAYLEY ANTOINE DO [id number] 06/22/2013 08:09:00 06/22/2013 23:59: 59 CLS Outpatient HAYLEY ANTOINE DO [id number] 06/08/2013 13:29:00 06/08/2013 23:59: 59 CLS Outpatient RALF HALL APRN [id number] 11/14/2012 15:32:00 11/14/2012 23:59: 59 CLS Outpatient HAYLEY ANTOINE DO [id number] 07/01/2012 14:59:00 07/01/2012 23:59:5 9 CLS Outpatient HAYLEY ANTOINE DO [id number] 07/01/2012 14:59:00 07/01/2012 23:59: 59 CLS Outpatient HAYLEY ANTOINE DO
--- OUTSIDE RECORDS SUMMARY | 2019-12-20 23:06 | XMS REPORT ---
Author Author Kathleen VIDALES Organization [facility] Address Unknown Care Team Providers Care Camouflage Specialist Name Role Phone ESME VIDALES Unavailable PROBLEMS Type Condition ICD9-CM Code [id number] Code Onset Dates Condition S tatus SNOMED Code Problem Major depressive disorder, recurrent episode, mild F33.0 Active 188306595 Problem Irregular menses N92.6 Active 386 691123 Problem Seasonal allergic rhinitis, unspecified allergic rhinitis trigger J30.2 Active 661616423 Problem Anxiety, generalized F41.1 Active 25357266 Problem Heart palpitations R00.2 Active 8 2455497 Problem Acute pain of right knee M25.561 Activ e 08949431 Problem Family history of heart disease in male family m ember before age 55 Z82.49 Active 751481045 Problem Overweight E66.3 Active 244590860 Problem High risk medication use Z79.899 Activ e [id number] ALLERGIES No Information ENCOUNTERS Encounter Location Date Diagnosis [facility] [address] [id number] [address] [place] [address] January, [facility] [address] [id number] [address] [place] [address] Nov, [facility] [address] [id number] [address] [place] [address] Nov, Anxiety, generalized F41.1 a nd Major depressive disorder, recurrent episode, mild F33.0 [facility] [address] [facility] [id number] [address] [place] [address] Oct, Anxiety, generalized F41.1 a nd Major depressive disorder, recurrent episode, mild F33.0 [facility] [address] [id number] [address] [place] [address] Oct, Rectal bleeding K62.5 [facility] [address] [facility] [id number] [address] [place] [address] 10 Oct, 2017 Sore throat J02.9 and Acute nasopharyngitis J00 [facility] [address] [facility] [id number] [address] [place] [address] 04 Oct, 2017 Viral gastroenteritis A08.4 [facility] [address] [id number] [address] [place] [address] Sep, Chest wall pain R07.89 [facility] [address] [id number] [address] [place] [address] Sep, Major depressive disorder, r ecurrent episode, moderate F33.1 [facility] [id number] [place] [id number] Sep, Viral syndrome B34.9 [place] [address] [address] Aug, Major depressive disorder, r ecurrent episode, moderate F33.1 and Anxiety, generalized F41.1 [place] [address] [place] [address] Jul, [facility] [address] [id number] [address] [place] [address] Jul, Viral syndrome B34.9 [place] [id number] [place] [address] Jun, Anxiety, generalized F41.1 a nd Major depressive disorder, recurrent episode, moderate F33.1 [place] [address] [id number] [address] [place] [address] May, Anxiety, generalized F41.1 a nd Major depressive disorder, recurrent episode, moderate F33.1 [place] [address] [id number] [address] [place] [address] May, Tear of medial meniscus of l eft knee, current, unspecified tear type, initial encounter S83.242A [facility] [id number] [place] [address] [id number] 13 May, 2017 Encounter for immunization Z 23 [place] [address] [address] Apr, Major depressive disorder, r ecurrent episode, moderate F33.1 and Anxiety, generalized F41.[address] [address] Apr, Moderate single current epis ode of major depressive disorder F32.1 ; Anxiety, generalized F41.1 and Panic disorder [episodic paroxysmal anxiety] without agoraphobia F41.[address] [address] Apr, Sports physical Z02.5 ; Enco unter [...] M25.561 [facility] [address] [address] Mar, Acute pain of left knee M25. 562 [place] [address] [id number] January, Irregular menses N92.6 and S creen for STD (sexually transmitted disease) Z11.[address] [id number] January, Right lower quadrant abdomin al pain R10.31 and Flank pain R10.[address] [address] Oct, Influenza B J10.1 [facility] [address] [place] [address] Oct, Acute nasopharyngitis J00 an d Seasonal allergic rhinitis, unspecified allergic rhinitis trigger J30.2 [facility] [address] [facility] [id number] [address] [place] [address] Jun, [facility] [address] [facility] [id number] [address] [place] [address] May, [facility] [address] [facility] [id number] [address] [place] [address] May, [facility] [address] [facility] [id number] [address] [place] [address] May, [facility] [address] [facility] [id number] [address] [place] [address] May, [facility] [address] [id number] [address] [place] [address] Apr, [facility] [address] [facility] [id number] [address] [place] [address] Apr, [facility] [id number] [address] [place] [address] Apr, [facility] [address] [id number] [place] [address] Apr, Arthritis of left knee M19.9 0 and Tick-borne disease B88.2 [facility] [address] [place] [address] Dec, [facility] [address] [facility] [id number] [place] [id number] Nov, 2016 Encounter for immunization Z 23 [facility] [address] [id number] [address] [place] [address] Nov, 2016 Influenza J11.1 [facility] [address] [id number] [address] [place] [id number] 07 Nov, 2015 Anxiety F41.9 [facility] [address] [place] [address] Sep, Sore throat J02.9 [facility] [address] [facility] [id number] [address] [place] [address] Jul, Amenorrhea, unspecified N91. 2 and Dysuria R30.0 [facility] [address] [facility] [id number] [address] [place] [address] Jun, Acute nasopharyngitis J00 [facility] [address] [facility] [id number] [address] [place] [phone] Jun, [facility] [address] [facility] [id number] [address] [place] [address] Mar, Pubertal menorrhagia 626.3 ; Initiation of OCP (BCP) V25.01 and Need for HPV vaccination V04.89 [facility] [address] [id number] [address] [place] [address] Mar, Mood disorder 296.90 and ADH D (attention deficit hyperactivity disorder), combined type 314.01 [facility] [address] [facility] [id number] [address] [place] [address] Dec, [facility] [address] [facility] [id number] [address] [place] [address] Dec, [facility] [address] [id number] [address] [place] [address] Aug, [facility] [address] [facility] [id number] [address] [place] [address] Aug, [facility] [address] [facility] [id number] [address] [place] [address] Aug, [facility] [address] [facility] [id number] [address] [place] [address] Aug, [facility] [address] [facility] [id number] [address] [place] [address] Aug, [facility] [address] [id number] [address] [place] [address] Aug, [facility] [address] [id number] [address] [place] [address], [place] [address] Aug, [facility] [address] [id number] [address] [place] [address], [place] [address] Jul, [facility] [address] [id number] [address] [place] [address], [place] [address] Jul, [facility] [address] [id number] [address] [place] [address], [place] [address] Jul, [facility] [address] [id number] [address] [place] [address], [place] [address] Jul, [facility] [address] [id number] [address] [place] [address], [place] [address] Jun, [facility] [address] [id number] [address] [place] [address], [place] [address] Jun, [facility] [address] [id number] [address] [place] [address], [place] [address] Jun, [facility] [address] [id number] [address] [place] [address], [place] [address] Jun, [facility] [address] [id number] [address] [place] [address], [place] [address] January, [facility] [address] [id number] [address] [place] [address], [place] [address] January, [facility] [address] [id number] [address] [place] [address], [place] [address] January, [facility] [address] [id number] [address] [place] [address], [place] [address] Nov, [facility] [address] [id number] [address] [place] [address], [place] [address] Nov, [facility] [address] [id number] [address] [place] [address], [place] [address] Aug, [facility] [address] [id number] [address] [place] [address], [place] [address] 20 Aug, 2013 [facility] [address] [id number] [address] [place] [address], [place] [address] 18 Aug, 2013 [facility] [address] [id number] [address] [place] [address], [place] [address] 18 Aug, 2013 [facility] [address] [id number] [address] [place] [address], [place] [address] 17 Aug, 2013 [facility] [address] [id number] [address] [place] [address], [place] [address] Jul, [facility] [address] [id number] [address] [place] [address], [place] [address] Jul, [facility] [address] [id number] [address] [place] [address], [place] [address] Jun, [facility] [address] [id number] [address] [place] [address], [place] [address] Jun, [facility] [address] [id number] [address] [place] [address], [place] [address] Jun, [facility] [address] [id number] [address] [place] [address], [place] [address] Jun, [facility] [address] [id number] [address] [place] [address], [place] [address] 24 Jun, 2013 [facility] [address] [id number] [address] [place] [address], [place] [address] 17 Jun, 2013 [facility] [address] [id number] [address] [place] [address], [place] [address] 17 Jun, 2013 [facility] [address] [id number] [address] [place] [address], [place] [address] 10 Jun, 2013 [facility] [address] [id number] [address] [place] [address], [place] [address] 03 Jun, 2013 [facility] [address] [id number] [address] [place] [address], [place] [address] Nov, [facility] [address] [id number] [address] [place] [address], [place] [address] Nov, [facility] [address] [id number] [address] [place] [address], [place] [address] Oct, [facility] [address] [id number] [address] [place] [address], [place] [address] Oct, [facility] [address] [id number] [address] [place] [address], [place] [address] Jul, [facility] [address] [id number] [address] [place] [address], [place] [address] Jul, [facility] [address] [id number] [address] [place] [address], [place] [address] Jul, [facility] [address] [id number] [address] [place] [address], [place] [address] Jul, [facility] [address] [id number] [address] [place] [address], [place] [address] Jul, [facility] [address] [id number] [address] [place] [address], [place] [address] Jul, [facility] [address] [id number] [address] [place] [address], [place] [address] Jun, [facility] [address] [id number] [address] [place] [address], [place] [address] Jun, [facility] [address] [id number] [address] [place] [address] Jun, [facility] [address] [id number] [address] [place] [address], [place] [address] 16 Jun, 2012 [facility] [address] [id number] [address] [place] [address], [place] [address] May, [facility] [address] [id number] [address] [place] [address], [place] [address] May, [facility] [address] [id number] [address] [place] [address] Oct, [facility] [address] [id number] [address] [place] [address] Sep, [facility] [address] [id number] [address] [place] [address] Sep, [facility] [address] [id number] [address] [place] [address] Aug, [facility] [address] [id number] [address] [place] [address] Aug, [facility] [address] [id number] [address] [place] [address] Aug, [facility] [address] [id number] [address] [place] [address] Jun, [facility] [address] [id number] [address] [place] [address] Sep, [facility] [address] [id number] [address] [place] [address] Jul, [facility] [address] [id number] [address] [place] [address] Jul, IMMUNIZATIONS No Known Immunizations SOCIAL HISTORY Never Assessed REASON FOR VISIT Intake PLAN OF CARE Activity Details Follow Up next available Reason: VITAL SIGNS MEDICATIONS Unknown Medications RESULTS No Results PROCEDURES Procedure Date Ordered Result Body Site Psych diagnostic evaluation, established patient May 06, 2017 INSTRUCTIONS MEDICATIONS ADMINISTERED No Known Medications [...]
[2019-12-20 23:20] LABS: BASOPHILS % (AUTO) 0 % (0-10); BILIRUBIN,URINE NEGATIVE (NEGATIVE); CLARITY,URINE SL CLOUDY; COLOR,URINE YELLOW; EOSINOPHILS # (AUTO) 0.1 10^3/uL (0.0-0.3); EOSINOPHILS % (AUTO) 1 % (0-10); GLUCOSE, URINE (UA) NEGATIVE (NEGATIVE); HEMATOCRIT 42 % (35-52); HEMOGLOBIN 13.8 G/DL (11.5-16.0); KETONES,URINE NEGATIVE (NEGATIVE); LEUKOCYTE ESTERASE ,URINE TRACE (NEGATIVE); LYMPHOCYTES # (AUTO) 2.7 X 10^3 (1.0-4.0); LYMPHOCYTES % (AUTO) 24 % (12-44); MEAN CORPUSCULAR HEMOGLOBIN 30 PG (25-34); MEAN CORPUSCULAR HGB CONC 33 G/DL (32-36); MEAN CORPUSCULAR VOLUME 91 FL (80-99); MEAN PLATELET VOLUME 11.1 FL (7.4-10.4); MONOCYTES # (AUTO) 0.9 X 10^3 (0.0-1.0); MONOCYTES % (AUTO) 8 % (0-12); NEUTROPHILS # (AUTO) 7.5 X 10^3 (1.8-7.8); NEUTROPHILS % (AUTO) 67 % (42-75); NITRITE,URINE NEGATIVE (NEGATIVE); PH,URINE 6.5 (5-9); PLATELET COUNT 366 10^3/uL (130-400); PROTEIN,URINE NEGATIVE (NEGATIVE); RED CELL DISTRIBUTION WIDTH 12.7 % (10.0-14.5); WHITE BLOOD COUNT 11.2 10^3/uL (4.3-11.0)
[2019-12-20 23:31] LABS: ALBUMIN 4.6 GM/DL (3.2-4.5)
[2019-12-20 23:32] LABS: CHLORIDE 104 MMOL/L (98-107); POTASSIUM 3.4 MMOL/L (3.6-5.0); SODIUM 139 MMOL/L (135-145)
[2019-12-20 23:33] LABS: CALCIUM 9.9 MG/DL (8.5-10.1)
[2019-12-20 23:34] LABS: GLUCOSE 85 MG/DL (70-105); TOTAL PROTEIN 8.7 GM/DL (6.4-8.2)
[2019-12-20 23:35] LABS: CARBON DIOXIDE 23 MMOL/L (21-32); INR 0.9 (0.8-1.4); PROTHROMBIN TIME PATIENT 12.7 SEC (12.2-14.7)
[2019-12-20 23:36] LABS: AMORPHOUS SEDIMENT,UR FEW AMOR URATES /LPF; BACTERIA,URINE MODERATE /HPF; BILIRUBIN,TOTAL 0.2 MG/DL (0.1-1.0)
[2019-12-20 23:37] LABS: ALKALINE PHOSPHATASE 92 U/L (40-136); CREATININE SERUM 0.77 MG/DL (0.60-1.30); GFR ESTIMATED > 60
[2019-12-20 23:38] LABS: BUN/CREATININE RATIO 9
[2019-12-20 23:40] LABS: ALANINE AMINOTRANSFERASE 10 U/L (0-55)
[2019-12-21] MEDS ORDERED: HYDR25SU28 RC (00:10)
[2019-12-21] MEDS ORDERED: NITR-65 PO (00:10)
--- NOTE | 2019-12-21 00:10 | ED GU-Female ---
General Chief Complaint: MANNEQUIN MOUNTER Stated Complaint: VAGINAL BLEEDING Nursing Triage Note: PT PRESENTS TO THE ED AMBULATORY C/O THREE WEEKS OF INTEMITTENT VAGINAL BLEEDING THAT BECAME ELIDIA IN PRESENTATION TODAY WITH INCREASED PAIN. PT STATES SHE URINATED IN THE TOILET AND THE ENTIRE BOWL WAS FILLED WITH BRIGHT RED BLOOD. PT VERBALIZES ADLER HX OF COLON FISSURE, DIAGNOSED IN 2018 Nursing Sepsis Screen: No Definite Risk Source: patient (VERY POOR / LIMITED HISTORIAN) History of Present Illness Date Seen by Provider: Dec 20, 2019 Time Seen by Provider: 22:13 Initial Comments PT ARRIVES VIA POV FROM HOME C/O VAGINAL BLEEDING FOR 3 WEEKS OFF AND ON STATES BLEEDING IS ONLY OCCASIONAL SPOTTING ON TISSUE, BUT OCCASIONALLY THERE WILL BE BLOOD IN TOILET PT HAS NOT USED ANY PADS AT ANY TIME DID NOT HAVE ANY BLEEDING AT ALL TODAY, UNTIL TONIGHT AND RUSHED STRAIGHT HERE NO ABDOMINAL PAIN NO NAUSEA/VOMITING NO FEVER NO PROBLEMS URINATING LMP 10/18/19--STATES PERIODS ARE ALWAYS IRREGULAR STATES "I'VE HAD THIS PROBLEM BEFORE" "THEY SAID IT WAS A FISSURE AND THEY FIXED IT AND I HAVE NOT HAD ANY BLEEDING UNTIL 3 WEEKS AGO" --IS NOT ON CONTROL HAD AN APPOINTMENT YESTERDAY AT [facility] FOR THIS PROBLEM, BUT MISSED IT--STATES "I FORGOT ABOUT IT" DID NOT ATTEMPT TO RESCHEDULE THESE SYMPTOMS ARE NO DIFFERENT IN ANY WAY TONIGHT. PCP: [facility] Allergies and Home Medications Allergies Coded Allergies: sumatriptan (Verified Allergy, Unknown, 09/15/18) sumatriptan succinate (Verified Allergy, Unknown, 09/15/18) Home Medications Hydrocortisone Acetate 25 Mg Supp.rect, 25 MG RC TID PRN for PAIN Prescribed by: MADINA DUARTE on 12/21/199 Nitrofurantoin Monohyd/M-Cryst 100 Mg Capsule, 1 TAB PO BID Prescribed by: MADINA DUARTE on 12/21/199 Sulfamethoxazole/Trimethoprim 1 Each Tablet, 1 EACH PO BID Prescribed by: RHONDA ZAMAN on 09/23/19 020 Patient Home Medication List Home Medication List Reviewed: Yes Review of Systems Review of Systems Constitutional: no symptoms reported; No dizziness, No fever EENTM: no symptoms reported Respiratory: no symptoms reported Cardiovascular: no symptoms reported Gastrointestinal: no symptoms reported Genitourinary: see HPI LMP: Oct 18, 2019 Musculoskeletal: no symptoms reported Skin: no symptoms reported Psychiatric/Neurological: No Symptoms Reported Endocrine: No Symptoms Reported Hematologic/Lymphatic: No Symptoms Reported Past Cygffgu-Dernka-Qlimod Hx Past Med/Social Hx: Reviewed and Corrections made Patient Social History Alcohol Use: Denies Use Recreational Drug Use: No Smoking Status: Never a Smoker Recent Foreign Travel: No Contact w/Someone Who Travel: No Recent Infectious Disease Expo: No Recent Hopitalizations: No Immunizations Up To Date Tetanus Booster (TDap): Less than 5yrs PED Vaccines UTD: Yes Date of Influenza Vaccine: Jun 06, 2013 Seasonal Allergies Seasonal Allergies: No Past Medical History Surgeries: Yes (MOLES REMOVED ON NECK X3, COLONOSCOPY ) Gallbladder, Rectal Respiratory: Yes (ASTHMA YOUNG CHILD- NO LONGER) Cardiac: No Neurological: Yes (migraines) Headaches /Migraines : No Last Menstrual Period: Oct 18, 2019 Reproductive Disorders: No Female Reproductive Disorders: Polycystic Ovarian Dis Sexually Transmitted Disease: No HIV/AIDS: No Genitourinary: Yes Kidney Stones Gastrointestinal: Yes (ANAL FISSURE) Gastroesophageal Reflux, Chronic Constipation Musculoskeletal: No Endocrine: No Loss of Vision: Denies Hearing Impairment: Denies Cancer: No Psychosocial: Yes Anxiety Integumentary: Yes Eczema Blood Disorders: No Adverse Reaction/Blood Tranf: No (N/A) Family Medical History Arthritis 19 MOTHER Asthma G8 BROTHER G8 SISTER Gastroenteritis 19 MOTHER Headache disorder 19 FATHER 19 MOTHER Hypertension 19 FATHER Visual disorder G8 SISTER (LAZY EYE) No Family History of: AIDS Abdominal aortic aneurysm Stone's disease Alcoholism Alzheimer's disease Aphasia Cancer of mouth Cardiovascular disease Cataracts Colon cancer Completed stroke Congenital disease Congenital heart disease Coronary thrombosis Cystic fibrosis Deafness or hearing loss Dementia Diabetes mellitus Drug abuse Dysphasia Fibrocystic disease of breast Glaucoma Hypercholesterolemia Infertility Kidney disease Myocardial infarction Neoplasm Osteoporosis Parkinson's disease Prostate cancer Psychosocial problem Respiratory disorder Seizure disorder Severe allergy Thyroid disease Tuberculosis Physical Exam Vital Signs Vital Signs - First Documented 12/20/19 22:59 Temp 36.7 Pulse 97 Resp 20 B/P (MAP) 126/79 (95) Pulse Ox 98 O2 Delivery Room Air Capillary Refill : Less Than 3 Seconds Height, Weight, BMI Height: 5'3.00" Weight: 204lbs. 0.0oz. [id number]; 27.00 BMI Method:Stated General Appearance: WD/WN, no apparent distress Cardiovascular: regular rate, rhythm, no murmur Respiratory: normal breath sounds, no respiratory distress, no accessory muscle use Gastrointestinal: normal bowel sounds, soft, no organomegaly, no pulsatile mass, tenderness (MILD SUPRAPUBIC TENDERNESS) Rectal: tenderness, other (VERY SCANT AMOUNT OF DRIED BLOOD AT ANUS, POSTERIOR ASPECT. PT HAS A SMALL FISSURE TO POSTERIOR ASPECT,APPROXIMATELY 6:00) Pelvic: normal external exam, discharge (SMALL AMOUNT OF THICK WHITE DISCHARGE. 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, no motor/sensory deficits, alert, normal mood/affect, oriented x 3 Skin: normal color, warm/dry; No rash Progress/Results/Core Measures Suspected Sepsis Recent Fever Within 48 Hours: No Infection Criteria Present: None New/Unexplained Altered Menta: No Sepsis Screen: No Definite Risk SIRS Temperature: Pulse: 97 Respiratory Rate: 20 Laboratory Tests 12/20/19 23:03: White Blood Count 11.2H Blood Pressure 126 /79 Mean: 95 Laboratory Tests 12/20/19 23:03: Creatinine 0.77, INR Comment 0.9, Platelet Count 366, Total Bilirubin 0.2 Results/Orders Lab Results Laboratory Tests Test 12/20/19 23:03 12/21/19 00:01 Range/Units White Blood Count 11.2 H 4.3-11.0 10^3/uL Red Blood Count 4.65 4.35-5.85 10^6/uL Hemoglobin 13.8 11.5-16.0 G/DL Hematocrit 42 35-52 % Mean Corpuscular Volume 91 80-99 FL Mean Corpuscular Hemoglobin 30 25-34 PG Mean Corpuscular Hemoglobin Concent 33 32-36 G/DL Red Cell Distribution Width 12.7 10.0-14.5 % Platelet Count 366 130-400 10^3/uL Mean Platelet Volume 11.1 H 7.4-10.4 FL Neutrophils (%) (Auto) 67 42-75 % Lymphocytes (%) (Auto) 24 12-44 % Monocytes (%) (Auto) 8 0-12 % Eosinophils (%) (Auto) 1 0-10 % Basophils (%) (Auto) 0 0-10 % Neutrophils # (Auto) 7.5 1.8-7.8 X 10^3 Lymphocytes # (Auto) 2.7 1.0-4.0 X 10^3 Monocytes # (Auto) 0.9 0.0-1.0 X 10^3 Eosinophils # (Auto) 0.1 0.0-0.3 10^3/uL Basophils # (Auto) 0.0 0.0-0.1 10^3/uL Prothrombin Time 12.7 12.2-14.7 SEC INR Comment 0.9 0.8-1.4 Activated Partial Thromboplast Time 30 24-35 SEC Urine Color YELLOW Urine Clarity SL CLOUDY Urine pH 6.5 5-9 Urine Specific [place] 1.015 L 1.016-1.022 Urine Protein NEGATIVE NEGATIVE Urine Glucose (UA) NEGATIVE NEGATIVE Urine Ketones NEGATIVE NEGATIVE Urine Nitrite NEGATIVE NEGATIVE Urine Bilirubin NEGATIVE NEGATIVE Urine Urobilinogen 1.0 < = 1.0 MG/DL Urine Leukocyte Esterase TRACE H NEGATIVE Urine RBC (Auto) NEGATIVE NEGATIVE Urine RBC NONE /HPF Urine WBC 2-5 /HPF Urine Squamous Epithelial Cells 2-5 /HPF Urine Crystals PRESENT H /LPF Urine Amorphous Sediment FEW DESIREE URATES H /LPF Urine Bacteria MODERATE H /HPF Urine Casts NONE /LPF Urine Mucus SMALL H /LPF Urine Culture Indicated YES Sodium Level 139 135-145 MMOL/L Potassium Level 3.4 L 3.6-5.0 MMOL/L Chloride Level 104 98-107 MMOL/L Carbon Dioxide Level 23 21-32 MMOL/L Anion Gap 12 5-14 MMOL/L Blood Urea Nitrogen 7 7-18 MG/DL Creatinine 0.77 0.60-1.30 MG/DL Estimat Glomerular Filtration Rate > 60 BUN/Creatinine Ratio 9 Glucose Level 85 70-105 MG/DL Calcium Level 9.9 8.5-10.1 MG/DL Corrected Calcium 8.5-10.1 MG/DL Total Bilirubin 0.2 0.1-1.0 MG/DL Aspartate Amino Transf (AST/SGOT) 15 5-34 U/L Alanine Aminotransferase (ALT/SGPT) 10 0-55 U/L Alkaline Phosphatase 92 40-136 U/L Total Protein 8.7 H 6.4-8.2 GM/DL Albumin 4.6 H 3.2-4.5 GM/DL My Orders Orders - FELICIA,MADINA K DO Ed Iv/Invasive Line Start (12/20/19 23:12) Urine Bedside (12/20/19 23:12) Cbc With Automated Diff (12/20/19 23:12) Comprehensive Metabolic Panel (12/20/19 23:12) Protime With Inr (12/20/19 23:12) Partial Thromboplastin Time (12/20/19 23:12) Ua Culture If Indicated (12/20/19 23:12) Urine Bedside (12/20/19 23:17) Urine Culture (12/20/19 23:03) Neisseria Gonorrhea Swab (12/21/19 00:05) Chlam Dna Probe (12/21/19 00:05) Genital Culture (12/21/19 00:05) Wet Prep (12/21/19 00:05) Donato Prep (12/21/19 00:05) Vital Signs/I&O 12/20/19 12/21/19 22:59 00:15 Temp 36.7 37.2 Pulse 97 68 Resp 20 16 B/P (MAP) 126/79 (95) 126/69 Pulse Ox 98 98 O2 Delivery Room Air Room Air Capillary Refill : Less Than 3 Seconds Blood Pressure Mean: 95 Progress Note : Progress Note DURING PELVIC AND RECTAL EXAM, I ASKED PT AGAIN WHERE HER BLEEDING WAS COMING FROM--PT NOW STATES THAT HER BLEEDING HAS BEEN FROM HER RECTAL AREA FOR THE LAST 3 WEEKS ( PT APPEARS TO BE VERY IMMATURE AND NOT KNOWLEDGEABLE OF HER ANATOMY) HAS CHRONIC CONSTIPATION, AND HAD BM TONIGHT, AND IT WAS HARD AND SHE HAD TO STRAIN ALOT, THEN SHE HAD BLEEDING SHE NOW STATES THAT THE BLEEDING IS ONLY WHEN SHE HAS A BM, AND IS NORMALLY BLOOD ON TISSUE WITH WIPING , BUT HAS NOTICED BLOOD IN THE TOILET BEFORE TONIGHT WELL, OFF AND ON--THIS IS NOT A NEW PROBLEM FOR HER--REPEATS "I'VE HAD THIS BEFORE" C/O RECTAL PAIN AFTER BM Departure Impression Primary Impression: Urinary tract infection Additional Impressions: DUB (dysfunctional uterine bleeding) Anal fissure Chronic constipation Disposition: HOME, SELF-CARE Condition: Stable Departure-Patient Inst. Referrals: [facility] (PCP/Family) Primary Care Physician GURJIT BALLESTEROS DO Patient Instructions: Absent or Irregular Periods, Anal Fissure (DC), IRREGULAR VAGINAL BLEEDING, Urinary Tract Infection, Adult (DC) Add. Discharge Instructions: TAKE MIRALAX DAILY, YOU MAY TAKE TWICE A DAY IF NEEDED, TO KEEP STOOLS SOFT DO NOT STRAIN WHEN HAVING A BM TYLENOL NEEDED FOR PAIN FOLLOW UP WITH DR BALLESTEROS IN 2-3 DAYS FOR FURTHER CARE All discharge instructions reviewed with patient and/or family. Voiced unders tanding. Scripts Hydrocortisone Acetate (Anusol-Hc) 25 Mg Supp.rect 25 MG RC TID PRN for PAIN, #15 SUPP.RECT Prov: MADINA DUARTE DO 12/21/19 Nitrofurantoin Monohyd/M-Cryst (Macrobid 100 mg Capsule) 100 Mg Capsule 1 TAB PO BID, #20 CAP Prov: MADINA DUARTE DO 12/21/19 MADINA DUARTE DO Dec 21, 2019 00:10
[2019-12-21 00:15] VITALS: BP 126/69
== END 2019-12-21 00:15 | disposition home or self-care (01) ==
LOC: EDUNIT# 22:52 → ER 22:54
DX: N39.0 Urinary tract infection, site not specified (principal); N93.8 Other specified abnormal uterine and vaginal bleeding; K60.2 Anal fissure, unspecified; K59.09 Other constipation; G43.909 Migraine, unspecified, not intractable, without status migrainosus; E28.2 Polycystic ovarian syndrome; K21.9 Gastro-esophageal reflux disease without esophagitis; F41.9 Anxiety disorder, unspecified; L30.9 Dermatitis, unspecified; Z87.442 Personal history of urinary calculi
CPT/HCPCS: 36415; 80053; 81000; 84703; 85025; 85610; 85730; 87070; 87088; 87205; 87210; 87491; 87591

== ENCOUNTER 2019-12-22 18:47 | Emergency (ER) | payer SELFPAY ==
[~2019-12-22] VITALS: Ht 160 cm; Wt 95.0 kg
[~2019-12-22 18:47] MED LIST changes: +HYDR25SU28 RC
[2019-12-22] MEDS ORDERED: LACTATED RINGERS 1,000 ML IV ONE (19:42)
[2019-12-22] MEDS ORDERED: KETOROLAC 30 MG/ML VIAL IVP STA (19:42)
[2019-12-22] MEDS ORDERED: fentaNYL INJECTION 100 MCG/2 ML AMP IVP STA (19:42)
[2019-12-22] MEDS ORDERED: ONDANSETRON 4 MG/2 ML (SDV) Z0FRAN IVP ONE (19:45)
--- NOTE | 2019-12-22 20:23 | ED General ---
General Chief Complaint: Rect Problems Stated Complaint: ABNORMAL VAG BLEEDING Nursing Triage Note: c/o rectal bleeding for the past 3 weeks. States that it is worse for 2 days. States that she was dx with fissure a few days ago. c/o RLQ pain. Nursing Sepsis Screen: No Definite Risk Source of Information: Patient Exam Limitations: No Limitations (RHONDA ZAMAN MD) History of Present Illness Date Seen by Provider: Dec 22, 2019 Time Seen by Provider: 19:34 Initial Comments Here with complaint of rectal bleeding she reports for the past 3 weeks. States it's been worse over the last 2 days. Seen 2 days ago for the same and found to have fissure and also urinary tract infection. Instructed to start MiraLAX as well as antibiotics. She states that she has started that. Does complain of nausea with intake of food or fluids and states that she is having rectal bleeding each time now. She has been using the topical cream. Has appointment with surgeon on Wednesday. That is Dr. Streeter. Timing/Duration: 1-2 Days Severity: Moderate Associated Systoms: No Chest Pain, No Cough, No Fever/Chills; Nausea/Vomiting; No Shortness of Air, No Weakness (RHONDA ZAMAN MD) Allergies and Home Medications Allergies Coded Allergies: sumatriptan (Verified Allergy, Unknown, 09/15/18) sumatriptan succinate (Verified Allergy, Unknown, 09/15/18) Home Medications Hydrocortisone Acetate 25 Mg Supp.rect, 25 MG RC TID PRN for PAIN Prescribed by: MADINA DUARTE on 12/21/199 Nitrofurantoin Monohyd/M-Cryst 100 Mg Capsule, 1 TAB PO BID Prescribed by: MADINA DUARTE on 12/21/199 Sulfamethoxazole/Trimethoprim 1 Each Tablet, 1 EACH PO BID Prescribed by: RHONDA ZAMAN on 09/23/19 0204 Patient Home Medication List Home Medication List Reviewed: Yes (RHONDA ZAMAN MD) Review of Systems Review of Systems Constitutional: see HPI; No chills, No fever EENTM: no symptoms reported Respiratory: no symptoms reported Cardiovascular: no symptoms reported Gastrointestinal: see HPI, other (rectal bleeding) Genitourinary: see HPI; No dysuria, No pain; other (reports abnormal menstrual periods with last period in October but has had intermittent vaginal bleeding or rectal bleeding.) Musculoskeletal: no symptoms reported Psychiatric/Neurological: No Symptoms Reported (RHONDA ZAMAN MD) Past Sqbavad-Rutsev-Pgzzrb Hx Past Med/Social Hx: Reviewed Nursing Past Med/Soc Hx (RHONDA ZAMAN MD) Patient Social History Alcohol Use: Denies Use Recreational Drug Use: No Smoking Status: Never a Smoker Recent Foreign Travel: No Contact w/Someone Who Travel: No Recent Infectious Disease Expo: No Recent Hopitalizations: No (RHONDA ZAMAN MD) Immunizations Up To Date Tetanus Booster (TDap): Less than 5yrs PED Vaccines UTD: Yes Date of Influenza Vaccine: Jun 06, 2013 (RHONDA ZAMAN MD) Seasonal Allergies Seasonal Allergies: No (RHONDA ZAMAN MD) Past Medical History Surgeries: Yes (MOLES REMOVED ON NECK X3, COLONOSCOPY ) Gallbladder, Rectal Respiratory: Yes (ASTHMA YOUNG CHILD- NO LONGER) Cardiac: No Neurological: Yes (migraines) Headaches /Migraines : No Last Menstrual Period: Oct 18, 2019 Reproductive Disorders: No Female Reproductive Disorders: Polycystic Ovarian Dis Sexually Transmitted Disease: No HIV/AIDS: No Genitourinary: Yes Kidney Stones Gastrointestinal: Yes (ANAL FISSURE) Gastroesophageal Reflux, Chronic Constipation Musculoskeletal: No Endocrine: No Loss of Vision: Denies Hearing Impairment: Denies Cancer: No Psychosocial: Yes Anxiety Integumentary: Yes Eczema Blood Disorders: No Adverse Reaction/Blood Tranf: No (N/A) (RHONDA ZAMAN MD) Family Medical History Reviewed Nursing Family Hx (RHONDA ZAMAN MD) Arthritis 19 MOTHER Asthma G8 BROTHER G8 SISTER Gastroenteritis 19 MOTHER Headache disorder 19 FATHER 19 MOTHER Hypertension 19 FATHER Visual disorder G8 SISTER (LAZY EYE) Physical Exam Vital Signs Vital Signs - First Documented 12/22/19 19:15 Temp 36.9 Pulse 92 Resp 20 B/P (MAP) 141/82 (101) (DUSTIN ALTAMIRANO APRN) Vital Signs Capillary Refill : Less Than 3 Seconds (RHONDA ZAMAN MD) Height, Weight, BMI Height: 5'3.00" Weight: 204lbs. 0.0oz. [id number]; 37.00 BMI Method:Stated General Appearance: No Apparent Distress, WD/WN HEENT: PERRL/EOMI, Pharynx Normal Neck: Non Tender, Supple Respiratory: Lungs Clear, Normal Breath Sounds Cardiovascular: Regular Rate, Rhythm, No Murmur Gastrointestinal: Non Tender, Soft Back: Normal Inspection, No CVA Tenderness, No Vertebral Tenderness Extremity: Normal Range of Motion, Non Tender Neurologic/Psychiatric: Alert, Oriented x3 Skin: Normal Color, Warm/Dry (RHONDA ZAMAN MD) Progress/Results/Core Measures Suspected Sepsis Recent Fever Within 48 Hours: No Infection Criteria Present: None New/Unexplained Altered Menta: No Sepsis Screen: No Definite Risk SIRS Temperature: Pulse: 92 Respiratory Rate: 20 Blood Pressure 141 /82 Mean: 101 (RHONDA ZAMAN MD) Results/Orders Lab Results Laboratory Tests Test 12/22/19 20:40 Range/Units White Blood Count 7.9 4.3-11.0 10^3/uL Red Blood Count 4.09 L 4.35-5.85 10^6/uL Hemoglobin 12.1 11.5-16.0 G/DL Hematocrit 37 35-52 % Mean Corpuscular Volume 91 80-99 FL Mean Corpuscular Hemoglobin 30 25-34 PG Mean Corpuscular Hemoglobin Concent 32 32-36 G/DL Red Cell Distribution Width 12.6 10.0-14.5 % Platelet Count 301 130-400 10^3/uL Mean Platelet Volume 10.7 H 7.4-10.4 FL Neutrophils (%) (Auto) 64 42-75 % Lymphocytes (%) (Auto) 24 12-44 % Monocytes (%) (Auto) 10 0-12 % Eosinophils (%) (Auto) 2 0-10 % Basophils (%) (Auto) 0 0-10 % Neutrophils # (Auto) 5.1 1.8-7.8 X 10^3 Lymphocytes # (Auto) 1.9 1.0-4.0 X 10^3 Monocytes # (Auto) 0.8 0.0-1.0 X 10^3 Eosinophils # (Auto) 0.1 0.0-0.3 10^3/uL Basophils # (Auto) 0.0 0.0-0.1 10^3/uL Sodium Level 141 135-145 MMOL/L Potassium Level 3.7 3.6-5.0 MMOL/L Chloride Level 108 H 98-107 MMOL/L Carbon Dioxide Level 23 21-32 MMOL/L Anion Gap 10 5-14 MMOL/L Blood Urea Nitrogen 5 L 7-18 MG/DL Creatinine 0.73 0.60-1.30 MG/DL Estimat Glomerular Filtration Rate > 60 BUN/Creatinine Ratio 7 Glucose Level 92 70-105 MG/DL Calcium Level 8.9 8.5-10.1 MG/DL Corrected Calcium 8.8 8.5-10.1 MG/DL Total Bilirubin 0.2 0.1-1.0 MG/DL Aspartate Amino Transf (AST/SGOT) 11 5-34 U/L Alanine Aminotransferase (ALT/SGPT) 10 0-55 U/L Alkaline Phosphatase 74 40-136 U/L Total Protein 7.3 6.4-8.2 GM/DL Albumin 4.1 3.2-4.5 GM/DL Serum Test, Qualitative NEGATIVE NEGATIVE (DUSTIN ALTAMIRANO APRN) Medications Given in ED Current Medications Medications Dose Ordered Sig/Sushil Route Start Time Stop Time Status Last Admin Dose Admin Lactated Ringer's 1,000 ml @ 0 mls/hr Q0M ONCE IV 12/22/19 19:42 12/22/19 19:44 DC 12/22/19 20:25 999 MLS/HR Ondansetron HCl 4 mg ONCE ONCE IVP 12/22/19 19:45 12/22/19 19:46 DC 12/22/19 20:29 4 MG (DUSTIN ALTAMIRANO APRN) Vital Signs/I&O 12/22/19 12/22/19 19:15 20:25 Temp 36.9 36.4 Pulse 92 Resp 20 B/P (MAP) 141/82 (101) (DUSTIN ALTAMIRANO APRN) Vital Signs/I&O Capillary Refill : Less Than 3 Seconds (RHONDA ZAMAN MD) Blood Pressure Mean: 101 Progress Note : Progress Note Seen and evaluated. IV, labs, LR 1 L bolus, Toradol 30 mg IV and fentanyl 25 g IV ordered. Monitor patient. (RHONDA ZAMAN MD) Departure Impression Primary Impression: Anal fissure Additional Impression: Rectal bleeding Disposition: HOME, SELF-CARE Condition: Stable Departure-Patient Inst. Referrals: [facility] (PCP/Family) Primary Care Physician Patient Instructions: Anal Fissure Add. Discharge Instructions: Rectal bleeding should subside over the course of the next couple of days, it may recur and the bowel movements. So instead of wiping after bowel movements it might be a better idea to get in the shower that there is no mechan ical type removal of the clot has formed over the tear in the skin. Additionally, keeping the stools very soft will help to avoid any additional tearing. Use the MiraLAX daily as directed and increase water and fiber intake. you had a few infectious-looking cells on vaginal swab today, for that reason we are placing him on an antibiotic called metronidazole. U All discharge instructions reviewed with patient and/or family. Voiced understanding. Scripts Polyethylene Glycol 3350 (Miralax) 17 Gm Powd.pack 17 GM PO BID, #14 EACH Prov: DUSTIN ALTAMIRANO APRN 12/22/19 Metronidazole (Metronidazole) 500 Mg Tablet 500 MG PO BID, #14 TAB 0 Refills Prov: DUSTIN ALTAMIRANO APRN 12/22/19 RHONDA ZAMAN MD Dec 22, 2019 20:23 DUSTIN ALTAMIRANO APRN Dec 22, 2019 21:29
[2019-12-22 20:52] LABS: BASOPHILS % (AUTO) 0 % (0-10); EOSINOPHILS # (AUTO) 0.1 10^3/uL (0.0-0.3); EOSINOPHILS % (AUTO) 2 % (0-10); HEMATOCRIT 37 % (35-52); HEMOGLOBIN 12.1 G/DL (11.5-16.0); LYMPHOCYTES # (AUTO) 1.9 X 10^3 (1.0-4.0); LYMPHOCYTES % (AUTO) 24 % (12-44); MEAN CORPUSCULAR HEMOGLOBIN 30 PG (25-34); MEAN CORPUSCULAR HGB CONC 32 G/DL (32-36); MEAN CORPUSCULAR VOLUME 91 FL (80-99); MEAN PLATELET VOLUME 10.7 FL (7.4-10.4); MONOCYTES # (AUTO) 0.8 X 10^3 (0.0-1.0); MONOCYTES % (AUTO) 10 % (0-12); NEUTROPHILS # (AUTO) 5.1 X 10^3 (1.8-7.8); NEUTROPHILS % (AUTO) 64 % (42-75); PLATELET COUNT 301 10^3/uL (130-400); RED CELL DISTRIBUTION WIDTH 12.6 % (10.0-14.5); WHITE BLOOD COUNT 7.9 10^3/uL (4.3-11.0)
[2019-12-22 21:12] LABS: ALANINE AMINOTRANSFERASE 10 U/L (0-55); ALBUMIN 4.1 GM/DL (3.2-4.5); ALKALINE PHOSPHATASE 74 U/L (40-136); BILIRUBIN,TOTAL 0.2 MG/DL (0.1-1.0); BUN/CREATININE RATIO 7; CALCIUM 8.9 MG/DL (8.5-10.1); CARBON DIOXIDE 23 MMOL/L (21-32); CHLORIDE 108 MMOL/L (98-107); CREATININE SERUM 0.73 MG/DL (0.60-1.30); GFR ESTIMATED > 60; GLUCOSE 92 MG/DL (70-105); POTASSIUM 3.7 MMOL/L (3.6-5.0); SODIUM 141 MMOL/L (135-145); TOTAL PROTEIN 7.3 GM/DL (6.4-8.2)
[2019-12-22 21:15] VITALS: BP 125/89
[2019-12-22] MEDS ORDERED: METR-145 PO (21:30)
[2019-12-22] MEDS ORDERED: POLY17PO6 PO (21:30)
[2019-12-22 21:50] VITALS: BP 125/89
== END 2019-12-22 21:50 | disposition home or self-care (01) ==
LOC: EDUNIT# 18:47 → ER 18:48
DX: K60.2 Anal fissure, unspecified (principal); Z88.8 Allergy status to other drugs, medicaments and biological substances; Z82.49 Family history of ischemic heart disease and other diseases of the circulatory system
CPT/HCPCS: 36415; 80053; 84703; 85025

== ENCOUNTER 2019-12-28 06:59 | Outpatient (CLI) | payer SELFPAY ==
[~2019-12-28] VITALS: Ht 160 cm; Wt 86.0 kg
[~2019-12-28 06:59] MED LIST changes: +METR-145 PO; +POLY17PO6 PO
== END 2019-12-28 10:05 | disposition home or self-care (01) ==
LOC: PREOP 06:59
PROVIDERS: ATTEND Surgery
DX: Z01.818 Encounter for other preprocedural examination (principal)

== ENCOUNTER 2020-09-18 03:53 | Emergency (ER) | payer SELFPAY ==
[~2020-09-18] VITALS: Ht 160 cm; Wt 86.2 kg
--- NOTE | 2020-09-18 04:14 | ED Cough/URI ---
General Chief Complaint: Cough/Cold/Flu Symptoms Stated Complaint: CP,SOB,CONGESTED,ADLER Source: patient History of Present Illness Date Seen by Provider: Sep 18, 2020 Time Seen by Provider: 04:10 Initial Comments PT ARRIVES VIA POV FROM HOME "COVID SYMPTOMS" UNABLE TO TASTE OR SMELL X 4 DAYS HAS HAD SOME NASAL CONGESTION C/O NON-PRODUCTIVE COUGH AND SOME SHORTNESS OF BREATH X 1 WEEK C/O HEADACHE C/O MILD NAUSEA NO FEVER NO BODY ACHES NO DIARRHEA C/O MILD SORE THROAT TONIGHT AROUND 1999 SHE STARTED HAVING CHEST PAIN--HURTS TO TAKE IN A DEEP BREATH HAS NOT SOUGHT CARE UNTIL NOW TOOK IBUPROFEN AT 2000 THIS EVENING WITH SOME IMPROVEMENT IN CHEST DISCOMFORT OTHERWISE HAS NOT TAKEN ANYTHING FOR SYMPTOMS PT'S FRIEND WAS DX WITH COVID-19 YESTERDAY AND WAS IN ER A SHORT WHILE AGO. FRIEND HAS BEEN SICK FOR 2 WEEKS. PT GOES BACK AND FORTH BETWEEN MOM'S HOUSE AND DAD'S HOUSE PT IS NOT IN SCHOOL AND IS NOT WORKING PT SMOKES 1/2 PPD NO HISTORY OF RESPIRATORY PROBLEMS LMP 07/21/20. NO CONTROL, IS SEXUALLY ACTIVE. STATES SHE HAS PCOS AND PERIODS ALWAYS IRREGULAR. PCP: BÁRBARA Allergies and Home Medications Allergies Coded Allergies: sumatriptan (Verified Allergy, Unknown, 09/18/20) sumatriptan succinate (Verified Allergy, Unknown, 09/18/20) Home Medications Guaifenesin/Dextromethorphan 1 Each Tbmp.12hr, 1 EACH PO BID Prescribed by: MADINA DUARTE on 09/18/20 0505 Ondansetron 4 Mg Tab.rapdis, 4 MG PO Q4H Prescribed by: MADINA DUARTE on 09/18/20 0505 Patient Home Medication List Home Medication List Reviewed: Yes Review of Systems Review of Systems Constitutional: no symptoms reported; No chills, No diaphoresis, No fever, No malaise, No weakness EENTM: see HPI, nose congestion, throat pain Respiratory: see HPI, cough, short of breath Cardiovascular: see HPI, chest pain Gastrointestinal: see HPI; No abdominal pain, No diarrhea, No loss of appetite; nausea; No vomiting Genitourinary: no symptoms reported LMP: Jul 21, 2020 Musculoskeletal: no symptoms reported Skin: no symptoms reported Psychiatric/Neurological: See HPI, Headache Hematologic/Lymphatic: No Symptoms Reported Immunological/Allergic: no symptoms reported Past Mizqnxr-Ysvzpp-Dogiek Hx Past Med/Social Hx: Reviewed and Corrections made Patient Social History Smoking Status: Current Everyday Smoker (1/2 PPD) Type Used: Cigarettes 2nd Hand Smoke Exposure: Yes Recent Hopitalizations: No Immunizations Up To Date Tetanus Booster (TDap): Less than 5yrs PED Vaccines UTD: Yes Date of Influenza Vaccine: Jun 06, 2013 Seasonal Allergies Seasonal Allergies: No Past Medical History Surgeries: Yes (MOLES REMOVED ON NECK X3, COLONOSCOPY,FISSURES) Gallbladder, Rectal Respiratory: Yes (ASTHMA YOUNG CHILD- NO LONGER) Cardiac: No Neurological: Yes (migraines) Headaches /Migraines Reproductive Disorders: Yes (IRREGULAR PERIODS. ) Female Reproductive Disorders: Denies, Menstrual Problems, Polycystic Ovarian Dis Sexually Transmitted Disease: No HIV/AIDS: No Genitourinary: Yes Kidney Stones Gastrointestinal: Yes Gastroesophageal Reflux, Chronic Constipation Musculoskeletal: No Endocrine: No HEENT: No Loss of Vision: Denies Hearing Impairment: Denies Cancer: No Psychosocial: Yes Anxiety Integumentary: Yes Eczema Blood Disorders: Yes (HX ANEMIA) Adverse Reaction/Blood Tranf: No (N/A) Family Medical History Arthritis 19 MOTHER Asthma G8 BROTHER G8 SISTER Gastroenteritis 19 MOTHER Headache disorder 19 FATHER 19 MOTHER Hypertension 19 FATHER Visual disorder G8 SISTER (LAZY EYE) No Family History of: AIDS Abdominal aortic aneurysm Alec's disease Alcoholism Alzheimer's disease Aphasia Cancer of mouth Cardiovascular disease Cataracts Colon cancer Completed stroke Congenital disease Congenital heart disease Coronary thrombosis Cystic fibrosis Deafness or hearing loss Dementia Diabetes mellitus Drug abuse Dysphasia Fibrocystic disease of breast Glaucoma Hypercholesterolemia Infertility Kidney disease Myocardial infarction Neoplasm Osteoporosis Parkinson's disease Prostate cancer Psychosocial problem Respiratory disorder Seizure disorder Severe allergy Thyroid disease Tuberculosis Physical Exam Vital Signs - First Documented 09/18/20 09/18/20 04:03 04:10 Pulse 95 Resp 20 B/P (MAP) 122/90 (101) Pulse Ox 100 O2 Delivery Room Air Capillary Refill : Height: 5'3.00" Weight: 204lbs. 0.0oz. 92.895244oy; 33.59 BMI Method:Stated General Appearance: WD/WN, no apparent distress, other (DOES NOT APPEAR ILL OR TO BE IN ANY DISCOMFORT OR DISTRESS. GIGGLING, SMILING. 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, no motor/sensory deficits, alert, normal mood/affect, oriented x 3 Skin: normal color, warm/dry; No rash Progress/Results/Core Measures Suspected Sepsis SIRS Temperature: Pulse: Respiratory Rate: Blood Pressure / Mean: Results/Orders Lab Results Laboratory Tests Test 09/18/20 04:15 Range/Units Coronavirus 2019 (MARIN) Positive H Negative Micro Results Microbiology 09/18/20 Influenza Types A,B Antigen (DOROTHY) - Final, Complete My Orders Orders - MADINA DUARTE DO Ekg Tracing (09/18/20 03:57) Monitor-Rhythm Ecg Trace Only (09/18/20 03:57) Chest 1 View, Ap/Pa Only (09/18/20 03:57) Coronavirus Sars-Cov-2 So 2018 (09/18/20 03:57) Covid 19 Inhouse Test (09/18/20 03:57) Urine Bedside (09/18/20 04:07) Influenza A And B Antigens (09/18/20 04:15) Vital Signs/I&O 09/18/20 09/18/20 04:03 04:10 Pulse 95 Resp 20 B/P (MAP) 122/90 (101) Pulse Ox 100 O2 Delivery Room Air Capillary Refill : Progress Note : Progress Note PLACED IN ISOLATION ROOM PPE WORN AT ALL TIMES COVID-19 TESTING PERFORMED PT ADVISED OF NEED FOR QUARANTINE. NO COUGH, NO DYSPNEA, NO HYPOXIA AT ANY TIME DURING ER STAY VITALS STABLE. O2 SATS 100% ON ROOM AIR ECG Initial ECG Impression Date: Sep 18, 2020 Initial ECG Impression Time: 04:20 Initial ECG Rate: 82 Initial ECG Rhythm: Normal Sinus Initial ECG Impression: Normal Diagnostic Imaging Comments CXR--NO ACUTE PROCESS, PENDING RADIOLOGIST REVIEW Reviewed: Reviewed by Me Departure Impression Primary Impression: COVID-19 virus infection Disposition: 01 HOME, SELF-CARE Condition: Stable Departure-Patient Inst. Referrals: [facility] (PCP/Family) Primary Care Physician Patient Instructions: Coronavirus Disease 2019 (COVID-19) (DC), Preventing the Spread of an Infectious Disease Add. Discharge Instructions: HOME, REST LOTS OF CLEAR LIQUIDS TYLENOL 1 GRAM/ MOTRIN 800 MG 4 TIMES A DAY NEEDED FOR PAIN OR FEVER FOLLOW UP WITH YOUR DR NEEDED RETURN TO ER IF YOU DEVELOP SEVERE SHORTNESS OF BREATH QUARANTINE YOURSELF, ALL HOUSEHOLD MEMBERS AND CLOSE CONTACTS FOR 2 WEEKS OR UNTIL CLEARED BY DR. OR HEALTH DEPT. All discharge instructions reviewed with patient and/or family. Voiced understanding. Scripts Guaifenesin/Dextromethorphan (Mucinex Dm ER 1,200-60 mg Tab) 1 Each Tbmp.12hr 1 EACH PO BID, #20 EA Prov: MADINA DUARTE DO 09/18/20 Ondansetron (Ondansetron Odt) 4 Mg Tab.rapdis 4 MG PO Q4H for Nausea/Vomiting, #10 TAB Prov: MADINA DUARTE DO 09/18/20 MADINA DUARTE DO Sep 18, 2020 04:14
[2020-09-18] MEDS ORDERED: ONDA4TAB11 PO (05:05)
[2020-09-18] MEDS ORDERED: GUAI1TBM19 PO (05:05)
[2020-09-18 05:09] VITALS: BP 106/67
--- NOTE | 2020-09-18 07:13 | Diagnostic Imaging Report ---
Indication: Chest pain Upright portable chest shows normal heart size and vascularity. The lungs are clear. There is no effusion or pneumothorax. There is no bony abnormality. IMPRESSION: Normal portable chest. Dictated by: Dictated on workstation # [id number]
== END 2020-09-18 05:08 | disposition home or self-care (01) ==
LOC: EDUNIT# 03:53 → ER 03:57
DX: U07.1 COVID-19 (principal); F17.210 Nicotine dependence, cigarettes, uncomplicated; Z88.8 Allergy status to other drugs, medicaments and biological substances; Z82.49 Family history of ischemic heart disease and other diseases of the circulatory system; Z82.61 Family history of arthritis
CPT/HCPCS: 71045; 84703; 87804; 93005; 93041; U0002; 87635